=== PATIENT | female | born 1945 | race Caucasian/White ===

== ENCOUNTER → 2020-09-11 15:42 | Outpatient (BNVA) | payer MEDICARE, OTHER, SELFPAY | PROVIDERS: PCP Physician Assistant; Visit Provider Internal Medicine | DX: J45.909 Unspecified asthma, uncomplicated (principal); Z79.51 Long term (current) use of inhaled steroids | CPT/HCPCS: 99212 ==

== ENCOUNTER → 2021-08-19 14:02 | Outpatient (BNVA) | payer MEDICARE, OTHER, SELFPAY | PROVIDERS: PCP Physician Assistant; Visit Provider Internal Medicine | DX: J45.909 Unspecified asthma, uncomplicated (principal); J30.9 Allergic rhinitis, unspecified | CPT/HCPCS: 99212 ==

== ENCOUNTER → 2022-04-13 13:47 | Outpatient (BNVA) | payer MEDICARE, OTHER, SELFPAY | PROVIDERS: PCP Internal Medicine; Visit Provider Internal Medicine | DX: J40 Bronchitis, not specified as acute or chronic (principal); J45.909 Unspecified asthma, uncomplicated | CPT/HCPCS: 71046; 99212 ==

== ENCOUNTER 2022-04-13 14:33 | Outpatient (REF) | payer MEDICARE, OTHER, SELFPAY ==
--- NOTE | ~2022-04-13 | XR_ITS ---
EXAMINATION: XR CHEST CLINICAL INFORMATION: Bronchitis COMPARISON: Previous chest x-ray July 2012 TECHNIQUE: 2 views of the chest were obtained. FINDINGS: The cardiac silhouette does not appear enlarged. There are increased central markings and bronchial wall thickening suggestive of colitis. The lungs are otherwise clear. No evidence of a lobar pneumonia. The thoracic aorta is tortuous. No pleural effusion or pneumothorax. Degenerative changes of the spine. XR/XR chest 2V IMPRESSION: Increased central markings and bronchial wall thickening suggestive of bronchitis. No evidence of a lobar pneumonia.
== END 2022-04-13 14:34 | disposition home or self-care (01) ==
LOC: HO.XRAY 14:33
PROVIDERS: PCP Internal Medicine; Visit Provider Internal Medicine
DX: Z13.89 Encounter for screening for other disorder (principal)
CPT/HCPCS: 71046

== ENCOUNTER → 2022-07-19 14:02 | Outpatient (BNVA) | payer MEDICARE, OTHER, SELFPAY | PROVIDERS: PCP Internal Medicine; Visit Provider Internal Medicine | DX: J45.909 Unspecified asthma, uncomplicated (principal); J30.9 Allergic rhinitis, unspecified | CPT/HCPCS: 99212 ==

== ENCOUNTER 2023-01-17 13:44 | Outpatient (AMB) | payer MEDICARE, OTHER, SELFPAY ==
--- NOTE | 2023-01-17 13:48 | A.OFFVIS_ITS ---
Intake Vital Signs 01/17/23 13:52 Height 5 ft 3 in Weight 206 lb BMI 36.5 BP 110/58 L Blood Pressure Location Lt brachial Position Sitting Pulse 101 H Pulse Source Pulse Oximeter Pulse Oximetry (%) 97 Oxygen Delivery Method Room Air Intake Visit Reasons: Asthma Intake Note: pt is here for follow up and states she feels good, breathing is alright. pt needs a refill on flonase, please send in 3 months at a time, she is set to her mail away pharamacy. Allergies prednisone Adverse Reaction (Severe, Uncoded 01/17/23 14:09) Irritable Medication List - Last Reconciled 01/17/23 by Feliberto Godinez MD amlodipine 5 mg PO DAILY fluticasone propion-salmeterol 250-50 mcg/dose (Advair Diskus) 1 inh inhalation BID 90 days fluticasone propionate 50 mcg/actuation 2 sprays intranasal DAILY PRN hydrochlorothiazide 12.5 mg PO DAILY ipratropium bromide 17 mcg/actuation (Atrovent HFA) 2 puffs inhalation Q8H PRN lisinopril 40 mg PO DAILY omeprazole 20 mg PO DAILY PRN rosuvastatin 10 mg PO BEDTIME Do you need a note to return to daycare/school/sports/work: No HPI Asthma HPI Details 77 years old very pleasant female is here for 6 months follow-up for bronchial asthma and allergic rhinitis. Breathing jurado she has been very stable. She does have mild intermittent nasal congestion but it remains under controlled with the use of Flonase. Breathing status remains well controlled and she uses ipratropium bromide HFA as rescue inhaler only once in a while. She has had no acute respiratory infection. [facility] Medical History Allergic rhinitis Bronchial asthma Bronchitis Social History Patient Tobacco Use Status: Former Tobacco user Years Smoked: 28 Review of Systems Const All systems reviewed & are unremarkable except as noted in HPI and below ENT Reports nasal congestion (Especially in the last 2 weeks) Card Denies chest pain and Denies leg edema Resp Reports cough and Reports wheezing (only once in a while .) GI Reports no additional complaints Musc Reports back pain (low back discomfort ) Neuro Reports no additional complaints Psych Reports no additional complaints Endo Reports no additional complaints Aller/Immun Reports wheezing (only once in a while .) Physical Exam Vital Signs: Last Vital Signs Pulse 101 H 01/17/23 13:52 BP 110/58 L 01/17/23 13:52 Pulse Ox 97 01/17/23 13:52 Oxygen Delivery Method Room Air 01/17/23 13:52 BMI result Body Mass Index 36.5 Const General: comfortable, no acute distress, alert and awake Orientation/consciousness: patient oriented x3 HEENT Head: Yes normal to inspection General nose exam: No nasal polyps present, No nasal discharge present and Other nasal findings present (Has bilateral nasal congestion) Face and sinus: Yes sinuses nontender Mouth: oropharynx normal Throat: Yes posterior oropharynx normal Eyes General: appearance normal, both eyes and all related structures Neck Neck: Yes normal visual inspection, Yes no lymphadenopathy, Yes trachea midline and Yes no JVD Thyroid: Thyroid normal Chest Chest palpation & inspection: normal inspection of the chest, normal palpation of entire chest wall and no tenderness Resp Other: Percussion note is resonant, breath sounds are slightly distant but equal on both sides. Lungs are clear on both sides , no wheezes rhonchi or Creps are heard today. Cardio Palpation: normal PMI Rate: regular rate Rhythm: regular rhythm Heart sounds: no gallops and no murmurs GI Palpation (GI): Soft to palpation, nontender, No hepatosplenomegaly present and no masses Auscultation: normal bowel sounds Back/Spine/Pelvis Thoracic/Lumbar Spine: thoracic and lumbar spine normal to inspection Skin General skin exam: no rashes or lesions noted Neuro General: patient oriented x3 and no focal motor deficits Cranial nerves: Yes CN's II-XII intact bilaterally Extrem General: Yes normal to inspection, Yes no clubbing, cyanosis or edema and Yes no calf tenderness Psych Appearance: grossly normal and well kempt Speech and movement: Normal speech and movement present Assessment & Plan Assessment & Plan (1) Bronchial asthma: Comment: BRONCHIAL ASTHMA Treatment plan: Advair 250-50 1 inhalation b.i.d., but told to cut it down to only once a day if her symptoms are under control. Atrovent MDI 2 puffs Q 6 hours p.r.n. for acute episodes and may use before any heavy physical exertion. Code(s): J45.909 - Unspecified asthma, uncomplicated (2) Allergic rhinitis: Comment: She does have a bout of the allergic rhinitis/sinusitis, in the last few weeks. [place] Flonase 2 spray each nostril daily Also may use Zyrtec 10 mg once a day p.r.n. Code(s): J30.9 - Allergic rhinitis, unspecified Medications: Refilled fluticasone propionate 50 mcg/actuation 2 sprays intranasal DAILY PRN 16 grams 3RF FOR ALLERGIC RHINITIS Coding Level of Care Code Est Pt Level 3 (20324) Diagnoses Bronchial asthma J45.909 Allergic rhinitis J30.9
[2023-01-17 13:52] VITALS: BP 110/58; PULSE 101; O2SAT 97; BMI 36.5
== END 2023-01-17 14:21 | disposition home or self-care (01) ==
PROVIDERS: PCP Internal Medicine; Visit Provider Internal Medicine
DX: J45.909 Unspecified asthma, uncomplicated (principal)
CPT/HCPCS: 99213

== ENCOUNTER → 2023-01-17 13:44 | Outpatient (BNVA) | payer MEDICARE, OTHER, SELFPAY | PROVIDERS: PCP Internal Medicine; Visit Provider Internal Medicine | DX: J45.909 Unspecified asthma, uncomplicated (principal) | CPT/HCPCS: 99212 ==

== ENCOUNTER 2023-07-28 15:57 | Outpatient (AMB) | payer MEDICARE, OTHER, SELFPAY ==
[2023-07-28 16:03] VITALS: BP 120/60; PULSE 87; O2SAT 97; BMI 37.0
--- NOTE | 2023-07-28 16:03 | A.OFFVIS_ITS ---
Intake Vital Signs 07/28/23 16:03 Height 5 ft 3 in Weight 209 lb BMI 37.0 BP 120/60 Blood Pressure Location Lt brachial Position Sitting Pulse 87 Pulse Source Pulse Oximeter Pulse Oximetry (%) 97 Oxygen Delivery Method Room Air Intake Visit Reasons: Asthma Intake Note: pt is here for follow up and states she coughs up thick white phlegm, about 2x a day this happpens. She has a questions on how to use her inhalers. [employer]er Required: No Allergies prednisone Adverse Reaction (Severe, Uncoded 07/28/23 16:29) Irritable Medication List - Last Reconciled 07/28/23 by Feliberto Godinez MD amlodipine 5 mg PO DAILY fluticasone propion-salmeterol 250-50 mcg/dose (Advair Diskus) 1 inh inhalation BID 90 days fluticasone propionate 50 mcg/actuation 2 sprays intranasal DAILY PRN hydrochlorothiazide 12.5 mg PO DAILY ipratropium bromide 17 mcg/actuation (Atrovent HFA) 2 puffs inhalation Q8H PRN lisinopril 40 mg PO DAILY omeprazole 20 mg PO DAILY PRN rosuvastatin 10 mg PO BEDTIME Do you need a note to return to daycare/school/sports/work: No HPI Asthma HPI Details This 77 years old very pleasant female is here for 6 months follow-up. About a month ago she had any acute exacerbation, due to upper respiratory infection. She got better by doubling up the use of Advair and use of albuterol inhaler a few times during the day. Now she has a question whether she should go back to Advair only once a day are stay on 2 a day. She is feeling fine. There is no cough or wheezing However she does have some expectoration of whitish phlegm especially in the morning hours. [facility] Medical History Bronchitis Allergic rhinitis Bronchial asthma Social History Patient Tobacco Use Status: Former Tobacco user Years Smoked: 28 Review of Systems Const All systems reviewed & are unremarkable except as noted in HPI and below ENT Reports nasal congestion (Especially in the last 2 weeks) Card Denies chest pain and Denies leg edema Resp Reports cough and Reports wheezing (only once in a while .) GI Reports no additional complaints Musc Reports back pain (low back discomfort ) Neuro Reports no additional complaints Psych Reports no additional complaints Endo Reports no additional complaints Aller/Immun Reports wheezing (only once in a while .) Physical Exam Vital Signs: Last Vital Signs Pulse 87 07/28/23 16:03 BP 120/60 07/28/23 16:03 Pulse Ox 97 07/28/23 16:03 Oxygen Delivery Method Room Air 07/28/23 16:03 BMI result Body Mass Index 37.0 Const General: comfortable, no acute distress, alert and awake Orientation/consciousness: patient oriented x3 HEENT Head: Yes normal to inspection General nose exam: No nasal polyps present, No nasal discharge present and Other nasal findings present (Has bilateral nasal congestion) Face and sinus: Yes sinuses nontender Mouth: oropharynx normal Throat: Yes posterior oropharynx normal Eyes General: appearance normal, both eyes and all related structures Neck Neck: Yes normal visual inspection, Yes no lymphadenopathy, Yes trachea midline and Yes no JVD Thyroid: Thyroid normal Chest Chest palpation & inspection: normal inspection of the chest, normal palpation of entire chest wall and no tenderness Resp Other: Percussion note is resonant, breath sounds are slightly distant but equal on both sides. Lungs are clear on both sides , no wheezes rhonchi or Creps are heard today. Cardio Palpation: normal PMI Rate: regular rate Rhythm: regular rhythm Heart sounds: no gallops and no murmurs GI Palpation (GI): Soft to palpation, nontender, No hepatosplenomegaly present and no masses Auscultation: normal bowel sounds Back/Spine/Pelvis Thoracic/Lumbar Spine: thoracic and lumbar spine normal to inspection Skin General skin exam: no rashes or lesions noted Neuro General: patient oriented x3 and no focal motor deficits Cranial nerves: Yes CN's II-XII intact bilaterally Extrem General: Yes normal to inspection, Yes no clubbing, cyanosis or edema and Yes no calf tenderness Psych Appearance: grossly normal and well kempt Speech and movement: Normal speech and movement present Assessment & Plan Assessment & Plan (1) Bronchial asthma: Comment: BRONCHIAL ASTHMA , CHRONIC STABLE, T Code(s): J45.909 - Unspecified asthma, uncomplicated Plan: Treatment plan: Advair 250-50 1 inhalation b.i.d., but told to cut it down to only once a day if her symptoms are under control. Go back to bId as soon as symptoms get any worse . Atrovent MDI 2 puffs Q 6 hours p.r.n. for acute episodes and may use before any heavy physical exertion. (2) Allergic rhinitis: Comment: She does have a bout of the allergic rhinitis/sinusitis, in the last few weeks. Code(s): J30.9 - Allergic rhinitis, unspecified Plan: [place] Flonase 2 spray each nostril daily Also may use Zyrtec 10 mg once a day p.r.n. Coding Level of Care Code Est Pt Level 3 (34189) Diagnoses Bronchial asthma J45.909 Allergic rhinitis J30.9
== END 2023-07-28 16:27 | disposition home or self-care (01) ==
PROVIDERS: PCP Internal Medicine; Visit Provider Internal Medicine
DX: J45.909 Unspecified asthma, uncomplicated (principal); J30.9 Allergic rhinitis, unspecified
CPT/HCPCS: 99213

== ENCOUNTER → 2023-07-28 15:57 | Outpatient (BNVA) | payer MEDICARE, OTHER, SELFPAY | PROVIDERS: PCP Internal Medicine; Visit Provider Internal Medicine | DX: J45.909 Unspecified asthma, uncomplicated (principal) | CPT/HCPCS: 99212 ==

== ENCOUNTER 2023-09-19 14:24 | Outpatient (AMB) | payer MEDICARE, OTHER, SELFPAY ==
[2023-09-19 14:29] VITALS: BP 120/58; PULSE 86; TEMP 37.4; O2SAT 94
--- NOTE | 2023-09-19 14:29 | A.OFFVIS_ITS ---
Intake Vital Signs 09/19/23 14:29 BP 120/58 L Blood Pressure Location Lt brachial Position Sitting Pulse 86 Pulse Source Pulse Oximeter Temp 99.4 F Pulse Oximetry (%) 94 Oxygen Delivery Method Room Air Intake Visit Reasons: Cough Intake Note: pt is here for sick visit, that started last Tuesday, with a dry cough than turned into a cough with phlegm, stomach discomfort from coughing, just doesn't feel good. [employer] Risk Analysis Manager Required: No Allergies prednisone Adverse Reaction (Severe, Uncoded 09/19/23 14:50) Irritable Medication List - Last Reconciled 09/19/23 by Feliberto Godinez MD amlodipine 5 mg PO DAILY fluticasone propion-salmeterol 250-50 mcg/dose (Advair Diskus) 1 inh inhalation BID 90 days fluticasone propionate 50 mcg/actuation 2 sprays intranasal DAILY PRN hydrochlorothiazide 12.5 mg PO DAILY ipratropium bromide 17 mcg/actuation (Atrovent HFA) 2 puffs inhalation Q8H PRN lisinopril 40 mg PO DAILY omeprazole 20 mg PO DAILY PRN rosuvastatin 10 mg PO BEDTIME Do you need a note to return to daycare/school/sports/work: No HPI Cough HPI Details THIS 78 YEARS OLD VERY PLEASANT FEMALE, CELEBRATED HER 78TH BIRTHDAY 8 DAYS AGO. A FEW DAYS LATER SHE STARTED HAVING COUGH WITH CHEST CONGESTION AND INCREASED SHORTNESS OF BREATH. . THERE WAS NO DEFINITE FEVER SHE HAD Z-CHRISTY ON HAND AND STARTED TAKING IT 2 DAYS AGO. FOR 1 DAY SHE FELT BETTER BUT THEN STARTED HAVING INCREASED COUGH CONGESTION AND GENERAL FATIGUE. [facility] Medical History Bronchitis Allergic rhinitis Bronchial asthma Social History Patient Tobacco Use Status: Former Tobacco user Years Smoked: 28 Review of Systems Const All systems reviewed & are unremarkable except as noted in HPI and below ENT Reports nasal congestion (Especially in the last 2 weeks) Card Denies chest pain and Denies leg edema Resp Reports cough and Reports wheezing (only once in a while .) GI Reports no additional complaints Musc Reports back pain (low back discomfort ) Neuro Reports no additional complaints Psych Reports no additional complaints Endo Reports no additional complaints Aller/Immun Reports wheezing (only once in a while .) Physical Exam Vital Signs: Last Vital Signs Temp 99.4 F 09/19/23 14:29 Pulse 86 09/19/23 14:29 BP 120/58 L 09/19/23 14:29 Pulse Ox 94 09/19/23 14:29 Oxygen Delivery Method Room Air 09/19/23 14:29 Const General: comfortable, no acute distress, alert and awake Orientation/consciousness: patient oriented x3 HEENT Head: Yes normal to inspection General nose exam: No nasal polyps present, No nasal discharge present and Other nasal findings present (Has bilateral nasal congestion) Face and sinus: Yes sinuses nontender Mouth: oropharynx normal Throat: Yes posterior oropharynx normal Eyes General: appearance normal, both eyes and all related structures Neck Neck: Yes normal visual inspection, Yes no lymphadenopathy, Yes trachea midline and Yes no JVD Thyroid: Thyroid normal Chest Chest palpation & inspection: normal inspection of the chest, normal palpation of entire chest wall and no tenderness Resp Other: Percussion note is resonant, breath sounds are slightly distant but equal on both sides. SHE DOES HAVE SCATTERED WHEEZES OVER THE UPPER PART OF THE CHEST POSTERIORLY. Cardio Palpation: normal PMI Rate: regular rate Rhythm: regular rhythm Heart sounds: no gallops and no murmurs GI Palpation (GI): Soft to palpation, nontender, No hepatosplenomegaly present and no masses Auscultation: normal bowel sounds Back/Spine/Pelvis Thoracic/Lumbar Spine: thoracic and lumbar spine normal to inspection Skin General skin exam: no rashes or lesions noted Neuro General: patient oriented x3 and no focal motor deficits Cranial nerves: Yes CN's II-XII intact bilaterally Extrem General: Yes normal to inspection, Yes no clubbing, cyanosis or edema and Yes no calf tenderness Psych Appearance: grossly normal and well kempt Speech and movement: Normal speech and movement present Assessment & Plan Assessment & Plan (1) Bronchial asthma: Comment: BRONCHIAL ASTHMA , CHRONIC STABLE, Code(s): J45.909 - Unspecified asthma, uncomplicated Plan: Advair Diskus 250-51 inhalation b.i.d. Atrovent HFA 2 puffs Q 6-8 hours p.r.n. for wheezing. (2) Allergic rhinitis: Comment: She does have a bout of the allergic rhinitis/sinusitis, in the last few weeks. Code(s): J30.9 - Allergic rhinitis, unspecified Plan: Continue to use Flonase-52 spray each nostril daily p.r.n. (3) Bronchitis: Comment: She does have acute bronchitis at this time, Chest x-ray ordered to rule out pneumonia. Code(s): J40 - Bronchitis, not specified as acute or chronic Plan: Complete the course of Z-Christy. Medrol Dosepak # 1 If chest x-ray shows any infiltrate she may need to be treated with more appropriate antibiotic agent. Orders: Orders XR chest 2V Today J40 - Bronchitis, not specified as acute or chronic, J45.909 - Unspecified asthma, uncomplicated Medications: New methylprednisolone (Medrol (Christy)) 4 mg PO PER PKG DIR 21 ea 0RF asthma excerbation 6 days Coding Level of Care Code Est Pt Level 3 (79462) Diagnoses Bronchial asthma J45.909 Allergic rhinitis J30.9 Bronchitis J40
== END 2023-09-19 15:00 | disposition home or self-care (01) ==
PROVIDERS: PCP Internal Medicine; Visit Provider Internal Medicine
DX: J45.909 Unspecified asthma, uncomplicated (principal); J30.9 Allergic rhinitis, unspecified
CPT/HCPCS: 99213

== ENCOUNTER 2023-09-19 14:24 | Outpatient (REF) | payer MEDICARE, OTHER, SELFPAY ==
--- NOTE | ~2023-09-19 | XR_ITS ---
EXAMINATION: XR CHEST CLINICAL INFORMATION: Acute bronchitis COMPARISON: 04/13/2022 TECHNIQUE: 2 views of the chest were obtained. FINDINGS: There are mildly increased interstitial markings and there is small patchy area identified in the left upper lobe in the right upper lobe possibly early pneumonias. There is patchiness in the lingula as well. Cardiomediastinal silhouette is normal. There is no pleural effusion seen. XR/XR chest 2V IMPRESSION: Prominent interstitial markings and most likely small foci of pneumonia.
== END 2023-09-19 14:25 | disposition home or self-care (01) ==
LOC: HO.XRAY 14:24
PROVIDERS: PCP Internal Medicine; Visit Provider Internal Medicine
DX: J45.909 Unspecified asthma, uncomplicated (principal)
CPT/HCPCS: 71046; 99212

== ENCOUNTER 2023-12-13 13:43 | Outpatient (AMB) | payer MEDICARE, OTHER, SELFPAY ==
--- NOTE | 2023-12-13 13:42 | MHC.OFFVIS ---
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 Complaints include pain over varicosities, swelling of lower extremities, cramping, fatigue, and heaviness of the lower extremities. It has been affecting there daily activities including walking. It is noted more so in right leg. She attributes a lot of this discomfort secondary to pneumonia and the prednisone that she was given with that. She also has a history of breast cancer Patient reports what seems to be microphlebectomy of the right lower extremity nearly 4-5 years ago done at [place] Patient denies any history of DVT/ PE. Patient denies any history of phlebitis. Trial of compression includes - [id number] They now present for vascular evaluation regarding their varicose veins. [facility] Medical History (Updated 12/13/23 @ 14:08 by Adan Valdivia MD) Diabetes Bronchitis Allergic rhinitis Bronchial asthma Social History Patient Tobacco Use Status: Former Tobacco user Years Smoked: 28 Review of Systems Const Reports as per HPI ENT Reports no additional complaints Card Denies chest pain, Denies chest pain at rest and Denies chest pain with activity Resp Denies chest congestion and Denies cough GI Reports no additional complaints Musc Details: pain over varicosities, aching of lower extremities, swelling, cramping, heaviness and tiredness, itching Denies abnormal gait Skin/Breast Reports pruritus and Denies wounds Neuro Reports no additional complaints and Denies abnormal gait Psych Denies no additional complaints Physical Exam Vital Signs: BMI result Body Mass Index 37.0 Const General: cooperative, healthy appearing and comfortable Orientation/consciousness: oriented to person, oriented to place and oriented to time Neck Carotids: no bruits Chest Chest palpation & inspection: normal inspection of the chest and normal palpation of entire chest wall Resp Effort & Inspection: normal respiratory effort and able to speak in complete sentences Cardio Rate: regular rate Heart sounds: S1 normal heart sound present and S2 normal heart sound present Peripheral pulses: Peripheral pulses 2+ throughout GI Inspection: Yes normal to inspection Skin Other: +2 edema, large rope-like varicosities greater than 4 mm more so right calf CEAP Classification C4 - skin color changes Ep - Etiology Primary As - superficial veins P - reflux General skin exam: dry skin Neuro General: oriented to person, oriented to place and oriented to time Extrem Right lower extremity: full ROM, normal capillary refill and edema Left lower extremity: full ROM, normal capillary refill and edema Psych Mental Status: mental status grossly normal Assessment & Plan Assessment & Plan (1) Varicose veins of right lower extremity with inflammation: Code(s): I83.11 - Varicose veins of right lower extremity with inflammation Category: Medical Plan: In short, the patient has evidence of venous insufficiency. I have discussed the pathophysiology with the patient. In addition I have provided informational material regarding venous disease to the patient. We have discussed conservative measures including compression, elevation, and exercise. I have also provided a handout regarding appropriate use of compression stockings and where to purchase good compression stockings as well. I have taken the liberty of ordering venous insufficiency testing with the patient. They will follow up with me after testing. The patient had an opportunity to ask questions regarding the treatment plan. All questions were answered. Imaging studies, laboratory studies and physical exam results were discussed and reviewed in detail. No major barriers to understanding were identified. The patient expressed understanding and agreement with the above treatment plan. The patient is aware they should contact our office by phone for worsening of the current condition or the appearance of new symptoms. Thank you for allowing me to participate in the vascular care of this patient. If you have any questions or concerns regarding the treatment for the above condition please do not hesitate to contact me. The office telephone contact is [phone]. This note is constructed using voice recognition software. While every effort has been made to ensure accuracy, fighter pilot errors may have been included. Thank you for allowing me to participate in the care of your patient. Yours sincerely, Adan Valdivia MD, FACS, R.P.V.I. Orders: Orders US venous duplex LE BI 1 Week I83.11 - Varicose veins of right lower extremity with inflammation Coding Level of Care Code New Pt Level 4 (92715) Diagnoses Varicose veins of right lower extremity with inflammation I83.11
[2023-12-13 13:43] VITALS: BMI 37.0
== END 2023-12-13 14:13 | disposition home or self-care (01) ==
LOC: HO.HVS 13:43
PROVIDERS: PCP Internal Medicine; Visit Provider Surgery Vascular Surgery
DX: I83.11 Varicose veins of right lower extremity with inflammation (principal)
CPT/HCPCS: 99203

== ENCOUNTER → 2023-12-13 13:43 | Outpatient (BNVA) | payer MEDICARE, OTHER, SELFPAY | PROVIDERS: PCP Internal Medicine; Visit Provider Surgery Vascular Surgery | DX: I83.11 Varicose veins of right lower extremity with inflammation (principal) | CPT/HCPCS: 99202 ==

== ENCOUNTER 2024-01-02 15:25 | Outpatient (AMB) | payer MEDICARE, OTHER, SELFPAY ==
--- NOTE | 2024-01-02 15:27 | A.OFFVIS_ITS ---
Vital Signs 01/02/24 15:28 Height 5 ft 3 in Weight 203 lb 14.841 oz BMI 36.1 BP 118/64 Blood Pressure Location Lt brachial Position Sitting Pulse 92 Pulse Source Pulse Oximeter Pulse Oximetry (%) 96 Oxygen Delivery Method Room Air Intake Visit Reasons: hospital follow up Allergies No Known Allergies Allergy (Verified 01/02/24 15:53) Medication List - Last Reconciled 01/02/24 by Feliberto Godinez MD amlodipine 5 mg PO DAILY fluticasone propion-salmeterol 250-50 mcg/dose (Advair Diskus) 1 inh inhalation BID 90 days fluticasone propionate 50 mcg/actuation 2 sprays intranasal DAILY PRN hydrochlorothiazide 12.5 mg PO DAILY ipratropium bromide 17 mcg/actuation (Atrovent HFA) 2 puffs inhalation Q8H PRN lisinopril 40 mg PO DAILY methylprednisolone (Medrol (Francisco)) 4 mg PO PER PKG DIR 6 days omeprazole 20 mg PO DAILY PRN rosuvastatin 10 mg PO BEDTIME Do you need a note to return to daycare/school/sports/work: No HPI HPI hospital follow up: Details: OWEN IS 78 YEARS OLD FEMALE, WHO HAS BEEN FOLLOWED FOR MANY YEARS FOR BRONCHIAL ASTHMA, SHE GETS ACUTE EXACERBATION ONCE OR TWICE A YEAR .OTHERWISE STAYS WELL. SHE WAS ADMITTED TO [facility] LAST WEEK WITH AN ACUTE EXACERBATION, PROBABLY AFTER EXPOSURE TO HER GRAND CHILD WHO WAS SICK. SHE WAS TOLD THAT SHE HAD A TOUCH OF PNEUMONIA, TREATED WITH ANTIBIOTIC AND IV STEROIDS . SHE WAS DISCHARGED ON PREDNISONE TAPER, AND ADVISED TO CONTINUE HER REGULAR INHALERS. DURING THE HOSPITAL HER O2 SAT WAS SOMEWHAT LOW AND SHE DECLINED TO HAVE O2 AT HOME. COMES TODAY FOR FO.LLOW-UP SHE FEELS BACK T.O HER BASELI NE SLIGHTLY SHORT OF BREATH WHEN SH.E WALKS HAS VERY LITTLE COUGH. NO WHEEZING. SHE HIS THE ON PREDNISONE 20 MG A DAY, WILL SWITCH TO 10 MG A DAY FOR 3 DAYS AND THEN STOP. [facility] Medical History (Updated 01/02/24 @ 16:05 by Feliberto Godinez MD) Diabetes Bronchitis Allergic rhinitis Bronchial asthma Social History Patient Tobacco Use Status: Former Tobacco user Years Smoked: 28 Review of Systems Const All systems reviewed & are unremarkable except as noted in HPI and below ENT Reports nasal congestion (Especially in the last 2 weeks) Card Denies chest pain and Denies leg edema Resp Reports cough and Reports wheezing (only once in a while .) GI Reports no additional complaints Musc Reports back pain (low back discomfort ) Neuro Reports no additional complaints Psych Reports no additional complaints Endo Reports no additional complaints Aller/Immun Reports wheezing (only once in a while .) Physical Exam Vital Signs: BMI result Body Mass Index 36.1 Const General: comfortable, no acute distress, alert and awake Orientation/consciousness: patient oriented x3 HEENT Head: Yes normal to inspection General nose exam: No nasal polyps present, No nasal discharge present and Other nasal findings present (Has bilateral nasal congestion) Face and sinus: Yes sinuses nontender Mouth: oropharynx normal Throat: Yes posterior oropharynx normal Eyes General: appearance normal, both eyes and all related structures Neck Neck: Yes normal visual inspection, Yes no lymphadenopathy, Yes trachea midline and Yes no JVD Thyroid: Thyroid normal Chest Chest palpation & inspection: normal inspection of the chest, normal palpation of entire chest wall and no tenderness Resp Other: Percussion note is resonant, breath sounds are slightly distant but equal on both sides. lungs are basically clear today and I do not hear any wheezes rhonchi or crepitations. Cardio Palpation: normal PMI Rate: regular rate Rhythm: regular rhythm Heart sounds: no gallops and no murmurs GI Palpation (GI): Soft to palpation, nontender, No hepatosplenomegaly present and no masses Auscultation: normal bowel sounds Back/Spine/Pelvis Thoracic/Lumbar Spine: thoracic and lumbar spine normal to inspection Skin General skin exam: no rashes or lesions noted Neuro General: patient oriented x3 and no focal motor deficits Cranial nerves: Yes CN's II-XII intact bilaterally Extrem General: Yes normal to inspection, Yes no clubbing, cyanosis or edema and Yes no calf tenderness Psych Appearance: grossly normal and well kempt Speech and movement: Normal speech and movement present Assessment & Plan Assessment & Plan (1) Bronchial asthma: Comment: BRONCHIAL ASTHMA , CHRONIC STABLE, Treated in the hospital for an acute exacerbation, probably due to minimal pneumonitis. she has recovered from the acute exacerbation, and is at baseline . she was made to walk for 5 minutes in the hallway. O2 sat at rest 97%, after walking 95% she was not overly dyspneic. Code(s): J45.909 - Unspecified asthma, uncomplicated Category: Medical Plan: complete the co.urse of prednisone. continue Advair 250-50 1 inhalation b.i.d. Atrovent HFA 2 puffs Q 4-6 hours p.r.n. ( can not use albuterol) patient will keep a short supply of prednisone on hand and take it p.r.n. if she gets acute infection / exacerbation. (2) Allergic rhinitis: Comment: she has tendency to have intermittent nasal congestion probably due to allergic rhinitis. Code(s): J30.9 - Allergic rhinitis, unspecified Category: Medical Plan: use Flonase- 52 sprays in each nostril daily as needed Medications: New prednisone 20 mg PO BID 5 days 10 tabs 0RF excerbation of Asthma Refilled ipratropium bromide 17 mcg/actuation (Atrovent HFA) 2 puffs inhalation Q8H PRN 38.7 ea 3RF for wheezing J45.909 - Unspecified asthma, uncomplicated Coding Level of Care Code Est Pt Level 3 (46084) Diagnoses Bronchial asthma J45.909 Allergic rhinitis J30.9
[2024-01-02 15:28] VITALS: BP 118/64; PULSE 92; O2SAT 96; BMI 36.1
== END 2024-01-02 15:54 | disposition home or self-care (01) ==
PROVIDERS: PCP Family Medicine; Visit Provider Internal Medicine
DX: J45.909 Unspecified asthma, uncomplicated (principal); J30.9 Allergic rhinitis, unspecified
CPT/HCPCS: 99213

== ENCOUNTER → 2024-01-02 15:25 | Outpatient (BNVA) | payer MEDICARE, OTHER, SELFPAY | PROVIDERS: PCP Family Medicine; Visit Provider Internal Medicine | DX: J45.909 Unspecified asthma, uncomplicated (principal) | CPT/HCPCS: 99212 ==

== ENCOUNTER 2024-01-20 10:15 | Outpatient (REF) | payer MEDICARE, OTHER, SELFPAY ==
--- NOTE | ~2024-01-20 | US_ITS ---
EXAMINATION: US LOWER EXTREMITY VENOUS (REFLUX EXAM), BILATERAL CLINICAL INDICATION: History of varicose veins with inflammation. History of prior right great saphenous vein ablation COMPARISON: None. TECHNIQUE: Color flow triplex imaging and compression Doppler was performed to evaluate both the deep and the superficial systems bilaterally. To evaluate the superficial system, the examination was performed in the upright position. Color-flow Doppler ultrasound and compression ultrasound were utilized. In addition, maneuvers were utilized to demonstrate reflux. FINDINGS: 1. DEEP VENOUS ULTRASOUND OF THE RIGHT LOWER EXTREMITY: Common Femoral Vein: Compressible, normal respiratory variation and augmented flow. Femoral Vein: Compressible, normal color flow and augmentation. Popliteal Vein: Compressible, normal augmentation. Deep Reflux: There is no evidence of reflux in the deep system in either the common femoral vein, superficial femoral or the popliteal vein. There is no evidence of a Villagran's cyst. 2. SUPERFICIAL ULTRASOUND WITH DOPPLER OF RIGHT LOWER EXTREMITY: GREAT SAPHENOUS VEIN: Saphenofemoral Junction: 0.6 cm; Reflux: 0 ms Proximal Thigh: 0.4 cm cm; Reflux: 1144 ms Mid Thigh: Not visualized Above Knee: Not visualized At Knee: 0.5 cm; occluded Below Knee: 0.4 cm; Reflux: 3332 ms Mid Calf: 0.4 cm; Reflux: 0 ms Ankle: 0.2 cm; Reflux: 0 ms DUPLICATED MEDIAL GREAT SAPHENOUS VEIN: Diameter: None imaged Reflux: NA DUPLICATED LATERAL GREAT SAPHENOUS VEIN: Diameter: 0.4 cm Reflux: None SMALL SAPHENOUS VEIN: Saphenopopliteal Junction: 0.6 cm; Reflux: 0 ms Proximal: 0.4 cm; Reflux: 0 ms Distal: 0.3 cm; Reflux: 0 ms VEIN OF GIACOMINI: Size: NA Reflux: NA PERFORATORS: Location: Mid calf Size: 0.5 cm Reflux: 3132 ms VARICOSITIES: Location: Mid calf arising from the lawn care technician Size: 0.3 cm Reflux: 1924 ms VARICOSITIES: Location: Distal calf off the great saphenous vein Size: 0.4 cm Reflux: 2616 ms 3. DEEP VENOUS ULTRASOUND OF THE LEFT LOWER EXTREMITY: Common Femoral Vein: Compressible, normal respiratory variation and augmented flow. Femoral Vein: Compressible, normal color flow and augmentation. Popliteal Vein: Compressible, normal augmentation. Deep Reflux: There is no evidence of reflux in the deep system in either the common femoral vein, superficial femoral or the popliteal vein. There is no evidence of a Villagran's cyst. 4. SUPERFICIAL ULTRASOUND WITH DOPPLER OF LEFT LOWER EXTREMITY: GREAT SAPHENOUS VEIN: Saphenofemoral Junction: 0.6 cm; Reflux: 0 ms Proximal Thigh: 0.4 cm; Reflux: 0 ms Mid Thigh: 0.3 cm; Reflux: 0 ms Above Knee: 0.2 cm; Reflux: 0 ms At Knee: 0.3 cm; Reflux: 0 ms Below Knee: 0.2 cm; Reflux: 0 ms Mid Calf: 0.2 cm; Reflux: 0 ms Ankle: 0.3 cm; Reflux: 0 ms DUPLICATED MEDIAL GREAT SAPHENOUS VEIN: Diameter: 0.3 cm Reflux: None DUPLICATED LATERAL GREAT SAPHENOUS VEIN: Diameter: None imaged Reflux: NA SMALL SAPHENOUS VEIN: Saphenopopliteal Junction: 0.6 cm; Reflux: 2560 ms Proximal: 0.3 cm; Reflux: 2688 ms Distal: 0.4 cm; Reflux: 2496 ms VEIN OF GIACOMINI: Size: NA Reflux: NA PERFORATORS: Location: None significant Size: NA Reflux: NA VARICOSITIES: Location: None significant Size: NA Reflux: NA US/US venous duplex LE BI IMPRESSION: Right: Great saphenous vein not visualized/occluded within the thigh and knee consistent with prior ablation/closure. Residual segments of the great saphenous vein in the proximal thigh and proximal calf demonstrate reflux as described above. There are varicose veins in the calf with reflux as described above Left: Severe reflux throughout the small saphenous vein. No significant reflux in the great saphenous vein.
== END 2024-01-20 10:16 | disposition home or self-care (01) ==
LOC: HO.US 10:15
PROVIDERS: PCP Family Medicine; Visit Provider Surgery Vascular Surgery
DX: I83.11 Varicose veins of right lower extremity with inflammation (principal)
CPT/HCPCS: 93970

== ENCOUNTER 2024-04-03 14:52 | Outpatient (AMB) | payer MEDICARE, OTHER, SELFPAY ==
[2024-04-03 14:58] VITALS: BMI 35.6
--- NOTE | 2024-04-03 14:58 | A.OFFVIS_ITS ---
Vital Signs 04/03/24 14:58 Height 5 ft 3 in Weight 201 lb BMI 35.6 Intake Visit Reasons: follow up 01/20/24 Intake Note: follow up 01/20/24, was being seen for bilateral LE swelling. States its not so bad right now and has lost some weight which has helped as well she states. Accompanied by: Self / Same As Patient Allergies No Known Allergies Allergy (Verified 04/03/24 15:00) HPI HPI follow up [facility] 01/20/24: Details: Emre is a pleasant 78-year-old female presenting today for follow-up to [facility]. This appointment was rescheduled from her previous time. She currently has no complaints but states that she sometimes, very infrequently, she has lower bilateral extremity pain, right more than left. She currently does not have any pain. She also states that the swelling has gone down significantly since her last visit; due to not being on her feet as much and losing some weight. She does elevate her legs and feet at home. She has not been using compression stockings. She does have a history of a microphlebectomy of her right lower extremity done by a vascular surgeon in [facility] 3-4 years ago, whom she has seen before. She does not walk for physical activity but she does participate in ballroom dancing; however, this has been difficult due to ongoing bilateral hip and lower back pain with sciatica. She denies any numbness or tingling in her extremities. She denies any heaviness or tiredness in bilateral lower extremities. [facility], LAT[facility] Medical History Diabetes Bronchitis Allergic rhinitis Bronchial asthma Social History Patient Tobacco Use Status: Former Tobacco user Years Smoked: 28 Review of Systems Const Reports as per HPI and Denies weakness ENT Reports Normal hearing present and Denies dizziness Card Reports as per HPI, Denies chest pain, Denies chest pain at rest, Denies chest pain with activity, Denies dyspnea and Denies dyspnea on exertion Resp Reports as per HPI, Denies cough, Denies dyspnea and Denies dyspnea on exertion GI Reports as per HPI, Denies abdominal pain, Denies nausea and Denies vomiting Musc Denies numbness Skin/Breast Reports as per HPI, Denies erythema and Denies wounds Neuro Reports Normal hearing present, Denies dizziness, Denies numbness, Denies Sensory deficit (Neuro) and Denies weakness Psych Reports no additional complaints Endo Reports no additional complaints Physical Exam Vital Signs: BMI result Body Mass Index 35.6 Const General: healthy appearing and no acute distress Orientation/consciousness: patient oriented x3 HEENT Head: Yes normal to inspection Ears: hearing grossly normal bilaterally Mouth: Normal oral and palatal mucosa present Resp Effort & Inspection: normal respiratory effort and able to speak in complete sentences Auscultation: clear to auscultation bilaterally Cardio Jugular venous distension: no JVD Rate: regular rate Rhythm: regular rhythm Heart sounds: S1 normal heart sound present and S2 normal heart sound present Bruits: no abdominal aortic bruits, no carotid bruits, no femoral bruits and no renal bruits Peripheral pulses: Peripheral pulses 2+ throughout GI Inspection: Yes normal to inspection Palpation (GI): No Abdominal aortic bruit present Skin Other: CEAP C: 3, edema E: primary etiology A: superficial P: reflux Minimal peripheral edema noted in bilateral lower extremities. Positive palpable DP pulses bilaterally General skin exam: no rashes or lesions noted Wounds: no wounds Hair: normal Neuro General: patient oriented x3 Cranial nerves: Yes Normal hearing present Cognition (Neuro): normal cognition Gait exam (Neuro): Normal gait present Motor exam (neuro): 5/5 motor strength present throughout Sensory Exam: No Sensory deficit (Neuro) Extrem General: Yes normal to inspection, Yes full ROM, Yes capillary refill normal and Yes normal gait Results Reviewed Results Reviewed: USVI results reviewed Assessment & Plan Assessment & Plan (1) Varicose veins of both lower extremities with inflammation: Code(s): I83.11 - Varicose veins of right lower extremity with inflammation; I83.12 - Varicose veins of left lower extremity with inflammation Category: Medical Plan: Emre is presenting for a follow-up to imaging. She currently remains asymptomatic with no complaints of bilateral extremity pain, heaviness, or tiredness. She states the bilateral lower extremity swelling has decreased significantly and has not been on her feet as much as she was earlier this year. She currently is also followed by a vascular surgeon in [place]. She states that she is being followed by another doctor for both her hip pain and sciatica and low back pain. We discussed that this could be part of the issues with her lower legs as well. We discussed the results of the ultrasound. In short, the patient does have evidence of venous insufficiency; however, there is no indication (asymptomatic) for surgical intervention. I have discussed the pat hophysiology with the patient. We have discussed conservative measures including compression, elevation, and exercise. She does endorse that exercise is difficult due to the bilateral hip and lower back pain. She has previously been provided information about compression stockings. The patient had an opportunity to ask questions regarding the treatment plan. All questions were answered. Imaging studies, laboratory studies and physical exam results were discussed and reviewed in detail. No major barriers to understanding were identified. The patient expressed understanding and agreemen t with the above treatment plan. The patient is aware they should contact our office by phone for worsening of the current condition or the appearance of new symptoms. Thank you for allowing me to participate in the vascular care of this patient. If you have any questions or concerns regarding the treatment for the above condition please do not hesitate to contact me. The office telephone contact is [phone]. She states she will likely get a 2nd opinion by her other vascular surgeon in [place]. She states she will download the ultrasound results from her chart. This note is constructed using voice recognition software. While every effort has been made to ensure accuracy, catering convention services manager errors may have been included. Thank you for allowing me to participate in the care of your patient. 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
== END 2024-04-03 15:16 | disposition home or self-care (01) ==
LOC: HO.HVS 14:52
PROVIDERS: PCP Family Medicine; Visit Provider Physician Assistant Surgical
DX: I83.11 Varicose veins of right lower extremity with inflammation (principal); I83.12 Varicose veins of left lower extremity with inflammation
CPT/HCPCS: 99214

== ENCOUNTER → 2024-04-03 14:52 | Outpatient (BNVA) | payer MEDICARE, OTHER, SELFPAY | PROVIDERS: PCP Family Medicine; Visit Provider Physician Assistant Surgical | DX: I83.11 Varicose veins of right lower extremity with inflammation (principal); I83.12 Varicose veins of left lower extremity with inflammation | CPT/HCPCS: 99212 ==

== ENCOUNTER 2024-04-09 15:25 | Outpatient (AMB) | payer MEDICARE, OTHER, SELFPAY ==
[2024-04-09 15:31] VITALS: BP 130/60; PULSE 88; O2SAT 97; BMI 35.8
--- NOTE | 2024-04-09 15:31 | MHC.OFFVIS ---
Vital Signs 04/09/24 15:31 Height 5 ft 3 in Weight 202 lb BMI 35.8 BP 130/60 Blood Pressure Location Lt brachial Position Sitting Pulse 88 Pulse Source Pulse Oximeter Pulse Oximetry (%) 97 Oxygen Delivery Method Room Air Intake Visit Reasons: Cough Intake Note: pt is here for follow up of cough and is doing well, sometimes it occurs at night which she needs water. this happens only sometimes. Cadd Technician Required: No Allergies No Known Allergies Allergy (Verified 04/09/24 15:35) Medication List - Last Reconciled 04/09/24 by Feliberto Godinez MD amlodipine 5 mg PO DAILY fluticasone propion-salmeterol 250-50 mcg/dose (Advair Diskus) 1 inh inhalation BID 90 days fluticasone propionate 50 mcg/actuation 2 sprays intranasal DAILY PRN hydrochlorothiazide 12.5 mg PO DAILY ipratropium bromide 17 mcg/actuation (Atrovent HFA) 2 puffs inhalation Q8H PRN lisinopril 40 mg PO DAILY omeprazole 20 mg PO DAILY PRN rosuvastatin 10 mg PO BEDTIME Do you need a note to return to daycare/school/sports/work: No HPI HPI Cough: Details: THIS 78 YEARS OLD VERY PLEASANT FEMALE OF [place] ORIGIN, IS HERE FOR HER 6 MONTHS FOLLOW-UP, FOR BRONCHIAL ASTHMA. SHE HAS REMAINED VERY STABLE AND FREE OF ACUTE EXACERBATIONS SINCE HER LAST VISIT. USES FLUTICASONE PROPIONATE -SALMETEROL 250-50 1 INHALATION B.I.D. BUT HER ASTHMA HAS REMAINED WELL CONTROLLED FOR THE PAST FEW MONTHS SHE IS USING IT ONLY ONCE A DAY AND HAS STAYED WELL. RECENTLY FOR THE PAST FEW WEEKS SHE IS HAVING SOME DRY COUGH AT NIGHT, AND GETS BETTER AFTER DRINKING WATER AND ALSO USING SALINE SPRAY IN EACH NOSTRIL. SHE REMAINS VERY ACTIVE AND DANCES ONCE OR TWICE A WEEK. [facility] Medical History Diabetes Bronchitis Allergic rhinitis Bronchial asthma Social History Patient Tobacco Use Status: Former Tobacco user Years Smoked: 28 Review of Systems Const All systems reviewed & are unremarkable except as noted in HPI and below ENT Reports nasal congestion (Especially in the last 2 weeks) Card Denies chest pain and Denies leg edema Resp Reports cough and Reports wheezing (only once in a while .) GI Reports no additional complaints Musc Reports back pain (low back discomfort ) Neuro Reports no additional complaints Psych Reports no additional complaints Endo Reports no additional complaints Aller/Immun Reports wheezing (only once in a while .) Physical Exam Vital Signs: Last Vital Signs Pulse 88 04/09/24 15:31 BP 130/60 04/09/24 15:31 Pulse Ox 97 04/09/24 15:31 Oxygen Delivery Method Room Air 04/09/24 15:31 BMI result Body Mass Index 35.8 Const General: comfortable, no acute distress, alert and awake Orientation/consciousness: patient oriented x3 HEENT Head: Yes normal to inspection General nose exam: No nasal polyps present, No nasal discharge present and Other nasal findings present (Has bilateral nasal congestion) Face and sinus: Yes sinuses nontender Mouth: oropharynx normal Throat: Yes posterior oropharynx normal Eyes General: appearance normal, both eyes and all related structures Neck Neck: Yes normal visual inspection, Yes no lymphadenopathy, Yes trachea midline and Yes no JVD Thyroid: Thyroid normal Chest Chest palpation & inspection: normal inspection of the chest, normal palpation of entire chest wall and no tenderness Resp Other: Percussion note is resonant, breath sounds are slightly distant but equal on both sides. lungs are basically clear today and I do not hear any wheezes rhonchi or crepitations. Cardio Palpation: normal PMI Rate: regular rate Rhythm: regular rhythm Heart sounds: no gallops and no murmurs GI Palpation (GI): Soft to palpation, nontender, No hepatosplenomegaly present and no masses Auscultation: normal bowel sounds Back/Spine/Pelvis Thoracic/Lumbar Spine: thoracic and lumbar spine normal to inspection and thoraco-lumbar ROM limited Skin General skin exam: no rashes or lesions noted Neuro General: patient oriented x3 and no focal motor deficits Cranial nerves: Yes CN's II-XII intact bilaterally Extrem General: Yes normal to inspection, Yes no clubbing, cyanosis or edema and Yes no calf tenderness Psych Appearance: grossly normal and well kempt Speech and movement: Normal speech and movement present Assessment & Plan Assessment & Plan (1) Allergic rhinitis: Comment: she has tendency to have intermittent nasal congestion probably due to allergic rhinitis. Code(s): J30.9 - Allergic rhinitis, unspecified Category: Medical Plan: USE FLONASE -50 2 SPRAY IN EACH NOSTRIL DAILY BUT P.R.N. WHEN THERE IS A BOUT OF NASAL CONGESTION (2) Bronchial asthma: Comment: BRONCHIAL ASTHMA , CHRONIC STABLE, AT PRESENT VERY STABLE AND CONTROLLED Code(s): J45.909 - Unspecified asthma, uncomplicated Category: Medical Plan: ADVAIR 250-51 INHALATION B.I.D., BUT WHEN SYMPTOMS ARE UNDER CONTROLLED SHE MIGHT USE IT ONLY ONCE A DAY. IPRATROPIUM BROMIDE HFA USE 2 PUFFS Q 6 HOURS P.R.N. FOR ACUTE ATTACKS. SHE KEEPS MEDROL DOSE PACK ON HAND TO USE IN EMERGENCY. Coding Level of Care Code Est Pt Level 3 (18854) Diagnoses Allergic rhinitis J30.9 Bronchial asthma J45.909
== END 2024-04-09 15:57 | disposition home or self-care (01) ==
PROVIDERS: PCP Family Medicine; Visit Provider Internal Medicine
DX: J30.9 Allergic rhinitis, unspecified (principal); J45.909 Unspecified asthma, uncomplicated
CPT/HCPCS: 99213

== ENCOUNTER → 2024-04-09 15:25 | Outpatient (BNVA) | payer MEDICARE, OTHER, SELFPAY | PROVIDERS: PCP Family Medicine; Visit Provider Internal Medicine | DX: J45.909 Unspecified asthma, uncomplicated (principal) | CPT/HCPCS: 99212 ==

== ENCOUNTER 2024-09-04 15:22 | Outpatient (AMB) | payer MEDICARE, OTHER, SELFPAY ==
[2024-09-04 15:24] VITALS: BP 110/52; PULSE 77; O2SAT 95; BMI 36.3
--- NOTE | 2024-09-04 15:24 | MHC.OFFVIS ---
Vital Signs 09/04/24 15:24 Height 5 ft 3 in Weight 205 lb 0.478 oz BMI 36.3 BP 110/52 L Blood Pressure Location Lt brachial Position Sitting Pulse 77 Pulse Source Pulse Oximeter Pulse Oximetry (%) 95 Oxygen Delivery Method Room Air Intake Visit Reasons: cough Intake Note: pt is here for follow up and states her allergies and cough are back due to spring time Allergies No Known Allergies Allergy (Verified 09/04/24 15:42) Medication List - Last Reconciled 09/04/24 by Feliberto Godinez MD amlodipine 5 mg PO DAILY fluticasone propion-salmeterol 250-50 mcg/dose (Advair Diskus) 1 inh inhalation BID 90 days fluticasone propionate 50 mcg/actuation 2 sprays intranasal DAILY PRN hydrochlorothiazide 12.5 mg PO DAILY ipratropium bromide 17 mcg/actuation (Atrovent HFA) 2 puffs inhalation Q8H PRN lisinopril 40 mg PO DAILY omeprazole 20 mg PO DAILY PRN rosuvastatin 10 mg PO BEDTIME Do you need a note to return to daycare/school/sports/work: No HPI HPI cough: Details: THIS 78 YEARS OLD VERY PLEASANT FEMALE IS HERE FOR 6 MONTHS FOLLOW-UP. ASTHMA/COPD IS WELL CONTROLLED. SHE NEEDS TO USE ATROVENT INHALER A RESCUE INHALER ONCE OR TWICE A DAY. THAT IS ONLY WHEN SHE EXERTS SUCH WHEN DANCING OR CLIMBING STAIRS, LUCKILY SHE HAS HAD NO ACUTE INFECTION OR ACUTE EXACERBATION IN THE LAST 6 MONTHS, SHE HAS ALLERGIC RHINITIS WHICH FLARES UP WITH THE CHANGE OF WEATHER. AND NOW IN spring SHE HAS INCREASED NASAL CONGESTION WITH SOME SNEEZING. SHE TREATS IT WITH FLONASE 2 SPRAY IN EACH NOSTRIL DAILY. AND USE OF NASAL POTTY. [facility] Medical History Diabetes Bronchitis Allergic rhinitis Bronchial asthma Social History Patient Tobacco Use Status: Former Tobacco user Years Smoked: 28 Review of Systems Const All systems reviewed & are unremarkable except as noted in HPI and below ENT Reports nasal congestion (Especially in the last 2 weeks) Card Denies chest pain and Denies leg edema Resp Reports cough and Reports wheezing (only once in a while .) GI Reports no additional complaints Musc Reports back pain (low back discomfort ) Neuro Reports no additional complaints Psych Reports no additional complaints Endo Reports no additional complaints Aller/Immun Reports wheezing (only once in a while .) Physical Exam Vital Signs: Last Vital Signs Pulse 77 09/04/24 15:24 BP 110/52 L 09/04/24 15:24 Pulse Ox 95 09/04/24 15:24 Oxygen Delivery Method Room Air 09/04/24 15:24 BMI result Body Mass Index 36.3 Const General: comfortable, no acute distress, alert and awake Orientation/consciousness: patient oriented x3 HEENT Head: Yes normal to inspection General nose exam: No nasal polyps present, No nasal discharge present and Other nasal findings present (Has bilateral nasal congestion) Face and sinus: Yes sinuses nontender Mouth: oropharynx normal Throat: Yes posterior oropharynx normal Eyes General: appearance normal, both eyes and all related structures Neck Neck: Yes normal visual inspection, Yes no lymphadenopathy, Yes trachea midline and Yes no JVD Thyroid: Thyroid normal Chest Chest palpation & inspection: normal inspection of the chest, normal palpation of entire chest wall and no tenderness Resp Other: Percussion note is resonant, breath sounds are slightly distant but equal on both sides. lungs are basically clear today and I do not hear any wheezes rhonchi or crepitations. Cardio Palpation: normal PMI Rate: regular rate Rhythm: regular rhythm Heart sounds: no gallops and no murmurs GI Palpation (GI): Soft to palpation, nontender, No hepatosplenomegaly present and no masses Auscultation: normal bowel sounds Back/Spine/Pelvis Thoracic/Lumbar Spine: thoracic and lumbar spine normal to inspection and thoraco-lumbar ROM limited Skin General skin exam: no rashes or lesions noted Neuro General: patient oriented x3 and no focal motor deficits Cranial nerves: Yes CN's II-XII intact bilaterally Extrem General: Yes normal to inspection, Yes no clubbing, cyanosis or edema and Yes no calf tenderness Psych Appearance: grossly normal and well kempt Speech and movement: Normal speech and movement present Assessment & Plan Assessment & Plan (1) Bronchial asthma: Comment: BRONCHIAL ASTHMA , CHRONIC STABLE, AT PRESENT VERY STABLE AND CONTROLLED WITH CURRENT MEDICAL REGIMEN. Code(s): J45.909 - Unspecified asthma, uncomplicated Category: Medical Plan: CONTINUE ADVAIR 250-51 INHALATION B.I.D. ATROVENT HFA 2 PUFFS Q 6-8 HOURS P.R.N. (2) Allergic rhinitis: Comment: HAS HISTORY OF CHRONIC ALLERGIC RHINITIS, , WITH SEASONAL INCREASE IN THE MONTH OF AUGUST AND SEPTEMBER. Code(s): J30.9 - Allergic rhinitis, unspecified Category: Medical Plan: FLONASE-52 SPRAY IN EACH NOSTRIL DAILY. OTC ANTIHISTAMINICS ONLY P.R.N. IT IS OKAY TO RINSE THE NOSTRILS WITH SALINE SOLUTION ONCE OR TWICE A DAY. Coding Level of Care Code Est Pt Level 3 (57503) Diagnoses Bronchial asthma J45.909 Allergic rhinitis J30.9
--- OUTSIDE RECORDS SUMMARY | 2024-09-04 18:16 | XMS_ITS | Encounter Summary ---
Author Organization [facility] Address [address] [facility] [address] [place] [address] Phone Care Team Providers Care Digital Tech Name Role Phone Tamear Carreno MD, MPH Unavailable [phone] Mina David MD Unavailable Hilda Willams Primary Care Provider [phone] Anastacia Barron DO Primary Care Provider [phone] Neli Perry MD Primary Care Provider [phone] Encounter Details Date Type Department Care Team (Latest Contact Info) Description 07/28/2020 Transcribe Orders [address] [place] [address] Hilda Willams PA [address] [place] [address] Type 2 diabetes mellitus without complication, unspecified whether intermediate insulin use (Primary Dx); Gout, unspecified cause, unspecified chronicity, unspecified site Social History Tobacco Use Types Packs/Day Years Used Date Smoking Tobacco: Former Cigarettes 1 28 0 01/28/1963 - 01/28/1991 Smokeless Tobacco: Never Alcohol Use Standard Drinks/Week Comments Yes 5 (1 standard drink = 0.6 oz pur e alcohol) Sex and Gender Information Value Date Recorded Sex Assigned at Female 08/20/2019 8:24 AM EST Gender Identity Female 08/14/2020 4:03 PM EST Sexual Orientation Straight 08/14/2020 4: 03 PM EST documented as of this encounter Plan of Treatment Upcoming Encounters Date Type Department Care Team (Late st Contact Info) Description 10/10/2024 2:15 PM EDT Appointment [facility] [address] [address] Becca Dickinson MD [address] [place] [phone] [email or web address] 10/10/2024 3:30 PM EDT Office Visit [facility] [address] [address] Becca Dickinson MD [address] [place] [phone] [email or web address] documented as of this encounter Results * (ABNORMAL) Basic metabolic panel (07/28/2020 10:51 AM EST) SODIUM 140 133 - 146 mmol/L [facility] CHLORIDE 102 96 - 108 mmol/L [facility] POTASSIUM 4.2 3.3 - 5.1 mmol/L [facility] CO2 28 21 - 35 mmol/L [facility] BUN 26(H) 6 - 19 mg/dL [facility] CREATININE 1.20 0.5 - 1.5 mg/dL [facility] GLUCOSE 118(H) 70 - 99 mg/dL [facility] CALCIUM 9.8 8.4 - 10.3 mg/dL [facility] EGFR 44(L) >59 mL/min/1.7 3m2 [facility] Comment:Estimated glomerular filtration rate calculated using the CKD-EPI equation. ANION GAP 14 10 - 20 mmol/L [facility] Blood 07/28/2020 10:5 1 AM EST 07/28/2020 10:53 AM EST Hilda [facility] BLOOD ORDERABLE S [address] [address] * (ABNORMAL) Hemoglobin A1c (07/28/2020 10:51 AM EST) HEMOGLOBIN A1C 6.3(H) 4.3 - 5.8 % [facility] Blood 07/28/2020 10:5 1 AM EST 07/28/2020 10:53 AM EST Hilda [facility] ORDERABLE S Performing Organization Address [facility] Co de Phone Number [address] [address] * (ABNORMAL) 25-OH vitamin D (07/28/2020 10:51 AM EST) 25 OH VIT D (TOTAL) 28(L) 30 - 60 ng/mL [facility] Blood 07/28/2020 10:5 1 AM EST 07/28/2020 10:53 AM EST Hilda [facility] BLOOD ORDERABLE S Performing Organization Address [facility]/ZIP Co de Phone Number [address] [address] * (ABNORMAL) Uric acid (07/28/2020 10:51 AM EST) URIC ACID 9.0(H) 2.4 - 7.0 mg/dL [facility] Blood 07/28/2020 10:5 1 AM EST 07/28/2020 10:53 AM EST Hilda [facility] BLOOD ORDERABLE S Performing Organization Address [facility]/ZIP Co de Phone Number [address] [address] documented in this encounter Visit Diagnoses Diagnosis Type 2 diabetes mellitus without complication, unspecified whether exterminator insulin use- Primary Gout, unspecified cause, unspecified chronicity, unspecified site documented in this encounter Additional Health Concerns Infection Onset Date Last Indicated Resolved Time COVID-19 01/31/2023 01/31/2023 02/21/2023 1:21 AM EDT CoV-Risk Comment:Per note documentation 12/22/2023 12/24/2023 3:36 PM EDT CoV-Risk 03/04/2024 03/04/2024 03/15/2024 1:23 AM EDT Assessment Noted Time PHQ-2 Depression Total Score: 0 08/23/19 10:59 AM EST documented as of this encounter Care Teams Digital Tech Relationship Specialty Start Date End Date Hilda Willams PA [address] [place] [phone] PCP - General Unknown Provider Specialty 07/28/20 Anastacia Barron DO [address] [place] [phone] [email or web address] PCP - General Internal Medicine 02/01/22 12/26/23 Neli Perry MD [address] [place] [phone] PCP - General Family Medicine 12/27/23 Tamera Carreno MD, MPH [address] [place] [phone] [email or web address] Primary Oncologist Hematology 09/22/18 Mina David MD [address] [place] [address] Ophthalmology 08/23/19 documented as of this encounter Additional Source Comments The information contained in this document represents components of the legal health record. It is not the complete legal health record.[facility]
--- OUTSIDE RECORDS SUMMARY | 2024-09-04 18:16 | XMS_ITS | Encounter Summary ---
Author Organization [facility] Address [facility] [employer] [address] [address] Phone Care Team Providers Care Roto Gravure Press Operator Name Role Phone Tamera Carreno MD, MPH Unavailable Mina David MD Unavailable Hilda Willams Primary Care Provider [phone] Anastacia Barron DO Primary Care Provider Neli Perry MD Primary Care Provider Encounter Details Date Type Department Care Team (Late st Contact Info) Description 01/26/2021 Procedure Pass [facility], [address] [address] Social History Tobacco Use Types Packs/Day Years [...] Info) Description 10/10/2024 2:15 PM EDT Appointment [address] [address] Becca Dickinson MD [address] [place] [address] [address] [place] [address] [email or web address] 10/10/2024 3:30 PM EDT Office Visit [address] [address] Becca Dickinson MD [address] [place] [phone] [email or web address] documented as of this encounter Visit Diagnoses Not on filedocumented in this encounter Additional Health Concerns Infection Onset Date Last Indicated Resolved Time COVID-19 01/31/2023 01/31/2023 02/21/2023 1:21 AM EDT CoV-Risk Comment:Per note documentation 12/22/2023 12/24/2023 3:36 PM EDT CoV-Risk 03/04/2024 03/04/2024 03/15/2024 1:23 AM EDT Assessment Noted Time PHQ-2 Depression Total Score: 0 08/23/19 10:59 AM EST documented as of this encounter Care Teams [employer] Press Operator Relationship Specialty Start Date End Date Hilda Willams PA [address] [place] [phone] PCP - General Unknown Provider Specialty 07/28/20 Anastacia Barorn DO [address] [place] [phone] [email or web address] PCP - General Internal Medicine 02/01/22 12/26/23 Neli Perry MD [address] [place] [phone] PCP - General Family Medicine 12/27/23 Tamera Carreno MD, MPH [address] [facility] [address] [place] [address] [email or web address] Primary Oncologist Hematology 09/22/18 Mina David MD [address] [address] Ophthalmology 08/23/19 documented as of this encounter Additional Source Comments The information contained in this document represents components of the legal health record. It is not the complete legal health record.[facility]
--- OUTSIDE RECORDS SUMMARY | 2024-09-04 18:16 | XMS_ITS | Encounter Summary ---
Author Organization [facility] Address [facility] [employer] [address] [address] Phone Care Team Providers Care Roll On Man Name Role Phone Tamera Carreno MD, MPH Unavailable [phone] Mina David MD Unavailable Annabelle Shah MD Primary Care Provi adelaida Hilda Willams Primary Care Provider Anastacia Barron DO Primary Care Provider Neli Perry MD Primary Care Provider Encounter Details Date Type Department Care Team (Latest Contact Info) Description 06/18/2020 Transcribe Orders [address] [place] [address] Radha Franklin MD [email or web address] Pain in joint, multiple sites (Primary Dx) Social History Tobacco Use Types Packs/Day Years [...] Info) Description 10/10/2024 2:15 PM EDT Appointment [facility] [address] [address] Becca Dickinson MD [address] [place] [phone] [email or web address] 10/10/2024 3:30 PM EDT Office Visit [facility] [address] [address] Becca Dickinson MD [address] [place] [phone] [email or web address] documented as of this encounter Results * C-Reactive Protein (06/18/2020 11:21 AM EST) C REACTIVE PROTEIN 3.3 0.0 - 4.0 mg/L [facility] Blood 06/18/2020 11:2 1 AM EST 06/18/2020 11:23 AM EST Radha Franklin MD LAB BLOOD ORDERAB LES Performing Organization Address City/State/[facility] Co de Phone Number [address] [address] documented in this encounter Visit Diagnoses Diagnosis Pain in joint, multiple sites- Primary documented in this encounter Additional Health Concerns Infection Onset Date Last Indicated Resolved Time COVID-19 01/31/2023 01/31/2023 02/21/2023 1:21 AM EDT CoV-Risk Comment:Per note documentation 12/22/2023 12/24/2023 3:36 PM EDT CoV-Risk 03/04/2024 03/04/2024 03/15/2024 1:23 AM EDT Assessment Noted Time PHQ-2 Depression Total Score: 0 08/23/19 10:59 AM EST documented as of this encounter Care Teams Roll On Man Relationship Specialty Start Date End Date Annabelle Shah MD [address] [place] [phone] [email or web address] PCP - General Internal Medicine 01/01/20 07/27/20 Hilda Willams PA [address] [place] [address] PCP - General Unknown Provider Specialty 07/28/20 01/31/22 Anastacia Barron DO [address] [place] [phone] [email or web address] PCP - General Internal Medicine 02/01/22 12/26/23 Neli Perry MD [address] [place] [phone] PCP - General Family Medicine 12/27/23 Tamera Carreno MD, MPH [address] [place] [phone] [email or web address] [email or web address] Primary Oncologist Hematology 09/22/18 Mina David MD [address] [place] [address] Ophthalmology 08/23/19 documented as of this encounter Additional Source Comments The information contained in this document represents components of the legal health record. It is not the complete legal health record.[facility]
--- OUTSIDE RECORDS SUMMARY | 2024-09-04 18:16 | XMS_ITS | Encounter Summary ---
Author Organization [facility] Address [address] [place] [address] Phone Care Team Providers Care Assurance Manager Name Role Phone Tamera Carreno MD, MPH Unavailable Mina David MD Unavailable Annabelle Shah MD Primary Care Provi adelaida Hilda Willams Primary Care Provider [phone] Anastacia Barron DO Primary Care Provider Neli Perry MD Primary Care Provider [phone] Encounter Details Date Type Department Care Team (Latest Contact Info) Description 12/31/2019 Transcribe Orders Virtual Department [address] [place] [address] Annabelle Shah MD [address] [place] [phone] [email or web address] Fever, unspecified fever cause (Primary Dx); Vomiting, intractability of vomiting not specified, presence of nausea not specified, unspecified vomiting type Social History Tobacco Use Types Packs/Day Years [...] Info) Description 10/10/2024 2:15 PM EDT Appointment [facility] [address] [address] Becca Dickinson MD [address] [place] [phone] [email or web address] 10/10/2024 3:30 PM EDT Office Visit [facility] [address] [address] Becca Dickinson MD [address] [place] [phone] [email or web address] documented as of this encounter Results * COVID-19 PCR Order (01/01/2020 11:46 AM EDT) Specimen Source 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) [facility] COVID-19 Comment VOMITING [facility] COVID Testing Status Sent to [facility] Other 01/01/2020 11:4 6 AM EDT 01/01/2020 1:14 PM EDT Annabelle Shah MD BODY FLUIDS AND STOOLS ORDERABLES [facility] [address] [place] [address] documented in this encounter Visit Diagnoses Diagnosis Fever, unspecified fever cause- Primary Vomiting, intractability of vomiting not specified, presence of nausea not specified, unspecified vomiting type documented in this encounter Additional Health Concerns Infection Onset Date Last Indicated Resolved Time CoV-Risk 12/31/2019 01/01/2020 01/14/2020 4:55 AM EDT COVID-19 01/31/2023 01/31/2023 02/21/2023 1:21 AM EDT CoV-Risk Comment:Per note documentation 12/22/2023 12/24/2023 3:36 PM EDT CoV-Risk 03/04/2024 03/04/2024 03/15/2024 1:23 AM EDT Assessment Noted Time PHQ-2 Depression Total Score: 0 08/23/19 10:59 AM EST documented as of this encounter Care Teams Assurance Manager Relationship Specialty Start Date End Date Annabelle Shah MD [address] [place] [phone] [email or web address] PCP - General Internal Medicine 01/01/20 07/27/20 Hilda Willams PA [address] [place] [address] PCP - General Unknown Provider Specialty 07/28/20 01/31/22 Anastacia Barron DO [address] [place] [phone] [email or web address] PCP - General Internal Medicine 02/01/22 12/26/23 Neli Perry MD [address] [place] [phone] PCP - General Family Medicine 12/27/23 Tamera Carreno MD, MPH [address] [place] [address] [email or web address] Primary Oncologist Hematology 09/22/18 Mina David MD [address] [place] [phone] Ophthalmology 08/23/19 documented as of this encounter Additional Source Comments The information contained in this document represents components of the legal health record. It is not the complete legal health record.[facility]
--- OUTSIDE RECORDS SUMMARY | 2024-09-04 18:16 | XMS_ITS | Data Portability ---
Author Organization [facility] UROLOGY Address [address] [address] Care Team Providers Care Professor Of Management Name Role Phone ROSARIO HSIEH Primary Care Provider ROSARIO HSIEH Primary Care Provider Assessment Encounter Date Assessment Date Assessment LastModified by Organization Details LastModified Time 06/25/2024 06/25/2024 -chronic low back pain -lumbar spondylosis most notable L4-L5, grade 1 anterolisthesis, with bilateral facet arthropathy -no significant neural impingement -deconditioned lumbar spine -myofascial pain -Cervical radiculopathy Patient presents with persistent right arm pain symptoms. Recently seen by clinical rehab specialist, cortisone injection for shoulder completed without benefit. Cervical etiology discussed as cause, worsening/persis ting left arm pain and weakness.--The condition is affecting activities of daily living. The patient has demonstrated an inadequate response to conservative management including exercise, physical therapy and/or physician guided HEP, NSAIDs and/or acetaminophen. Thus patient requires advanced imaging to direct further care plan and surgical/interve ntional opinion. In the meantime patient will continue care for low back as previously directed. -- Cervical MRI -- Follow-up after imaging as directed -- Ativan prior to image as directed -- Continue treatment for low back pain as directed -- Continue all activity Not available 06/25/2024 10:18:53 07/20/2024 07/20/2024 -chronic low back pain -lumbar spondylosis most notable L4-L5, grade 1 anterolisthesis, with bilateral facet arthropathy -no significant neural impingement -deconditioned lumbar spine -myofascial pain PATIENT RETURNS TODAY REPORTING LEFT-SIDED LOW BACK PAIN GREATER THAN 95 % RESOLVED FOLLOWING DIAGNOSTIC TREATMENT COMPLETED YESTERDAY. This second MBB similarly provided positive diagnostic results as evidence for need for RFA. Patient agrees and would like to pursue In the meantime she was strongly encouraged to continue all activity as tolerated. 1ST and 2ND LEFT MBB RESULT PROVIDES POSITIVE DIAGNOSTIC EVIDENCE FOR RFA --Left L3,L4,L5 RFA --continue HEP and all activity as tolerated --consider updated lumbar imaging if symptoms persist [place] [id number] Not available 07/20/2024 10:46:10 07/26/2024 07/26/2024 -Right shoulder/arm pain -chronic low back pain -lumbar spondylosis most notable L4-L5, grade 1 anterolisthesis, with bilateral facet arthropathy -no significant neural impingement -deconditioned lumbar spine -myofascial pain Patient returns with persistent right shoulder area pain that radiates into the left forearm to the elbow. Recently completed cervical MRI did not reveal any findings etiology of symptoms. Probable shoulder issue last. Right shoulder MRI suggested. Patient would like to follow-up with her clinical rehab specialist, Dr. Holland, for further evaluation and treatment. Office notes sent to his practice today. Patient will continue to follow-up with us for low back pain treatment as scheduled -Follow-up with Dr. Holland for right shoulder/arm symptoms --Left L3,L4,L5 RFA as scheduled --continue HEP and all activity as tolerated --consider updated lumbar imaging if symptoms persist [place] [id number] Not available 07/26/2024 09:19:32 Plan of Treatment Reminders Order Date Submit Date Provider Last Modified By Organization Details Last Modified Time Details Appointments Establish ed Patient 30 2024 10:30A M Noa Ramachandran MD Not available Not available Not available Lab None recorded. Referral None recorded. Procedures None recorded. Surgeries radiofreq uency ablation (SURG) 2024 025 [email or web address] Not available 08/03/2024 09:39:47 Imaging MRI, cervical spine, w/o contrast - OPEN MRI requiredP LEASE TRY TO SCHEDULE PATIENT FOR 07/19 IF POSSIBLE, THANK YOU 2024 025 [facility] [address], [place], [address], 07/25/2024 10:18:53 Medication Orders Ativan 1 mg tablet 2024 025 [facility][id number], [address] [place], [address], 06/25/2024 10:15:51 Patient TargetsNo targets recorded. Patient Instructions Encounter Date Encounter Id Patient Instructions Last Modified By Organization Details Last Modified Time 06/25/2024 [id number] neck pain: care instructions [email or web address] Not available 06/25/2024 10:17:53 I spent a total of 25 minutes during this real-time, interactive [audio only] clinical encounter. Greater than 50% of the time spent was devoted to counseling and coordinating care including review of records, pertinent lab data and studies, as well as discussing diagnostic evaluations and work-up, planning therapeutic interventions and future disposition of care. This time included any additional research needed to obtain further information in formulating the plan of care of this patient. This included counseling the patient about their disease and diagnosis. [email or web address] Not available 06/25/2024 10:17:38 07/20/2024 [id number] At this point, t he patient elected to proceed with injection based treatment. I had a long and detailed discussion with the patient regarding the proposed pain management procedure and treatment plan. Anatomic models were used in the explanation and discussion of the patient's condition and the proposed treatment. The treatment options were discussed including the option for no injection and continuing with other conservative treatments. The patient was given an opportunity to ask and have all questions answered regarding the procedure and the risks, benefits and options for treatment. [email or web address] Not available 07/20/2024 10:46:29 I spent a total of 25 minutes during this real-time, interactive [audio only] clinical encounter. Greater than 50% of the time spent was devoted to counseling and coordinating care including review of records, pertinent lab data and studies, as well as discussing diagnostic evaluations and work-up, planning therapeutic interventions and future disposition of care. This time included any additional research needed to obtain further information in formulating the plan of care of this patient. This included counseling the patient about their disease and diagnosis. [email or web address] Not available 07/20/2024 10:46:16 07/26/2024 [id number] I spent a total of 25 minutes during this real-time, interactive clinical encounter. Greater than 50% of the time spent was devoted to counseling and coordinating care including review of records, pertinent lab data and studies, as well as discussing diagnostic evaluations and work-up, planning therapeutic interventions and future disposition of care. This time included any additional research needed to obtain further information in formulating the plan of care of this patient. This included counseling the patient about their disease and diagnosis. Not available 07/26/2024 09:18:34 Reason for Referral None Reported. Results Created Date Observation Date Name Description Value Unit Range Abnormal Flag Note LastModifiedBy Organization Detail LastModifiedTime 07/25/19 25 07/19/2024 MRI, cervi warren spine , w/o contr ast No observ ation record ed. [email or web address] [address], [place], [address], 07/25/2024 10:18:58 Result Notes None recorded. Procedures Surgical History None recorded. Imaging Results Imaging Date Name Status LastModified by Organiz ation Details LastModified Time 07/19/2024 MRI, cervical spine, w/o contrast completed [email or web address] [place] [address] [facility], [place], [address], 07/25/2024 10:18:58 Procedure Notes None recorded. Medical Equipment None Reported. Allergies No known drug allergies Medications Name Sig Start Date Stop Date Status Note LastModified by Organization Details LastModified Time anastrozole 1 mg tablet TAKE 1 TABLET BY MOUTH EVERY DAY active Not Available Not Available No t Available atorvastatin 10 mg tablet TAKE 1 TABLET BY MOUTH EVERY DAY active Not Available Not Available No t Available azithromycin 250 mg tablet TAKE 2 TABLETS BY MOUTH TODAY, THEN TAKE 1 TABLET DAILY FOR 4 DAYS active Not Available Not Available No t Available lisinopril 20 mg tablet TAKE 1 & 1/2 TABLETS BY MOUTH DAILY active Not Available Not Available No t Available prednisone 20 mg tablet PLEASE SEE ATTACHED FOR DETAILED DIRECTIONS active Not Available Not Available N ot Available meclizine 12.5 mg tablet TAKE 1 TABLET BY MOUTH 3 TIMES A DAY NEEDED. active Not Available Not Available N ot Available amlodipine 5 mg tablet TAKE 1 TABLET BY MOUTH EVERY DAY active Not Available Not Available No t Available allopurinol 100 mg tablet TAKE 1 TABLET BY MOUTH EVERY DAY active Not Available Not Available No t Available lorazepam 0.5 mg tablet active Not Available Not Available Not Available lisinopril 10 mg tablet TAKE 1 TABLET BY MOUTH EVERY DAY active Not Available Not Available No t Available omeprazole 20 mg capsule,yovani yed release TAKE 1 CAPSULE BY MOUTH EVERY DAY active Not Available Not Available No t Available hydrochlorot hiazide 25 mg tablet TAKE 1 TABLET BY MOUTH EVERY DAY active Not Available Not Available No t Available lorazepam 1 mg tablet 1 tab po 1 hour prior to image - may repeat x 1 active Not Available Not Available No t Available methylpredni solone 4 mg tablets in a dose pack TAKE 6 TABLETS ON DAY 1 DIRECTED ON PACKAGE AND DECREASE BY 1 TAB EACH DAY FOR A TOTAL OF 6 DAYS active Not Available Not Available No t Available lisinopril 40 mg tablet TAKE 1 TABLET BY MOUTH EVERY DAY active Not Available Not Available No t Available fluticasone propionate 50 mcg/actuatio n nasal spray,suspen yasmani SPRAY 2 SPRAYS INTO EACH NOSTRIL DAILY FOR RHINITIS active Not Available Not Available No t Available rosuvastatin 10 mg tablet TAKE 1 TABLET BY MOUTH EVERY DAY active Not Available Not Available No t Available Atrovent HFA 17 mcg/actuatio n aerosol inhaler 2 PUFF INHALED EVERY 8 HOURS NEEDED FOR SHORTNESS OF BREATH OR WHEEZING FOR 90 DAYS active Not Available Not Available Not Available hydrochlorot hiazide 12.5 mg tablet TAKE 1 TABLET BY MOUTH EVERY DAY active Not Available Not Available No t Available Wixela Inhub 250 mcg-50 mcg/dose powder for inhalation active Not Available Not Available N ot Available Flowflex COVID-19 Antigen Home Test kit REFER TO MANUFACTURE R INSTRUCTION S INCLUDED IN PACKAGING active Not Available Not Available No t Available Vitals None Recorded Social History None recorded. Functional Status None recorded. Mental Status None recorded. Family History Nothing Reported. Medical History No medical history recorded. Gynecological HistoryNo gynecological history recorded. Obstetrics History GPAL:G 0 P 0 0 0 0 Past Encounters Encounter ID Performer Location Encounter Start Date Encounter Closed Date Diagnosis/Indication Diagnosis SNOMED-CT Code Diagnosis ICD10 Code Diagnosis Note [id number] Noa Ramachandran MD [facility] [address] [place] [address] 02/16/2021 12:29:36 02/16/2021 14:36:03 Low back pain 455142777 M54.5 [id number] Noa Ramachandran MD [facility] [address] [place] [address] 06/02/2021 10:39:23 06/02/2021 13:51:28 Low back pain 067781548 M54.50 Lumbar spondylosis 02659 0009 M47.896 [id number] Noa Ramachandran MD [facility] [address] [place] [address] 7 06/25/2021 08:33:25 06/25/2021 09:18:18 Lumbar spondylosis 923447134 M47.896 [id number] Noa Ramachandran MD [facility] [address] [place] [address] 08/31/2021 13:08:26 08/31/2021 15:05:02 Low back pain 985520576 M54.50 [id number] Noa Ramachandran MD [facility] [address] [place] [address] 09/24/2021 09:25:33 09/24/2021 10:28:12 Lumbar spondylosis 558206942 M47.896 [id number] Noa Ramachandran MD [facility] [address] [place] [address] 10/28/2021 13:14:41 10/29/2021 17:02:44 Low back pain 705189985 M54.50 [id number] Alfredo Lancaster MD, PhD [facility] [address] [place] [phone] 02/22/2023 13:49:18 02/22/2023 15:55:00 Lumbosacral radiculopathy 1753881 M54.17 [id number] Alfredo Lancaster MD, PhD [facility] [address] [place] [address] 7 05/31/2023 10:45:34 05/31/2023 12:03:42 Lumbosacral radiculopathy 5051341 M54.17 [id number] Noa Ramachandran MD [facility] OP [address] [facility] [address] [place] [address] 07/05/2023 13:14:19 07/05/2023 13:55:25 Low back pain 037108033 M54.50 [id number] Noa Ramachandran MD [facility] OP [address]36 [facility] [address] [place] [address] 08/04/2023 12:42:31 08/04/2023 14:26:00 Sacroiliac joint pain 302060016 M53.3 [id number] Noa Ramachandran MD [facility] OP [address] [facility] [address] [place] [address] 7 09/06/2023 10:00:01 09/06/2023 10:51:31 Low back pain 982715395 M54.50 [id number] Noa Ramachandran MD [facility] 6 OP [address]36 [facility] [address] [place] [address] 7 10/27/2023 12:27:46 10/27/2023 13:53:38 [id number] Mary Nguyen NP [facility] [address] [address] 10/28/2023 09:53:52 10/28/2023 10:50:26 Low back pain 413457069 M54.50 [id number] Noa Ramachandran MD [facility] 6 OP [address] [facility] [address] [place] [address] 7 01/19/2024 09:57:39 01/19/2024 12:39:06 Lumbar spondylosis 255653169 M47.896 [id number] Mary Nguyen NP [facility] [address] [address] 01/20/2024 15:02:25 01/20/2024 15:03:41 Low back pain 979352560 M54.50 Arthropath y of lumbar facet joint 591334889 M47.816 Lumbar fac et joint pain 734653672 M54.51 [id number] Noa Ramachandran MD [facility] [address] OP [address] [facility] [address] [place] [address] 03/08/2024 10:49:42 03/08/2024 11:34:42 Lumbar spondylosis 400730862 M47.896 [id number] Mary Nguyen NP [facility] [address] OP [address] [facility] [address] [place] [address] 04/23/2024 12:24:17 04/23/2024 13:20:53 Low back pain 919705548 M54.50 [id number] Noa Ramachandran MD [facility] 6 OP 736 [facility] [address] [place] [address] 7 05/24/2024 11:04:11 05/24/2024 12:07:33 Lumbar spondylosis 788831471 M47.896 [id number] Mary Nguyen NP [facility] 6 OP 736 [facility] [address] [place] [address] 7 05/25/2024 09:24:18 05/25/2024 10:55:20 Low back pain 792956487 M54.50 Arthropath y of lumbar facet joint 681459749 M47.816 [id number] Mary Nguyen NP [facility] [address] OP [address] [facility] [address] [place] [address] 7 06/25/2024 09:47:06 06/25/2024 10:08:34 Cervical radiculopathy 15028157 M54.12 Neck pain 45346533 M54.2 Chronic low back pain 27 1571336 M54.50 [id number] Noa Ramachandran MD [facility] [address] OP [address]36 [facility] [address] [place] [address] 7 07/19/2024 11:14:50 07/19/2024 13:53:42 Lumbar spondylosis 938370482 M47.896 [id number] Mary Nguyen NP [facility] 6 OP 736 [facility] [address] [place] [address] 7 07/20/2024 08:48:07 07/20/2024 09:34:01 Chronic low back pain 276598542 M54.50 Lumbar spondylosis 50253 0009 M47.896 Lumbar fac et joint pain 135579415 M54.51 [id number] Mary Nguyen NP [facility] [address] [place] [address] 07/26/2024 08:38:08 07/26/2024 09:40:32 Chronic low back pain 238332077 M54.50 Lumbar spondylosis 63465 0009 M47.896 Lumbar fac et joint pain 613586998 M54.51 Pain of ri ght shoulder joint 3803999072 [id number] M25.511 [id number] Noa Ramachandran MD [facility] [address] [place] [address] 08/30/2024 10:34:47 08/30/2024 12:23:14 Lumbar spondylosis 209264658 M47.896 Health Concerns Section Related Observation LastModified by Organization Detai ls LastModified Time None Recorded Concern Status LastModified by Organization Details LastModified Time None Recorded Advance Directives Directive None Recorded Payers Encounter Date Sequence Insurance Name Policy Number Policy Mehta Covered Member ID Mehta Member ID Guarantor Name 06/25/2024 1 [place]: [facility] Melahat E Morash [id number] [facility] 06/25/2024 2 [facility] [employer] Melahat Morash [id number] [facility] 07/19/2024 1 [place] [facility] Melahat E Morash [id number] [place] 07/19/2024 2 [facility]elahat Morash [id number] [facility] [place] [facility]/20/2024 1 [place] [facility] Melahat E Morash [id number] Melahat [place] 07/20/2024 2 [facility] Melahat Morash [id number] [place] 07/26/2024 1 [place] [facility] Emre Remy [id number] [place] 07/26/2024 2 [facility] Emre Remy [id number] [place] 08/30/2024 1 [place] [facility] Emre Remy [id number] [place] 08/30/2024 2 [facility] Emre Remy [id number] [place] Notes Date Note Type Note Provider Name and Address Organization Details Recorded Time text/html Telehealth follow-up was performed after confirmation of the patient's identity. Prior to beginning, I introduced myself and received verbal consent from the patient to proceed with this virtual visit. Patient was made aware that the same confidentiality and medical information officer practices applied to this visit.In the interim: patient is called because she was referred back from Dr. Chato Holland for right shoulder pain. He believes that symptoms might stem from cervical spine. Recently completed cortisone injection in the shoulder without benefit. Patient is experiencing worsening right arm pain/weakness, interfering with ability to tolerate daily activity Chief complaint:1. Right side neck pain/weakness2. bilateral low back3. chronic.numbness/tingling in the right anterior urrutia and superior footThe pain is rated: 6-8/10 neck/armalleviating factors: sittingexacerbating factors: bending overphysical therapy: : Completed course of physical therapy at [facility] in April 2023 - with no benefitinjection history:-05/24/24 LEFT L3, L4, L5 MBB- > 80% benefit-03/08/24 RIGHT L3, L4, L5 RFA - >70% improvement for 7 weeks thus far for right side low back / hip-01/19/24 RIGHT L3, L4, L5 MBB-10/27/23 RIGHT L3, L4, L5 MBB-08/04/23 Bilateral SI joint injections: >30% improvement- 09/24/2021: bilateral L4-L5 intra-articular facet joint injections: reports 70-80% reliefTolerated procedure well w/o complications- 06/25/21 bilateral L4-L5 intra-articular facet joint injections: 90% relief.Pain Medication: [] Imagin03/16/23 EMG + Nerve Conduction StudyIMPRESSION:This is an abnormal study.There is electrophysiologic evidence to suggest the presence of:1. A generalized, symmetric, length-dependent, axonal sensory polyneuropathy.2. A chronic L5-S1 radiculopathy with no active denervation on the right.There is no electrophysiologic evidence of an active L3-S1 radiculopathy on the right. (02/15/21) lumbar spine outside hospital, showed degenerative disc disease, spondylosis L4-L5, L5-S1.L4-L5: Grade 1 anterolisthesis, with moderately severe facet arthropathy, mild canal narrowing and mild foraminal narrowing.L5-S1: Small central disc protrusion, contacting left more than right traversing S1 nerve root, no significant stenosis. lower lumbar paraspinal muscular atrophyThere has been no significant interim change in their medical status. There has been no interim motor or sensory deficits. The patient continues to deny bowel or bladder changes, saddle anesthesia or gait instability. Mary Nguyen, GIAN [address] [place] [address], [phone], [facility] 06/25/2024 10:20:50 5 text/html LUMBAR/SACRAL MEDIAL BRANCH BLOCKS (L3-S1, 3 LEVELS) PHYSICIAN: Noa Ramachandran MD [employer] CHIEF INSPECTOR: Conchita Ross RN DIAGNOSIS: 1. Facet Syndrome 2. lumbar spondylosis ANESTHESIA: LOCAL PROCEDURE: 1. LEFT L3, L4, L5 Facet, lumbar/sacral MBB, a total of 3 segmental levels were blocked 2. Fluoroscopic guidance/localization, [id number] INDICATIONS: The [facility] for diagnostic lumbar/sacral medial branch blocks for complaint of axial low back pain consistent with facet syndrome on physical exam. Please see clinic and telephone notes for details. The patient was interviewed and the medical record reviewed. There were no medical, pharmacologic, radiographic or other structural contraindications to attempting fluoroscopically guided local anesthetic lumbar/sacral medial branch blocks. Risks and expected side effects as well as potential benefit of the procedure were reviewed with the patient, which included, but were not limited to infection, bleeding, nerve damage, weakness, paralysis, pain at the site of injection, spinal headache, potential for no affect or worsening of pain level, and reaction to medication, potentially leading to seizure, stroke, or . Any voiced concerns were addressed and the patient agreed to proceed with the procedure. The printed consent form was signed and witnessed. A time out was performed prior to starting the procedure. The patient was escorted to the fluoroscopic suite and placed in the prone position on the fluoroscopy table and automated blood pressure cuff and pulse oximeter was applied. The skin was prepped and draped in the usual sterile fashion using chlorhexidine preparation. Fluoroscopic findings included five non-rib bearing lumbar vertebrae. There was no significant lumbar spondylosis. There was no indication of prior surgery or instrumentation of the spine. An oblique view using fluoroscopic guidance was used to identify the pedicle, superior articular process, and transverse process at L4 and L5 and the sacral ala on the LEFT side. Using this view, the facet joint region and eye of the 'scottie dog' at the L3-4 and L4-5 levels and the sacral ala were identified. Local skin and subcutaneous tissue, at three entry points was anesthetized using a total of 6 cc of 1% lidocaine using a 25 gauge needle. Once the skin was anesthetized, these three needles were removed and replaced with THREE 22-gauge 3-1/2 inch spinal needles without difficulty. These three needles were then slowly advanced using intermittent fluoroscopy towards the junction of the superior articular process and transverse process at L3-4, L4-5, and towards the sacral ala, respectively. Once bone was reached down onto the target point of each medial branch nerve, aspiration was negative for cerebrospinal fluid or blood, and 0.1 ml of omnipaque contrast was injected at each level without evidence of any vascular or intrathecal uptake. Then 0.5 mL of 0.25% Marcaine was administered at each level. There was no pain radiating into the leg. The needles were withdrawn, and the sites were cleaned and dressed and a sterile bandage was applied. The patient's vital signs were stable throughout the procedure and were as recorded in nursing records. The patient tolerated the procedure well and there were no complications. DISPOSITION: The patient was instructed to keep careful note of how the usual pain was modified by these injections. Specifically, the patient was asked to keep a pain diary using a numeric pain scale of 0-10 and report these results at the followup visit and phone call. Post procedure instruction was given as documented in nursing records and having met discharge criteria, the patient was discharged from the same day holding area. The patient is advised to call the spine center to report response to this diagnostic procedure and schedule therapeutic radiofrequency ablation if indicated. ESTIMATED BLOOD LOSS: NONE SPECIMENS: NONE COMPLICATIONS: NONE Noa Ramachandran MD [address] [place] [address], [phone], [facility] 07/19/2024 13:43:12 5 text/html Telehealth follow-up was performed after confirmation of the patient's identity. Prior to beginning, I introduced myself and received verbal consent from the patient to proceed with this virtual visit. Patient was made aware that the same confidentiality and medical information officer practices applied to this visit.In the interim: patient is called 1 day s/p LEFT L3, L4, L5 MBB. PATIENT RETURNS TODAY REPORTING LEFT-SIDED LOW BACK PAIN GREATER THAN 95 % RESOLVED FOLLOWING DIAGNOSTIC TREATMENT COMPLETED YESTERDAY. Beneficial effect similar to that experienced prior to first MBB. Proceeding to RFA discussed, patient would like to pursue.Chief complaint:1. Right side neck pain/weakness2. bilateral low back3. chronic.numbness/tingling in the right anterior urrutia and superior footThe pain is rated: 1/10 following procedure throughout day yesterday. Common left-sided low back pain have is begun to recur, again beginning to interfere with ability to tolerate daily activity. injection history:-07/19/24 LEFT L3, L4, L5 MBB? 95% bebefit-05/24/24 LEFT L3, L4, L5 MBB- > 80% benefit-03/08/24 RIGHT L3, L4, L5 RFA - >70% improvement for 7 weeks thus far for right side low back / hip-01/19/24 RIGHT L3, L4, L5 MBB-10/27/23 RIGHT L3, L4, L5 MBB-08/04/23 Bilateral SI joint injections: >30% improvement- 09/24/2021: bilateral L4-L5 intra-articular facet joint injections: reports 70-80% reliefTolerated procedure well w/o complications- 06/25/21 bilateral L4-L5 intra-articular facet joint injections: 90% relief. Imagin03/16/23 EMG + Nerve Conduction StudyIMPRESSION:This is an abnormal study.There is electrophysiologic evidence to suggest the presence of:1. A generalized, symmetric, length-dependent, axonal sensory polyneuropathy.2. A chronic L5-S1 radiculopathy with no active denervation on the right.There is no electrophysiologic evidence of an active L3-S1 radiculopathy on the right. (02/15/21) lumbar spine outside hospital, showed degenerative disc disease, spondylosis L4-L5, L5-S1.L4-L5: Grade 1 anterolisthesis, with moderately severe facet arthropathy, mild canal narrowing and mild foraminal narrowing.L5-S1: Small central disc protrusion, contacting left more than right traversing S1 nerve root, no significant stenosis. lower lumbar paraspinal muscular atrophyThere has been no significant interim change in their medical status. There has been no interim motor or sensory deficits. The patient continues to deny bowel or bladder changes, saddle anesthesia or gait instability. Mary Nguyen, SPECIAL PROCEDURES NURSE [address] [place], [phone], [facility] 07/20/2024 10:48:43 5 text/html Telehealth follow-up was performed after confirmation of the patient's identity. Prior to beginning, I introduced myself and received verbal consent from the patient to proceed with this virtual visit. Patient was made aware that the same confidentiality and medical information officer practices applied to this visit.Patient is followed for;-chronic low back pain-lumbar spondylosis most notable L4-L5, grade 1 anterolisthesis, with bilateral facet arthropathy-no significant neural impingement-deconditioned lumbar spine-myofascial pain In the interim: patient is called to review results of her MRI cervical spine. Cervical MRI reveals no evidence of spinal cord compression no evidence for spondylosis or myopathy. No findings to explain the patient's radiculopathy. Results reviewed with patient with good understanding with instruction to follow-up with shoulder specialist, Dr. Holland, for further evaluation and treatment. Chief complaint:1. Right side neck pain radiating into right upper arm2. bilateral low back3. chronic.numbness/tingling in the right anterior urrutia and superior foot alleviating factors: stretchesexacerbating factors: right arm movement-sleepphysical therapy: completed in the past for shoulder with some benefitinjection history:-07/19/24 LEFT L3, L4, L5 MBB? 95% benefit-05/24/24 LEFT L3, L4, L5 MBB- > 80% benefit-03/08/24 RIGHT L3, L4, L5 RFA - >70% improvement for 7 weeks thus far for right side low back / hip-01/19/24 RIGHT L3, L4, L5 MBB-10/27/23 RIGHT L3, L4, L5 MBB-08/04/23 Bilateral SI joint injections: >30% improvement- 09/24/2021: bilateral L4-L5 intra-articular facet joint injections: reports 70-80% reliefTolerated procedure well w/o complications- 06/25/21 bilateral L4-L5 intra-articular facet joint injections: 90% relief. Imagin07/19/24 MRI Cervical Spine ([facility])ImpressionNo evidence for spinal cord compression. No abnormal cord signalintensity. No suspicious spinal cord lesion. No evidence forspondylosis or myelopathy. No findings to explain the patient'sradiculopathy. 03/16/23 EMG + Nerve Conduction StudyIMPRESSION:This is an abnormal study.There is electrophysiologic evidence to suggest the presence of:1. A generalized, symmetric, length-dependent, axonal sensory polyneuropathy.2. A chronic L5-S1 radiculopathy with no active denervation on the right.There is no electrophysiologic evidence of an active L3-S1 radiculopathy on the right. (02/15/21) lumbar spine outside hospital, showed degenerative disc disease, spondylosis L4-L5, L5-S1.L4-L5: Grade 1 anterolisthesis, with moderately severe facet arthropathy, mild canal narrowing and mild foraminal narrowing.L5-S1: Small central disc protrusion, contacting left more than right traversing S1 nerve root, no significant stenosis. lower lumbar paraspinal muscular atrophyThere has been no significant interim change in their medical status. There has been no interim motor or sensory deficits. The patient continues to deny bowel or bladder changes, saddle anesthesia or gait instability. Mary Nguyen NP [address] [place], [phone], [facility] - [facility] 07/26/2024 09:20:39 5 text/html LUMBAR/SACRAL MEDIAL BRANCH RADIOFREQUENCY PHYSICIAN: Noa Ramachandran MD CIGARETTE AND FILTER CHIEF INSPECTOR: Conchita Ross DIAGNOSIS: 1. Lumbar Spondylosis 2. Lumbar Facet Joint Syndrome ANESTHESIA: LOCAL PROCEDURE: 1. Left L3, L4, L5 Neurolytic/radiofrequency facet, lumbar or sacral, a total of 3 segmental levels were treated 2. Fluoroscopic guidance INDICATIONS: The patient presents [facility] for radiofrequency ablation treatment for chronic axial back pain. The patient complains of left sided low back pain. There has been no significant interim change in the patients pain complaints since the last visit. Local anesthetic medial branch blocks resulted in the patient reporting a greater than 50% reduction of the usual axial component of pain. COMMENTS: -- The patient has no active infection and is not on antibiotics. CONSENT FOR THE PROCEDURE: The patient was interviewed and the medical record reviewed. There were no medical, pharmacologic, radiographic or other structural contraindications to attempting fluoroscopically guided lumbar radiofrequency ablation. Risks and expected side effects as well as potential benefit of the procedure were reviewed with the patient, which included, but were not limited to infection, bleeding, nerve damage, weakness, paralysis, pain at the site of injection, spinal headache, increased blood pressure, hyperglycemia, potential for no affect or worsening of pain level, and reaction to medication, potentially leading to seizure, stroke, or . Any voiced concerns were addressed and the patient agreed to proceed with the procedure. The printed consent form was signed and witnessed. A time out was performed prior to starting the procedure. DESCRIPTION OF THE PROCEDURE: The patient was escorted to the fluoroscopic suite and placed in the prone position on the fluoroscopy table and automated blood pressure cuff and pulse oximeter was applied. The skin was prepped and draped in the usual sterile fashion using chlorhexidine preparation. An oblique view using fluoroscopic guidance was used to identify the pedicle, superior articulating process, and transverse process at L4 and L5 and the sacral ala on the left side. Using this view, the facet joint region and eye of the 'scottie dog' at the L3-4 and L4-5 levels and the sacral ala were identified. local skin and subcutaneous tissue, at three skin entry points was anesthetized using a total of 6 cc of 1% lidocaine and using a 25 gauge needle. (This was injected in the form of a skin wheal at each level). Once the skin was anesthetized, three 10cm, 20 gauge, 10mm active tip curved radiofrequency cannula's were advanced under fluoroscopic guidance to the junction of the superior articular process and transverse process, along or across the anatomic course of each respective segmental medial branch nerve. Once bone was reached down onto the target point of each medial branch nerve, aspiration was negative for cerebrospinal fluid or blood, and 0.1 ml of omnipaque contrast dye was injected at each level without evidence of any vascular or intrathecal uptake. Impedances were monitored and needle was repositioned until range was found to be appropriate (under 500). Sensory stimulation confirmed proper placement of needles as each level. Each placement was stimulated at 2hz and up to 4v without any distal myotomal stimulation and multifidi movement was observed. 1.0 ml of 1% lidocaine was administered at each level. Radio-frequency ablation was performed at each level with needle tip temperature set at 80 degrees centigrade and lesioning for a total of 90 seconds. Following ablation, a total of 40mg of kenalog and 2ml of 0.25% bupivicaine was divided and administered into each level and needles were removed with a sterile 1% lidocaine flush. COMMENTS: -The patient's vital signs were stable throughout the procedure and were as recorded in nursing records. -The patient was fully awake and conversant throughout the procedure. -The patient tolerated the procedure well and there were no complications. ESTIMATED BLOOD LOSS: NONE SPECIMENS: NONE COMPLICATIONS: NONE POST-INJECTION: -The patient was instructed to keep careful note of how the usual pain was modified by this procedure -Post procedure instructions were given as documented in nursing records -After meeting discharge criteria, the patient was discharged from the post procedure holding area. -Follow up plans and appointments were discussed with the patient. Noa Ramachandran MD [address] [place], [address], [facility] 08/30/2024 13:35:06 OBGyn Episode No OBEpisode recorded.
--- OUTSIDE RECORDS SUMMARY | 2024-09-04 18:16 | XMS_ITS ---
Author Organization [facility] Address [address] [place] [address] Care Team Providers Care Human Resources Benefits Assistant Name Role Phone Izzy Grissom NP Primary Care Provider Unav Samuel Farris [phone] REASON FOR VISIT Cancel Encounters Encounter Location Date Provider Diagnosis [facility] [address] [place] [address] 02/01/2024 Samuel Charles Plan Of Treatment No Information Progress Notes * NABEELEmre GARDNER EDOB: [birth year] (78 yo F)Acc No.[id number]:02/01/2024 Patient:?Emre Remy :1945???Age:78 Y???Sex:Female Address: [place], [address] * true * Date:? Generated for Printi ng/Faadilsong/eTransmitting on:?09/04/2024 06:16 PM EDT
--- OUTSIDE RECORDS SUMMARY | 2024-09-04 18:16 | XMS_ITS | Encounter Summary ---
Author Organization [employer] [facility] Address [address] [facility] [address] [place] [address] Phone Care Team Providers Care Marketing Production Specialist Name Role Phone Unavailable Primary Care Provider Unavailabl e Encounter Details Date Type Department Care Team (Late st Contact Info) Description 11/27/2015 Hospital Encounter [facility] [address] [place] [address] Kathie Alberto MD, PhD [address] [facility] [place] [address] [email or web address] Social History Tobacco Use Types [...] or tries to control you? No 03/04/2024 Sex and Gender Information Value Date Recorded Sex Assigned at Female 08/20/2019 8:24 AM EST Gender Identity Female 08/14/2020 4:03 PM EST Sexual Orientation Straight 08/14/2020 4: 03 PM EST documented as of this encounter Plan of Treatment Upcoming Encounters Date Type Department Care Team (Late st Contact Info) Description 10/10/2024 2:15 PM EDT Appointment [facility] JEANNE [address] [place] [address] [place] [address] Becca Dickinson MD [address] [place] [id number] [email or web address] 10/10/2024 3:30 PM EDT Office Visit [facility] [address] [address] Becca Dickinson MD [address] [place] [phone] [email or web address] documented as of this encounter Procedures Procedure Name Priority Date/Time Associated Diagnosis Comments BI MAMMOGRAM OUTSIDE (NO INTERPRETATION) Routine 11/27/2015 12:00 AM EDT documented in this encounter Results * Mammogram Outside (No Interpretation) (11/27/2015 12:00 AM EDT) Narrative [facility] - 01/28/2016 3:12 PM EDT This study is for PACS storage only and not for interpretation. Procedure Note SYSTEMGENERATED, DOCUMENTATION - 01/28/2016 This study is for PACS storage only and not for interpretation. Kathie Alberto MD, PhD IMG OUTSIDE I MAGING W/OUT INTERPRETATION [facility] documented in this encounter Visit [...] It is not the complete legal health record.[facility]
--- OUTSIDE RECORDS SUMMARY | 2024-09-04 18:17 | XMS_ITS | Encounter Summary ---
Author Organization [facility] Address [facility] [address] [address] Phone Care Team Providers Care Vascular Surgery Physician Name Role Phone Tamera Carreno MD, MPH Unavailable [phone] Mina David MD Unavailable Annabelle Shah MD Primary Care Provi adelaida Hilda Willams Primary Care Provider [phone] Anastacia Barron DO Primary Care Provider [phone] Neli Perry MD Primary Care Provider Encounter Details Date Type Department Care Team (Latest Contact Info) Description 06/25/2020 Transcribe Orders [address] [place] [address] Radha Franklin MD [email or web address] Pain in joint, multiple sites (Primary Dx) [...] Info) Description 10/10/2024 2:15 PM EDT Appointment [facility] [address] [address] Becca Dickinson MD [address] [address] [email or web address] 10/10/2024 3:30 PM EDT Office Visit [facility] [address] [address] Becca Dickinson MD [address] [place] [phone] [email or web address] documented as of this encounter Results * Sedimentation rate (ESR) (06/25/2020 9:20 AM EST) ESR 19 0 - 20 mm/h [facility] Blood 06/25/2020 9:20 AM EST 06/25/2020 9:23 AM EST Radha Franklin MD LAB BLOOD ORDERAB LES Performing Organization Address City/[facility]/ZIP Co de Phone Number [address] [address] * CPK (creatine kinase) (06/25/2020 9:20 AM EST) CREATINE KINASE 85 21 - 215 U/L [facility] Blood 06/25/2020 9:20 AM EST 06/25/2020 9:23 AM EST Radha Franklin MD LAB BLOOD ORDERAB LES [address] [address] * TSH (06/25/2020 9:20 AM EST) TSH 1.70 0.27 - 4.20 uIU/mL [facility] Blood 06/25/2020 9:20 AM EST 06/25/2020 9:23 AM EST Radha Franklin MD LAB BLOOD ORDERAB LES [address] [address] * (ABNORMAL) Basic metabolic panel (06/25/2020 9:20 AM EST) SODIUM 140 133 - 146 mmol/L [facility] CHLORIDE 104 96 - 108 mmol/L [facility] POTASSIUM 4.3 3.3 - 5.1 mmol/L [facility] CO2 26 21 - 35 mmol/L [facility] BUN 22(H) 6 - 19 mg/dL [facility] CREATININE 1.00 0.5 - 1.5 mg/dL [facility] GLUCOSE 120(H) 70 - 99 mg/dL [facility] CALCIUM 9.7 8.4 - 10.3 mg/dL [facility] EGFR 55(L) >59 mL/min/1.7 3m2 [facility] Comment:Estimated glomerular filtration rate calculated using the CKD-EPI equation. ANION GAP 14 10 - 20 mmol/L [facility] Blood 06/25/2020 9:20 AM EST 06/25/2020 9:23 AM EST Radha Franklin MD LAB BLOOD ORDERAB LES [address] [address] * Antinuclear antibody (IGNACIO) (06/25/2020 9:20 AM EST) IGNACIO SCREEN ON HEP 2 Negative Negative [facility] Blood 06/25/2020 9:20 AM EST 06/25/2020 9:23 AM EST H. Dawit Franklin MD LAB BLOOD ORDERAB LES [address] [address] documented in this encounter Visit Diagnoses Diagnosis [...] documented as of this encounter Care Teams Vascular Surgery Physician Relationship Specialty Start Date End Date Annabelle Shah MD [address] [place] [phone] [email or web address] PCP - General Internal Medicine 01/01/20 07/27/20 Hilda Willams PA [address] [place] [phone] PCP - General Unknown Provider Specialty 07/28/20 01/31/22 Anastacia Barron DO [address] [place] [phone] [email or web address] PCP - General Internal Medicine 02/01/22 12/26/23 Neli Perry MD [address] [place] [phone] PCP - General Family Medicine 12/27/23 Tamera Carreno MD, MPH [address] [facility] [address] [place] [address] [email or web address] Primary Oncologist Hematology 09/22/18 Mina David MD [address] [address] Ophthalmology 08/23/19 documented as of this encounter Additional Source Comments The information contained in this document represents components of the legal health record. It is not the complete legal health record.[facility]
--- OUTSIDE RECORDS SUMMARY | 2024-09-04 18:17 | XMS_ITS | Encounter Summary ---
Author Organization [facility] Address [address] [address] Phone Care Team Providers Care Security Support Analyst Name Role Phone Tamera Carreno MD, MPH Unavailable Mina David MD Unavailable Hilda Willams Primary Care Provider [phone] Anastacia Barron DO Primary Care Provider Neli Perry MD Primary Care Provider [phone] Encounter Details Date Type Department Care Team (Latest Contact Info) Description 07/28/2021 Transcribe Orders [address] [place] [address] Hlida Willams PA [address] [place] [address] Stage 3 chronic kidney disease, unspecified whether stage 3a or 3b CKD (Primary Dx); Type 2 diabetes mellitus without complication, unspecified whether residential insulin use; Vitamin D deficiency, unspecified Social History Tobacco Use Types Packs/Day Years [...] Info) Description 10/10/2024 2:15 PM EDT Appointment [facility] [address] [address] Becca Dickinson MD [address] [place] [address] [email or web address] 10/10/2024 3:30 PM EDT Office Visit [facility] [address] [address] Becca Dickinson MD [address] [place] [address] [email or web address] documented as of this encounter Results * (ABNORMAL) 25-OH vitamin D (07/28/2021 11:13 AM EST) 25 OH VIT D (TOTAL) 26(L) 30 - 60 ng/mL [facility] Blood 07/28/2021 11:1 3 AM EST 07/28/2021 11:16 AM EST Hilda VINSON LAB BLOOD ORDERABLE S Performing Organization Address City/[facility] Co de Phone Number [address] [phone] * (ABNORMAL) Hemoglobin A1c (07/28/2021 11:13 AM EST) HEMOGLOBIN A1C 6.7(H) 4.3 - 5.8 % [facility] Blood 07/28/2021 11:1 3 AM EST 07/28/2021 11:16 AM EST Hilda VINSON LAB BLOOD ORDERABLE S Performing Organization Address City/State/[facility] Co de Phone Number [address] [address] * (ABNORMAL) Lipid panel (07/28/2021 11:13 AM EST) HDL 57 mg/dL [facility] Comment: ? Interpretation <40 mg/dL: Low HDL cholesterol (major risk factor for CHD) Greater than or equal to 60 mg/dL: High HDL cholesterol ( negative risk factor for CHD) HDL - cholesterol is affected by a number of factors, e.g. smoking, excerise, hormones, sex and age. CHOLESTEROL 157 0 - 240 mg/dL [facility] TRIGLYCERIDES 95 30 - 160 mg/dL [facility] LDL 81 50 - 129 mg/dL [facility] Comment: LDL levels in terms of risk for coronary heart disease: <100 mg/dL: Optimal 100-129 mg/dL: Near or above optimal 130-159 mg/dL: Borderline high 160-189 mg/dL: High >190 mg/dL: Very High CARDIAC RISK RATIO 2.8(L) 3.3 - 4.4 C [facility] Blood 07/28/2021 11:1 3 AM EST 07/28/2021 11:16 AM EST Hilda VINSON LAB BLOOD ORDERABLE S Performing Organization Address [facility] Co de Phone Number [address] [address] * (ABNORMAL) Basic metabolic panel (07/28/2021 11:13 AM EST) SODIUM 141 133 - 146 mmol/L [facility] CHLORIDE 102 96 - 108 mmol/L [facility] POTASSIUM 4.0 3.3 - 5.1 mmol/L [facility] CO2 27 21 - 35 mmol/L [facility] BUN 16 6 - 19 mg/dL [facility] CREATININE 1.00 0.5 - 1.5 mg/dL [facility] GLUCOSE 118(H) 70 - 99 mg/dL [facility] CALCIUM 10.0 8.4 - 10.3 mg/dL [facility] EGFR 58(L) >59 mL/min/1.7 3m2 [facility] Comment:Estimated glomerular filtration rate calculated using the CKD-EPI refit equation. ANION GAP 16 10 - 20 mmol/L [facility] Blood 07/28/2021 11:1 3 AM EST 07/28/2021 11:16 AM EST Hilda VINSON LAB BLOOD ORDERABLE S [facility] [address] [place] [address] documented in this encounter Visit Diagnoses Diagnosis Stage 3 chronic kidney disease, unspecified whether stage 3a or 3b CKD- Primary Type 2 diabetes mellitus without complication, unspecified whether terminal computer operator insulin use Vitamin D deficiency, unspecified documented in this encounter Additional Health Concerns Infection Onset Date Last Indicated Resolved Time COVID-19 01/31/2023 01/31/2023 02/21/2023 1:21 AM EDT CoV-Risk Comment:Per note documentation 12/22/2023 12/24/2023 3:36 PM EDT CoV-Risk 03/04/2024 03/04/2024 03/15/2024 1:23 AM EDT Assessment Noted Time PHQ-2 Depression Total Score: 0 08/23/19 20 10:59 AM EST documented as of this encounter Care Teams Security Support Analyst Relationship Specialty Start Date End Date Hilda Willams PA [address] [place] [address] PCP - General Unknown Provider Specialty 07/28/20 Anastacia Barron DO [address] [place] [address] [email or web address] PCP - General Internal Medicine 02/01/22 12/26/23 Neli Perry MD [address] [place] [address] [place] [address] PCP - General Family Medicine 12/27/23 Tamera Carreno MD, MPH 55 [facility] [address] [place] [address] [email or web address] Primary Oncologist Hematology 09/22/18 Mina David MD [address] [place] [address] Ophthalmology 08/23/19 documented as of this encounter Additional Source Comments The information contained in this document represents components of the legal health record. It is not the complete legal health record.[facility]
--- OUTSIDE RECORDS SUMMARY | 2024-09-04 18:17 | XMS_ITS | Encounter Summary ---
Author Organization [facility] Address [address] [facility] [address] [place] [address] Phone Care Team Providers Care Operations And Maintenance Technician Name Role Phone Tamera Carreno MD, MPH Unavailable [phone] Mina David MD Unavailable Neli Perry MD Primary Care Provider [phone] Encounter Details Date Type Department Care Team (Latest Contact Info) Description 08/15/2024 8:13 AM EST - 08/15/2024 11:59 PM [facility] Hospital Encounter [facility] [address] [place] [address] Neli Perry MD [address] [place] [phone] [email or web address] Discharge Disposition: Home or Self Care Social History Tobacco Use Types Packs/Day Years [...] PM EST documented as of this encounter Medications at Time of Discharge Medication Sig Dispensed Refills Start Date End Date amLODIPine (NORVASC) 5 MG tablet Take 5 mg by mouth daily. ascorbic acid, vitamin C, (VITAMIN C) 500 MG tablet Take 500 mg by mouth daily. ATROVENT HFA 17 mcg/actuation inhaler 2 PUFF INHALED EVERY 8 HOURS NEEDED FOR SHORTNESS OF BREATH OR WHEEZING FOR 90 DAYS biotin 1 mg tablet Take 1,000 mcg by mouth 3 (three) times a day. cholecalciferol (VITAMIN D3) 4,000 unit tablet Take 4,000 Units by mouth daily. cyanocobalamin, vitamin B-12, 1000 MCG tablet Take 100 mcg by mouth daily. fluticasone propionate (FLONASE) 50 mcg/actuation nasal spray SPRAY 2 SPRAYS INTO EACH NOSTRIL DAILY FOR RHINITIS fluticasone-salmeterol (ADVAIR DISKUS) 250-50 mcg/dose DISKUSIndications:uses prn, not daily Inhale 1 puff into the lungs 2 (two) times a day. Indications: uses prn, not daily hydroCHLOROthiazide 12.5 MG tablet Take 12.5 mg by mouth daily. lisinopril (PRINIVIL,ZESTRIL) 40 MG tablet Take 40 mg by mouth daily. meclizine (ANTIVERT) 12.5 mg tablet Take 1 tablet (12.5 mg total) by mouth 3 (three) times a day as needed. 15 tablet 03/04/2024 omeprazole (PRILOSEC) 20 MG capsule Take 1 tablet by mouth daily as needed (gerd). predniSONE (DELTASONE) 20 MG tablet Take 2 tablets (40 mg total) by mouth daily. 2 tablets daily for 5 days then 1 tablet daily for 5 days then half tablet daily for 6 days then stop 18 tablet 12/28/2023 rosuvastatin (CRESTOR) 10 MG tablet Take 10 mg by mouth daily. 10/22/2020 documented as of this encounter Plan of Treatment Upcoming Encounters Date Type Department Care Team (Late st Contact Info) Description 10/10/2024 2:15 PM EDT Appointment [facility] [address] [address] Becca [place] MD [address] [place] [address] [email or web address] 10/10/2024 3:30 PM EDT Office Visit [address] [address] Becca Rivera MD [address] [place] [address] [email or web address] documented as of this encounter Procedures Procedure Name Priority Date/Time Associated Diagnosis Comments HEMOGLOBIN A1C Routine 08/15/2024 8:14 AM EST Mixed hyperlipidemia Type 2 diabetes mellitus without complication, unspecified whether regional merchandising manager insulin use LIPID PANEL Routine 08/15/2024 8:14 AM EST Mixed hyperlipidemia Type 2 diabetes mellitus without complication, unspecified whether regional merchandising manager insulin use documented in this encounter Results * (ABNORMAL) Lipid panel (08/15/2024 8:14 AM EST) HDL 59 mg/dL [facility] Comment: ? Interpretation <40 mg/dL: Low HDL cholesterol (major risk factor for CHD) Greater than or equal to 60 mg/dL: High HDL cholesterol ( negative risk factor for CHD) HDL - cholesterol is affected by a number of factors, e.g. smoking, excerise, hormones, sex and age. CHOLESTEROL 146 0 - 240 mg/dL [facility] TRIGLYCERIDES 117 30 - 160 mg/dL [facility] LDL 64 50 - 129 mg/dL [facility] Comment: LDL levels in terms of risk for coronary heart disease: <100 mg/dL: Optimal 100-129 mg/dL: Near or above optimal 130-159 mg/dL: Borderline high 160-189 mg/dL: High >190 mg/dL: Very High CARDIAC RISK RATIO 2.5(L) 3.3 - 4.4 C [facility] Blood 08/15/2024 8:14 AM EST 08/15/2024 8:18 AM EST Neli Perry MD LAB BLOOD ORDERABLES [facility] [address] [place] [address] * (ABNORMAL) Hemoglobin A1c (08/15/2024 8:14 AM EST) HEMOGLOBIN A1C 6.7(H) 4.3 - 5.8 % [facility] Blood 08/15/2024 8:14 AM EST 08/15/2024 8:18 AM EST Neli Perry MD LAB BLOOD ORDERABLES [facility] [address] [place] [address] documented in this encounter Visit Diagnoses Diagnosis Mixed hyperlipidemia Type 2 diabetes mellitus without complication, unspecified whether regional merchandising manager insulin use documented in this encounter Additional Health Concerns Assessment Noted Time PHQ-2 Depression Total Score: 0 08/23/19 20 10:59 AM EST documented as of this encounter Care Teams Operations And Maintenance Technician Relationship Specialty Start Date End Date eNli Perry MD [address] [place] [address] [place] [address] PCP - General Family Medicine 12/27/23 Tamera Carreno MD, MPH [address] [address] [email or web address] Primary Oncologist Hematology 09/22/18 Mina David MD [address] [address] Ophthalmology 08/23/19 documented as of this encounter Additional Source Comments The information contained in this document represents components of the legal health record. It is not the complete legal health record.[facility]
--- OUTSIDE RECORDS SUMMARY | 2024-09-04 18:17 | XMS_ITS | Encounter Summary ---
Author Organization [facility] Address [address] [facility] [address] [place] [address] Phone Care Team Providers Care Cardiopulmonary Supervisor Name Role Phone Tamera Carreno MD, MPH Unavailable [phone] Mina David MD Unavailable Neli Perry MD Primary Care Provider [phone] Encounter Details Date Type Department Care Team (Latest Contact Info) Description 08/15/[address] [facility] [address] [place] [address] Neli Perry MD [address] [place] [address] [email or web address] Mixed hyperlipidemia (Primary Dx); Type 2 diabetes mellitus without complication, unspecified whether detention insulin use Social History Tobacco Use Types Packs/Day Years [...] Info) Description 10/10/2024 2:15 PM EDT Appointment [address] [place] [address] Becca Dickinson MD [address] [place] [address] [email or web address] 10/10/2024 3:30 PM EDT Office Visit [address] [address] Becca [place] MD 55 [facility] [address] [place] [address] [email or web address] documented as of this encounter Results * (ABNORMAL) Hemoglobin A1c (08/15/2024 8:14 AM EST) Pathologist [facility] HEMOGLOBIN A1C 6.7(H) 4.3 - 5.8 % [facility] Blood 08/15/2024 8:14 AM EST 08/15/2024 8:18 AM EST Neli Perry MD LAB BLOOD ORDERABLES Performing Organization Address City/State/[facility] Co de Phone Number [facility] [address] [place] [address] * (ABNORMAL) Lipid panel (08/15/2024 8:14 AM EST) [facility] HDL 59 mg/dL [facility] Comment: ? Interpretation <40 mg/dL: Low HDL cholesterol (major risk factor for CHD) Greater than or equal to 60 mg/dL: High HDL cholesterol ( negative risk factor for CHD) HDL - cholesterol is affected by a number of factors, e.g. smoking, excerise, hormones, sex and age. CHOLESTEROL 146 0 - 240 mg/dL [facility] TRIGLYCERIDES 117 30 - 160 mg/dL [facility] LDL 64 50 - 129 mg/dL [facility] Comment: LDL levels in terms of risk for coronary heart disease: <100 mg/dL: Optimal 100-129 mg/dL: Near or above optimal 130-159 mg/dL: Borderline high 160-189 mg/dL: High >190 mg/dL: Very High CARDIAC RISK RATIO 2.5(L) 3.3 - 4.4 C [facility] Blood 08/15/2024 8:14 AM EST 08/15/2024 8:18 AM EST Neli Perry MD LAB BLOOD ORDERABLES [facility] [address] [place] [address] documented in this encounter Visit Diagnoses Diagnosis Mixed hyperlipidemia- Primary Type 2 diabetes mellitus without complication, unspecified whether detention insulin use documented in this encounter Additional Health Concerns Assessment Noted Time PHQ-2 Depression Total Score: 0 08/23/19 10:59 AM EST documented as of this encounter Care Teams Cardiopulmonary Supervisor Relationship Specialty Start Date End Date Neli Perry MD [address] [place] [address] [place] [address] PCP - General Family Medicine 12/27/23 Tamera Carreno MD, MPH [address] [address] [email or web address] Primary Oncologist Hematology 09/22/18 Mina David MD [address] [address] Ophthalmology 08/23/19 documented as of this encounter Additional Source Comments The information contained in this document represents components of the legal health record. It is not the complete legal health record.[facility]
--- OUTSIDE RECORDS SUMMARY | 2024-09-04 18:17 | XMS_ITS | Encounter Summary ---
Author Organization [facility] Address [facility] [address] [address] Phone Care Team Providers Care Analytical Tech Name Role Phone Tamera Carreno MD, MPH Unavailable [phone] Mina David MD Unavailable Anastacia Barron DO Primary Care Provider [phone] Neli Perry MD Primary Care Provider Encounter Details Date Type Department Care Team (Late st Contact Info) Description 12/26/2023 Procedure Pass [facility] [address] [place] [address] Social History Tobacco Use Types Packs/Day Years Used Date Smoking Tobacco: Former Cigarettes 1 28 0 01/28/1963 - 01/28/1991 Smokeless Tobacco: Never Alcohol Use Standard Drinks/Week Comments Yes 3 [...] computer) with a working camera? Yes 12/24/2023 Sex and Gender Information Value Date Recorded Sex Assigned at Female 08/20/2019 8:24 AM EST Gender Identity Female 08/14/2020 4:03 PM EST Sexual Orientation Straight 08/14/2020 4: 03 PM EST documented as of this encounter Plan of Treatment Upcoming Encounters Date Type Department Care Team (Late st Contact Info) Description 10/10/2024 2:15 PM EDT Appointment [facility] [address] [address] Becca Dickinson MD [address] [place] [address] [email or web address] 10/10/2024 3:30 PM EDT Office Visit [facility] [address] [address] Becca [place] MD [address] [place] [phone] [email or web address] documented as of this encounter Visit Diagnoses Not on filedocumented in this encounter Additional Health Concerns Infection Onset Date Last Indicated Resolved Time CoV-Risk 03/04/2024 03/04/2024 03/15/2024 1:23 AM EDT Assessment Noted Time PHQ-2 Depression Total Score: 0 08/23/19 10:59 AM EST documented as of this encounter Care Teams Analytical Tech Relationship Specialty Start Date End Date Anastacia Barron DO [address] [place] [address] [email or web address] PCP - General Internal Medicine 02/01/22 12/26/23 Neli Perry MD [address] [place] [address] [place] [address] PCP - General Family Medicine 12/27/23 Tamera Carreno MD, MPH [address] [address] [email or web address] [email or web address] Primary Oncologist Hematology 09/22/18 [place] [address] [place] [address] Ophthalmology 08/23/19 documented as of this encounter Additional Source Comments The information contained in this document represents components of the legal health record. It is not the complete legal health record.[facility]
--- OUTSIDE RECORDS SUMMARY | 2024-09-04 18:17 | XMS_ITS | Encounter Summary ---
Author Organization [facility] Address [address] [place] [address] Phone Care Team Providers Care Insulation Cutter And Former Name Role Phone Shari Caba NP Primary Care Provider [phone] Tamera Carreno MD, MPH Unavailable [phone] Mina David MD Unavailable Annabelle Shah MD Primary Care Provi adelaida Hilda Willams Primary Care Provider Anastacia Barron DO Primary Care Provider [phone] Neli Perry MD Primary Care Provider Encounter Details Date Type Department Care Team (Late st Contact Info) Description 03/22/2018 Procedure Pass [address] [place] [address] Social History Tobacco Use Types Packs/Day Years [...] Info) Description 10/10/2024 2:15 PM EDT Appointment [facility] [address] [address] Becca [place] MD [address] [place] [phone] [email or web address] 10/10/2024 3:30 PM EDT Office Visit [facility] [address] [address] Becca [place] MD [address] [place] [phone] [email or web address] documented as of this encounter Visit Diagnoses Not on filedocumented in this encounter Additional Health Concerns Infection Onset Date Last Indicated Resolved Time CoV-Risk 12/31/2019 01/01/2020 01/14/2020 4:55 AM EDT COVID-19 01/31/2023 01/31/2023 02/21/2023 1:21 AM EDT CoV-Risk Comment:Per note documentation 12/22/2023 12/24/2023 3:36 PM EDT CoV-Risk 03/04/2024 03/04/2024 03/15/2024 1:23 AM EDT documented as of this encounter Care Teams Insulation Cutter And Former Relationship Specialty Start Date End Date Shari Caba NP [address] [place] [address] [place] [address] PCP - General Family Medicine 12/31/15 08/22/19 Annabelle Shah MD [address] [place] [phone] [email or web address] PCP - General Internal Medicine 01/01/20 07/27/20 Hilda Willams PA [address] [place] [address] PCP - General Unknown Provider Specialty 07/28/20 01/31/22 Anastacia Barron DO [address] [place] [address] [email or web address] PCP - General Internal Medicine 02/01/22 12/26/23 Neli Perry MD [address] [place] [phone] PCP - General Family Medicine 12/27/23 Tamera Carreno MD, MPH [address] [place] [address] [email or web address] Primary Oncologist Hematology 09/22/18 Mina David MD [address] [place] [address] Ophthalmology 08/23/19 documented as of this encounter Additional Source Comments The information contained in this document represents components of the legal health record. It is not the complete legal health record.[facility]
--- OUTSIDE RECORDS SUMMARY | 2024-09-04 18:17 | XMS_ITS | Patient Health Record ---
Author Organization [facility] [place] Address [address] [facility] [place] [address] Care Team Providers Care Director Of Quality Control Name Role Phone Jaciel SPRINGER, Izzy Primary Care Provider Unav ailable Samuel Charles Unavailable [phone] Reason For Referral No Information Medications Medication SIG (Take, Route, Frequency, Duration) Notes Start Date End Date Status Anastrozole 1 MG 1 tablet Orally Once a day for 30 day(s) Active Lisinopril 10 MG 1 tablet Orally Once a day for 30 day(s) Active hydroCHLOROthiazide 25 MG 1 tablet in th e morning Orally Once a day for 30 day(s) Active Atorvastatin Calcium 10 MG 1 tablet Oral ly Once a day for 30 day(s) Active Immunizations Vaccine Route Administration Date Status Comme nts Influenza Unknown 02/13/2020 Refused Social History Tobacco Use: Social History Observation Description Date Details (start date - stop date) Former Smoker NA - NA Tobacco Use/Smoking Question Answer Notes Are you a: former smoker Additional Findings: Tobacco Non-User Current no n-smoker Alcohol Screen Question Answer Notes Did you have a drink containing alcohol in the p ast year? Yes Points 0 Interpretation Negative Tobacco use other than smoking: Question Answer Notes Are you an other tobacco user? 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) Active confirmed Encounters Encounter Location Date Provider Diagnosis [facility] [address] [place] [address] 02/01/2024 Samuel Charles Plan Of Treatment Pending Test Test Name Order Date *Uric Acid, Serum 02/13/2020 *Sedimentation Rate-Westergren 0 X ray : Foot, left 3V 02/13/2020 X ray : Foot, right 3V 02/13/2020 [id number], [id number]/[id number], JOINT/BURSA 0 02/13/2020 Insurance Providers Payer Name Payer Address Payer Phone Subscriber Number Group Number Insured Name Patient Relationship to Insured Coverage Start Date Coverage End Date Medicare [facility] [address] [place] [address] [id number] Emre Remy Self - patient is the insured [employer] Payor [id number] [address] [place]AM[place] [phone] [id number] Emre Remy Self - patient is the insured for Life [address] [place] [address] [id number] Emre Remy Self - patient is the insured Medical (General) History Medical History History ICD Code Angina asthma Back,Hip,and Knee pain Cancer Cataracts type II diabetes Gout High blood pressure Osteopenia Measles Chicken pox Surgical History Surgery Date(Month/Year) bone surgery-foot 1981 Breast cancer Surgery 01/2016
--- OUTSIDE RECORDS SUMMARY | 2024-09-04 18:17 | XMS_ITS | Encounter Summary ---
Author Organization [employer] [facility] Address [address] [facility] [address] [place] [address] Phone Care Team Providers Care Linux Network Systems Administrator Name Role Phone Unavailable Primary Care Provider Unavailabl e Encounter Details Date Type Department Care Team (Late st Contact Info) Description 08/20/2013 Hospital Encounter [facility] General Imaging [address] [place] [address] Kathie Alberto MD, PhD [address] [facility] [place] [address] [email or web address] Social History Tobacco Use Types Packs/Day [...] Description 10/10/2024 2:15 PM EDT Appointment [facility] JEANNE [address] [place] [address] [place] [address] Becca Dickinson MD [address] [place] [phone] [email or web address] 10/10/2024 3:30 PM EDT Office Visit [facility] [address] [address] Becca Dickinson MD [address] [place] [phone] [email or web address] documented as of this encounter Procedures Procedure Name Priority Date/Time Associated Diagnosis Comments BI MAMMOGRAM OUTSIDE (NO INTERPRETATION) Routine 08/20/2013 12:00 AM EST documented in this encounter Results * Mammogram Outside (No Interpretation) (08/20/2013 12:00 AM EST) Narrative [facility] IMG INTERFACES - 01/28/2016 3:12 PM EDT This study is for PACS storage only and not for interpretation. Procedure Note SYSTEMGENERATED, DOCUMENTATION - 01/28/2016 This study is for PACS storage only and not for interpretation. Kathie Alberto MD, PhD IMG OUTSIDE I MAGING W/OUT INTERPRETATION [facility] IMG INTERFACES documented in [...] It is not the complete legal health record.[facility]
--- OUTSIDE RECORDS SUMMARY | 2024-09-04 18:17 | XMS_ITS | Encounter Summary ---
Author Organization [facility] Address [address] [facility] [address] [place] [address] Phone Care Team Providers Care Print Decorator Name Role Phone Tamera Carreno MD, MPH Unavailable [phone] Mina David MD Unavailable Anastacia Barron DO Primary Care Provider Neli Perry MD Primary Care Provider [phone] Encounter Details Date Type Department Care Team (Late st Contact Info) Description 12/24/2023 Procedure Pass [facility], Ct Scan - [address] [address] Social History Tobacco Use Types Packs/Day Years [...] Info) Description 10/10/2024 2:15 PM EDT Appointment [facility] [address] [address] Becca Dickinson MD [address] [place] [phone] [email or web address] 10/10/2024 3:30 PM EDT Office Visit [facility] [address] [address] Becca Dickinson MD [address] [place] [phone] [email or web address] documented as of this encounter Visit Diagnoses Not on filedocumented in this encounter Additional Health Concerns Infection Onset Date Last Indicated Resolved Time CoV-Risk Comment:Per note documentation 12/22/2023 12/24/2023 3:36 PM EDT CoV-Risk 03/04/2024 03/04/2024 03/15/2024 1:23 AM EDT Assessment Noted Time PHQ-2 Depression Total Score: 0 08/23/19 10:59 AM EST documented as of this encounter Care Teams Print Decorator Relationship Specialty Start Date End Date Anastacia Barron DO [address] [place] [address] [email or web address] PCP - General Internal Medicine 02/01/22 12/26/23 Neli Perry MD [address] [place] [address] [place] [address] PCP - General Family Medicine 12/27/23 Tamera Carreno MD, MPH [address] [place] [phone] [email or web address] Primary Oncologist Hematology 09/22/18 Mina David MD [address] [address] Ophthalmology 08/23/19 documented as of this encounter Additional Source Comments The information contained in this document represents components of the legal health record. It is not the complete legal health record.[facility]
--- OUTSIDE RECORDS SUMMARY | 2024-09-04 18:17 | XMS_ITS | Encounter Summary ---
Author Organization [facility] Address [address] [place] [address] Phone Care Team Providers Care Mine Technician Name Role Phone Tamera Carreno MD, MPH Unavailable [phone] Mina David MD Unavailable Annabelle Shah MD Primary Care Provi adelaida SvrHilda marquez Primary Care Provider Anastacia Barron DO Primary Care Provider Neli Perry MD Primary Care Provider [phone] Encounter Details Date Type Department Care Team (Latest Contact Info) Description 07/03/2020 Transcribe Orders Virtual Department [address] [place] [address] Hilda Willams PA [address] [place] [address] Pain in both knees, unspecified chronicity (Primary Dx); Bilateral hip pain; Pelvic pain Social History Tobacco Use Types Packs/Day Years [...] Info) Description 10/10/2024 2:15 PM EDT Appointment [facility] [address] [address] Becca Dickinson MD [address] [place] [phone] [email or web address] 10/10/2024 3:30 PM EDT Office Visit [facility] [address] [address] Becca Dickinson MD [address] [place] [phone] [email or web address] documented as of this encounter Results * XR KNEE STANDING (BILATERAL) (07/04/2020 12:04 PM EST) Anatomical Region Laterality Modality Knee Bilateral, Knee Right, Knee Left Radiographic Imaging 07/04/2020 12:1 2 PM EST Impressions 07/04/2020 12:13 PM EST 1.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 Narrative 07/04/2020 12:13 PM EST HISTORY: ??As above. COMPARISON: None. STANDING AP KNEES RADIOGRAPH FINDINGS: Single image obtained. Mild left and moderate right medial knee compartment joint space narrowing and small osteophytes. No destructive or suspicious bone lesions. Medial right lower extremity varicosities. Procedure Note Mina Marie MD - 07/04/2020 HISTORY: As above. COMPARISON: None. STANDING AP KNEES RADIOGRAPH FINDINGS: Single image obtained. Mild left and moderate right medial knee compartment joint space narrowingand small osteophytes. No destructive or suspicious bone lesions. Medialright lower extremity varicosities. IMPRESSION: 1.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 Hilda VINSON IMG XR LOWER EXTREM ITY * XR HIPS 1 VW EA BILAT PLUS PELVIS (07/04/2020 12:03 PM EST) Anatomical Region Laterality Modality Hip, Pelvis Radiographic Kim ging 07/04/2020 12:1 3 PM EST Impressions 07/04/2020 12:15 PM EST No evidence of hip osteoarthritis. Narrative 07/04/2020 12:15 PM EST COMPARISON: None. BILATERAL HIP/PELVIC RADIOGRAPH FINDINGS: 3 images obtained. Osteopenia. No acute fracture or malalignment. Joint spaces are preserved. L5-S1 facet arthropathy. No destructive or suspicious bone lesions. No evidence of AVN. Soft tissues are unremarkable. Procedure Note Mina Marie MD - 07/04/2020 COMPARISON: None. BILATERAL HIP/PELVIC RADIOGRAPH FINDINGS: 3 images obtained. Osteopenia. No acute fracture or malalignment. Joint spaces are preserved.L5-S1 facet arthropathy. No destructive or suspicious bone lesions. Noevidence of AVN. Soft tissues are unremarkable. IMPRESSION: No evidence of hip osteoarthritis. Hilda VINSON IMG XR PELVIS documented in this encounter Visit Diagnoses Diagnosis Pain in both knees, unspecified chronicity- Primary Bilateral hip pain Pain in joint, pelvic region and thigh Pelvic pain Pain in both knees, unspecified chronicity Bilateral hip pain Pain in joint, pelvic region and thigh Pelvic pain Pain in both knees, unspecified chronicity Bilateral hip pain Pain in joint, pelvic region and thigh Pelvic pain documented in this encounter Additional Health Concerns Infection Onset Date Last Indicated Resolved Time COVID-19 01/31/2023 01/31/2023 02/21/2023 1:21 AM EDT CoV-Risk Comment:Per note documentation 12/22/2023 12/24/2023 3:36 PM EDT CoV-Risk 03/04/2024 03/04/2024 03/15/2024 1:23 AM EDT Assessment Noted Time PHQ-2 Depression Total Score: 0 08/23/19 10:59 AM EST documented as of this encounter Care Teams Mine Technician Relationship Specialty Start Date End Date Annabelle Shah MD [address] [place] [phone] [email or web address] PCP - General Internal Medicine 01/01/20 07/27/20 Hilda Willams PA [address] [place] [phone] PCP - General Unknown Provider Specialty 07/28/20 01/31/22 Anastacia Barron DO [address] [place] [phone] [email or web address] PCP - General Internal Medicine 02/01/22 12/26/23 Neli Perry MD [address] [place] [phone] PCP - General Family Medicine 12/27/23 Tamera Carreno MD, MPH [address] [place] [address] [email or web address] Primary Oncologist Hematology 09/22/18 Mina David MD [address] [address] Ophthalmology 08/23/19 documented as of this encounter Additional Source Comments The information contained in this document represents components of the legal health record. It is not the complete legal health record.[facility]
--- OUTSIDE RECORDS SUMMARY | 2024-09-04 18:17 | XMS_ITS | Encounter Summary ---
Author Organization [facility] Address Formerly [facility] [employer] [address] [address] Phone Care Team Providers Care World Geography Teacher Name Role Phone Tamera Carreno MD, MPH Unavailable [phone] Mina David MD Unavailable Anastacia Barron DO Primary Care Provider [phone] Neli Perry MD Primary Care Provider [phone] Encounter Details Date Type Department Care Team (Late st Contact Info) Description 02/09/2023 Procedure Pass [facility], [address] [address] Social History Tobacco Use Types Packs/Day Years [...] on file 11/01/2022 No 11/01/2022 No 11/01/2022 Digital Access Answer Date Recorded No 11/13/2022 No 11/13/2022 Reliable internet access at home? Not on file 11/13/2022 Device with a working camera? Not on file Sex and Gender Information Value Date Recorded Sex Assigned at Female 08/20/2019 8:24 AM EST Gender Identity Female 08/14/2020 4:03 PM EST Sexual Orientation Straight 08/14/2020 4: 03 PM EST documented as of this encounter Plan of Treatment Upcoming Encounters Date Type Department Care Team (Late st Contact Info) Description 10/10/2024 2:15 PM EDT Appointment [facility] [address] [address] Becca Dickinson MD [address] [place] [phone] [email or web address] 10/10/2024 3:30 PM EDT Office Visit [facility] [address] [address] Becca Dickinson MD [address] [place] [phone] [email or web address] documented as of this encounter Visit Diagnoses [...] documented as of this encounter Care Teams World Geography Teacher Relationship Specialty Start Date End Date Anastacia Barron DO [address] [place] [phone] [email or web address] PCP - General Internal Medicine 02/01/22 12/26/23 Neli Perry MD [address] [place] [address] [place] [phone] PCP - General Family Medicine 12/27/23 Tamera Carreno MD, MPH [address] [facility] [address] [place] [address] [email or web address] Primary Oncologist Hematology 09/22/18 Mina David MD [address] [place] [address] Ophthalmology 08/23/19 documented as of this encounter Additional Source Comments The information contained in this document represents components of the legal health record. It is not the complete legal health record.[facility]
--- OUTSIDE RECORDS SUMMARY | 2024-09-04 18:17 | XMS_ITS | Continuity of Care Document ---
Author Organization [facility], , [facility] [place] Address [address] [place] [address] DR JOY SHANIKA [id number] Care Team Providers Care Medical Data Analyst Name Role Phone LINDSAY WHYTE OTHER ADAM SOLIMAN Orthopedist [phone] PRISCILLA RICHARDSON Hopper Attendant [facility] Medical Oncologist [phone] PRISCILLA RICHARDSON OTHER ROSARIO HSIEH Primary Care Provider [phone] [facility] VASCULAR SURGERY Vascular Surgeon Assessment Encounter Date Assessment Date Assessment LastModified by Organization Details LastModified Time 09/04/2024 09/04/2024 We reviewed your chronic medical conditions and updated your plan for management. Please review instructions below. We have discussed your personal goals and discussed how to reach your goals. Please reach out to us via the Portal or phone if you have questions about your chronic conditions or if you or your caregivers require assistance in meeting your goals. Please visit our website [employer] for more patient resources. As part of your care plan, we will help coordinate your ongoing medical needs, arrange for durable medical equipment, renew prescriptions and necessary prior authorizations, facilitate getting referrals and collaborating with specialist, referrals for VNA services. [email or web address] Not available 09/04/2024 10:12:29 Plan of Treatment Reminders Order Date Submit Date Provider Last Modified By Organization Details Last Modified Time Details Appointments Medical Managemen t 30 2024 11:30A Madai HSIEH MD Not available Not available Not available Medical Managemen t 30 2024 03:00P Madai HSIEH MD Not available Not available Not available Wellness Visit 30 2024 10:30A Madai HSIEH MD Not available Not available Not available Lab None recorded. Referral None recorded. Procedures None recorded. Surgeries None recorded. Imaging None recorded. Medication Orders hydrochlo rothiazid e 12.[address] [id number], [address] [facility], [place], [address], 09/04/2024 11:50:27 lisinopri l 40 mg tablet [address] [id number], [address] [facility], [facility], [place], [address], 09/04/2024 11:50:27 amlodipin e 5 mg tablet [address] [id number] [address] [facility], [place], [address], 09/04/2024 11:50:26 Patient TargetsNo targets recorded. Patient InstructionsNo instructions recorded. Reason for Referral None Reported. Problems Name Problem SNOMED Code Status Onset Date Resolution Date Notes Provider Name and Address Organization Details Recorded Time Mixed hyperlipi demia 933053619 Active 2007 iKera patel [facility] 5 10:01:17 Malignant hypertens maria teresa heart disease 96999129 Completed 08/09/2011 Not Available [facility] 3 03:34:35 Essential hypertens ion 32058714 Completed 11/16/2011 Not Available [facility] 3 03:14:50 Right upper quadrant pain 686116213 Completed 08/09/2011 Not Available [facility] 3 03:14:50 Type 2 diabetes mellitus without complicat ion 381946228 Active Isaura patel [facility] 5 08:38:45 Type 2 diabetes mellitus without complicat ion 311811745 Completed 200707/04/2009 Not Available [facility] 3 03:14:50 Chronic bronchiti s 80647372 Completed 08/09/2011 Not Available [facility] 3 03:14:50 Retinal vascular occlusion 60311008 Active Not Available [facility] 3 03:14:50 Benign essential hypertens ion 9984100 Active 2007 Isaura Ortiz [facility] 5 08:38:45 Dysuria 79341830 Completed 200808/09/2011 Not Available [facility] 3 03:14:50 Hip pain 89551876 Completed 08/09/2011 Not Available [facility] 3 03:14:50 Malaise and fatigue 554001117 Completed 200708/09/2011 Not Available [facility] 3 03:14:50 Chronic obstructi ve pulmonary disease 71460885 Completed 01/18/2017 Shari Caba NP [address] [place] [address], [address] , [facility] 7 08:57:20 Family history of malignant neoplasm of ovary 043046772 Active 2015 Shari Caba NP [address] [place] [address], [address] , [facility] 6 17:48:54 Primary malignant neoplasm of female breast 05835251 Active 2015 Shari Caba NP [address] [place] [address], [address] , [facility] 6 10:04:02 Sleep apnea 76994195 Active 2015 Shari Caba NP [address] [place] [address], [address] , [facility] 6 16:17:34 Asthma 909741104 Active 2016 Shari Caba NP [address] [place] [address], [address] , [facility] 7 08:57:36 Vitamin D deficienc y 85853716 Active 2018 Shari Caba NP [address] [place] [address], [address] , [facility] 9 14:01:38 Mitochond rial antibodie s detected 467981607 Active 2018 Shari Caba NP [address] [place], [address] , [facility] 9 12:58:12 Degenerat maria teresa lumbar spinal stenosis 045921352 Active 2019 Izzy franco NP [address] [place], [address] , [facility] 0 12:01:14 Chronic kidney disease stage 3 285530491 Active 2020 Most recent GFR = 44, BMP 07/28/20. Millie Gonzáles LPN null, [facility] 1 08:42:19 Multiple joint pain 07628952 Active 2024 ROSARIO HSIEH MD [address] [place], [address] , [facility] 5 11:55:16 Problem Notes None recorded. Procedures Surgical History Date Name Laterality Status Provider Name and Address Organization Details Recorded Time 07/01/19 Medicare Wellness Visit completed Saran Khan MA [facility] 07/01/2022 08:00:10 07/01/19 23 Alcohol use screening completed Saran Khan MA [facility] 07/01/2022 08:00:10 07/01/19 23 Cardiovascular disease risk reduction counseling completed Saran Khan MA [facility] 07/01/2022 08:00:10 07/01/19 23 Asthma Control Test (12 + years old) completed Saran Khan MA [facility] 07/01/2022 08:00:25 07/01/19 23 Advanced Care Planning completed Anastacia Barron D.O. [address] [place], [address], [facility] 07/01/2022 08:33:35 01/30/20 21 Medicare Wellness Visit completed Rand See [facility] 01/29/2021 11:11:56 01/30/20 21 prevention-cardiov ascular risk reduction counseling completed Rand See [facility] 01/29/2021 11:11:56 01/30/20 21 prevention-annual alcohol misuse screening completed Rand See [facility] 01/29/2021 11:11:56 01/30/20 21 Asthma Control Test (12 + years old) completed Rand See [facility] 01/29/2021 11:11:24 04/11/20 19 Asthma Control Test (12 + years old) completed Laura Pritchett LPN [facility] 04/11/2019 13:45:10 10/11/19 19 Medicare Wellness Visit completed Hailey Joseph MA [facility] 10/10/2018 14:01:03 10/11/19 19 Asthma Control Test (12 + years old) completed Hailey Joseph [facility] 10/10/2018 14:12:14 01/19/20 17 Medicare Wellness Visit completed Marianne Vitale [facility] 01/18/2017 08:13:32 01/19/20 17 COPD Screening completed Marianne Vitale [facility] 01/18/2017 08:13:37 12/03/19 16 Medicare Wellness Visit completed Marianne Vitale [facility] 12/03/2015 11:09:11 Imaging Results None recorded. Procedure Notes None recorded. Medical Equipment None Reported. Allergies Allergen ID Allergen Name Allergen Category Reaction Reaction Severity Criticality Documentation Date Start Date Code Code System Note Provider Name and Address Organization Details Recorded Time 55210 lisinopri l medicatio n other mild Not available 07/13/2011 36547 RxNorm renal funct ion test abnor malit ies Shari Caba NP [address] [place] [address], [phone] [place] [address] 6 13:48:56 Medications Name Sig Start Date Stop Date Status Note LastModified by Organization Details LastModified Time anastrozo le 1 mg tablet 1 daily 07/30 completed 06/16/20 20 resumed per Pt AG pt states stopped this med couple wks now 07/02/20L C Not Available Not Available Not Available Vitamin C 500 mg tablet Take 1 tablet every day by oral route. active Not Available Not Available No t Available atorvasta tin 10 mg tablet TAKE 1 TABLET BY MOUTH ONCE A DAY 07/[address]schil padilla asked her to stop this med 07/02/20L C Not Available Not Available Not Available lisinopri l 20 mg tablet 1.5 tablets PO daily 05/13 completed Not Available Not Available Not Available Medrol (Francisco) 4 mg tablets in a dose pack Take 1 dose pk by oral route. 09/04 completed per orthoped ics note 05/07/24 - ASRN Not Available Not Available Not Available prednison e 20 mg tablet Take by oral route for 16 days. 01/15 completed 4- Taper dose, take two tabs daily 5 days/One tab for 5 days/the n half a tab 6 days.per [facility], per pt TR/RMA Not Available Not Available Not Available atenolol 25 mg tablet Take 1 tablet every day by oral route. 2011 active Not Available Not Available Not Avai lable Zithromax Z-Francisco 250 mg tablet Take 2 tablets at once today, then 1 tablet daily x 4 days 07/01 completed for acute bronchit is per pulm note 04/13/22 - ASRN Not Available Not Available Not Available Zyrtec 10 mg tablet Take 1 tablet every day by oral route as needed. 10/25 completed per pulm note 04/13/22 - ASRN Not Available Not Available Not Available amlodipin e 5 mg tablet Take 1 tablet every day by oral route for 90 days, for blood pressure . 2024 active Not Available Not Available Not Avai lable allopurin ol 100 mg tablet active Not Available Not Available Not Available Guiatuss AC 10 mg-100 mg/5 mL oral liquid Take 10 mL every 4 hours by oral route. 2011 active Not Available Not Available Not Avai lable Macrobid 100 mg capsule Take 1 capsule every 12 hours by oral route for 5 days. 01/14 completed pt states finished this med 01/15/20L C Not Available Not Available Not Available Zofran 4 mg tablet Take 1 tablet 3 times a day by oral route as needed. 01/14 completed pt states no longer taking this med 01/15/20L C Not Available Not Available Not Available Tessalon Perles 100 mg capsule Take 1 capsule 3 times a day by oral route. 02/27 completed Not Available Not Available Not Available lorazepam 0.5 mg tablet Take 1 tablet 1 hour prior to procedur e, may repeat immediat nellie prior to procedur e if needed 08/09 completed Not Available Not Available Not Available meclizine 25 mg tablet Take 1 tablet 3 times a day by oral route as needed. 2011 active Not Available Not Available Not Avai lable simvastat in 20 mg tablet TAKE 1 TABLET EVERY DAY 2010 active Pt past due for PHA Not Available Not Available Not Available lisinopri l 10 mg tablet TAKE 1 TABLET BY MOUTH EVERY DAY 03/27 completed Not Available Not Available Not Available naproxen 500 mg tablet,de layed release TAKE 1 TABLET BY MOUTH TWICE A DAY 12/30 completed Not Available Not Available Not Available Advair Diskus 250 mcg-50 mcg/dose powder for inhalatio n Inhale 1 puff twice a day by inhalati on route. active may cut down to once a day if symptoms are in control - per pulm note 04/13/22 - ASRN Not Available Not Available Not Available Advair Diskus 500 mcg-50 mcg/dose powder for inhalatio n INHALE 1 PUFF BY MOUTH TWICE A DAY 12/02 completed Not Available Not Available Not Available gabapenti n 300 mg capsule TAKE 1 CAPSULE BY MOUTH EVERYDAY AT BEDTIME active Not Available Not Available No t Available triamtere ne 37.5 mg-hydroc hlorothia zide 25 mg tablet TAKE ONE TABLET(S ) EVERY DAY BY MOUTH 10/30 completed Not Available Not Available Not Available omeprazol e 20 mg capsule,d elayed release TAKE 1 CAPSULE BY MOUTH EVERY DAY active Not Available Not Available No t Available lisinopri l 5 mg tablet Take 1 tablet every day by oral route. 12/24 completed Not Available Not Available Not Available hydrochlo rothiazid e 25 mg tablet TAKE 1 TABLET BY MOUTH DAILY 05/13 completed She states Not Available Not Available Not Available gabapenti n 100 mg capsule take 1 tab three times a day and 3 tabs at bedtime 10/25 completed not taking 07/01/22 JM Not Available Not Available Not Available labetalol 100 mg tablet Take 1 tablet twice a day by oral route. active Not Available Not Available No t Available albuterol sulfate HFA 90 mcg/actua tion aerosol inhaler Inhale 2 puffs every 4 hours by inhalati on route as needed. 07/28 completed Not Available Not Available Not Available lisinopri l 40 mg tablet TAKE 1 TABLET BY MOUTH EVERY DAY FOR BLOOD PRESSURE 2024 active Not Available Not Available Not Avai lable fluticaso ne propionat e 50 mcg/actua tion nasal spray,brianna pension [place] 2 sprays every day by intranas al route. 2011 active Not Available Not Available Not Avai lable naproxen 500 mg tablet Take 1 tablet twice a day by oral route. 01/14 completed pt states no longer taking this med 01/15/20L C Not Available Not Available Not Available oxycodone 5 mg tablet 11/01 completed Pt is not taking this medicait on 11-01-16 KB Not Available Not Available Not Available Bactrim DS 800 mg-160 mg tablet Take 1 tablet every 12 hours by oral route for 5 days. 03/27 completed Not Available Not Available Not Available B-12 1,000 mcg tablet Take by oral route. active Not Available Not Available No t Available rosuvasta tin 10 mg tablet Take 1 tablet every day by oral route for 90 days. 2023 active Not Available Not Available Not Avai lable Atrovent HFA 17 mcg/actua tion aerosol inhaler USE 2 INHALATI ONS FOUR TIMES A DAY NO FURTHER REFILLS NEEDS APPOINTM ENT 2018 active Not Available Not Available Not Avai lable Fish Oil one daily active per pt Not Available Not Available No t Available biotin one daily active per pt Not Available Not Available No t Available Vitamin D3 5000 units daily active Not Available Not Available No t Available Atrovent HFA 01/18 completed Not Available Not Available Not Available hydrochlo rothiazid e 12.5 mg tablet TAKE 1 TABLET BY MOUTH EVERY DAY FOR BLOOD PRESSURE 2024 active Not Available Not Available Not Avai lable cholecalc iferol (vitamin D3) 1,250 mcg (50,000 unit) capsule Take 1 capsule weekly 07/30 completed 1 daily Not Available Not Available Not Available Probiotic one daily active per pt Not Available Not Available No t Available Flonase Allergy Relief 2 spray each nostril, daily active per pulm note 04/13/22 - ASRN Not Available Not Available Not Available Vitals Date Recorded Body height Body mass index (BMI) Body weight Heart rate Oxygen saturation Oxygen saturation in Arterial blood by Pulse oximetry Systolic blood pressure Diastolic blood pressure Provider Name and Address Organization Details Last Updated DateTime 5 160.02 cm 36.3 kg/m2 86501.4 4 g 77 /min 99 % 99 % 140 mm[Hg] 70 mm[Hg] Shantelle Jackson [facility] 5 11:31:50 Social History Question Answer Notes LastModified by Organizat ion Details LastModified Time Tobacco Smoking Status Former Smoker quit age 52, smoked for 28 yrs, 1-3PPD 07/01/22 JM10/26/23 [facility] 10:51:42 What Is Your Level Of Alcohol Consumption? Occasional 2x/month [email or web address] Information not available 07/01/2022 Do You Wear A Helmet When Biking? No [email or web address] Information not available 12/03/2015 What Is Your Level Of Caffeine Consumption? Moderate Information not available 12/03/2015 How Much Tobacco Do You Chew? None [email or web address] Information not available 12/03/2015 Are You Currently Employed? No Retired Information not available 01/29/2021 What Type Of Diet Are You Following? REGULAR Pancreas Diet Information not available 10/10/2018 Which Illicit Or Recreational Drugs Have You Used? None Information not available 10/10/2018 Do You Or Have You Ever Used E-cigarettes Or Vape? Never Used Electronic Cigarettes Information not available 06/09/2020 What Is The Highest Grade Or Level Of School You Have Completed Or The Highest Degree You Have Received? CP15655-7 [email or web address] Information not available 01/29/2021 How Many Days In The Past Year Have You Had A Heavy Drinking Consumption (4+ Female, 5+ Male)? 0 Information not available 07/01/2022 Are There Any Guns Present In Your Home? No [email or web address] Information not available 12/03/2015 Do You Use Insect Repellent Routinely? No [email or web address] Information not available 01/29/2021 Live Alone Or With Others? With Others Information not available 07/01/2022 Patient Has Health Care Proxy Signed And In Chart Yes And Daughter [email or web address] Information not available 03/02/2018 Marital Status Informatio n not available 07/01/2022 Mosquito Repellent Used Routinely No Information not available 07/01/2022 What Was The Date Of Your Most Recent Tobacco Screening? 05/10/2024 [email or web address] Information not available 05/10/2024 How Many Children Do You Have? 2 [email or web address] Information not available 12/25/2013 Do You Use Your Seat Belt Or Car Seat Routinely? No [email or web address] Information not available 01/29/2021 Seat Belts Used Routinely No Information not available 07/01/2022 Smoke Alarm In Home Yes Information not available 07/01/2022 Do You Have Smoke And Carbon Monoxide Detectors In Your Home? Yes [email or web address] Information not available 01/29/2021 Are You Passively Exposed To Smoke? No [email or web address] Information not available 01/29/2021 Do You Or Have You Ever Used Smokeless Tobacco? Never Used Smokeless Tobacco Information not available 06/09/2020 How Much Tobacco Do You Smoke? No Information not available 06/09/2020 General Stress Level Low Information not available 07/01/2022 Do You Use Any Illicit Or Recreational Drugs? No [email or web address] Information not available 01/29/2021 Do You Use Sunscreen Routinely? No [email or web address] Information not available 12/03/2015 How Many Years Have You Smoked Tobacco? 0 Information not available 06/09/2020 Sex: Female Functional Status None recorded. Mental Status None recorded. Family History Relationship Description Onset Age of this Age Resolved Age Notes LastModified by Organization Details LastModified Time Father Myocardial infarction 62 [email or web address] Not available 01/2014 12:17:57 Notes:Cardiovascular: Family history is remarkable for myocardial infarction (father at 62). Gastrointestinal: Family history is remarkable for cirrhosis (mother at 58, not an alcoholic). Neurological: Family history is remarkable for brain hemorrhage (Sister x 2) Cancer: Family history is remarkable for ovarian cancer (sister at 57). Medical History No medical history recorded. Gynecological HistoryNo gynecological history recorded. Obstetrics History GPAL:G 0 P 0 0 0 0 Immunizations Vaccine Type Date Status Note Provider Nam e and Address Organization Details Recorded Time pneumococcal polysaccharide PPV23 1 completed Hilda Willams PA-C [address] [place] [address], [phone], [facility] 01/29/2021 14:43:07 COVID-19, mRNA, LNP-S, PF, 30 mcg/0.3 mL dose 1 completed Daniella Acevedo CMA null, [facility] 09/01/2020 11:28:34 COVID-19, mRNA, LNP-S, PF, 30 mcg/0.3 mL dose 1 completed Daniella Acevedo CMA null, [facility] 09/01/2020 11:28:20 Tdap 0 completed Rand See CMA null, [facility] 01/29/2021 11:16:02 COVID-19, mRNA, LNP-S, PF, 30 mcg/0.3 mL dose 1 completed Marley Ramirez LPN null, [facility] 06/15/2021 15:39:21 Past Encounters Encounter ID Performer Location Encounter Start Date Encounter Closed Date Diagnosis/Indication Diagnosis SNOMED-CT Code Diagnosis ICD10 Code Diagnosis Note [id number] ROSARIO HSIEH MD , [facility] [place] [place] [address] [place] [address] 09/04/2024 11:15:36 09/04/2024 13:51:44 Asthma 785786426 J45.30 Controlled , following with pulm. Benign ess ential hypertension 3751309 I10 At goal <140/90 at home despite being borderline here, continue HCTZ, lisinopril , amlodipine . Mixed hyperlipidemia 267 560352 E78.2 At goal LDL <100. Wondering if statin could be contributi ng to body pain. She will do a trial of 2 weeks off the medication and let me know. Can try a different brand if she notices improvemen t in pain off the statin. 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 939769377 E11.9 Controlled with lifestyle, stable, at goal <8%. Multiple joint pain 3567 8005 M25.50 Mainly right shoulder and left hip. S/p ablation in left hip. Getting treatment for shoulder. Health Concerns Section Related Observation LastModified by Organization Detai ls LastModified Time None Recorded Concern Status LastModified by Organization Details LastModified Time None Recorded Payers Encounter Date Sequence Insurance Name Policy Number Policy Mehta Covered Member ID Mehta Member ID Guarantor Name 09/04/2024 2 [facility] HE[facility] BENEFITS PLAN (PPO) Bryan Remy [id number] Emre Remy 09/04/2024 1 MEDICARE B-[place]: [employer] Armandohussein Herson Josemaurisio [id number] Emre Sandrita Notes Date Note Type Note Provider Name and Address Organization Details Recorded Time 09/04/2024 text/html Pt with a histor y of HTN, asthma, HLD, lifestyle-controll ed diabetes here for a med management. Left hip pain: got an ablation last week. Has a 4 week checkup then done with that. Right shoulder pain: following with her shoulder specialist Dr. Soliman. Has a massage booked for tomorrow, Dr. Watts recommended this. Shahbaz Caba LMT, [facility]. Asthma: good control, seeing pulm this afternoon. Some allergy symptoms recently. Advair. HTN: lisinopril, HCTZ, amlodipine. Systolic number at home usually 130-135. GERD: uses PPI as needed, not daily. Will use baking soda for heartburn. HLD: statin. Wondering about this contributing to body pain. DM: Controlled with lifestyle, stable. Last A1c was 6.7%. Varicose veins: seeing vascular in late September to repeat the ultrasound. ROSARIO HSIEH MD [address] [place] [address], [address], [facility] 09/04/2024 11:55:47 OBGyn Episode No OBEpisode recorded.
--- OUTSIDE RECORDS SUMMARY | 2024-09-04 18:17 | XMS_ITS | Encounter Summary ---
Author Organization [facility] Address [address] [facility] [address] [place] [phone] Phone Care Team Providers Care Engine Boss Name Role Phone Tamera Carreno MD, MPH Unavailable [phone] Mian David MD Unavailable Anastacia Barron DO Primary Care Provider [phone] Neli Perry MD Primary Care Provider Reason for Referral * Consultation (Routine) - Pending Review Specialty Diagnoses / Procedures Referred By Guillermo t Referred To Contact Neli Perry MD [address] [place] [address] Email: [email or web address] Duarte MD [address] [place] [phone] Email: [email or web address] Referral ID Status Reason Start Date Expiration Date V isits Requested Visits Authorized [id number] Pending Review 11/28/2023 11/27/2024 1 1 Encounter Details Date Type Department Care Team ([facility] st Contact Info) Description 11/28/[address] [facility] Referral Management [address] [place] [address] Neli Perry MD [address] [place] [phone] [email or web address] Social History Tobacco Use Types Packs/Day Years [...] Info) Description 10/10/2024 2:15 PM EDT Appointment [facility] [address] [address] Becca Dickinson MD [address] [place] [phone] [email or web address] 10/10/2024 3:30 PM EDT Office Visit [facility] [address] [address] Becca Dickinson MD [address] [place] [phone] [email or web address] Scheduled Referrals Name Type Priority Associated Diagnoses Order Schedule Ambulatory referral to [facility] V[facility]/Stroke Outpatient Referral Routine Ordered: 11/28/2023 documented as of this encounter Visit Diagnoses Not on filedocumented in this encounter Additional Health Concerns Infection Onset Date Last Indicated Resolved Time CoV-Risk Comment:Per note documentation 12/22/2023 12/24/2023 3:36 PM EDT CoV-Risk 03/04/2024 03/04/2024 03/15/2024 1:23 AM EDT Assessment Noted Time PHQ-2 Depression Total Score: 0 08/23/19 10:59 AM EST documented as of this encounter Care Teams Engine Boss Relationship Specialty Start Date End Date Anastacia Barron DO [address] [place] [address] [email or web address] PCP - General Internal Medicine 02/01/22 12/26/23 Neli Perry MD [address] [place] [address] [place] [phone] PCP - General Family Medicine 12/27/23 Tamera Carreno MD, MPH [address] [place] [phone] [email or web address] Primary Oncologist Hematology 09/22/18 Mina David MD [address] [place] [phone] Ophthalmology 08/23/19 documented as of this encounter Additional Source Comments The information contained in this document represents components of the legal health record. It is not the complete legal health record.[facility]
--- OUTSIDE RECORDS SUMMARY | 2024-09-04 18:17 | XMS_ITS | Encounter Summary ---
Author Organization [employer] [facility] Address [address] [facility] [address] [place] [phone] Phone Care Team Providers Care Mosquito Sprayer Name Role Phone Unavailable Primary Care Provider Unavailabl e Encounter Details Date Type Department Care Team (Late st Contact Info) Description 06/04/2010 Hospital Encounter [facility] General Imaging [address] [place] [address] Kathie Alberto MD, PhD [address] [facility] [place] [address] [email or web address] [email or web address] Social History Tobacco Use Types Packs/Day [...] Info) Description 10/10/2024 2:15 PM EDT Appointment [facility] [place] [address] [place] [address] [place] [address] Becca Dickinson MD [address] [place] [phone] [email or web address] 10/10/2024 3:30 PM EDT Office Visit [facility] [address] [address] Becca Dickinson MD [address] [place] [phone] [email or web address] documented as of this encounter Procedures Procedure Name Priority Date/Time Associated Diagnosis Comments BI MAMMOGRAM OUTSIDE (NO INTERPRETATION) Routine 06/04/2010 12:00 AM EST documented in this encounter Results * Mammogram Outside (No Interpretation) (06/04/2010 12:00 AM EST) Narrative [facility] INTERFACES - 01/28/2016 3:13 PM EDT This study is for PACS storage only and not for interpretation. Procedure Note SYSTEMGENERATED, DOCUMENTATION - 01/28/2016 This study is for PACS storage only and not for interpretation. Kathie Alberto MD, PhD IMG OUTSIDE I MAGING W/OUT INTERPRETATION [facility] INTERFACES documented in this encounter Visit [...] It is not the complete legal health record.[facility]
--- OUTSIDE RECORDS SUMMARY | 2024-09-04 18:18 | XMS_ITS | Data Portability ---
Author Organization [facility], [facility] Address [address] [place] [address] Care Team Providers Care Production Trainer Name Role Phone LINDSAY WHYTE OTHER ADAM SOLIMAN Orthopedist [phone] PRISCILLA RICHARDSON Roller Embosser [facility] Medical Oncologist PRISCILLA RICHARDSON OTHER ROSARIO PERRY Primary Care Provider [facility] Vascular Surgeon Assessment Encounter Date [...] meeting your goals. Please visit our website [email or web address] for more patient resources. As part of [...] Appointments Medical Managemen t 30 2024 11:30A M ROSARIO PERRY MD Not available Not available Not available Medical Managemen t 30 2024 03:00P M ROSARIO PERRY MD Not available Not available Not available Wellness Visit 2024 10:30A Madai PERRY MD Not available Not available Not available Lab lipid panel, serum 2023 024 [facility] (Outpatient), [address] [place], [address], 08/15/2024 15:07:07 HbA1c (hemoglob in A1c), blood 2023 025 [facility] (Outpatient), [address] [place], [address], 08/15/2024 14:08:47 hemoglobi n A1C/hemog lobin total, QN, blood 2023 024 [email or web address] [facility], [address] [place], [address], 03/06/2024 10:34:29 Referral vascular surgeon referral 2023 024 [facility], [address] [place] [address] [address], [place], [address], 01/03/2024 16:33:10 Procedures None recorded. Surgeries None recorded. Imaging None recorded. Medication Orders hydrochlo rothiazid e 12.5 mg tablet 2024 025 [facility], [address] [place], [address], 09/04/2024 11:50:27 lisinopri l 40 mg tablet 2024 025 [facility], [address] [place], [address], 09/04/2024 11:50:27 amlodipin e 5 mg tablet 2024 025 [facility], [address] [place], [address], 09/04/2024 11:50:26 hydrochlo rothiazid e 12.5 mg tablet 2023 024 [facility], [address] [facility], [place], [address], 05/10/2024 11:49:48 rosuvasta tin 10 mg tablet 2023 024 [facility], [address] [facility], [place], [address], 10/26/2023 11:15:55 hydrochlo rothiazid e 12.5 mg tablet 2023 024 [facility], [address] [facility], [place], [address], 12/29/2023 10:29:47 lisinopri l 40 mg tablet 2023 024 [facility], [address] [facility], [place], [address], 12/29/2023 10:29:53 Patient TargetsNo targets recorded. Patient Instructions Encounter Date Encounter Id Patient Instructions Last Modified By Organization Details Last Modified Time 01/16/2024 [id number] My total time spent today documenting and providing coordinated care for this patient is 30 min. I have reviewed, collected, and updated relevant history. I have reviewed: labs, x-rays, specialty notes, and discharge summaries as appropriate. [email or web address] Not available 01/16/2024 13:36:17 Reason for Referral Vascular Surgeon Referral fo r Edema of lower extremity Referring Physician: Rosario Perry, Family Medicine, Encounter Date: 10/26/2023 Results Created Date Observation Date Name Description Value Unit Range Abnormal Flag Note LastModifiedBy Organization Detail LastModifiedTime 03/06/20 24 03/06/2024 POCHA 1C POC HA1C 6.8 4.2 - 6.5 high Not Available [facility] [address] [place], [address], 03/06/2024 10:30:20 08/15/19 25 08/15/2024 LIPID PANEL HDL 59 mg/dL Inter preta tion <40 mg/dL : Low HDL pina stero l (dayana r risk facto r for CHD) Great er than or equal to 60 mg/dL : High HDL pina stero l ( neg ative risk facto r for CHD) HDL - pina stero l is affec santana by a numbe r of facto rs, e.g. haroldo yi, phillip shaw, hormo tamie, sex and age. Not Available [facility] (Outpatient) [address] [place] [address], [address], 08/15/2024 13:40:35 08/15/19 25 08/15/2024 LIPID PANEL cholesterol 146 mg/dL 0-240 Not Available [facility] (Outpatient) [address] [place] [address], [address], 08/15/2024 13:40:35 08/15/19 25 08/15/2024 LIPID PANEL triglyceride s 117 mg/dL 30-160 Not Available [facility] (Outpatient) [address] [place] [address], [address], 08/15/2024 13:40:35 08/15/19 25 08/15/2024 LIPID PANEL LDL 64 mg/dL 50-129 LDL level s in terms of risk for coron atul heart disea se: <100 mg/dL : Optim al 100-1 29 mg/dL : Near or above optim al 130-1 59 mg/dL : Borde rline high 160-1 89 mg/dL : High >190 mg/dL : Very High Not Available [facility] (Outpatient) [address] [place] [address], [address], 08/15/2024 13:40:35 08/15/19 25 08/15/2024 LIPID PANEL cardiac risk ratio 2.5 3.3-4. 4 low Not Available [facility] (Outpatient) [address] [place], [address], 08/15/2024 13:40:35 08/15/19 25 08/15/2024 HEMOG LOBIN A1C hemoglobin A1C 6.7 % 4.3-5. 8 high Not Available [facility] (Outpatient) [address] [place], [address], 08/15/2024 14:08:47 01/31/20 24 01/20/2024 US, sirena x, neisha s, [facility] mity No observ ation record ed. [email or web address] [employer] [address] [place], [address], 02/01/2024 12:01:10 Result Notes None recorded. Problems Name Problem SNOMED Code Status Onset Date Resolution Date Notes Provider Name and Address Organization Details Recorded Time Mixed hyperlipi demia 374067363 Active 2007 Kiera patel [facility] 5 10:01:17 Malignant hypertens maria teresa heart disease 06575846 Completed 08/09/2011 Not Available [facility] 3 03:34:35 Essential hypertens ion 83159805 Completed 11/16/2011 Not Available [facility] 3 03:14:50 Right upper quadrant pain 710205147 Completed 08/09/2011 Not Available [facility] 3 03:14:50 Type 2 diabetes mellitus without complicat ion 860689670 Active Isaura patel [facility] 5 08:38:45 Type 2 diabetes mellitus without complicat ion 964881237 Completed 200707/04/2009 Not Available [facility] 3 03:14:50 Chronic bronchiti s 99256175 Completed 08/09/2011 Not Available [facility] 3 03:14:50 Retinal vascular occlusion 38284455 Active Not Available [facility] 3 03:14:50 Benign essential hypertens ion 3156713 Active 2007 Isaura patel [facility] 5 08:38:45 Dysuria 06001217 Completed 200808/09/2011 Not Available Replaced by [facility] 3 03:14:50 Hip pain 11277887 Completed 08/09/2011 Not Available Replaced by [facility] 3 03:14:50 Malaise and fatigue 883035349 Completed 200708/09/2011 Not Available Replaced by [facility] 3 03:14:50 Chronic obstructi ve pulmonary disease 15591950 Completed 01/18/2017 Shari Caba NP [address] [place] [address], [address] , [facility] 7 08:57:20 Family history of malignant neoplasm of ovary 565405757 Active 2015 Shari Caba NP [address] [place] [address], [address] , [facility] 6 17:48:54 Primary malignant neoplasm of female breast 67406328 Active 2015 Shari Caba NP [address] [place] [address], [address] , [facility] 6 10:04:02 Sleep apnea 56021685 Active 2015 Shari Caba NP [address] [place] [address], [address] , [facility] 6 16:17:34 Asthma 557666620 Active 2016 Shari Caba NP [address] [place] [address], [address] , [facility] 7 08:57:36 Vitamin D deficienc y 25788248 Active 2018 Shari Caba NP [address] [place] [address], [address] , [facility] 9 14:01:38 Mitochond rial antibodie s detected 242816037 Active 2018 Shari Caba NP [address] [place] [address], [address] , [facility] 9 12:58:12 Degenerat maria teresa lumbar spinal stenosis 181088188 Active 2019 Izzy franco, GIAN [address] [place], [address] , [facility] 0 12:01:14 Chronic kidney disease stage 3 234455976 Active 2020 Most recent GFR = 44, BMP 07/28/20. Millie Gonzáles LPN null, [facility] 1 08:42:19 Multiple joint pain 67700158 Active 2024 ROSARIO PERRY MD [address] [place], [address] , [facility] 5 11:55:16 Problem Notes None recorded. Procedures Surgical History Date Name Laterality Status Provider Name and Address Organization Details Recorded Time 07/01/19 23 Medicare Wellness Visit completed Saran Khan MA [facility] 07/01/2022 08:00:10 07/01/19 23 Alcohol use screening completed Saran Khan MA [facility] 07/01/2022 08:00:10 07/01/19 23 Cardiovascular disease risk reduction counseling completed Saran Khan MA [facility] 07/01/2022 08:00:10 07/01/19 23 Asthma Control Test (12 + years old) completed Saran Khan MA [facility] 07/01/2022 08:00:25 07/01/19 23 Advanced Care Planning completed Anastacia Barron D.O. [address] [place] [address], [phone], [facility] 07/01/2022 08:33:35 01/30/20 21 Medicare Wellness Visit completed Rand See [facility] 01/29/2021 11:11:56 01/30/20 21 prevention-cardiov ascular risk reduction counseling completed Rand See [facility] 01/29/2021 11:11:56 01/30/20 21 prevention-annual alcohol misuse screening completed Rand See [facility] 01/29/2021 11:11:56 01/30/20 21 Asthma Control Test (12 + years old) completed Rand See [facility] 01/29/2021 11:11:24 04/11/20 19 Asthma Control Test (12 + years old) completed Laura Pritchett LPN [facility] 04/11/2019 13:45:10 10/11/19 19 Medicare Wellness Visit completed Hailey Joseph MA [facility] 10/10/2018 14:01:03 10/11/19 19 Asthma Control Test (12 + years old) completed Hailey Joseph MA [facility] 10/10/2018 14:12:14 01/19/20 17 Medicare Wellness Visit completed Marianne Vitale MA [facility] 01/18/2017 08:13:32 01/19/20 17 COPD Screening completed Marianne Vitale MA [facility] 01/18/2017 08:13:37 12/03/19 16 Medicare Wellness Visit completed Marianne Vitale MA [facility] 12/03/2015 11:09:11 Imaging Results Imaging Date Name Status LastModified by Organiz ation Details LastModified Time 01/20/2024 US, duplex, venous, lower extremity completed [email or web address] [address], [address], 02/01/2024 12:01:10 Procedure Notes None recorded. Medical Equipment None Reported. Allergies Allergen ID Allergen Name Allergen Category Reaction Reaction Severity Criticality Documentation Date Start Date Code Code System Note Provider Name and Address Organization Details Recorded Time 00638 lisinopri l medicatio n other mild Not available 07/13/2011 56944 RxNorm renal funct ion test abnor malit ies Shari Caba NP [address] [place] [address], [facility] [place], [address], [facility] 6 13:48:56 Medications Name Sig Start Date [...] e 50 mcg/actua tion nasal spray,brianna [employer] [facility] 2 sprays every day by intranas al [...] Available Not Available Vitals Date Recorded Body weight Heart rate Oxygen saturation Oxygen saturation in Arterial blood by Pulse oximetry Systolic blood pressure Diastolic blood pressure Provider Name and Address Organization Details Last Updated DateTime 4 49588.4 g 98 /min 96 % 96 % 128 mm[Hg] 70 mm[Hg] Millie Davalos Matt [facility] 4 10:53:37 Date Recorded Body weight Heart rate Oxygen saturation Oxygen saturation in Arterial blood by Pulse oximetry Systolic blood pressure Diastolic blood pressure Provider Name and Address Organization Details Last Updated DateTime 4 63771.4 4 g 80 /min 98 % 98 % 132 mm[Hg] 70 mm[Hg] Lurdes Umana [facility] 4 11:45:14 Date Recorded Body height Body mass index (BMI) Body weight Heart rate Oxygen saturation Oxygen saturation in Arterial blood by Pulse oximetry Systolic blood pressure Diastolic blood pressure Provider Name and Address Organization Details Last Updated DateTime 4 160.02 cm 35.8 kg/m2 50610.3 6 g 75 /min 99 % 99 % 126 mm[Hg] 72 mm[Hg] Lurdes Umana [facility] 4 10:22:03 Date Recorded Body height Body mass index (BMI) Body weight Heart rate Systolic blood pressure Diastolic blood pressure Provider Name and Address Organization Details Last Updated DateTime 4 160.02 cm 37.6 kg/m2 27214.5 8 g 76 /min 130 mm[Hg] 70 mm[Hg] Lurdes Umana [facility] 4 11:33:54 Date Recorded Body height Body mass index (BMI) Body weight Heart rate Oxygen saturation Oxygen saturation in Arterial blood by Pulse oximetry Systolic blood pressure Diastolic blood pressure Provider Name and Address Organization Details Last Updated DateTime 5 160.02 cm 36.3 kg/m2 79310.4 4 g 77 /min 99 % 99 % 140 mm[Hg] 70 mm[Hg] Shantelle Jackson [facility] 5 11:31:50 Date Recorded Systolic blood pressure Diastolic blood pressure Provider Name and Address Organization Details Last Updated DateTime 12/28/2023 122 mm[Hg] 80 mm[Hg] Izabella Berumen [facility] 12/28/2023 11:37:50 Social History Question Answer Notes LastModified by Organizat ion Details LastModified Time Tobacco Smoking Status Former Smoker quit age 52, smoked for 28 yrs, 1-3PPD 07/01/22 JM10/26/23MV [facility] 10/26/2023 10:51:42 What Is Your Level Of Alcohol Consumption? Occasional 2x/month Information not available 07/01/2022 Do You Wear A Helmet When Biking? No [email or web address] Information not available 12/03/2015 What Is Your Level Of Caffeine Consumption? Moderate [email or web address] Information not available 12/03/2015 How Much Tobacco Do You Chew? None [email or web address] Information not available 12/03/2015 Are You Currently [...] Or The Highest Degree You Have Received? [id number] [email or web address] Information not available 01/29/2021 How Many Days In The Past Year Have You Had A Heavy Drinking Consumption (4+ Female, 5+ Male)? 0 Information not available 07/01/2022 Are There Any Guns Present In Your Home? No [email or web address] Information not available 12/03/2015 Do You Use Insect Repellent Routinely? No [email or web address] Information not available 01/29/2021 Live Alone Or [...] Seat Belt Or Car Seat Routinely? No [email or web address] Information not available 01/29/2021 Seat Belts Used Routinely No Information not available 07/01/2022 Smoke Alarm In Home Yes Information not available 07/01/2022 Do You Have Smoke And Carbon Monoxide Detectors In Your Home? Yes Information not available 01/29/2021 Are You Passively Exposed To Smoke? No Information not available 01/29/2021 Do You Or Have You Ever Used Smokeless Tobacco? Never Used Smokeless Tobacco Information not available 06/09/2020 How Much Tobacco Do You Smoke? No Information not available 06/09/2020 General Stress Level Low Information not available 07/01/2022 Do You Use Any Illicit Or Recreational Drugs? No [email or web address] Information not available 01/29/2021 Do You Use Sunscreen Routinely? No [email or web address] Information not available 12/03/2015 How Many Years [...] polysaccharide PPV23 1 completed Hilda Willams PA-C [address] [place] [address], [address], [facility] 01/29/2021 14:43:07 COVID-19, mRNA, LNP-S, PF, 30 mcg/0.3 mL dose 1 completed Daniella Acevedo [employer] null, [facility] 09/01/2020 11:28:34 COVID-19, mRNA, LNP-S, PF, 30 mcg/0.3 mL dose 1 completed Daniella Acevedo [employer] null, [facility] 09/01/2020 11:28:20 Tdap 0 completed Rand See [employer] null, [facility] 01/29/2021 11:16:02 COVID-19, mRNA, LNP-S, PF, 30 mcg/0.3 mL dose 1 completed Marley Ramirez LPN null, [facility] 06/15/2021 15:39:21 Past Encounters Encounter ID Performer Location Encounter Start Date Encounter Closed Date Diagnosis/Indication Diagnosis SNOMED-CT Code Diagnosis ICD10 Code Diagnosis Note [id number] PAUL [facility], OFFICE [address] [place] [address] 12/26/2007 14:40:31 07/10/2008 02:02:29 [id number] [address] [place] [address] 02/13/2008 08:15:50 02/13/2008 08:22:56 [id number] [facility], OFFICE [address] [place] [address] 02/15/2008 14:04:53 07/10/2008 02:02:[id number] [place] [id number] 04/16/2008 08:26:22 04/16/2008 08:26:[id number] [place] [address] 04/16/2008 00:00:00 07/10/2008 02:02:29 [id number] [facility], OFFICE [address] [place] [address] 04/23/2008 10:24:35 04/25/2008 08:40:01 [id number] LAB - [facility] [address] [place] [address] 04/23/2008 10:48:44 04/23/2008 10:48:51 [id number] Stefania Wagner [facility], OFFICE [address] [place] [address] 01/20/2009 15:19:20 01/21/2009 16:23:41 [id number] [facility], OFFICE [address] [place] [address] 04/14/2009 09:55:52 04/14/2009 15:18:08 [id number] Physical Therapy, [facility] [address] [place] [address] 04/16/2009 08:58:31 04/17/2009 13:52:27 [id number] [facility] - [facility] SH[place]A [id number] 07/25/2008 10:20:32 07/25/2008 10:20:45 [id number] [facility] - [facility] [address] [place] [id number] 07/25/2008 00:00:00 04/17/2009 02:00:52 [id number] [facility] - [facility] [place] [address] 01/24/2009 09:21:10 01/29/2009 11:13:58 [id number] [facility], OFFICE [address] [place] [address] 04/28/2009 14:37:47 04/29/2009 10:13:50 [id number] Physical Therapy, [facility] SHANIKA [id number] 1 05/08/2009 07:59:37 05/09/2009 11:19:39 [id number] Physical Therapy, [facility] SHANIKA [id number] 1 05/13/2009 10:23:19 05/14/2009 10:33:39 [id number] Radiology , [facility] [address] [id number] 05/30/2009 13:00:44 06/02/2009 11:01:08 [id number] FP, [facility], OFFICE [place] [place], [place] [id number] 07/08/2009 10:54:39 07/08/2009 13:42:43 [id number] FP, [facility], OFFICE [address] [place] [address] [place] [address] 04/01/2010 10:41:38 04/01/2010 13:33:26 [id number] FP, [facility], OFFICE [address] [place] [address] [place] [address] 05/19/2010 13:44:23 05/19/2010 15:16:58 [id number] FP, [facility], OFFICE [place]A [place], [place] [id number] 10/19/2010 11:58:41 10/19/2010 12:42:19 [id number] FP, [facility], OFFICE [address] [place] [address] DR [place], [place] [id number] 11/18/2010 15:01:31 11/19/2010 12:19:44 [id number] FP, [facility], [address] [place], [place] [id number] 07/26/2011 09:04:40 07/26/2011 09:33:08 [id number] FP, [facility], OFFICE [place] [place], [place] [id number] 08/04/2011 09:07:23 08/04/2011 09:54:49 [id number] FP, [facility], OFFICE [address] [place] [address] DR JO[place], [place] [id number] 11/16/2011 10:24:59 11/16/2011 10:58:01 [id number] Shari Caba NP FP, [facility], [address] [place], [place] [id number] 05/08/2012 15:21:36 05/08/2012 16:12:[id number] [facility] , [address] [place] [address] 05/08/2012 16:17:58 05/15/2012 14:05:06 [id number] Karyn Nguyen LPN FP, [facility], OFFICE [address] [place] [address] [place] [address] 08/29/2012 09:34:51 08/29/2012 10:37:56 [id number] FP, [facility], OFFICE [address] [place] [address] DR [place], [place] [id number] 12/25/2013 11:12:24 12/25/2013 11:51:11 Mixed hyperlipidemia 037277585 Continue statin, labs ordered, continue to work on diet and exercise as discussed Pre-surger y evaluation 843414833 Benign ess ential hypertension 2417132 Followed by nephrology 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 101847966 Diet controlled Asthma 682982058 Stable [id number] Jocelyn MILLER, [facility], OFFICE [address] [place] [address] 10/08/2014 09:23:55 10/14/2014 15:37:02 Synovial cyst of popliteal space 94452964 [id number] Jocelyn MILLER, [facility], OFFICE [address] [place] [address] 10/22/2014 13:14:47 10/30/2014 12:37:55 Synovial cyst of popliteal space 27334646 [id number] GIAN Todd, [facility], OFFICE [address] [place] [address] 07/28/2015 13:04:19 07/28/2015 13:50:38 Bronchitis 62612326 J40 Acute asthma 634269275 J 45.901 Benign hypertension 1072 5009 I10 [id number] GIAN Todd, [facility], OFFICE [address] [place] [address] 12/03/2015 11:08:22 12/04/2015 15:17:48 Adult health examination 177410044 Z00.00 see Risk Assessment and Lifestyle Change Counseling section above Benign ess ential hypertension 6887802 I10 Blood pressure at goal Blood pressure NOT at goal. Mixed hyperlipidemia 267 653828 E78.2 Cholestero l is at goal. Continue to work on diet and exercise as discussed 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 516247778 E11.9 A1C at goal. Family his tory of malignant neoplasm of ovary 468430513 Z80.41 Shoulder pain 70799672 M 25.511 Hip pain 13983453 M25.55 1 Snoring 24215532 R06.83 Right uppe r quadrant pain 645733058 R10.11 [id number] Anastacia MILLER, [facility], OFFICE [address] [place] [address] 08/30/2016 17:15:17 09/01/2016 16:12:59 Acute sciatica 715524074 M54.31 right sideddiscu ssed meds and PT [id number] Anastacia MILLER, [facility], OFFICE [address] [place] [address] 11/01/2016 09:07:25 11/01/2016 09:46:54 Pain in calf 063388395 M79.669 rigth side- improving overallnor mal examrecomm end massage - prn tylenol/mo marilucarmen would like to see chiropract or she has seen in the past [id number] Shari Caba NP , [facility], OFFICE [address] [place] [address] 01/18/2017 08:11:55 01/18/2017 08:56:16 Adult health examination 603461234 Z00.00 see Risk Assessment and Lifestyle Change Counseling section above Benign ess ential hypertension 7080413 I10 Blood pressure at goal. Mixed hyperlipidemia 267 493443 E78.2 Cholestero l is at goal. Continue to work on diet and exercise as discussed 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 455465929 E11.9 A1C at goal. Primary ma lignant neoplasm of female breast 21427037 C50.919 [place] [facility] anastrozol e. Asthma 508112037 J45.90 9 Stable Foot pain 38248667 M79.6 73 Will see [facility]. Sciatica 15802171 M54.31 Has seen PT and chiropract ic. Screening for malignant neoplasm of colon 596274503 Z12.11 [id number] Shari Caba NP , [facility], OFFICE [address] [place] [address] 04/25/2017 10:06:25 04/25/2017 10:34:50 Fatigue 93980856 R53.83 Varicose v eins of lower extremity 89891830 I83.891 Lumbar radiculopathy 128 638052 M54.16 [id number] Shari Caba NP , [facility], OFFICE [address] [place] [address] 05/30/2017 13:22:27 05/30/2017 14:13:04 Paresthesia of lower extremity 084361397 R20.2 [id number] GIAN Todd, [facility], OFFICE [address] [place] [address] 07/04/2017 13:08:21 07/04/2017 13:43:27 Sciatica 36519347 M54.31 Has seen PT and chiropract ic. [id number] Fredi Rizvi MD , [facility], OFFICE [address] [place] [address] 02/27/2018 09:15:47 02/27/2018 09:37:44 Pain of toe of left foot [id number] 39593 M79.675 Check x rays. Try post-op shoe. Continue MICHEAL, NSAIDs [id number] Shari Caba NP , [facility], OFFICE [address] [place] [address] 08/09/2018 10:46:42 08/09/2018 11:30:02 Abdominal pain 20413347 R10.9 Fatigue 03539885 R53.83 Multiple joint pain 3567 8005 M25.50 Primary ma lignant neoplasm of female breast 88707712 C50.919 [place] [facility], [place] e. [id number] Shari Caba NP , [facility], OFFICE [address] [place] [address] 10/10/2018 13:31:10 10/10/2018 14:46:51 Adult health examination 472272539 Z00.00 see Risk Assessment and Lifestyle Change Counseling section above Depression screening 171 476149 Z13.89 depression screening tool administer ed, entered into emr, scored and discussed, time greater than 7.5 minutes Mixed hyperlipidemia 267 215892 E78.2 Cholestero l is at goal Continue to work on diet and exercise as discussed Asthma 005415817 J45.90 9 Stable Sleep apnea 49182199 G47 .30 Benign ess ential hypertension 8415344 I10 Blood pressure at goal. 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 653115670 E11.9 A1C at goal. Family his tory of malignant neoplasm of ovary 347964185 Z80.41 Retinal va scular occlusion 32387694 H34.9 Followed by retinal specialist Primary ma lignant neoplasm of female breast 00522330 C50.919 [place] [facility]. Screening for malignant neoplasm of colon 284665861 Z12.11 Fatigue 40663819 R53.83 Disorder of pancreas 385 5007 K86.9 [id number] GIAN Todd, [facility], OFFICE [address] [place] [address] 04/11/2019 13:06:34 04/11/2019 15:07:15 Mixed hyperlipidemia 661692978 E78.2 Cholestero l is at goal Continue to work on diet and exercise as discussed Intrinsic asthma 8340268 08 J45.20 INTERMITTE NT Asthma- Based on history, physical assessment and peak flow the patients asthma is in control. Will continue the present medication s and follow-up in 6 months. The asthma action plan has been discussed. The patient verbalizes understand ing medication use.. The patient is in agreement with this plan. 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 932332747 E11.9 A1C at goal. Benign ess ential hypertension 7574471 I10 Blood pressure at goal. Primary ma lignant neoplasm of female breast 10864143 C50.919 Followed at [facility] anastrozol e. Multiple joint pain 3567 8005 M25.50 Vitamin D deficiency 347 72130 E55.9 [id number] Izzy franco, [employer] [place], [facility], OFFICE [address] [place] [address] 11/20/2019 09:25:39 11/20/2019 10:08:28 Gout 42118973 M10.9 Pt reports acute swelling and pain to R big toe, reports it is consistent with photos of gout and an [employer]NA[employer] friend said it was gout. This visit was by phone, unable to evaluate myself.Calvin l treat presumptiv nellie for gout with prednisone as below.Advi sed to push fluidsIf not improving or if worsening please call office. [id number] Izzy franco, [employer], [facility], OFFICE [address] [place] [address] 11/30/2019 09:53:59 11/30/2019 10:46:27 Gout 41068350 M10.9 had improved with prednisone , then returned, but more mild-- continue ibuprofen advised to increase to TID for the next week-- hydrate-- call if worsening Degenerati ve lumbar spinal stenosis 227353252 M48.061 04/05/18 MRI mild DDD and foraminal stenosis L4-S1, disc protrusion at S1. Pt has see neurosurge ry at [facility], she does not want injections or surgery.Walter keith completed multiple courses of physical therapy which are helpful in the moment, but then the pain returnsnot improved with tylenol or ibuprofenp t reports continued pain, would like different medication for treatment. Long discussion , reviewed her MRI, reviewed treatment optionssha red decision to trial gabapentin . Will start with 300 mg nightly, counseled on possible side effects. 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 no tenderness to light touch, + tendern to palpation. Pt reports was swollen red and hot.Has continued pain, difficulty walking. Unclear if resolving gout flare (exam not consistent with gout, history is), vs OA, vs bunion pain. -- D/C ibuprofen, start naproxen-- referred to podiatry-- advised padding-- will check uric acid level Degenerati ve lumbar spinal stenosis 832354272 M48.061 04/05/18 MRI mild DDD and foraminal stenosis L4-S1, disc protrusion at S1. Pt has see neurosurge ry at [facility], she does not want injections or surgery.Walter keith completed multiple courses of physical therapy which are helpful in the moment, but then the pain returnsnot improved with tylenol or ibuprofen, gabapentin caused dizzinessp t reports continued pain, would like different medication for treatment. -- d/c gabapentin and ibuprofen, start naproxen-- pt declined injections / physiatry- - referred back to physical therapy [id number] , [facility], OFFICE [address] [place] [address] 12/31/2019 11:12:21 12/31/2019 12:55:47 Dysuria 61713449 R30.9 It is not clear whether she has a UTI causing symptoms and vomiting or her urinary symptoms were from long car rides and not voiding promptly since the pelvic discomfort and urethral irritation have resolved. We will check a urine and treat if positive. Suspected COVID-19 19658 4004 Z03.818 with fever and vomiting and recnt travel need to rule out cOVID, will refer to [facility] for testing. Nausea and vomiting 1693 1999 R11.2 advance diet slowly, crackers, bread, balnd meats, fluids, anti-emeti c prn. [id number] Izzy Susan er, [employer] , [facility], OFFICE [address] [place] [address] 01/15/2020 15:44:58 01/15/2020 16:55:34 Fever 331462112 R50.9 Fever start last night. No other symptoms except for decreased urine output.Was recently treated for UTI with macrobid, culture dietz sensitiveN egative Covid 19 test on 01/01/2020- - check urine, if signs of infection will treat again-- check CBC-- pending results, if normal will order chest xray--advi sed rest, hydration, and tylenol as needed-- follwo up if worsening, other symptoms develope Mild inter mittent asthma 549455644 J45.20 Followed by lynnette saenz bronchial asthma per consult note from 2015uses jo jeronimo mpleted recent course of prednisone , reports normal breathing at this time, no cough Urinary tr act infectious disease 90463424 N39.0 Patient instructed to push fluids, to follow up for persistent or worsening symptoms or fever or back pain. [id number] Hilda Willams PA-C , [facility], OFFICE [address] [place] [address] 03/27/2020 11:25:06 03/31/2020 17:46:08 Gout 16869030 M10.9 Recent gout attack and elevated urica acid levels. Discussed options. ADvised to stop HCTZ- will increase lisinopril . Start low dose allopurino l- reviewed R/B/A of med. Advised this can sometimes precipitat e an attack and to call if this is the case. Repeat labs in few months to see where uric acid level is. Continue to work on dietary modificati ons and plenty of water. Benign ess ential hypertension 9213867 I10 Quite high in the office today. Reports it has been controlled previously . Stop HCTZ due to above, increase lisinopril to 20 mg daily. CHeck BP at home this afternoon and over the next few weeks. If BP remains >140/90 will need to adjust meds further. Repeat BMP 2 weeksPlan for BP clinic visit in 2 weeks. Primary ma lignant neoplasm of female breast 86052676 C50.919 On anastrazol e, plans to discuss with her oncologist about coming off. 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 Controlled with diet [id number] Laura Pritchett LPN , [facility], OFFICE [address] [place] [address] 04/10/2020 09:35:22 04/10/2020 17:21:51 [id number] Hilda Willams PA-C , [facility], OFFICE [address] [place] [address] 06/09/2020 14:15:32 06/12/2020 09:00:36 Low back pain 469110067 M54.5 Ongoing low back/sciat ica/? SI joint pain. Will send to PT. Benign ess ential hypertension 1388877 I10 BP remains above goal. Continue lisinopril . Add amlodipine . Reviewed R/B/A of meds. F/u in 1 month, sooner with any concerns. Degenerati ve lumbar spinal stenosis 976542748 M48.061 As above- to PT Inflammati on of sacroiliac joint 64284591 M46.1 As above- to PT. [id number] Vinay Franklin MD , [facility], OFFICE [address] [place] [address] 06/16/2020 16:34:19 06/18/2020 08:51:46 Multiple joint pain 36476159 M25.50 Benign ess ential hypertension 4530117 I10 [id number] Hilda Willams PA-C , [facility], OFFICE [address] [place] [address] 07/02/2020 09:41:13 07/04/2020 15:15:34 Benign essential hypertension 7914806 I10 BP remains quite high on lisinopril 40 mg, amlodipine 5 mg. We will restart HCTZ and monitor uric acid. No CP, SOB, dizziness. Continue to monitor BP at home. F/u in 1 month, sooner with any concerns. Inflammati on of sacroiliac joint 24202221 M46.1 Ongoing hip pain. Will get xrays. Primary ma lignant neoplasm of female breast 51892896 C50.919 Stopped anastrazol e- She was concerned it was causing her body pain. Has f/u with her Oncologist Jul 21 and will discuss further. Was due to come off Jan 2021. Bilateral knee pain 1187 725117 5022158 M25.561 Will get imaging and f/u pending results. Bilateral hip joint pain 2286042927 0202241 M25.551 As above. WIll get imaging and f/u pending results. Gout 80142641 M10.9 Repeat uric acid level in 1 month given we are restarting HCTZ. 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 Controlled with diet Vitamin D deficiency 347 34492 E55.9 Check with next set of labs in 1 month. Degenerati ve lumbar spinal stenosis 098359137 M48.061 Per MRI 2018. Mixed hyperlipidemia 267 637055 E78.2 Statin on hold currently due to body pain, has noticed some improvemen t since stopping it. [id number] Hilda Willams PA-C , [facility], OFFICE [address] [place] [address] 07/30/2020 09:15:59 08/01/2020 16:25:21 Gout 34638606 M10.9 She went off allopurino l and uric acid level increased back up to 9. Will resume allopurino l and remain on. Benign ess ential hypertension 3233056 I10 BP much improved with addition of HCTZ back. Continue lisinopril 40 mg, amlodipine 5 mg and HCTZ 12.5 mg daily. Continue to monitor BP at home. Vitamin D deficiency 347 52587 E55.9 Vit D low. Increase supplement from 1000 IU daily to 2000 IU daily. Heartburn 82727263 R12 Uses omeprazole just PRN. Will send Rx. [id number] Hilda Willams PA-C , [facility], OFFICE [address] [place] [address] 01/29/2021 13:48:24 01/29/2021 14:38:49 Chronic kidney disease stage 3 165471434 N18.30 Creatinine 1.00 on recent labs. Essential hypertension 72518200 I10 BP has been well controlled on current regimen. Mixed hyperlipidemia 267 151579 E78.2 Cholestero l well controlled with statin. Continue current regimen. Healthy diet and regular exercise. Adult heal th examination 596498533 Z00.00 Continue healthy diet. Exercise as tolerated. UTD Counseling 666307861 Z71 .9 including cardiovasc ular risk reduction counseling Depression screening 171 699856 Z13.31 . depression screening tool administer ed, entered into emr, scored and discussed, time greater than 7.5 minutes Screening for alcohol abuse 741274553 Z13.39 07/01 Benign ess ential hypertension 8552667 I10 BP much improved with addition of HCTZ back. Continue lisinopril 40 mg, amlodipine 5 mg and HCTZ 12.5 mg daily. Continue to monitor BP at home. 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 Controlled with diet. will recheck 6 months. Vitamin D deficiency 347 65745 E55.9 Vit D low. Recently increased vit D supplement to 4000 IU daily Active or passive immunization 383339547 Z23 Osteoporosis 00689314 M8 1.0 Recent bone density by outside provider osteoporos is at lumbar spine (t score -2.6) Reclast suggested, she declined. Will continue vit D and exercise as tolerated. [id number] Anastacia Barron DAngelicOAngelic , [facility], OFFICE [address] [place] [address] 12/10/2021 17:03:45 12/14/2021 06:57:27 Benign essential hypertension 8549277 I10 at goal as <140/90con tinue on lisinopril 40, amlodipine 5, and higher dose HCTZ 25labs due in jan Foot pain 25778438 M79.6 73 had pain in great toe once during covid- not really swollen or tender to touch- but was painful to walklater started on allopurino l 100 mgsaw podiatry who didn;t think it was gout- more just OAok to STOP low dose allopurino l Lumbago with sciatica 20 5709380 M54.40 right sidedsees physiatry at [facility] in [place] [id number] Anastacia Barron D.O. 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 , [facility], OFFICE [address] [place] [address] 07/01/2022 07:42:04 07/01/2022 08:39:12 Adult health examination 347774329 Z00.00 Counseling 196570075 Z71 .9 including cardiovasc ular risk reduction counseling Depression screening 171 544649 Z13.31 depression screening tool administer ed, entered into emr, scored and discussed, time greater than 7.5 minutes Screening for alcohol abuse 215456367 Z13.39 Essential hypertension 85546780 I10 at goal as <130/80- stay on current med regimen of lisinopril and HCTZ Mild inter mittent asthma 574631497 J45.20 recent exacerbati on in MAR- impoirved Vitamin D deficiency 347 97775 E55.9 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 Had refill already for amlodipine . Needs the other two. Mixed hyperlipidemia 267 615068 E78.2 At goal <100. Edema of l ower extremity 613855735 R60.0 No evidence of fluid overload on exam. Some improvemen t in edema now but she likely needs a vascular evaluation . Will send. Asthma 594828929 J45.90 9 Controlled , following with pulm. 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 Declines meds. Degenerati ve joint disease of hand 49568302 M19.049 Advised stretching and strengthen ing her hands. Can take tylenol ES prn. [id number] ROSARIO PERRY MD , [facility], OFFICE [address] [place] [address] 01/16/2024 10:24:39 01/16/2024 14:04:30 Type 2 diabetes mellitus without complication 629664747 E11.9 Did not find her A1c from [facility]. Will repeat in a few months. She will send me what she has. Pneumonia 312079143 J18. 9 Improving s/p prednisone . Still a small amount of wheeze. Saw pulm, they are keeping her current med regimen. Degenerati ve lumbar spinal stenosis 309678029 M48.061 Continue with plan for nerve block. [id number] ROSARIO PERRY MD , [facility], OFFICE [address] [place] [address] 03/06/2024 10:10:17 03/06/2024 11:01:02 Type 2 diabetes mellitus without complication 337294116 E11.9 Controlled with lifestyle, recent A1c is 6.8%. Normal foot exam today. Vertigo 984579348 R42 Reviewed ED note. Seems like BPPV but also has some exacerbati on of symptoms early in AM, which may be more postural hypotensio n. She will monitor her symptoms over the next few weeks- if they do not resolve she will call. Benign ess ential hypertension 9642989 I10 Stable but may reduce or eliminate one of her meds depending how her dizziness feels over the next few weeks to months. Degenerati ve lumbar spinal stenosis 021224902 M48.061 Continue with plan for nerve block. [id number] MD PAUL PINTO, [facility], OFFICE [address] [place] [address] 05/10/2024 11:22:46 05/10/2024 13:12:09 Mixed hyperlipidemia 239881959 E78.2 Has been at goal but due for repeat. Continue statin. 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 Benign ess ential hypertension 8275333 I10 At goal <140/90, continue HCTZ, lisinopril , amlodipine . Asthma 201547702 J45.30 Controlled , following with pulm. Sleep apnea 41706996 G47 .33 Never went for repeat testing. Does not use CPAP. Declines further treatment for now. Influenza vaccination declined 906542877 Z28.21 Essential hypertension 63764462 I10 See above, sent refill as requested. [id number] ROSARIO PERRY MD , [facility], OFFICE [address] [place] [address] 09/04/2024 11:15:36 09/04/2024 13:51:44 Asthma 872502852 J45.30 Controlled , following with pulm. Benign ess ential hypertension 7541730 I10 At goal <140/90 at home despite being borderline here, continue HCTZ, lisinopril , amlodipine . Mixed hyperlipidemia 267 351534 E78.2 At goal LDL <100. Wondering if statin could be contributi ng to body pain. She will do a trial of 2 weeks off the medication and let me know. Can try a different brand if she notices improvemen t in pain off the statin. 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 282875397 E11.9 Controlled with lifestyle, stable, at goal [...] Member ID Mehta Member ID Guarantor Name 10/26/2023 2 [facility] HEALTH BENEFITS PLAN (PPO) Bryan Remy [id number] Emre Remy 10/26/2023 1 MEDICARE B-[place]: NATIONAL [employer] Emre Remy [id number] Melahat Morash 01/16/2024 2 [employer] - [employer] HEALTH BENEFITS PLAN (PPO) Bryan Remy [id number] Melahat Morash 01/16/2024 1 MEDICARE [place]: NATIONAL GOVERNMENT SERVICES Melahat E Morash [id number] Melahat Morash 03/06/2024 2 [employer] [facility] HEALTH BENEFITS PLAN (PPO) Bryan Remy [id number] Melahat Morash 03/06/2024 1 MEDICARE B-[place]: [facility] Melahat E Morash [id number] Melahat Morash 05/10/2024 2 [employer] [place] HEALTH BENEFITS PLAN (PPO) Bryan Remy [id number] Melahat Morash 05/10/2024 1 [place]: [facility] SERVICES Melahat E Morash [id number] Melahat Morash 09/04/2024 2 [employer] [place] HEALTH BENEFITS PLAN (PPO) Bryan Remy [id number] Melahat Morash 09/04/2024 1 MEDICARE [place]: [facility] SERVICES Melahat E Morash [id number] Melahat Morash Notes Date Note Type Note Provider Name and Address Organization Details Recorded Time 4 text/html 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 Had pneumonia late August to mid September. Took azithromycin, prednisone. Has inhalers, refilled by shift manager.HTN: been stable on this regimen for years, 3 meds.DM II: A1c a bit up this year. Declines medications.Sciatica: gets injections in [place].LE edema: had an episode with significant swelling on her R compared to left, but both often swollen.Hands: every 2 weeks fingers get stuck in a certain positions, has to crack them to get them to move. Marilee Westfall PA-C [address] [place] [address], [phone], [facility] 10/28/2023 09:46:56 4 text/html PVD: saw an MD in [place], plan for US. Back/sciatica: plan for a nerve block in [place]. Recent PNA: hospitalized for 4 days. Feeling better. Finished course of prednisone. HTN: been stable on this regimen for years, feeling fine. DM II: has not repeated labs. States had this done in hospital. ROSARIO PERRY MD [address] [place], [address], [facility] 01/16/2024 13:36:30 4 text/html Here to follow up ED visit for dizziness, diagnosed with BPPVNotices it most when she bends forward and then gets up, for when she gets up in the morningGoes away during the day, able to do her activitiesSensation of the world moving On amlodipine, HCTZ, lisinopril for blood pressure DM II: diet controlled. Has always been at goal, today 6.8%. R back pain: plan for ablation tomorrow to block the nerves. Seeing vascular for lower extremity swelling. 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 Does this once a month at the [facility] in [place]. ROSARIO PERRY MD [address] [place] [address], [phone], [facility] 03/06/2024 10:44:23 4 text/html Had a shoulder injection on right side, wasn't helping, saw ortho who thought the pain was due to her back not shoulder and gave a medrol dose pack, referred her to [facility] - Jeremías Willingham. Got a call from Dr. Dozier is the back doctor, approval for nerve block on the left side (has had two shots and ablation on the right side) Right side worked well. Asthma: excellent control, saw pulm last week. DM: Controlled with lifestyle, stable. LE circulation issues: will plan to see Dr. Pastrana who took care of varicose veins. ROSARIO PERRY MD [address] [place], [phone], [facility] 05/10/2024 11:59:24 5 text/html Pt with a history of HTN, asthma, HLD, lifestyle-controlled diabetes here for a med management. Left hip pain: got an ablation last week. Has a 4 week checkup then done with that. Right shoulder pain: following with her shoulder specialist Dr. Soliman. Has a massage booked for tomorrow, Dr. Watts recommended this. Shahbaz Caba LMT, [address] Asthma: good control, seeing pulm this afternoon. [...] late September to repeat the ultrasound. ROSARIO PERRY MD [address] [place] [address], [phone], [facility] 09/04/2024 11:55:47 OBGyn Episode No OBEpisode recorded.
--- OUTSIDE RECORDS SUMMARY | 2024-09-04 18:18 | XMS_ITS | Encounter Summary ---
Author Organization [facility] Address [address] [place] [address] Phone Care Team Providers Care Solar Sales Manager Name Role Phone Tamera Carreno MD, MPH Unavailable [phone] Mina David MD Unavailable Anastacia Barron DO Primary Care Provider [phone] Neli Perry MD Primary Care Provider [phone] Reason for Referral * Physical Therapy (Routine) - Closed Specialty Diagnoses / Procedures Referred By Guillermo gauthier Referred To Contact Physical Therapy Diagnoses Encounter for rehabilitation Chato Holland MD [address] [address] [facility] [address] [place] [address] Referral ID Status Reason Start Date Expiration Date Visits Re quested Visits Authorized [id number] Closed 06/17/2022 99 99 Encounter Details Date Type Department Care Team (Latest Contact Info) Description 06/17/2022 Transcribe Orders [facility] [address] [place] [phone] Chato Holland MD [address] [address] Encounter for rehabilitation (Primary Dx) Social History Tobacco Use Types [...] Info) Description 10/10/2024 2:15 PM EDT Appointment [facility] [address] [address] Becca Dickinson MD [address] [place] [phone] [email or web address] 10/10/2024 3:30 PM EDT Office Visit [facility] [address] [address] Becca Dickinson MD [address] [place] [phone] [email or web address] documented as of this encounter Procedures Procedure Name Priority Date/Time Associated Diagnosis Comments AMB REFERRAL TO [facility] PHYSICAL THERAPY Routine 07/30/2022 7:51 PM EST Encounter for rehabilitation documented in this encounter Results * Ambulatory referral to [facility] Physical Therapy (07/30/2022 7:51 PM EST) Other Chato Holland MD AMB [facility] REFERRAL S documented in this encounter Visit Diagnoses Diagnosis Encounter for rehabilitation- Primary documented in this encounter Additional Health Concerns Infection Onset Date Last Indicated Resolved Time COVID-19 01/31/2023 01/31/2023 02/21/2023 1:21 AM EDT CoV-Risk Comment:Per note documentation 12/22/2023 12/24/2023 3:36 PM EDT CoV-Risk 03/04/2024 03/04/2024 03/15/2024 1:23 AM EDT Assessment Noted Time PHQ-2 Depression Total Score: 0 08/23/19 10:59 AM EST documented as of this encounter Care Teams Solar Sales Manager Relationship Specialty Start Date End Date Anastacia Barron DO [address] [place] [address] [email or web address] PCP - General Internal Medicine 02/01/22 12/26/23 Neli Perry MD [address] [place] [address] [place] [address] PCP - General Family Medicine 12/27/23 Tamera Carreno MD, MPH [address] [address] [email or web address] Primary Oncologist Hematology 09/22/18 Mina David MD [address] [place] [phone] Ophthalmology 08/23/19 documented as of this encounter Additional Source Comments The information contained in this document represents components of the legal health record. It is not the complete legal health record.[facility]
--- OUTSIDE RECORDS SUMMARY | 2024-09-04 18:18 | XMS_ITS | Encounter Summary ---
Author Organization [facility] Address [address] [facility] [address] [place] [address] Phone Care Team Providers Care Sample Paster Name Role Phone Unavailable Primary Care Provider Unavailabl e Encounter Details Date Type Department Care Team (Late st Contact Info) Description 12/03/2015 Hospital Encounter [facility] General Imaging [address] [place] [address] Kathie Alberto MD, PhD 55 [facility] [place] [address] [email or web address] Social History Tobacco Use Types Packs/Day Years [...] Info) Description 10/10/2024 2:15 PM EDT Appointment [facility] JEANNE [address] [place] [address] [place] [address] Becca Dickinson MD [address] [place] [phone] [email or web address] 10/10/2024 3:30 PM EDT Office Visit [facility] [address] [address] Becca Dickinson MD [address] [place] [phone] [email or web address] documented as of this encounter Procedures Procedure Name Priority Date/Time Associated Diagnosis Comments BI US BREAST OUTSIDE (NO INTERPRETATION) Routine 12/03/2015 12:00 AM EDT documented in this encounter Results * US Breast Outside (No Interpretation) (12/03/2015 12:00 AM EDT) Narrative [facility] IMG INTERFACES - 01/28/2016 3:09 PM EDT This study is for PACS storage only and not for interpretation. Procedure Note SYSTEMGENERATED, DOCUMENTATION - 01/28/2016 This study is for PACS storage only and not for interpretation. Kathie Alberto MD, PhD IMG OUTSIDE I MAGING W/OUT INTERPRETATION [facility] INTERFACES documented [...] It is not the complete legal health record.[facility]
--- OUTSIDE RECORDS SUMMARY | 2024-09-04 18:18 | XMS_ITS | Encounter Summary ---
Author Organization [facility] Address [address] [facility] [address] [place] [address] Phone Care Team Providers Care Liquor Merchant Name Role Phone Unavailable Primary Care Provider Unavailabl e Encounter Details Date Type Department Care Team (Late st Contact Info) Description 12/19/2015 Hospital Encounter [facility] General Imaging [address] [place] [address] Kathie Alberto MD, PhD 55 [facility] [place] [address] [email or web address] Social History Tobacco Use Types Packs/Day [...] Info) Description 10/10/2024 2:15 PM EDT Appointment [facility] JE[address]NE [address] [place] [address] [place] [address] Becca Dickinson MD [address] [place] [phone] [email or web address] 10/10/2024 3:30 PM EDT Office Visit [facility] [address] [address] Becca Dickinson MD [address] [place] [phone] [email or web address] documented as of this encounter Procedures Procedure Name Priority Date/Time Associated Diagnosis Comments US ABDOMEN OUTSIDE (NO INTERPRETATION) Routine 12/19/2015 12:00 AM EDT documented in this encounter Results * US Abdomen Outside (No Interpretation) (12/19/2015 12:00 AM EDT) Narrative [facility] - 02/03/2016 2:00 PM EDT This study is for PACS storage only and not for interpretation. Procedure Note SYSTEMGENERATED, DOCUMENTATION - 02/03/2016 This study is for PACS storage only and not for interpretation. Kathie Alberto MD, PhD IMG OUTSIDE I MAGING W/OUT INTERPRETATION [facility] documented in this encounter Visit [...] is not the complete legal health record.[facility]
--- OUTSIDE RECORDS SUMMARY | 2024-09-04 18:18 | XMS_ITS ---
Author Organization [facility] Address [address] [place] [address] Care Team Providers Care Reclamation Worker Name Role Phone Jaciel SPRINGER, Izzy Primary Care Provider Samuel Morton [phone] Encounters Encounter Location Date Provider Diagnosis [facility] [address] [place] [address] 02/27/2024 Samuel Charles Plan Of Treatment No Information Progress Notes * Emre BASSETT EDOB: [birth year] (78 yo F)Acc No.[id number]:02/27/2024 Progress Notes Patient:Emre NUR Provider:?Samuel Charles DPM :1945???Age:78 Y???Sex:Female D ate:02/27/2024 Address: [place], [place] Pcp:Izzy Grissom NP Subjective: * Chief Complaints: * ??? * Medical History:? Objective: * Vitals:? Assessment: Plan: * Treatment: * Images: * The named appointment provid er may or may not be the originator of this progress note, and it is not deemed complete until electronically signed by the appointment provider. Sign off status: Pending * Provider:Lizet Charles DPM Date:? 024 Generated for Naresh yi/Moraima/eTbabaksmitting on:?09/04/2024 06:18 PM EDT
--- OUTSIDE RECORDS SUMMARY | 2024-09-04 18:18 | XMS_ITS | Clinical Summary ---
Author Organization [facility] Address [address] [place] [address] Phone Care Team Providers Care Beader Tender Name Role Phone Tamera Matt MD, MPH Unavailable [phone] Mina David MD Unavailable Neli Perry MD Primary Care Provider [phone] Allergies Active Allergy Reactions Criticality Noted Date Comments Influenza Virus Vaccines Fever 08/23/2019 Medications Medication Sig Dispensed Refills Start Date End Date Status biotin 1 mg tablet Take 1,000 mcg by mouth 3 (three) times a day. Active fluticasone-salmete rol (ADVAIR DISKUS) 250-50 mcg/dose DISKUSIndications:u ses prn, not daily Inhale 1 puff into the lungs 2 (two) times a day. Indications: uses prn, not daily Active cholecalciferol (VITAMIN D3) 4,000 unit tablet Take 4,000 Units by mouth daily. Active cyanocobalamin, vitamin B-12, 1000 MCG tablet Take 100 mcg by mouth daily. Active amLODIPine (NORVASC) 5 MG tablet Take 5 mg by mouth daily. Active ascorbic acid, vitamin C, (VITAMIN C) 500 MG tablet Take 500 mg by mouth daily. Active rosuvastatin (CRESTOR) 10 MG tablet Take 10 mg by mouth daily. 10/22/2020 Active omeprazole (PRILOSEC) 20 MG capsule Take 1 tablet by mouth daily as needed (gerd). Active fluticasone propionate (FLONASE) 50 mcg/actuation nasal spray SPRAY 2 SPRAYS INTO EACH NOSTRIL DAILY FOR RHINITIS Active ATROVENT HFA 17 mcg/actuation inhaler 2 PUFF INHALED EVERY 8 HOURS NEEDED FOR SHORTNESS OF BREATH OR WHEEZING FOR 90 DAYS Active predniSONE (DELTASONE) 20 MG tablet Take 2 tablets (40 mg total) by mouth daily. 2 tablets daily for 5 days then 1 tablet daily for 5 days then half tablet daily for 6 days then stop 18 tablet 12/28/2023 Active Additional Information Patient not taking.Reported on 03/01/2024 lisinopril (PRINIVIL,ZESTRIL) 40 MG tablet Take 40 mg by mouth daily. Active hydroCHLOROthiazide 12.5 MG tablet Take 12.5 mg by mouth daily. Active meclizine (ANTIVERT) 12.5 mg tablet Take 1 tablet (12.5 mg total) by mouth 3 (three) times a day as needed. 15 tablet 03/04/2024 Active Active Problems Problem Noted Date Diagnosed Date Pneumonia 12/24/2023 Assessment & Plan (12/26/2023 4:50 PM EDT): Community-acquired pneumonia. Patient states she was treated for 1 back in September as an outpatient with her bonding supervisor in [place]. No other recent antibiotics. Chest x-ray negative but CT abdomen pelvis had right lower lobe consolidative change. Rocephin and azithromycin provided. Suspect that she started with a viral illness based on her description and exposure to grandchildren with fever. BC are negative Her fever is resolving. Covid negative 3 times. Patient lost IV overnight refused to have it replaced multiple times. Switch to Levaquin today. Trying to wean oxygen Acute hypoxic respiratory failure 12/24/2023 Assessment & Plan (12/26/2023 4:53 PM EDT): Hypoxia s most likely econdary to right lower lobe pneumonia. Chest x-ray today with some edema BNP requested as well as echo Breast cancer 01/21/2016 Cancer Staging:Pathologic stage from 03/06/2016:Stage IA(T1b, N0, cM0) - Signed by Harlan Alford MD on 03/06/2016 Chronic obstructive pulmonary disease 01/21/2016 Assessment & Plan (12/26/2023 4:54 PM EDT): Patient states her diagnosis is primarily allergic asthma. 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 She is maintained on Advair alone. Yesterday started to have some wheezing and started on prednisone Suspect she has sleep apnea she can have desaturations at night. This was discussed with her. She reports she is always been that way Hyperlipidemia 01/21/2016 Primary hypertension 01/21/2016 Assessment & Plan (12/26/2023 4:49 PM EDT): She has CKD stage 3 A based on BMP from 09/10, very similar on admission. CRE with slight bump 12/24. Received 2 L of IV fluid when she presented and had been on IV fluid continuous. Creatinine same today. DAVI inhibitor hydrochlorothiazide on hold continue Norvasc. Chest x-ray today with signs of fluid overload. IV fluids stopped. 1 dose of Lasix oral given. Patient refused to have an IV reinserted Note she got Toradol as well as IV contrast this admission Resolved Problems Problem Noted Date Diagnosed Date Resolved Date Diabetes mellitus, type 2 01/21/2016 Encounters Date Type Department Care Team Description 08/15/2024 8:13 AM EST - 08/15/2024 11:59 PM EST Hospital Encounter [facility] [address] [place] [address] [place] [phone] Neli Perry MD Discharge Disposition: Home or Self Care 08/15/2024 7:52 AM EST - 08/15/2024 8:12 AM EST Hospital Encounter [facility] [address] [place] [address] [place] [phone] Valeria Calvin MD Discharge Disposition: Home or Self Care 08/15/2024 Transcribe Orders [facility] [address] [place] [address] Neli Perry MD Mixed hyperlipidemia (Primary Dx); Type 2 diabetes mellitus without complication, unspecified whether termite helper insulin use 08/03/2024 Orders Only [facility] [address] [address] Becca Dickinson MD Varicose veins of bilateral lower extremities with pain (Primary Dx) 06/06/2024 1:00 PM EST Office Visit [facility] [address] [place] [address] Johnny Watts MD Lumbar facet joint syndrome (Primary Dx); Myofascial pain from Last 3 Months Immunizations Name Administration Dates Next Due Tdap 08/27/2019 Family History Medical History Relation Comments Heart attack Father Heart disease Father Liver disease Mother Ovarian cancer Sister Breast cancer Neg Hx Relation Status Comments Father Mother Sister Social History Tobacco Use Types Packs/Day Years [...] Orientation Straight 08/14/2020 4: 03 PM EST Last Filed Vital Signs Vital Sign Reading Time Taken Comments Blood Pressure 128/71 03/04/2024 7:43 AM EDT Pulse 66 03/04/2024 7:43 AM EDT Temperature 36 ??C (96.8 ??F) 03/04/2024 7:43 AM EDT Respiratory Rate 21 03/04/2024 7:43 AM EDT Oxygen Saturation 98% 03/04/2024 7:43 AM EDT Inhaled Oxygen Concentration - - Weight 93 kg (205 lb) 03/04/2024 5:08 AM EDT Height 160 cm (5' 3 ) 03/04/2024 5:08 AM EDT Body Mass Index 36.31 03/04/2024 5:08 AM EDT Plan of Treatment Upcoming Encounters Date Type Department Care Team (Late st Contact Info) Description 10/10/2024 2:15 PM EDT Appointment [facility] [address] [address] Becca Dickinson MD [address] [place] [phone] [email or web address] 10/10/2024 3:30 PM EDT Office Visit [facility] [address] [address] Becca Dickinson MD [address] [place] [phone] [email or web address] Health Maintenance Due Date Last Done Comments ZOSTER VACCINES (1 of 2) 09/07/1964 RSV VACCINE (1 - 1-dose 75+ series) 09/07/2018 DEPRESSION SCREENING 08/22/2020 08/23/2019 PNEUMOCOCCAL VACCINES (50+ years) (2 of 2 - PCV) 01/29/2022 01/29/2021 COVID-19 VACCINE (4 - season) 2024 06/10/2021, 08/24/2020, 08/03/2020 DIABETIC EYE EXAM 08/15/2024 BLOOD PRESSURE 08/29/2024 03/01/2024 HEMOGLOBIN A1C 02/12/2025 08/15/2024, 03/0 11/2023, 05/20/2023, Additional history exists CREATININE LEVEL 08/15/2025 08/15/2024, , 03/01/2024, Additional history exists POTASSIUM LEVEL 08/15/2025 08/15/2024, 02/18, 03/01/2024, Additional history exists Adult Td,Tdap Booster 08/26/2029 08/27/2019 OSTEOPOROSIS SCREENING INITIAL (ONE-TIME) Completed 01/26/2021, 01/16/2019, 07/22/2016 SMOKING STATUS SCREENING (Once After 26 Yrs) Completed 03/01/2024 HEPATITIS A VACCINES Aged Out No long er eligible based on patient's age to complete this topic HIB VACCINES Aged Out No longer eligi ble based on patient's age to complete this topic MENINGOCOCCAL VACCINES (ACWY) Aged Out No longer eligible based on patient's age to complete this topic Medical Devices Implanted Type Area Cupola Melter Helper Device Identifier Shelf Expiration Date Model / Serial / Lot Marker Breast Tissue [id number] Ultraclip Ii Wing Shaped Bx/[id number] - [id number] Implanted:Qty: 1 on 02/03/2016 at [facility] [employer] [id number] / / Procedures Procedure Name Priority Date/Time Associated Diagnosis Comments LIPID PANEL Routine 08/15/2024 8:14 AM EST Mixed hyperlipidemia Type 2 diabetes mellitus without complication, unspecified whether termite helper insulin use HEMOGLOBIN A1C Routine 08/15/2024 8:14 AM EST Mixed hyperlipidemia Type 2 diabetes mellitus without complication, unspecified whether termite helper insulin use BASIC METABOLIC PANEL Routine 08/15/2024 8:01 AM EST Pneumonia Primary hypertension BD DXA AXIAL (SPINE) WITH HIP Routine 01/26/2021 11:18 AM EDT Other specified disorders of bone density and structure, left ankle and foot Malignant neoplasm of lower-outer quadrant of left breast of female, estrogen receptor positive from Last 3 Months or Most Recently Relevant to Health Maintenance Results * (ABNORMAL) Hemoglobin A1c (08/15/2024 8:14 AM EST) HEMOGLOBIN A1C 6.7(H) 4.3 - 5.8 % [facility] Blood 08/15/2024 8:14 AM EST 08/15/2024 8:18 AM EST Neli Perry MD LAB BLOOD ORDERABLES Performing Organization Address City/State/[facility] Co de Phone Number [address] [address] * (ABNORMAL) Lipid panel (08/15/2024 8:14 AM EST) HDL 59 mg/dL [facility] Comment: ? Interpretation <40 mg/dL: Low HDL cholesterol (major risk factor for CHD) Greater than or equal to 60 mg/dL: High HDL cholesterol ( negative risk factor for CHD) HDL - cholesterol is affected by a number of factors, e.g. smoking, excerise, hormones, sex and age. CHOLESTEROL 146 0 - 240 mg/dL [facility] TRIGLYCERIDES 117 30 - 160 mg/dL [facility] LDL 64 50 - 129 mg/dL [facility] Comment: LDL levels in terms of risk for coronary heart disease: <100 mg/dL: Optimal 100-129 mg/dL: Near or above optimal 130-159 mg/dL: Borderline high 160-189 mg/dL: High >190 mg/dL: Very High CARDIAC RISK RATIO 2.5(L) 3.3 - 4.4 [facility] Blood 08/15/2024 8:14 AM EST 08/15/2024 8:18 AM EST Neli Perry MD LAB BLOOD ORDERABLES Performing Organization Address [facility] Co de Phone Number [address] [address] * (ABNORMAL) Basic metabolic panel (08/15/2024 8:01 AM EST) SODIUM 140 133 - 146 mmol/L [facility] CHLORIDE 104 96 - 108 mmol/L [facility] POTASSIUM 4.1 3.3 - 5.1 mmol/L [facility] CO2 26 21 - 35 mmol/L [facility] BUN 23(H) 6 - 19 mg/dL [facility] CREATININE 1.20 0.5 - 1.5 mg/dL [facility] GLUCOSE 123(H) 70 - 99 mg/dL [facility] CALCIUM 9.5 8.4 - 10.3 mg/dL [facility] EGFR 46(L) >59 mL/min/1.7 3m2 [facility] Comment:Estimated glomerular filtration rate calculated using the CKD-EPI refit equation. ANION GAP 14 10 - 20 mmol/L [facility] Blood 08/15/2024 8:01 AM EST 08/15/2024 8:18 AM EST Valeria Calvin MD LAB BLOOD ORDERABLES Performing Organization Address City/[facility]/ZIP Co de Phone Number [address] [address] * BD DXA AXIAL (SPINE) WITH HIP (01/26/2021 11:18 AM EDT) Anatomical Region Laterality Modality Bone Density Bone Density 01/26/2021 10:5 4 AM EDT Impressions 01/27/2021 3:28 PM EDT Interpretation: Osteoporosis. ? Narrative 01/27/2021 3:28 PM EDT Referred By: TAMERA MATT Scanner: [employer] with serial# of [id number] located at [address] [place] [address] ? Bone Density Scan (DXA) 01/26/21 ? Details of prior DXA scans are available by clicking View Image ? BMD ? T- ? Z- ? Skeletal Site ?gm/cm2 ??score ??score ??BMD Change Since Prior Scan ?------ ??----- ??----- ?? PA Spine (L1 L2 L3) ?0.736 ?? -2.60 ??-0.10 ??-0.047 (-6.0%)* since 01/16/2019 Total Hip (Left) ? 0.736 ?? -1.70 ??0.20 ?? -0.010 (-1.3%) since 01/16/2019 ?? Femoral Neck (Left) ?0.587 ?? -2.40 ??-0.20 ??-0.028 (-4.6%) since 01/16/2019 ?------ ??----- ??----- ?? * Denotes significant change when >= 0.022 g/cm2 for the spine, 0.027 g/cm2 ?? for the total hip, 0.029 g/cm2 for the femoral neck. ? Interpretation: Osteoporosis. ? Technical Quality: The PA Spine scan was of marginal quality because of body ? thickness. ??The left hip scan was of marginal quality because of anatomy ? and/or rotation (which can decrease or increase BMD). Hip is abducted in ? suboptimal position; interpret changes from prior scans with caution. ? FRAX: Based on FRAX(r) 3.6 with self-reported race/ethnicity (White), this ? patient's likelihood of hip fracture is 4.3% and major osteoporotic fracture ?? is 14.8% over the next 10 years. The patient reported no risks of fracture. ?? Additional Information: -World Health Organization criteria classify adults based on lowest T-score ?? at PA spine, hip or forearm: Normal (T-score >= -1.0), Osteopenia (T-score ? between -1 and -2.5), or Osteoporosis (T-score <= -2.5). ??T-scores are ? compared to peak bone density of a gender and ethnicity matched reference ? population. ? -For premenopausal women and men under the age of 50, Z-scores (comparison ? to age, gender, and ethnicity matched reference population) are used: Above ?? expected range for age (Z-score >= 2.0), Within expected range of age ? (Z-score 1.9 to -1.9), or Below expected range for age (Z-score <= -2.0). ? -The National Osteoporosis Foundation recommends that treatment be ? considered in men aged more than 50 years and in postmenopausal women with ? ANY of the following: Prior hip or vertebral fractures; T-score of <= -2.5 ? at the PA spine or hip; or 10 year fracture probability by FRAX of >= 3% for ?? the hip or >= 20% for major osteoporotic fracture. ? -The FRAX algorithm (https://www.gianna.ac.uk/FRAX/tool.aspx) is designed ?? to predict 10-year fracture risk in treatment-naive adults between the ages ?? of 40 and 90. It is not intended to be used in those receiving pharmacologic ?? osteoporosis treatment. ? -Including race/ethnicity in the generation of T- or Z-scores or in the FRAX ?? calculation is complicated, with there being reasons for and against doing ? such. ??We and others are actively reviewing the best approach to ensure that ?? we can give patients the best information on their risk of fracture. ? -Click on View Image to see subsequent pages with images and prior bone ? density results. ? Reviewed By: Ankita White MD on 01/27/2021 15:28:43 Procedure Note Ankita White MD, [facility] [place] 01/27/2021 Referred By: TAMERA MATT Scanner: [employer] with serial# of [id number] located at [address] [place] [address] Bone Density Scan (DXA) 01/26/21 Details of prior DXA scans are available by clicking View Image BMD T- Z- Skeletal Site gm/cm2 score score BMD Change Since Prior Scan ------ ----- PA Spine (L1 L2 L3) 0.736 -2.60 -0.10 -0.047 (-6.0%)* since01/16/2019 Total Hip (Left) 0.736 -1.70 0.20 -0.010 (-1.3%) since01/16/2019 Femoral Neck (Left) 0.587 -2.40 -0.20 -0.028 (-4.6%) since01/16/2019 ------ ----- * Denotes significant change when >= 0.022 g/cm2 for the spine, 0.027g/cm2 for the total hip, 0.029 g/cm2 for the femoral neck. Interpretation: Osteoporosis. Technical Quality: The PA Spine scan was of marginal quality because ofbody thickness. The left hip scan was of marginal quality because of anatomy and/or rotation (which can decrease or increase BMD). Hip is abducted in suboptimal position; interpret changes from prior scans with caution. FRAX: Based on FRAX(r) 3.6 with self-reported race/ethnicity (White), this patient's likelihood of hip fracture is 4.3% and major osteoporoticfracture is 14.8% over the next 10 years. The patient reported no risks offracture. Additional Information: -World Health Organization criteria classify adults based on lowestT-score at PA spine, hip or forearm: Normal (T-score >= -1.0), Osteopenia (T-score between -1 and -2.5), or Osteoporosis (T-score <= -2.5). T-scores are compared to peak bone density of a gender and ethnicity matched reference population. -For premenopausal women and men under the age of 50, Z-scores (comparison to age, gender, and ethnicity matched reference population) are used:Above expected range for age (Z-score >= 2.0), Within expected range of age (Z-score 1.9 to -1.9), or Below expected range for age (Z-score <= -2.0). -The National Osteoporosis Foundation recommends that treatment be considered in men aged more than 50 years and in postmenopausal women with ANY of the following: Prior hip or vertebral fractures; T-score of <= -2.5 at the PA spine or hip; or 10 year fracture probability by FRAX of >= 3%for the hip or >= 20% for major osteoporotic fracture. -The FRAX algorithm (https://www.gianna.ac.uk/FRAX/tool.aspx) isdesigned to predict 10-year fracture risk in treatment-naive adults between theages of 40 and 90. It is not intended to be used in those receivingpharmacologic osteoporosis treatment. -Including race/ethnicity in the generation of T- or Z-scores or in theFRAX calculation is complicated, with there being reasons for and against doing such. We and others are actively reviewing the best approach to ensurethat we can give patients the best information on their risk of fracture. -Click on View Image to see subsequent pages with images and prior bone density results. Reviewed By: Ankita White MD on 01/27/2021 15:28:43 IMPRESSION: Interpretation: Osteoporosis. Tamera Matt MD, MPH IMG BD BONE DENSITY DEXA from Last 3 Months or Most Recently Relevant to Health Maintenance Advance Directives For more information, please contact: [phone] (9AM - 5PM [place]/[facility], Tuesday-Tuesday) Documents on File Type Date Recorded Patient Larriman Expl anation Healthcare Proxy 01/30/2016 2:48 PM proxy * Full Code (Latest Code Status on File) Date Activated Date Inactivated Comments 12/24/2023 1:36 PM Question Answer Comments Code Status Confirmed With: Patient Code Status Communicated To: Inpatient Attending * Full Code (Presumed) Date Activated Date Inactivated Comments 02/03/2016 6:47 AM 02/03/2016 3:00 PM Care Teams Beader Tender Relationship Specialty Start Date End Date Neli Perry MD [address] [place] [address] [place] [address] PCP - General Family Medicine 12/27/23 Tamera Matt MD, MPH [address] [place] [phone] [email or web address] Primary Oncologist Hematology 09/22/18 Mina David MD [address] [address] Ophthalmology 08/23/19 Additional Source Comments The information contained in this document represents components of the legal health record. It is not the complete legal health record.[facility]
--- OUTSIDE RECORDS SUMMARY | 2024-09-04 18:18 | XMS_ITS | Encounter Summary ---
Author Organization [facility] Address [address] [facility] [address] [place] [phone] Phone Care Team Providers Care Train Inspector Name Role Phone Unavailable Primary Care Provider Unavailabl e Encounter Details Date Type Department Care Team (Late st Contact Info) Description 12/12/2015 12:15 AM EDT Hospital Encounter [facility] General Imaging [address] [place] [address] Kathie Alberto MD, PhD [address] [address] [email or web address] Social History Tobacco Use [facility] [address] [place] [address] Becca Dickinson MD [address] [facility] [address] [address] [email or web address] 10/10/2024 3:30 PM EDT Office Visit [address] [address] Becca Dickinson MD [address] [place] [phone] [email or web address] documented as of this encounter Procedures Procedure Name Priority Date/Time Associated Diagnosis Comments BI MAMMOGRAM OUTSIDE (NO INTERPRETATION) Routine 12/12/2015 12:15 AM EDT documented in this encounter Results * Mammogram Outside (No Interpretation) (12/12/2015 12:15 AM EDT) Narrative [facility]G INTERFACES - 01/28/2016 3:09 PM EDT This study is for PACS storage only and not for interpretation. Procedure Note SYSTEMGENERATED, DOCUMENTATION - 01/28/2016 This study is for PACS storage only and not for interpretation. Kathie Alberto MD, PhD IMG OUTSIDE I MAGING W/OUT INTERPRETATION [facility] IMG INTERFACES documented [...]
--- OUTSIDE RECORDS SUMMARY | 2024-09-04 18:18 | XMS_ITS | Encounter Summary ---
Author Organization [facility] Address [address] [facility] [address] [place] [address] Phone Care Team Providers Care Adolescent Psychiatrist Name Role Phone Unavailable Primary Care Provider Unavailabl e Encounter Details Date Type Department Care Team (Late st Contact Info) Description 12/03/2015 12:15 AM EDT Hospital Encounter [facility] General Imaging [address] [place] [address] Kathie Alberto MD, PhD [address] [address] [email or web address] Social History Tobacco Use Types Packs/Day Years [...] Info) Description 10/10/2024 2:15 PM EDT Appointment [facility] [address] [place] [address] Becca Dickinson MD [address] [facility] [address] [address] [email or web address] 10/10/2024 3:30 PM EDT Office Visit [address] [address] Becca Dickinson MD [address] [place] [phone] [email or web address] documented as of this encounter Procedures Procedure Name Priority Date/Time Associated Diagnosis Comments BI MAMMOGRAM OUTSIDE (NO INTERPRETATION) Routine 12/03/2015 12:15 AM EDT documented in this encounter Results * Mammogram Outside (No Interpretation) (12/03/2015 12:15 AM EDT) Narrative [facility] INTERFACES - 01/28/2016 3:11 PM EDT This study is for PACS storage only and not for interpretation. Procedure Note SYSTEMGENERATED, DOCUMENTATION - 01/28/2016 This study is for PACS storage only and not for interpretation. Kathie Alberto MD, PhD IMG OUTSIDE I MAGING W/OUT INTERPRETATION [facility]G INTERFACES documented in this encounter Visit [...] It is not the complete legal health record.[facility]
--- OUTSIDE RECORDS SUMMARY | 2024-09-04 18:18 | XMS_ITS | Data Portability ---
Author Organization [place] - [facility] [place], [facility] Office Address [address] [place] [address] Care Team Providers Care Certified Corporate Travel Executive Name Role Phone ROSARIO HSIEH Primary Care Provider Assessment Encounter Date Assessment Date Assessment LastModified by Organization Details LastModified Time 03/29/2023 03/29/2023 After discussion of the risks including, but not limited to infection, localized soreness and swelling, reaction to medications, the patient elected to proceed with a right subacromial and glenohumeral cortisone injection. Confirmed that the patient does not have history of prior adverse reactions, active infections, or relevant allergies. There was no erythema, or warmth, and the skin was clear. The skin was sterilized with alcohol & Betadine. [employer] Ultrasound was used to ensure accuracy of placement of the injection. 1cc of Kenalog and 1cc of Lidocaine was injected into the subacromial space was visualized and confirmed on ultrasound. Direction was turned to the glenohumeral joint. Anesthesia was achieved subcutaneously with 2cc of 2% Lidocaine. [employer] Ul[employer]ound was used to ensure accuracy of placement of the injection. After re-prepping with Betadine, A 22-gauge spinal needle was used inject 2cc of Kenalog and 2cc of Lidocaine under ultrasound guidance into the glenohumeral joint with sterile gel and a sterile probe. Injection was visualized and confirmed to be in the correct location on ultrasound. The injection was completed without complication and Band-Aids were applied. The patient tolerated the procedure well and was instructed to avoid strenuous activity for the next 24-48 hours and use ice, NSAIDs or Tylenol for pain as needed. The patient will call immediately with any signs of infection or allergic reaction. [email or web address] Not available 03/30/2023 09:41:57 03/29/2023 03/29/2023 Imaging: Radiographs right shoulder obtained and reviewed. X-rays demonstrate well centered humeral head well glenoid acromiohumeral interval is well-maintained no evidence of fracture or dislocation. Mild arthritic changes noted of the glenohumeral joint. Impression and plan:Flaca is a very pleasant 77-year-old female with mild arthritis of the shoulder as well as likely rotator cuff disease. I long conversation with her in the office today. She would like to consider cortisone injection as she is somewhat symptomatic. Certainly think is very reasonable. Left Rowan James administer that today under ultrasound guidance. Plan to see her back on an as-needed basis for the shoulder. All of her questions were addressed in the office today. I spent a total of 20 minutes on the day of the visit, which included time spent preparing to see the patient by reviewing any pertinent aspects of the patient's medical record, such as prior clinical notes, imaging studies or test results, obtaining patient history, performing a medically necessary examination, counseling/educat ing the patient on both nonoperative and operative management of their condition including the expected recovery time frame and treatment course, independently interpreting test results including XR , coordinating patient care, and documenting information in the EHR. [email or web address] Not available 03/29/2023 11:53:42 04/26/2024 04/26/2024 Assessment: 78-year-old female with signs symptoms consistent with rotator cuff disease. Procedure: Under sterile conditions with the use of alcohol and Betadine prep on the right shoulder, I applied sterile ultrasound gel and utilized the [employer] Ultrasound to visualize the glenohumeral joint. Topical anesthesia was achieved with ethyl chloride spray, followed by the placement of 2cc of kenalog 40 and 2 cc of 2% lidocaine into the glenohumeral joint. The needle was redirected into the subacromial space and 1cc of 2% lidocaine and 1cc of kenalog 40 was inserted without incident. Ultrasound images were scanned into the patient's chart. The injection was completed without complication and a Band-Aid was applied. Plan: The patient tolerated the procedure well and was instructed to avoid strenuous activity for the next 24-48 hours and use ice, NSAIDS, or Tylenol for pain as needed. The patient was given the usual post injection instructions, including to call the office if there is any increased pain or discomfort. F/u 4-6 weeks. [email or web address] Not available 04/26/2024 15:31:33 04/26/2024 04/26/2024 Imaging: Radiographs right shoulder obtained and reviewed x-rays demonstrate well centered humeral head relative glenoid acromiohumeral interval is maintained no evidence of fracture or dislocation mild degenerative changes noted glenohumeral joint. Impression and plan: Flaca is a pleasant 78-year-old female with signs and symptoms consistent with rotator cuff disease. I do long conversation with her in the office today. She like to try another injection. I certainly think it is very reasonable. Dori will administer that today. She will work on her home exercises. I will see her back on an as-needed basis. All of her questions were addressed in the office. I spent a total of 20 minutes on the day of the visit, which included time spent preparing to see the patient by reviewing any pertinent aspects of the patient's medical record, such as prior clinical notes, imaging studies or test results, obtaining patient history, performing a medically necessary examination, counseling/educat ing the patient on both nonoperative and operative management of their condition including the expected recovery time frame and treatment course, independently interpreting test results including xr , coordinating patient care, and documenting information in the EHR. [email or web address] Not available 04/26/2024 14:48:48 05/07/2024 05/07/2024 Impression and plan: Flaca is a very pleasant 78-year-old female with chronic rotator cuff disease. I did discuss with her that a lot of her back pain is related to myofascial muscular back pain. I do think she would benefit from consultation with physical medicine and rehabilitation. I will also prescribe her Medrol Dosepak. I will plan to see her back on an as-needed basis. All of her questions were addressed today. I spent a total of 20 minutes on the day of the visit, which included time spent preparing to see the patient by reviewing any pertinent aspects of the patient's medical record, such as prior clinical notes, imaging studies or test results, obtaining patient history, performing a medically necessary examination, counseling/educat ing the patient on both nonoperative and operative management of their condition including the expected recovery time frame and treatment course, coordinating patient care, and documenting information in the EHR. [email or web address] Not available 05/07/2024 10:54:34 Plan of Treatment Reminders Order Date Submit Date Provider Last Modified By Organization Details Last Modified Time Details Appointments None recorded. Lab None recorded. Referral physical medicine and rehabilitat ion referral - myofascial back pain 2023 024 CONNIE Watts MD, [address], [place], [address], 5 10:40:29 Procedures None recorded. Surgeries None recorded. Imaging None recorded. Medication Orders Medrol (Francisco) 4 mg tablets in a dose pack 2023 024 [email or web address] [id number], [address] [place], [address], 4 11:08:48 Kenalog 40 mg/mL suspension for injection 2023 024 [email or web address] Not available 4 16:16:12 Kenalog 40 mg/mL suspension for injection 2022 023 [email or web address] [id number], [address] [place], [address], 3 15:48:21 Patient TargetsNo targets recorded. Patient InstructionsNo instructions recorded. Reason for Referral Physical Medicine And Rehabi litation Referral for Myofascial pain myofascial back pain Referring Physician: Chato Soliman, Orthopedic Surgery, Encounter Date: 05/07/2024 Procedures Surgical History Date Name Laterality Status Provider Name and Address Organization Details Recorded Time 02/03/2016 Other completed Joaquin Ohara [place] - [facility] 11/27/2020 13:36:43 Imaging Results None recorded. Procedure Notes None recorded. Medical Equipment None Reported. Allergies No known drug allergies Medications Name Sig Start Date Stop Date Status Note LastModified by Organization Details LastModified Time Medrol (Francisco) 4 mg tablets in a dose pack take as directed 2023 active Not Available Not Available Not Avai lable amlodipine 5 mg tablet Take 1 tablet every day by oral route. active Not Available Not Available No t Available allopurinol 100 mg tablet Take 1 tablet every day by oral route. 02/25 completed Not Available Not Available Not Available Kenalog 40 mg/mL suspension for injection Take 3 mL by injection route. 2023 active Not Available Not Available Not Avai lable hydrochloro thiazide 12.5 mg capsule Take 1 capsule every day by oral route. active Not Available Not Available No t Available Ativan 0.5 mg tablet Take 1-2 tabs 30 minutes prior to MRI 03/04 completed Not Available Not Available Not Available lisinopril 40 mg tablet Take 1 tablet every day by oral route. active Not Available Not Available No t Available rosuvastati n 10 mg tablet Take 1 tablet every day by oral route. active Not Available Not Available No t Available magnesium active Not Available Not Sol ilable Not Available Vitamin C active Not Available Not Sol ilable Not Available Fish Oil active Not Available Not Avai lable Not Available biotin active Not Available Not Availa ble Not Available Vitmain B-12 active Not Available Not Available Not Available Probiotic active Not Available Not Sol ilable Not Available Vitals Date Recorded Body height Body mass index (BMI) Body weight Provider Name and Address Organization Details Last Updated DateTime 03/29/2023 157.48 cm 36.8 kg/m2 58136.07 g Amarilis Yoder [facility] 03/29/2023 11:12:26 Social History Question Answer Notes LastModified by Organizat ion Details LastModified Time Tobacco Smoking Status Former Smoker Joaquin patel [facility] 11/27/2020 13:35:15 What Is Your Level Of Alcohol Consumption? Occasional Information not available 01/26/2021 Auto Related Injury? No Information not available 03/29/2023 What Is Your Level Of Caffeine Consumption? Moderate [email or web address] Information not available 01/26/2021 Do You Or Have You Ever Used E-cigarettes Or Vape? 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 Yes Right Foot [email or web address] Information not available 11/27/2020 Do You Or Have You Ever Used Smokeless Tobacco? Former Smokeless Tobacco User [email or web address] Information not available 04/26/2024 How Much Tobacco Do You Smoke? No [email or web address] Information not available 01/26/2021 What Types Of Sporting Activities Do You Participate In? Dancer [email or web address] Information not available 11/27/2020 How Many Years Have You Smoked Tobacco? 28 [email or web address] Information not available 11/27/2020 Work Related Injury? No Information not available 03/29/2023 Sex: Unknown Functional Status Question Answer Note LastModified by Organizat ion Details LastModified Time What is your exercise level? Occasional Information not available 01/26/2021 Mental Status None recorded. Family History Relationship Description Onset Age of this Age Resolved Age Notes LastModified by Organization Details LastModified Time Father No current problems or disability [email or web address] Not available 04/26 12:56:09 Mother No current problems or disability [email or web address] Not available 04/26 12:56:09 Unspecified Relation Deep venous thrombosis [email or web address] Not available 03/29 11:12:32 Unspecified Relation History of anesthesia problem Not available 2022 11:12:32 Unspecified Relation Pulmonary embolism [email or web address] Not available 2022 11:12:32 Unspecified Relation Phlebitis [email or web address] Not available 2022 11:12:32 Medical History Condition Response Blood Clots / Phlebitis N HIV or AIDS N Heart Problems N High Blood Pressure Y Depression or Anxiety N Irregular Heartbeat N MRSA N Emphysema / Chronic Bronchitis N Any Other Significant Medical Issues N Reaction to General/Local Anesthesia N Hepatitis / Jaundice N Weight Gain / Loss N Kidney / Bladder Infections N Diabetes Y Bleeding Disorder N Hearing Loss N Angina, Heart Failure or Attack Y Night Sweats N Seizures / Epilepsy N Osteoarthritis / Rheumatoid arthritis / Other Y Cancer Y Stroke N Chemical Dependency / Alcoholism N Ulcer / Stomach Bleeding / Indigestion N Visual Loss or Glaucoma N Psoriasis / Skin Rash N Thyroid Disorder N Heart Disease N Asthma / Shortness of Breath / 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 Obstetrics History GPAL:G 0 P 0 0 0 0 Immunizations Vaccine Type Date Status Note Provider Nam e and Address Organization Details Recorded Time COVID-19, mRNA, LNP-S, PF, 100 mcg/0.5mL dose or 50 mcg/0.25mL dose 08/24/2020 completed Karyn patel [facility] 01/26/2021 15:33:35 COVID-19, mRNA, LNP-S, PF, 100 mcg/0.5mL dose or 50 mcg/0.25mL dose 08/03/2020 completed Karyn patel [facility] [place] 01/26/2021 15:33:43 Past Encounters Encounter ID Performer Location Encounter Start Date Encounter Closed Date Diagnosis/Indication Diagnosis SNOMED-CT Code Diagnosis ICD10 Code Diagnosis Note [id number] ALISSON DURÁN [facility] Office [address] [place] [id number] 1 11/27/2020 13:06:21 11/28/2020 13:53:18 Sacroiliac joint pain 983137168 M53.3 [id number] OWEN CELESTE MD [address] [phone] 12/04/2020 08:02:54 12/04/2020 11:33:58 Hip pain 89460794 M25.551 M25.552 [id number] OWEN CELESTE MD [facility] Office [address] [place] [id number] 01/14/2021 12:09:07 01/15/2021 17:02:38 Pain in right hip joint 8318329786 71141 M25.551 Pain of le ft hip joint 7256308100 01815 M25.552 [id number] CHATO SOLIMAN MD [facility] Office [address] [place] [id number] 1 01/26/2021 15:04:40 01/26/2021 15:54:10 Rupture of rotator cuff of right shoulder 4744814894 5474255 M75.101 [id number] Karen Lockhart [facility] Office [address] [place] [id number] 1 03/04/2022 13:10:28 03/04/2022 14:53:18 Biceps tendinitis 239646362 M75.21 Tendinitis of right rotator cuff 7093165831 2304927 M67.813 [id number] ALISSON RAZO [facility] Office [address] [place] [id number] 1 03/04/2022 14:52:56 03/09/2022 14:20:13 Shoulder pain 22533085 M25.081 [id number] Karen Lockhart [facility] Office [address] [place] [id number] 1 06/17/2022 13:04:41 06/17/2022 15:56:10 Tendinitis of right rotator cuff 2438770018 5708401 M67.813 Tendinitis of left rotator cuff 9822724356 4241628 M67.814 Full thick ness rotator cuff tear 911814433 M75.122 M75.121 Biceps tendinitis 307822 007 M75.21 M75.22 [id number] Karen Santosumeet [facility] Office [address] [id number] 03/29/2023 10:57:21 03/29/2023 12:01:54 Tendinitis of right rotator cuff 7707664083 2754713 M67.864 [id number] ALISSON JEAN [facility] Office [address] [id number] 03/29/2023 11:37:42 03/29/2023 14:01:14 Shoulder pain 98972579 M25.092 [id number] CHAOT SOLIMAN MD [facility] [address] [address] 04/26/2024 12:43:09 04/26/2024 15:48:09 Biceps tendinitis 484266113 M75.21 Full thick ness rotator cuff tear 388791133 M75.749 [id number] ALISSON BONETere admissions rn 800 [facility], [address] [place] [id number] 4 04/26/2024 14:30:42 04/26/2024 16:17:00 Tendinitis of right rotator cuff 5828008485 8962706 M67.610 [id number] CHATO SOLIMAN MD [address] [address] 05/07/2024 10:14:46 05/07/2024 10:57:50 Myofascial pain 514915680 M79.10 back Full thick ness rotator cuff tear 117529333 M75.121 Health Concerns Section Related Observation LastModified by Organization Detai ls LastModified Time None Recorded Concern Status LastModified by Organization Details LastModified Time None Recorded Advance Directives Directive None Recorded Payers Encounter Date Sequence Insurance Name Policy Number Policy Mehta Covered Member ID Mehta Member ID Guarantor Name 03/29/2023 1 [place] [employer] [place] Melahat E Morash [id number] Melahat E Morash 03/29/2023 2 WPS - FOR LIFE (MEDICARE SUPPLEMENT) Bryan Garciaash [id number] Melahat E Morash 03/29/2023 1 [place] Melahat E Morash [id number] Melahat E Morash 03/29/2023 2 WPS - FOR LIFE (MEDICARE SUPPLEMENT) Bryan Garciaash [id number] Melahat E Morash 04/26/2024 1 MEDICARE [facility]: NATIONAL GOVERNMENT SERVICES Melahat E Morash [id number] Melahat E Morash 04/26/2024 2 [employer]PS - FOR LIFE (MEDICARE SUPPLEMENT) Bryan Garciaash [id number] Melahat E Morash 04/26/2024 1 [place] Melahat E Morash [id number] Melahat E Morash 04/26/2024 2 WPS - FOR LIFE (MEDICARE SUPPLEMENT) Bryan Garciaash [id number] Melahat E Morash 05/07/2024 1 [place] Melahat E Morash [id number] Melahat E Morash 05/07/2024 2 WPS - FOR LIFE (MEDICARE SUPPLEMENT) Bryan Remy [id number] Emre Remy Notes Date Note Type Note Provider Name and Address Organization Details Recorded Time 03/29/2023 text/html Flaca is a very pleasant 77-year-old female who returns the office today to follow-up on her right shoulder. For a while however has had overall she is doing better. She did physical therapy around 8 weeks and followed by a home exercise program. She thinks this helped some increasing pain in the shoulder recently. [facility] 03/29/2023 12:02:22 03/29/2023 text/html 77-year-old fema le referred by Dr. Soliman for a cortisone injection for her right shoulder ALISSON JEAN [address] [place] [address], [phone], [facility] [place] 03/30/2023 10:19:14 04/26/2024 text/html Flaca is a very pleasant 78-year-old female who returns to the office today to follow-up on the right shoulder pain. She was doing well for quite some time. She did physical therapy. She had a cortisone approximately a year ago. Recently she started experiencing similar pain over the lateral aspect of the right shoulder. She been working on her home therapy exercises however she has pain with overhead reaching lifting and pulling. CHATO SOLIMAN MD [address] [place] [address], [phone], [facility] 04/26/2024 15:52:22 04/26/2024 text/html Flaca is a pleasa nt 78-year-old presenting today for cortisone injection into the right shoulder. She has a diagnosis of rotator cuff tendinitis. She saw Dr. Soliman today and was advised this treatment plan. I confirmed that the patient does not have a history of prior adverse reactions, active infections, or relevant allergies. After discussion of the risks including, but not limited to infection, persistent pain, increased pain/swelling from a local reaction, flushed feeling, local nerve injury or initiation, potential for failure to achieve a favorable response, and blood glucose instability in cases of diabetes, the patient consented to proceeding with the regimen. ALISSON BONE [address] [place] [address], [phone], [facility] [place] 04/26/2024 15:32:51 05/07/2024 text/html Flaca is a very pleasant 78-year-old female returns the office today to follow-up on her right shoulder. Overall she is doing okay. She notes that she has had some increased pain since a cortisone injection in her shoulder little over a week ago. She also has fairly significant pain over the mid aspect of her back which actually bothers her a lot more. CHATO SOLIMAN MD [address] [place] [address], [phone], [facility] [place] 05/07/2024 11:55:19 OBGyn Episode No OBEpisode recorded.
--- OUTSIDE RECORDS SUMMARY | 2024-09-04 18:18 | XMS_ITS | Encounter Summary ---
Author Organization [facility] Address [address] [facility] [address] [place] [phone] Phone Care Team Providers Care Supervisor Testing Name Role Phone Unavailable Primary Care Provider Unavailabl e Encounter Details Date Type Department Care Team (Late st Contact Info) Description 12/12/2015 Hospital Encounter [facility] [address] [place] [address] Kathie Alberto MD, PhD [address] [facility] [place] [address] [email or web address] Social History Tobacco Use Types Packs/Day Years [...] Info) Description 10/10/2024 2:15 PM EDT Appointment [facility] JEANNE [address] [place] [address] [place] [address] Becca Dickinson MD [address] [place] [id number] [email or web address] 10/10/2024 3:30 PM EDT Office Visit [facility] [address] [address] Becca Dickinson MD [address] [place] [id number] [email or web address] documented as of this encounter Procedures Procedure Name Priority Date/Time Associated Diagnosis Comments BI US BREAST OUTSIDE (NO INTERPRETATION) Routine 12/12/2015 12:00 AM EDT documented in this encounter Results * US Breast Outside (No Interpretation) (12/12/2015 12:00 AM EDT) Narrative [facility] IMG INTERFACES - 01/28/2016 3:08 PM EDT This study is for PACS storage only and not for interpretation. Procedure Note SYSTEMGENERATED, DOCUMENTATION - 01/28/2016 This study is for PACS storage only and not for interpretation. Kathie Alberto MD, PhD IMG OUTSIDE I MAGING W/OUT INTERPRETATION [facility] IMG INTERFACES documented in this encounter Visit [...] It is not the complete legal health record.[facility]
--- OUTSIDE RECORDS SUMMARY | 2024-09-04 18:19 | XMS_ITS | Encounter Summary ---
Author Organization [facility] Address [address] [facility] [address] [place] [address] Phone Care Team Providers Care Residential Remodeling Subcontractor Name Role Phone Tamera Carreno MD, MPH Unavailable [phone] Mina David MD Unavailable Hilda Willams Primary Care Provider [phone] Anastacia Barron DO Primary Care Provider [phone] Neli Perry MD Primary Care Provider [phone] Encounter Details Date Type Department Care Team (Latest Contact Info) Description 10/20/[address] [facility] [address] [place] [address] Hilda Willams PA [address] [place] [address] Mixed hyperlipidemia (Primary Dx); Gout, unspecified cause, unspecified chronicity, [...] [facility] [address] [address] Becca Dickinson MD [address] [place] [address] [email or web address] 10/10/2024 3:30 PM EDT Office Visit [facility] [address] [address] Becca Dickinson MD [address] [place] [address] [email or web address] documented as of this encounter Results * Uric acid (10/20/2020 10:31 AM EDT) URIC ACID 6.4 2.4 - 7.0 mg/dL [facility] Blood 10/20/2020 10:3 1 AM EDT 10/20/2020 10:33 AM EDT Hilda VINSON LAB BLOOD ORDERABLE S Performing Organization Address City/State/[facility] Co de Phone Number [address] [address] * (ABNORMAL) Lipid panel (10/20/2020 10:31 AM EDT) HDL 54 mg/dL [facility] Comment: ? Interpretation <40 mg/dL: Low HDL cholesterol (major risk factor for CHD) Greater than or equal to 60 mg/dL: High HDL cholesterol ( negative risk factor for CHD) HDL - cholesterol is affected by a number of factors, e.g. smoking, excerise, hormones, sex and age. CHOLESTEROL 231 0 - 240 mg/dL [facility] TRIGLYCERIDES 136 30 - 160 mg/dL [facility] LDL 150(H) 50 - 129 mg/dL [facility] Comment: LDL levels in terms of risk for coronary heart disease: <100 mg/dL: Optimal 100-129 mg/dL: Near or above optimal 130-159 mg/dL: Borderline high 160-189 mg/dL: High >190 mg/dL: Very High CARDIAC RISK RATIO 4.3 3.3 - 4.4 C [facility] Blood 10/20/2020 10:3 1 AM EDT 10/20/2020 10:33 AM EDT Hilda VINSON LAB BLOOD ORDERABLE S [facility] [address] [place] [address] documented in this encounter Visit Diagnoses Diagnosis Mixed hyperlipidemia- Primary Gout, unspecified cause, unspecified chronicity, unspecified [...] documented as of this encounter Care Teams Residential Remodeling Subcontractor Relationship Specialty Start Date End Date Hilda Willams PA [address] [place] [address] PCP - General Unknown Provider Specialty 07/28/20 Anastacia Barron DO [address] [place] [phone] [email or web address] PCP - General Internal Medicine 02/01/22 12/26/23 Neil Perry MD [address] [place], [place] [address] [address] PCP - General Family Medicine 12/27/23 Tamera Carreno MD, MPH [address] [facility] [address] [place] [address] [email or web address] Primary Oncologist Hematology 09/22/18 Mina David MD [address] [address] Ophthalmology 08/23/19 documented as of this encounter Additional Source Comments The information contained in this document represents components of the legal health record. It is not the complete legal health record.[facility]
--- OUTSIDE RECORDS SUMMARY | 2024-09-04 18:19 | XMS_ITS | Encounter Summary ---
Author Organization [facility] Address [facility] [employer] [address] [address] Phone Care Team Providers Care Health Manager Name Role Phone Shari Caba NP Primary Care Provider [phone] Tamera Carreno MD, MPH Unavailable [phone] Mina David MD Unavailable Annabelle Shah MD Primary Care Provi adelaida Hilda Willams Primary Care Provider Anastacia Barron DO Primary Care Provider Neli Perry MD Primary Care Provider [phone] Encounter Details Date Type Department Care Team (Late st Contact Info) Description 01/28/2016 Ancillary Orders [facility] [address] [place] [address] [address] [place] [address] Kathie Alberto MD, PhD [address] [place], [place] [address] [place] [phone] [email or web address] Social History Tobacco Use Types Packs/Day Years Used Date Smoking Tobacco: Every Day Alcohol Use Standard Drinks/Week Comments Yes 2 (1 standard drink = 0.6 oz pur [...] 10/10/2024 2:15 PM EDT Appointment [facility] [address] [address] Becca Dickinson MD [address] [place] [phone] [email or web address] 10/10/2024 3:30 PM EDT Office Visit [address] [address] Becca Dickinson MD [address] [place] [address] [email or web address] documented as of this encounter Visit Diagnoses Not on filedocumented in this encounter Additional Health Concerns Infection Onset Date Last Indicated Resolved Time CoV-Risk 12/31/2019 01/01/2020 01/14/2020 4:55 AM EDT COVID-19 01/31/2023 01/31/2023 02/21/2023 1:21 AM EDT CoV-Risk Comment:Per note documentation 12/22/2023 12/24/2023 3:36 PM EDT CoV-Risk 03/04/2024 03/04/2024 03/15/2024 1:23 AM EDT documented as of this encounter Care Teams Health Manager Relationship Specialty Start Date End Date Shari Caba NP [address] [place] [address] [place] [address] PCP - General Family Medicine 12/31/15 08/22/19 Annabelle Shah MD [address] [place] [phone] [email or web address] PCP - General Internal Medicine 01/01/20 07/27/20 Hilda Willams PA [address] [place] [address] PCP - General Unknown Provider Specialty 07/28/20 01/31/22 Anastacia Barron DO [address] [place] [phone] [email or web address] PCP - General Internal Medicine 02/01/22 12/26/23 Neli Perry MD [address] [place] [phone] PCP - General Family Medicine 12/27/23 Tamera Carreno MD, MPH [address] [place] [address] [email or web address] Primary Oncologist Hematology 09/22/18 Mina David MD [address] [place] [address] Ophthalmology 08/23/19 documented as of this encounter Additional Source Comments The information contained in this document represents components of the legal health record. It is not the complete legal health record.[facility]
--- OUTSIDE RECORDS SUMMARY | 2024-09-04 18:19 | XMS_ITS | Encounter Summary ---
Author Organization [facility] Address [address] [facility] [address] [place] [address] Phone Care Team Providers Care Hazardous Substances Scientist Name Role Phone Tamera Carreno MD, MPH Unavailable Mina David MD Unavailable Hilda Willams Primary Care Provider [phone] Anastacia Barron DO Primary Care Provider [phone] Neli Perry MD Primary Care Provider [phone] Encounter Details Date Type Department Care Team (Latest Contact Info) Description 01/27/2021 Transcribe Orders [address] [place] [address] Izzy Grissom, GIAN [address] [facility] [place] [address] [email or web address] Routine general medical examination at a health care facility (Primary Dx); Type 2 diabetes mellitus without [...] Info) Description 10/10/2024 2:15 PM EDT Appointment [facility] [address] [address] Becca Dickinson MD [address] [place] [phone] [email or web address] 10/10/2024 3:30 PM EDT Office Visit [facility] [address] [address] Becca Dicknison MD [address] [place] [address] [email or web address] documented as of this encounter Results * (ABNORMAL) Hemoglobin A1c (01/27/2021 9:17 AM EDT) HEMOGLOBIN A1C 6.6(H) 4.3 - 5.8 % [facility] Blood 01/27/2021 9:17 AM EDT 01/27/2021 9:22 AM EDT Izzy Grissom NP LAB BLOOD ORDERABLES [address] [address] * Uric acid (01/27/2021 9:17 AM EDT) URIC ACID 6.4 2.4 - 7.0 mg/dL [facility] Blood 01/27/2021 9:17 AM EDT 01/27/2021 9:22 AM EDT Izzy Grissom [facility] LAB BLOOD ORDERABLES Performing Organization Address City/[facility]/ZIP Co de Phone Number [address] [address] * (ABNORMAL) Lipid panel (01/27/2021 9:17 AM EDT) HDL 56 mg/dL [facility] Comment: ? Interpretation <40 mg/dL: Low HDL cholesterol (major risk factor for CHD) Greater than or equal to 60 mg/dL: High HDL cholesterol ( negative risk factor for CHD) HDL - cholesterol is affected by a number of factors, e.g. smoking, excerise, hormones, sex and age. CHOLESTEROL 134 0 - 240 mg/dL [facility] TRIGLYCERIDES 105 30 - 160 mg/dL [facility] LDL 57 50 - 129 mg/dL [facility] Comment: LDL levels in terms of risk for coronary heart disease: <100 mg/dL: Optimal 100-129 mg/dL: Near or above optimal 130-159 mg/dL: Borderline high 160-189 mg/dL: High >190 mg/dL: Very High CARDIAC RISK RATIO 2.4(L) 3.3 - 4.4 C [facility] Blood 01/27/2021 9:17 AM EDT 01/27/2021 9:22 AM EDT Izzy Grissom [facility] LAB BLOOD ORDERABLES Performing Organization Address [facility] Co de Phone Number [address] [address] documented in this encounter Visit Diagnoses Diagnosis Routine general medical examination at a health care facility- Primary Type 2 diabetes mellitus without complication, unspecified whether termite technician insulin use documented in this encounter Additional Health Concerns Infection Onset Date Last Indicated Resolved Time COVID-19 01/31/2023 01/31/2023 02/21/2023 1:21 AM EDT CoV-Risk Comment:Per note documentation 12/22/2023 12/24/2023 3:36 PM EDT CoV-Risk 03/04/2024 03/04/2024 03/15/2024 1:23 AM EDT Assessment Noted Time PHQ-2 Depression Total Score: 0 08/23/19 10:59 AM EST documented as of this encounter Care Teams Hazardous Substances Scientist Relationship Specialty Start Date End Date Hilda Willams PA [address] [place] [address] PCP - General Unknown Provider Specialty 07/28/20 Anastacia Barron DO [address] [place] [phone] [email or web address] PCP - General Internal Medicine 02/01/22 12/26/23 Neli Perry MD [address] [place] [phone] PCP - General Family Medicine 12/27/23 Tamera Carreno MD, MPH [address] [place] [phone] [email or web address] Primary Oncologist Hematology 09/22/18 Mina David MD [address] [address] Ophthalmology 08/23/19 documented as of this encounter Additional Source Comments The information contained in this document represents components of the legal health record. It is not the complete legal health record.[facility]
--- OUTSIDE RECORDS SUMMARY | 2024-09-04 18:19 | XMS_ITS | Continuity of Care Document ---
Author Organization [facility], [facility] _HOSP NEUROSURGERY CTR [facility] 6 OP Address [address] [facility] [address] [place] [address] Care Team Providers Care Svp Group Director Name Role Phone ROSARIO HSIEH Primary Care Provider ROSARIO HSIEH Primary Care Provider [phone] Assessment No assessment recorded. Plan of Treatment Reminders Order Date Submit Date Provider Last Modified By Organization Details Last Modified Time Details Appointments Establish ed Patient 30 2024 10:30A M Noa Ramachandran MD Not available Not available Not available Lab None recorded. Referral None recorded. Procedures None recorded. Surgeries None recorded. Imaging None recorded. Medication Orders None recorded. Patient TargetsNo targets recorded. Patient InstructionsNo instructions recorded. Reason for Referral None Reported. Medical Equipment None Reported. Allergies No known [...] SNOMED-CT Code Diagnosis ICD10 Code Diagnosis Note [id number] Noa Ramachandran MD SEM_H[facility]P [facility]G [facility] C[facility] [address] CCP [address] [place] [phone] 08/30/2024 10:34:47 08/30/2024 12:23:14 Lumbar spondylosis [id number] M47.896 Health Concerns Section Related Observation LastModified by Organization Detai ls LastModified Time None Recorded Concern Status LastModified by Organization Details LastModified Time None Recorded Payers Encounter Date Sequence Insurance Name Policy Number Policy Mehta Covered Member ID Mehta Member ID Guarantor Name 08/30/2024 1 [place]IC[place]: [employer] Emre Remy [id number] Emre Remy 08/30/2024 2 [facility] BENEFIT PLAN Emre Remy [id number] Emre Remy Notes Date Note Type Note Provider Name and Address Organization Details Recorded Time 08/30/2024 text/html LUMBAR/SACRAL ME DIAL BRANCH RADIOFREQUENCY PHYSICIAN: Noa Ramachandran MD STUDIO DESIGNER: Conchita Ross DIAGNOSIS: 1. Lumbar Spondylosis 2. Lumbar Facet Joint Syndrome ANESTHESIA: LOCAL PROCEDURE: 1. Left L3, L4, L5 Neurolytic/radiofreque ncy facet, lumbar or sacral, a total of [...] discussed with the patient. Noa Ramachandran MD [address] [place] [address] [place], [phone], [facility] - [facility] 08/30/2024 13:35:06 OBGyn Episode No OBEpisode recorded.
--- OUTSIDE RECORDS SUMMARY | 2024-09-04 18:19 | XMS_ITS | Encounter Summary ---
Author Organization [facility] Address [facility]gression [address] [address] Phone Care Team Providers Care Counter Waiter Name Role Phone Tamera Carreno MD, MPH Unavailable Mina David MD Unavailable Hilda Willams Primary Care Provider Anastacia Barron DO Primary Care Provider [phone] Neli Perry MD Primary Care Provider Encounter Details Date Type Department Care Team (Late st Contact Info) Description 01/14/2021 Procedure [facility], [address] [address] Social History Tobacco Use Types Packs/Day Years [...] Info) Description 10/10/2024 2:15 PM EDT Appointment [address] [address] Becca Dickinson MD [address] [place] [address] [address] [place] [address] [email or web address] 10/10/2024 3:30 PM EDT Office Visit [address] [address] Becca Dickinson MD [address] [place] [address] [email or web address] documented as [...] documented as of this encounter Care Teams Counter Waiter Relationship Specialty Start Date End Date Hilda Willams PA [address] [place] [address] PCP - General Unknown Provider Specialty 07/28/20 Anastacia Barron DO [address] [place] [phone] [email or web address] PCP - General Internal Medicine 02/01/22 12/26/23 Neli Perry MD [address] [place] [phone] PCP - General Family Medicine 12/27/23 Tamera Carreno MD, MPH 55 [facility] [address] [place] [address] [email or web address] Primary Oncologist Hematology 09/22/18 Mina David MD [address] [address] Ophthalmology 08/23/19 documented as of this encounter Additional Source Comments The information contained in this document represents components of the legal health record. It is not the complete legal health record.[facility]
--- OUTSIDE RECORDS SUMMARY | 2024-09-04 18:19 | XMS_ITS | Encounter Summary ---
Author Organization [facility] Address [address] [place] [address] Phone Care Team Providers Care Stripper Apprentice Name Role Phone Shari Caba NP Primary Care Provider [phone] Tamera Carreno MD, MPH Unavailable [phone] Mina David MD Unavailable Annabelle Shah MD Primary Care Provi adelaida Hilda Willams Primary Care Provider Anastacia Barron DO Primary Care Provider [phone] Neli Perry MD Primary Care Provider [phone] Encounter Details Date Type Department Care Team (Late st Contact Info) Description 01/28/2016 Ancillary Orders [facility] [address] [place] [address] Kathie Alberto MD, PhD [address] [place], [place] [address] [place] [address] [email or web address] Papillary carcinoma (Primary Dx) Social History Tobacco Use Types [...] Info) Description 10/10/2024 2:15 PM EDT Appointment [address] [address] Becca Dickinson MD [address] [place] [address] [email or web address] 10/10/2024 3:30 PM EDT Office Visit [address] [address] Becca Dickinson MD [address] [place] [address] [email or web address] documented as of this encounter Results * Mammogram Outside With Interpretation Or Consult (01/28/2016 12:00 AM EDT) 01/28/2016 Impressions [facility] - 01/30/2016 11:03 AM EDT IMPRESSION:1. [...] Malignancy - Appropriate Action Should Be Taken ?? Narrative [facility] - 01/30/2016 11:03 AM EDT Remy OUTSIDE INTERPRETATIONSTUDIES PROVIDED FOR INTERPRETATION:Screening mammogram 11/27/2015Diagnostic left mammogram 12/03/2015Left breast ultrasound 12/03/2015Left breast ultrasound guided biopsy 12/12/2015Above studies performed at [facility] and [facility]. Additional mammograms dated 08/20/2013 and 06/04/2010 are provided for comparison. HISTORY:70 year old woman with new diagnosis of invasive carcinoma of the left breast. A screening mammogram at [facility] 11/27/15 showed an developing asymmetry in the inferior left breast. U/S showed a 10 mm suspicious mass at 5:30, 3 cm from the nipple. Core biopsy 12/12/15 showed a grade 1 invasive papillary cancer, ER/NM+, HER2-. FINDINGS:Screening mammogram 11/27/2015: Bilateral digital 2-D [...] breast. FINAL PATHOLOGIC DIAGNOSIS:Consult materials received from [facility], [place], [place]. BREAST ULTRASOUND GUIDED CORE NEEDLE BIOPSY, LEFT 4 O'CLOCK, 3 CM FROM NIPPLE([id number]; 12/12/2015): - Fragments of papillary carcinoma. See [...] Note Lucie Duncan MD, MPH - 01/30/2016 , [place] OUTSIDE INTERPRETATIONSTUDIES PROVIDED FORINTERPRETATION:Screening mammogram 11/27/2015Diagnostic left mammogram12/03/2015Left breast ultrasound 12/03/2015Left breast ultrasound guidedbiopsy 12/12/2015Above studies performed at [facility]. Additional mammograms dated 08/20/2013 and06/04/2010 are provided for comparison. HISTORY:70 year old woman with newdiagnosis of invasive carcinoma of the left breast. A screening [facility] 11/27/15 showed an developing asymmetry in theinferior left breast. U/S showed a 10 mm suspicious mass at 5:30, 3 cmfrom the nipple. Core biopsy 12/12/15 showed a grade 1 invasive papillarycancer, ER/NM+, HER2-. FINDINGS:Screening mammogram 11/27/2015: Bilateraldigital 2-D CC [...] left breast. FINAL PATHOLOGIC DIAGNOSIS:Consult materials[facility] from [facility], [place], [place]. BREAST ULTRASOUND GUIDEDCORE NEEDLE BIOPSY, LEFT 4 O'CLOCK, 3 CM FROM NIPPLE([id number],2;12/12/2015): - Fragments of papillary carcinoma. See note. [...] Taken Kathie Alberto MD, PhD IMG OUTSIDE I MAGING W/ INTERPRETATION Performing Organization Address City/State/[facility] Co de Phone Number [facility]OE [address] [facility] [place] [address] documented in this encounter Visit Diagnoses Diagnosis Papillary carcinoma- Primary Other malignant neoplasm of unspecified site Papillary carcinoma Other malignant neoplasm of unspecified site documented in this encounter Additional Health Concerns Infection Onset Date Last Indicated Resolved Time CoV-Risk 12/31/2019 01/01/2020 01/14/2020 4:55 AM EDT COVID-19 01/31/2023 01/31/2023 02/21/2023 1:21 AM EDT CoV-Risk Comment:Per note documentation 12/22/2023 12/24/2023 3:36 PM EDT CoV-Risk 03/04/2024 03/04/2024 03/15/2024 1:23 AM EDT documented as of this encounter Care Teams Stripper Apprentice Relationship Specialty Start Date End Date Shari Caba NP [address] [place] [address] PCP - General Family Medicine 12/31/15 08/22/19 Annabelle Shah MD [address] [place] [phone] [email or web address] PCP - General Internal Medicine 01/01/20 07/27/20 Hilda Willams PA [address] [place] [address] PCP - General Unknown Provider Specialty 07/28/20 01/31/22 Anastacia Barron DO [address] [place] [phone] [email or web address] PCP - General Internal Medicine 02/01/22 12/26/23 Neli Perry MD [address] [place] [phone] PCP - General Family Medicine 12/27/23 Tamera Carreno MD, MPH [address] [place] [address] [email or web address].[facility] Primary Oncologist Hematology 09/22/18 Mina David MD [address] [place] [address] Ophthalmology 08/23/19 documented as of this encounter Additional Source Comments The information contained in this document represents components of the legal health record. It is not the complete legal health record.[facility]
--- OUTSIDE RECORDS SUMMARY | 2024-09-04 18:19 | XMS_ITS | Encounter Summary ---
Author Organization [facility] General [facility] Address [address] [email or web address] [facility] [address] [place] [address] Phone Care Team Providers Care Crm Consultant Name Role Phone Shari Caba NP Primary Care Provider Encounter Details Date Type Department Care Team (Late st Contact Info) Description 01/28/2016 Hospital Encounter [facility] General Imaging [address] [place] [address] Kathie Alberto MD, PhD [address] [place], [place] [id number] [place] [address] [email or web address] [email or web address] Social History Tobacco Use Types Packs/Day Years [...] Info) Description 10/10/2024 2:15 PM EDT Appointment [address] [place] [address] Becca Dickinson MD [address] [address] [email or web address] 10/10/2024 3:30 PM EDT Office Visit [address] [address] Becca Dickinson MD [address] [place] [address] [email or web address] documented as of this encounter Procedures Procedure Name Priority Date/Time Associated Diagnosis Comments BI MAMMOGRAM OUTSIDE WITH INTERPRETATION OR CONSULT Routine 01/28/2016 12:00 AM EDT Papillary carcinoma documented in this encounter Results * Mammogram Outside With Interpretation Or Consult (01/28/2016 12:00 AM EDT) 01/28/2016 Impressions [facility] - 01/30/2016 11:03 AM EDT IMPRESSION:1. [...] Appropriate Action Should Be Taken ?? Narrative [facility] - 01/30/2016 11:03 AM EDT Remy OUTSIDE INTERPRETATIONSTUDIES PROVIDED FOR INTERPRETATION:Screening mammogram 11/27/2015Diagnostic left mammogram 12/03/2015Left breast ultrasound 12/03/2015Left breast ultrasound guided biopsy 12/12/2015Above studies performed at [facility]. Additional mammograms dated 08/20/2013 and 06/04/2010 are provided for comparison. HISTORY:70 year old woman with new diagnosis of invasive carcinoma of the left breast. A screening mammogram at [facility] 11/27/15 showed an developing asymmetry in the inferior left breast. U/S showed a 10 mm suspicious mass at 5:30, 3 cm from the nipple. Core biopsy 12/12/15 showed a grade 1 invasive papillary cancer, ER/MI+, HER2-. FINDINGS:Screening mammogram 11/27/2015: Bilateral digital 2-D [...] breast. FINAL PATHOLOGIC DIAGNOSIS:Consult materials received from [place], [place]. BREAST ULTRASOUND GUIDED CORE NEEDLE BIOPSY, LEFT 4 O'CLOCK, 3 CM FROM NIPPLE([id number]; 12/12/2015): - Fragments of papillary carcinoma. See [...] breast ultrasound guidedbiopsy 12/12/2015Above [facility] Additional mammograms dated 08/20/2013 and06/04/2010 are provided for comparison. HISTORY:70 year old woman with newdiagnosis of invasive carcinoma of the left breast. [facility] 11/27/15 showed an developing asymmetry in theinferior left breast. U/S showed a 10 mm suspicious mass at 5:30, 3 cmfrom the nipple. Core biopsy 12/12/15 showed a grade 1 invasive papillarycancer, ER/MI+, HER2-. FINDINGS:Screening mammogram 11/27/2015: Bilateraldigital 2-D CC [...] left breast. FINAL PATHOLOGIC DIAGNOSIS:[facility] [place], [place]. BREAST ULTRASOUND GUIDEDCORE NEEDLE BIOPSY, LEFT 4 O'CLOCK, 3 CM FROM NIPPLE([id number];12/12/2015): - Fragments of papillary carcinoma. See note. [...] PhD IMG OUTSIDE I MAGING W/ INTERPRETATION [facility] [place] [address] [employer] [place] [address] documented in this encounter Visit Diagnoses Diagnosis [...] documented as of this encounter Care Teams Crm Consultant Relationship Specialty Start Date End Date Shari Caba NP [address] [place] [address] PCP - General Family Medicine 12/31/15 08/22/19 documented as of this encounter Additional Source Comments The information contained in this document represents components of the legal health record. It is not the complete legal health record.[facility]
--- OUTSIDE RECORDS SUMMARY | 2024-09-04 18:19 | XMS_ITS | Encounter Summary ---
Author Organization [facility] Address [address] [place] [address] Phone Care Team Providers Care Real Estate Legal Assistant Name Role Phone Tamera Carreno MD, MPH Unavailable [phone] Mina David MD Unavailable Hilda Willams Primary Care Provider [phone] Anastacia Barron DO Primary Care Provider Neli Perry MD Primary Care Provider [phone] Reason for Referral * MRI/CAT Scan - Closed Specialty Diagnoses / Procedures Referred By Guillermo t Referred To Contact Radiology Diagnoses Radiculopathy, lumbar region Procedures MRI Lumbar Spine Rboert Patton MD [address] [place] [address] Referral ID Status Reason Start Date Expiration Date Visits Re quested Visits Authorized [id number] Closed 01/14/2021 01/14/2022 1 1 Encounter Details Date Type Department Care Team (Latest Contact Info) Description 01/14/2021 Transcribe Orders Virtual Department [address] [place] [address] Robert Patton MD [address] [place] [address] Radiculopathy, lumbar region (Primary Dx) Social History Tobacco Use Types [...] Info) Description 10/10/2024 2:15 PM EDT Appointment [facility] [address] [address] Becca Dickinson MD [address] [place] [address] [email or web address] 10/10/2024 3:30 PM EDT Office Visit [facility] [address] [address] Becca Dickinson MD [address] [place] [address] [email or web address] documented as of this encounter Results * MRI LUMBAR SPINE (NEURO) WITHOUT CONTRAST (02/15/2021 7:22 AM EDT) Anatomical Region Laterality Modality L-spine Magnetic Resonan ce 02/16/2021 8:29 AM EDT Impressions 02/16/2021 8:59 AM EDT Multilevel degenerative changes. Degenerative changes at L5-S1 have mildly progressed from 2018. Narrative 02/16/2021 8:59 AM EDT MRI LUMBAR SPINE (NEURO) WITHOUT CONTRAST TECHNIQUE: Multi-sequence, multi-planar MRI of the lumbar spine was performed without intravenous contrast. COMPARISON: April 05, 2018 FINDINGS: Vertebrae: No compression fracture. Endplate changes at L5-S1 has progressed from 2018. No bone marrow edema. No scoliosis. Conus: Normal position. No signal abnormality. Soft Tissue: Normal. No paraspinal edema, mass or fluid collection. Findings by level: T12-L1: Normal disc height and contour. No listhesis. No stenosis or nerve impingement. L1-L2: Normal disc height and contour. No listhesis. No stenosis or nerve impingement. L2-L3: Minimal bulging disc. No listhesis. No stenosis or nerve impingement. L3-L4: Mild bulging disc. No listhesis. No stenosis or nerve impingement. L4-L5: Combination grade 1 anterolisthesis of L4 on L5, uncovered bulged disc and hypertrophy of posterior elements results in mild bilateral neuroforaminal stenosis and mild canal stenosis. Findings are similar to 2018. L5-S1: Combination of bulging disc with superimposed central disc protrusion, hypertrophy of posterior elements and epidural lipomatosis contributes to mild/moderate bilateral neuroforaminal stenosis and mild canal stenosis. Findings have mildly progressed from 2018. Procedure Note Alex Rashid MD - 02/16/2021 MRI LUMBAR SPINE (NEURO) WITHOUT CONTRAST TECHNIQUE: Multi-sequence, multi-planar MRI of the lumbar spine wasperformed without intravenous contrast. COMPARISON: April 05, 2018 FINDINGS: Vertebrae: No compression fracture. Endplate changes at L5-S1 hasprogressed from 2018. No bone marrow edema. No scoliosis. Conus: Normal position. No signal abnormality. Soft Tissue: Normal. No paraspinal edema, mass or fluid collection. Findings by level: T12-L1: Normal disc height and contour. No listhesis. No stenosis or nerveimpingement. L1-L2: Normal disc height and contour. No listhesis. No stenosis or nerveimpingement. L2-L3: Minimal bulging disc. No listhesis. No stenosis or nerveimpingement. L3-L4: Mild bulging disc. No listhesis. No stenosis or nerveimpingement. L4-L5: Combination grade 1 anterolisthesis of L4 on L5, uncovered bulgeddisc and hypertrophy of posterior elements results in mild bilateralneuroforaminal stenosis and mild canal stenosis. Findings are similar [id number]. L5-S1: Combination of bulging disc with superimposed central discprotrusion, hypertrophy of posterior elements and epidural lipomatosiscontributes to mild/moderate bilateral neuroforaminal stenosis and mildcanal stenosis. Findings have mildly progressed from 2018. IMPRESSION: Multilevel degenerative changes. Degenerative changes at L5-S1 have mildlyprogressed from 2018. Robert Patton MD IMG MR [employer]CIAL TY documented in this encounter Visit Diagnoses Diagnosis Radiculopathy, lumbar region- Primary Thoracic or lumbosacral neuritis or radiculitis, unspecified documented in this encounter Additional Health Concerns Infection Onset Date Last Indicated Resolved Time COVID-19 01/31/2023 01/31/2023 02/21/2023 1:21 AM EDT CoV-Risk Comment:Per note documentation 12/22/2023 12/24/2023 3:36 PM EDT CoV-Risk 03/04/2024 03/04/2024 03/15/2024 1:23 AM EDT Assessment Noted Time PHQ-2 Depression Total Score: 0 08/23/19 10:59 AM EST documented as of this encounter Care Teams Real Estate Legal Assistant Relationship Specialty Start Date End Date Hilda Willams PA [address] [place] [phone] PCP - General Unknown Provider Specialty 07/28/20 Anastacia Barron DO [address] [place] [phone] [email or web address] PCP - General Internal Medicine 02/01/22 12/26/23 Neli Perry MD [address] [place] [phone] PCP - General Family Medicine 12/27/23 Tamera Carreno MD, MPH [address] [place], [place] [address] [place] [address] [email or web address] Primary Oncologist Hematology 09/22/18 Mina David MD [address] [address] Ophthalmology 08/23/19 documented as of this encounter Additional Source Comments The information contained in this document represents components of the legal health record. It is not the complete legal health record.[facility]
--- OUTSIDE RECORDS SUMMARY | 2024-09-04 18:19 | XMS_ITS | Encounter Summary ---
Author Organization [facility] Address [facility] [address] [address] Phone Care Team Providers Care Billet Shearer Name Role Phone Shari Caba NP Primary Care Provider [phone] Tamera Carreno MD, MPH Unavailable Mina David MD Unavailable Annabelle Shah MD Primary Care Provi adelaida Hilda Willams Primary Care Provider Anastacia Barron DO Primary Care Provider [phone] Neli Perry MD Primary Care Provider Encounter Details Date Type Department Care Team (Late st Contact Info) Description 01/30/2016 Ancillary Orders [facility] [address] [facility] [address] [place] [address] Kathie Alberto MD, PhD [address] [place], [place] [address] [place] [address] [email or web address] Breast cancer, left (Primary Dx) Social History Tobacco Use Types Packs/Day Years Used Date Smoking Tobacco: Former Cigarettes 1 28 0 01/28/1963 - 01/28/1991 Alcohol Use Standard Drinks/Week Comments Yes 5 [...] Info) Description 10/10/2024 2:15 PM EDT Appointment [facility] [address] [address] Becca Dickinson MD [address] [place] [address] [email or web address] 10/10/2024 3:30 PM EDT Office Visit [facility] [address] [address] Becca Dickinson MD [address] [place] [address] [email or web address] documented as of this encounter Results * BI MAMMOGRAM BREAST SPECIMEN POST SURGICAL BIOPSY NO TOMOSYNTHESIS NO CAD (LEFT) (02/03/2016 11:15 AM EDT) Anatomical Region Laterality Modality Breast Left Left Mammography 02/03/2016 Impressions 02/03/2016 7:35 PM EDT IMPRESSION: Successful needle localization of the mass in the left breast. As the attending physician, I was present for louise portions of the procedure and otherwise immediately available. ?? Narrative 02/03/2016 7:35 PM EDT PERCUTANEOUS NEEDLE LOCALIZATION - left Comparison was made to prior studies. Sonographic Guidance The procedure was explained in detail to the patient, her questions were answered, and she consented to the localization. ??A pre- procedure time-out was performed using two patient identifiers, confirming patient identity and procedure to be performed. ??Using the usual sterile technique, local anesthesia was achieved with 1% lidocaine. Under sonographic guidance, a hook wire was deployed adjacent to the mass at 5:30 o'clock 3 cm from nipple in the left breast. The patient was transferred to the operating room in stable condition. Specimen radiography confirms the presence of the mass with ribbon clip and localizing wire in the specimen. Procedure Note Adela Butt MD - 02/03/2016 PERCUTANEOUS NEEDLE LOCALIZATION - left Comparison was made to priorstudies. Sonographic Guidance The procedure was explained in detail to thepatient, her questions were answered, and she consented to thelocalization. A pre-procedure time-out was performed using two patientidentifiers, confirming patient identity and procedure to be performed.Using the usual sterile technique, local anesthesia was achieved with 1%lidocaine. Under sonographic guidance, a hook wire was deployed adjacentto the mass at 5:30 o'clock 3 cm from nipple in the left breast. Thepatient was transferred to the operating room in stable condition.Specimen radiography confirms the presence of the mass with ribbon clipand localizing wire in the specimen. IMPRESSION: IMPRESSION: Successful needle localization of the mass in the left breast.As the attending physician, I was present for louise portions of theprocedure and otherwise immediately available. Kathie Alberto MD, PhD IMG BI IRP IDED BREAST PROC * Mammogram Needle Localization (Left) (02/03/2016 10:24 AM EDT) Anatomical Region Laterality Modality Breast Left, Breast Bilateral Left Ma mmography 02/03/2016 Impressions 02/03/2016 7:35 PM EDT IMPRESSION: Successful needle localization of the mass in the left breast. As the attending physician, I was present for louise portions of the procedure and otherwise immediately available. ?? Narrative 02/03/2016 7:35 PM EDT PERCUTANEOUS NEEDLE LOCALIZATION - left Comparison was made to prior studies. Sonographic Guidance The procedure was explained in detail to the patient, her questions were answered, and she consented to the localization. ??A pre- procedure time-out was performed using two patient identifiers, confirming patient identity and procedure to be performed. ??Using the usual sterile technique, local anesthesia was achieved with 1% lidocaine. Under sonographic guidance, a hook wire was deployed adjacent to the mass at 5:30 o'clock 3 cm from nipple in the left breast. The patient was transferred to the operating room in stable condition. Specimen radiography confirms the presence of the mass with ribbon clip and localizing wire in the specimen. Procedure Note Adela Butt MD - 02/03/2016 PERCUTANEOUS NEEDLE LOCALIZATION - left Comparison was made to priorstudies. Sonographic Guidance The procedure was explained in detail to thepatient, her questions were answered, and she consented to thelocalization. A pre-procedure time-out was performed using two patientidentifiers, confirming patient identity and procedure to be performed.Using the usual sterile technique, local anesthesia was achieved with 1%lidocaine. Under sonographic guidance, a hook wire was deployed adjacentto the mass at 5:30 o'clock 3 cm from nipple in the left breast. Thepatient was transferred to the operating room in stable condition.Specimen radiography confirms the presence of the mass with ribbon clipand localizing wire in the specimen. IMPRESSION: IMPRESSION: Successful needle localization of the mass in the left breast.As the attending physician, I was present for louise portions of theprocedure and otherwise immediately available. Kathie Alberto MD, PhD IMG BI IRP IDED BREAST PROC documented in this encounter Visit Diagnoses Diagnosis Breast cancer, left- Primary Breast cancer, left Breast cancer, left documented in this encounter Additional Health Concerns Infection Onset Date Last Indicated Resolved Time CoV-Risk 12/31/2019 01/01/2020 01/14/2020 4:55 AM EDT COVID-19 01/31/2023 01/31/2023 02/21/2023 1:21 AM EDT CoV-Risk Comment:Per note documentation 12/22/2023 12/24/2023 3:36 PM EDT CoV-Risk 03/04/2024 03/04/2024 03/15/2024 1:23 AM EDT documented as of this encounter Care Teams Billet Shearer Relationship Specialty Start Date End Date Shari Caba NP [address] [place] [address] [place] [address] PCP - General Family Medicine 12/31/15 08/22/19 Annabelle Shah MD [address] [place] [phone] [email or web address] PCP - General Internal Medicine 01/01/20 07/27/20 Hilda Willams PA [address] [place] [address] PCP - General Unknown Provider Specialty 07/28/20 01/31/22 Anastacia Barron DO [address] [place] [phone] [email or web address] PCP - General Internal Medicine 02/01/22 12/26/23 Neli Perry MD [address] [place] [phone] PCP - General Family Medicine 12/27/23 Tamera Carreno MD, MPH [address] [place] [address] [email or web address] Primary Oncologist Hematology 09/22/18 Mina David MD [address] [place] [address] Ophthalmology 08/23/19 documented as of this encounter Additional Source Comments The information contained in this document represents components of the legal health record. It is not the complete legal health record.[facility]
--- OUTSIDE RECORDS SUMMARY | 2024-09-04 18:19 | XMS_ITS | Encounter Summary ---
Author Organization [facility] Address [address] [place] [address] Phone Care Team Providers Care Rodeo Clown Name Role Phone Tamera Carreno MD, MPH Unavailable [phone] Mina David MD Unavailable Anastacia Barron DO Primary Care Provider [phone] Neli Perry MD Primary Care Provider Encounter Details Date Type Department Care Team (Late st Contact Info) Description 08/11/2022 Procedure Pass Breast Imaging, [facility] [place] [facility] [address] [place] [address] Social History Tobacco Use Types Packs/Day Years Used Date Smoking Tobacco: Former Cigarettes 1 28 0 01/28/1963 - 01/28/1991 Smokeless Tobacco: Never Alcohol Use Standard Drinks/Week Comments Yes 5 (1 standard drink = 0.6 oz pur e alcohol) Social drinker Sex and Gender Information Value Date Recorded Sex Assigned at Female 08/20/2019 8:24 AM EST Gender Identity Female 08/14/2020 4:03 PM EST Sexual Orientation Straight 08/14/2020 4: 03 PM EST documented as of this encounter Plan of Treatment Upcoming Encounters Date Type Department Care Team (Late st Contact Info) Description 10/10/2024 2:15 PM EDT Appointment [address] [place] [address] Becca Dickinson MD [address] [place], [place] [address]C [address] [place] [address] [email or web address] 10/10/2024 3:30 PM EDT Office Visit [address] [address] Becca Dickinson MD 55 [facility] [address] [place] [address] [email or web address] documented as of this encounter Visit [...] documented as of this encounter Care Teams Rodeo Clown Relationship Specialty Start Date End Date Anastacia Barron DO [address] [place] [phone] [email or web address] PCP - General Internal Medicine 02/01/22 12/26/23 Neil Perry MD [address] [place] [address] [place] [phone] PCP - General Family Medicine 12/27/23 Tamera Carreno MD, MPH [address] [place] [address] [address] [place] [address] [email or web address] Primary Oncologist Hematology 09/22/18 Mina David MD [address] [address] Ophthalmology 08/23/19 documented as of this encounter Additional Source Comments The information contained in this document represents components of the legal health record. It is not the complete legal health record.[facility]
--- OUTSIDE RECORDS SUMMARY | 2024-09-04 18:19 | XMS_ITS | Encounter Summary ---
Author Organization [facility] Address [address] [place] [address] Phone Care Team Providers Care Motor Power Connector Name Role Phone Tamera Carreno MD, MPH Unavailable Mina David MD Unavailable Annabelle Shah MD Primary Care Provi adelaida Hilda Willams Primary Care Provider Anastacia Barron DO Primary Care Provider [phone] Neli Perry MD Primary Care Provider Encounter Details Date Type Department Care Team (Late st Contact Info) Description 07/21/2020 Procedure Pass [facility] [address] [place] [address] [facility] [address] [place] [address] Social History Tobacco Use Types Packs/Day Years [...] Info) Description 10/10/2024 2:15 PM EDT Appointment [facility] [address] [address] Becca Dickinson MD [address] [place] [phone] [email or web address] 10/10/2024 3:30 PM EDT Office Visit [facility] [address] [address] Becca Dickinson MD [address] [place] [address] [email or web address] documented as of this encounter Visit Diagnoses Not on filedocumented in this encounter Additional Health Concerns Infection Onset Date Last Indicated Resolved Time COVID-19 01/31/2023 01/31/2023 02/21/2023 1:2 1 AM EDT CoV-Risk Comment:Per note documentation 12/22/2023 12/24/2023 3:36 PM EDT CoV-Risk 03/04/2024 03/04/2024 03/15/2024 1:23 AM EDT Assessment Noted Time PHQ-2 Depression Total Score: 0 08/23/19 20 10:59 AM EST documented as of this encounter Care Teams Motor Power Connector Relationship Specialty Start Date End Date Annabelle Shah MD [address] [place] [phone] [email or web address] PCP - General Internal Medicine 01/01/20 07/27/20 Hilda Willams PA [address] [place] [phone] PCP - General Unknown Provider Specialty 07/28/20 01/31/22 Anastacia Barron DO [address] [place] [address] [email or web address] PCP - General Internal Medicine 02/01/22 12/26/23 Neli Perry MD [address] [place] [address] [place] [address] PCP - General Family Medicine 12/27/23 Tamera Carreno MD, MPH [address] [place] [address] [email or web address] Primary Oncologist Hematology 09/22/18 Mina David MD [address] [place] [address] Ophthalmology 08/23/19 documented as of this encounter Additional Source Comments The information contained in this document represents components of the legal health record. It is not the complete legal health record.[facility]
== END 2024-09-04 15:42 | disposition home or self-care (01) ==
LOC: HO.HPS 15:23
PROVIDERS: PCP Family Medicine; Visit Provider Internal Medicine
DX: J45.909 Unspecified asthma, uncomplicated (principal); J30.9 Allergic rhinitis, unspecified
CPT/HCPCS: 99213

== ENCOUNTER → 2024-09-04 15:22 | Outpatient (BNVA) | payer MEDICARE, OTHER, SELFPAY | PROVIDERS: PCP Family Medicine; Visit Provider Internal Medicine | DX: J45.909 Unspecified asthma, uncomplicated (principal) | CPT/HCPCS: 99212 ==

== ENCOUNTER 2025-02-25 13:50 | Outpatient (AMB) | payer MEDICARE, OTHER, SELFPAY ==
--- OUTSIDE RECORDS SUMMARY | 2010-06-04 01:00 | XMS_ITS | Encounter Summary ---
Author Organization [facility] Address [address] [facility] [address] [place] [address] Phone Care Team Providers Care Community Arts Centre Manager Name Role Phone Unavailable Primary Care Provider Unavailabl e Encounter Details Date Type Department Care Team (Late st Contact Info) Description 06/04/2010 Hospital Encounter [facility] General Imaging [address] [place] [address] Kathie Alberto MD, PhD 55 [facility]9J-8053 [place] [address] [email or web address] Social History Tobacco Use Types Packs/Day Years Used Date Smoking Tobacco: Former Cigarettes 1 28 0 01/28/1963 - 01/28/1991 Smokeless Tobacco: Never Comments:Patient informed qu it smoking completely more than 40 years ago Alcohol Use Standard Drinks/Week Comments Yes 3 (1 standard drink = 0.6 oz pur e alcohol) Social drinker Education Answer Date Recorded Are you interested in more education? Not on sixto e 11/01/2022 Are you concerned about learning? Not on file 11/01/2022 No 11/01/2022 No 11/01/2022 Food Answer Date Recorded Within the past 6 months we worried whether our food would run out before we got money to buy more. Never True 12/24/2023 Within the past 6 months the food we bought just didn't last and we didn't have enough money to get more. Never True Residential Stability Answer Date Recor ded What is your housing situation today? I have tino sing 12/24/2023 How many times have you move d in the past 12 months? Zero (I did not move) 12/24/2023 Paying for Meds Answer Date Recorded Do you have trouble paying for medicines? No 12/24/2023 Paying Utility Bills Answer Date Record ed Do you have trouble paying your heating or elect ricity bill? No 12/24/2023 Transportation Answer Date Recorded Has the lack of transportati on kept you from medical appointments or from getting medications? No 12/24/2023 Digital Access Answer Date Recorded No 12/24/2023 Yes 12/24/2023 Do you have reliable internet access at home? Ye s 12/24/2023 Do you have a device (e.g., phone, tablet, computer) with a working camera? Yes 12/24/2023 Intimate Partner Violence Answer Date R ecorded Are you denied basic needs s uch as food, clothing, or medical care? No 03/04/2024 In the past 12 months have y ou been in a relationship with a person who hurts, threatens, or tries to control you? No 03/04/2024 Are you denied basic needs s uch as food, clothing, or medical care? No 03/04/2024 In the past 12 months have y ou been in a relationship with a person who hurts, threatens, or tries to control you? No 03/04/2024 Comments No Sex and Gender Information Value Date Recorded Sex Assigned at Female 08/20/2019 8:24 AM EST Legal Sex Female 1:18 PM EDT Gender Identity Female 08/14/2020 4:03 PM EST Sexual Orientation Straight 08/14/2020 4: 03 PM EST documented as of this encounter Functional Status * Calculated C-SSRS Risk Score (Lifetime/Recent) Answer Date of Assessment Author No Risk Indicated 03/04/2024 5:09 AM EDT Laura Steele RN * [place] Suicide Severity Rating Scale (Screener/Recent Self-Report) Question Answer Date of Assessment Author 1. Wish to be (Past 1 Month) No 024 5:09 AM EDT Laura Hurst RN 2. Non-Specific Active Suici capo Thoughts (Past 1 Month) No 03/04/2024 5:09 AM EDT Bri Hurst ra RN 6. Suicidal Behavior (Lifetime) No 5:09 AM EDT Laura Hurst RN documented as of this encounter Plan of Treatment Upcoming Encounters Date Type Department Care Team (Late st Contact Info) Description 11/16/2024 Procedure Pass [address] [place] [address] 06/14/2025 11:15 AM EST Appointment [address] [place] [address] Neli Perry MD [address] [place] [phone] [email or web address] 06/27/2025 1:30 PM EST Appointment [facility] [address] [address] Becca Dickinson MD [address] [place] [phone] [email or web address] 06/27/2025 2:15 PM EST Procedure visit [facility] [address] [address] Becca Dickinson MD [address] [place] [phone] [email or web address] 06/28/2025 12:45 PM EST Appointment [facility] [address] [address] Becca Dickinson MD [address] [place] [phone] [email or web address] 06/28/2025 12:45 PM EST Office Visit [facility] [address] [address] Becca Dickinson MD [address] [place] [phone] [email or web address] 08/15/2025 12:00 PM EST Office Visit [facility] [address] [facility] [place] [address] Becca Dickinson MD [address] [place] [phone] [email or web address] documented as of this encounter Procedures Procedure Name Priority Date/Time Associated Diagnosis Comments BI MAMMOGRAM OUTSIDE (NO INTERPRETATION) Routine 06/04/2010 12:00 AM EST documented in this encounter Results * Mammogram Outside (No Interpretation) (06/04/2010 12:00 AM EST) Narrative [facility] INTERFACES - 01/28/2016 3:13 PM EDT This study is for PACS storage only and not for interpretation. Procedure Note SYSTEMGENERATED, DOCUMENTATION - 01/28/2016 This study is for PACS storage only and not for interpretation. us Kathie Alberto MD, PhD IMG OUTSIDE IMAGING W /OUT INTERPRETATION Final Result [facility] documented in this encounter Visit Diagnoses Not on filedocumented in this encounter Additional Health Concerns Infection Onset Date Last Indicated Resolved Time CoV-Risk 12/31/2019 01/01/2020 01/14/2020 4:55 AM EDT COVID-19 01/31/2023 01/31/2023 02/21/2023 1:21 AM EDT CoV-Risk Comment:Per note documentation 12/22/2023 12/24/2023 3:36 PM EDT CoV-Risk 03/04/2024 03/04/2024 03/15/2024 1:23 AM EDT documented as of this encounter Additional Source Comments The information contained in this document represents components of the legal health record. It is not the complete legal health record.[facility]
--- OUTSIDE RECORDS SUMMARY | 2013-08-20 01:00 | XMS_ITS | Encounter Summary ---
Author Organization [employer] [facility] Address [address] [facility] [address] [place] [address] Phone Care Team Providers Care Scoreboard Operator Name Role Phone Unavailable Primary Care Provider Unavailabl e Encounter Details Date Type Department Care Team (Late st Contact Info) Description 08/20/2013 Hospital Encounter [facility] General Imaging [address] [place] [address] Kathie Alberto MD, PhD 55 [facility]1T-2485 [place] [address] CHRISTIAN@[email or web address] Social History Tobacco Use Types [...] 5:09 AM EDT Laura Steele RN * [place] Suicide Severity Rating Scale (Screener/Recent Self-Report) Question [...] st Contact Info) Description 11/16/2024 Procedure Pass [address] [place] [address] 06/14/2025 11:15 AM EST Appointment [address] [place] [address] Neli Perry MD [address] [place] [phone] [email or web address] 06/27/2025 1:30 PM EST Appointment [facility] [address] [address] Becca Dickinson MD [address] [place] [phone] JAVED@[facility] 06/27/2025 2:15 PM EST Procedure visit [facility] [address] [address] Becca Dickinson MD [address] [place] [phone] [email or web address] 06/28/2025 12:45 PM EST Appointment [facility] [address] [address] Becca Dickinson MD [address] [place] [phone] [email or web address] 06/28/2025 12:45 PM EST Office Visit [facility] [address] [address] Becca Dickinson MD [address] [place] [phone] [email or web address] 08/15/2025 12:00 PM EST Office Visit [facility] [address] Uren[facility] [place] [address] Becca Dickinson MD [address] [place] [phone] [email or web address] documented as of this encounter Procedures Procedure Name Priority Date/Time Associated Diagnosis Comments BI MAMMOGRAM OUTSIDE (NO INTERPRETATION) Routine 08/20/2013 12:00 AM EST documented in this encounter Results * Mammogram Outside (No Interpretation) (08/20/2013 12:00 AM EST) Narrative [facility] INTERFACES - 01/28/2016 3:12 PM EDT This study is for PACS storage only and not for interpretation. Procedure Note SYSTEMGENERATED, DOCUMENTATION - 01/28/2016 This study is for PACS storage only and not for interpretation. us Kathie Alberto MD, PhD IMG OUTSIDE IMAGING W /OUT INTERPRETATION Final Result [facility] INTERFAC[facility] documented in this encounter Visit [...] It is not the complete legal health record.[facility]
--- OUTSIDE RECORDS SUMMARY | 2015-11-27 | XMS_ITS | Encounter Summary ---
Author Organization [facility] [facility] [facility] Address [address] [facility] [address] [place] [address] Phone Care Team Providers Care Retail Customer Service Specialist Name Role Phone Unavailable Primary Care Provider Unavailabl e Encounter Details Date Type Department Care Team (Late st Contact Info) Description 11/27/2015 Hospital Encounter [facility] General Imaging [address] [place] [address] Kathie Alberto MD, PhD 55 [facility]9Z-0406 [place] [address] CHRISTIAN@[email or web address] Social History Tobacco Use Types [...] 5:09 AM EDT Laura Steele RN * [place] Suicide Severity Rating Scale (Screener/Recent Self-Report) Question [...] st Contact Info) Description 11/16/2024 Procedure Pass [address] [place] [address] 06/14/2025 11:15 AM EST Appointment [address] [place] [address] Neli Perry MD [address] [place] [phone] [email or web address] 06/27/2025 1:30 PM EST Appointment [facility] [address] [address] Becca Dickinson MD [address] [place] [phone] JAVED@[email or web address] 06/27/2025 2:15 PM EST Procedure visit [facility] [address] [address] Becca Dickinson MD [address] [place] [phone] JAVED@[facility] 06/28/2025 12:45 PM EST Appointment [facility] [address] [address] Becca Dickinson MD [address] [place] [phone] JAVED@[facility] 06/28/2025 12:45 PM EST Office Visit [facility] [address] [address] Becca Dickinson MD [address] [place] [phone] JAVED@[facility] 08/15/2025 12:00 PM EST Office Visit [facility] [address] [place] [address] Becca Dickinson MD [address] [place] [phone] JAVED@[facility] documented as of this encounter Procedures Procedure Name Priority Date/Time Associated Diagnosis Comments BI MAMMOGRAM OUTSIDE (NO INTERPRETATION) Routine 11/27/2015 12:00 AM EDT documented in this encounter Results * Mammogram Outside (No Interpretation) (11/27/2015 12:00 AM EDT) Narrative [facility] - 01/28/2016 3:12 PM EDT This study is for PACS storage only and not for interpretation. Procedure Note SYSTEMGENERATED, DOCUMENTATION - 01/28/2016 This study is for PACS storage only and not for interpretation. us Kathie Alberto MD, PhD IMG OUTSIDE IMAGING W /OUT INTERPRETATION Final Result [facility] documented in this encounter Visit [...] It is not the complete legal health record.[facility]
--- OUTSIDE RECORDS SUMMARY | 2015-12-03 | XMS_ITS | Encounter Summary ---
Author Organization [facility] Address [address] [facility] [address] [place] [address] Phone Care Team Providers Care Assistant Statistician Name Role Phone Unavailable Primary Care Provider Unavailabl e Encounter Details Date Type Department Care Team (Late st Contact Info) Description 12/03/2015 Hospital Encounter [facility] General Imaging [address] [place] [address] Kathie Alberto MD, PhD 55 [facility]7K-7441 [place] [address] CHRISTIAN@[email or web address] Social History Tobacco Use Types Packs/Day Years [...] 5:09 AM EDT Laura Steele RN * [place] Suicide Severity Rating Scale (Screener/Recent Self-Report) Question [...] st Contact Info) Description 11/16/2024 Procedure Pass [address] [place] [address] 06/14/2025 11:15 AM EST Appointment [address] [place] [address] Neli Perry MD [address] [place] [phone] [email or web address] 06/27/2025 1:30 PM EST Appointment [facility] [address] [address] Becca Dickinson MD [address] [place] [phone] JAVED@[facility] 06/27/2025 2:15 PM EST Procedure visit [facility] [address] [address] Becca Dickinson MD [address] [place] [phone] JAVED@[email or web address] 06/28/2025 12:45 PM EST Appointment [facility] [address] [address] Becca Dickinson MD [address] [place] [phone] JAVED@[facility] 06/28/2025 12:45 PM EST Office Visit [facility] [address] [address] Becca Dickinson MD [address] [place] [phone] JAVED@[facility] 08/15/2025 12:00 PM EST Office Visit [facility] [address] [place] [address] Becca Dickinson MD [address] [place] [phone] JAVED@[email or web address] documented as of this encounter Procedures Procedure Name Priority Date/Time Associated Diagnosis Comments BI US BREAST OUTSIDE (NO INTERPRETATION) Routine 12/03/2015 12:00 AM EDT documented in this encounter Results * US Breast Outside (No Interpretation) (12/03/2015 12:00 AM EDT) Narrative [facility] INTERFACES - 01/28/2016 3:09 PM EDT This study is for PACS storage only and not for interpretation. Procedure Note SYSTEMGENERATED, DOCUMENTATION - 01/28/2016 This study is for PACS storage only and not for interpretation. us Kathie Alberto MD, PhD IMG OUTSIDE IMAGING W /OUT INTERPRETATION Final Result [facility] documented in this encounter Visit [...] It is not the complete legal health record.[facility]
--- OUTSIDE RECORDS SUMMARY | 2015-12-03 00:15 | XMS_ITS | Encounter Summary ---
Author Organization [facility] [facility] Address [address] [facility] [address] [place] [address] Phone Care Team Providers Care Treatment Specialist Name Role Phone Unavailable Primary Care Provider Unavailabl e Encounter Details Date Type Department Care Team (Late st Contact Info) Description 12/03/2015 12:15 AM EDT Hospital Encounter [facility] General Imaging [address] [place] [address] Kathie Alberto MD, PhD [address] [address] CHRISTIAN@[email or web address] Social History Tobacco Use Types Packs/Day [...] enough money to get more. Never True 07/06/202 4 Residential Stability Answer Date Recor ded What is your housing situation today? I have tino enriquez 12/24/2023 How many times have you move [...] 5:09 AM EDT Laura Steele RN * [place] Suicide Severity Rating Scale (Screener/Recent Self-Report) Question Answer Date of Assessment Author 1. Wish to be (Past 1 Month) No 024 5:09 AM EDT Laura Hurst RN 2. Non-Specific Active Suici capo Thoughts (Past 1 Month) No 03/04/2024 5:09 AM KATIET Bri Hurst ra RN 6. Suicidal Behavior (Lifetime) No 5:09 AM EDT Laura Hurst RN documented as of this encounter Plan of Treatment Upcoming Encounters Date Type Department Care Team (Late st Contact Info) Description 11/16/2024 Procedure Pass [address] [place] [address] 06/14/2025 11:15 AM EST Appointment [address] [place] [address] Neli Perry MD [address] [place] [phone] [email or web address] 06/27/2025 1:30 PM EST Appointment [facility] [address] [address] Becca Dickinson MD [address] [place] [phone] JAVED@[email or web address] 06/27/2025 2:15 PM EST Procedure visit [facility] [address] [address] Becca Dickinson MD [address] [place] [phone] JAVED@[email or web address] 06/28/2025 12:45 PM EST Appointment [facility] [address] [address] Becca Dickinson MD [address] [place] [phone] JAVED@[email or web address] 06/28/2025 12:45 PM EST Office Visit [facility] [place] [address] [place] [address] Becca Dickinson MD [address] [place] [phone] JAVED@[facility] 08/15/2025 12:00 PM EST Office Visit [facility] [address] [place] [address] Becca Dickinson MD [address] [place] [phone] JAVED@[facility] documented as of this encounter Procedures Procedure Name Priority Date/Time Associated Diagnosis Comments BI MAMMOGRAM OUTSIDE (NO INTERPRETATION) Routine 12/03/2015 12:15 AM EDT documented in this encounter Results * Mammogram Outside (No Interpretation) (12/03/2015 12:15 AM EDT) Narrative [facility] INTERFACES - 01/28/2016 3:11 PM EDT This study is for PACS storage only and not for interpretation. Procedure Note SYSTEMGENERATED, DOCUMENTATION - 01/28/2016 This study is for PACS storage only and not for interpretation. us Kathie Alberto MD, PhD IMG OUTSIDE IMAGING W /OUT INTERPRETATION Final Result [facility] INTER[facility]AC[facility] documented in this encounter Visit Diagnoses Not on filedocumented in this encounter Additional Health Concerns Infection Onset Date Last Indicated Resolved Time CoV-Risk 12/31/2019 01/01/2020 01/14/2020 4:55 AM EDT COVID-19 01/31/2023 01/31/2023 02/21/2023 1:21 AM EDT CoV-Risk Comment:Per note documentation 12/22/2023 12/24/2023 3:36 PM EDT CoV-Risk 03/04/2024 03/04/202403/15/2024 1:23 AM EDT documented as of this encounter Additional Source Comments The information contained in this document represents components of the legal health record. It is not the complete legal health record.[facility]
--- OUTSIDE RECORDS SUMMARY | 2015-12-12 | XMS_ITS | Encounter Summary ---
Author Organization [facility] Address [address] [facility] [address] [place] [address] Phone Care Team Providers Care Quality Tester Name Role Phone Unavailable Primary Care Provider Unavailabl e Encounter Details Date Type Department Care Team (Late st Contact Info) Description 12/12/2015 Hospital Encounter [facility] General Imaging [address] [place] [address] Kathie Alberto MD, PhD 55 [facility]5Q-5648 [place] [address] CHRISTIAN@[email or web address] Social History Tobacco Use Types [...] 5:09 AM EDT Laura Steele RN * [place] Suicide Severity Rating Scale (Screener/Recent Self-Report) Question [...] st Contact Info) Description 11/16/2024 Procedure Pass [address] [place] [address] 06/14/2025 11:15 AM EST Appointment [address] [place] [address] Neli Perry MD [address] [place] [phone] [email or web address] 06/27/2025 1:30 PM EST Appointment [facility] [address] [address] Becca Dickinson MD [address] [place] [phone] JAVED@[facility] 06/27/2025 2:15 PM EST Procedure visit [facility] [address] [address] Becca Dickinson MD [address] [place] [phone] JAVED@[email or web address] 06/28/2025 12:45 PM EST Appointment [facility] [address] [address] Becca Dickinson MD [address] [place] [phone] JAVED@[email or web address] 06/28/2025 12:45 PM EST Office Visit [facility] [address] [address] Becca Dickinson MD [address] [place] [phone] JAVED@[email or web address] 08/15/2025 12:00 PM EST [facility] [address] [place] [address] Becca Dickinson MD [address] [place] [phone] JAVED@[email or web address] documented as of this encounter Procedures Procedure Name Priority Date/Time Associated Diagnosis Comments BI US BREAST OUTSIDE (NO INTERPRETATION) Routine 12/12/2015 12:00 AM EDT documented in this encounter Results * US Breast Outside (No Interpretation) (12/12/2015 12:00 AM EDT) Narrative [facility] INTER[facility] - 01/28/2016 3:08 PM EDT This study is for PACS storage only and not for interpretation. Procedure Note SYSTEMGENERATED, DOCUMENTATION - 01/28/2016 This study is for PACS storage only and not for interpretation. us Kathie Alberto MD, PhD IMG OUTSIDE IMAGING W /OUT INTERPRETATION Final Result [facility] documented in this encounter Visit [...] It is not the complete legal health record.[facility]
--- OUTSIDE RECORDS SUMMARY | 2015-12-12 00:15 | XMS_ITS | Encounter Summary ---
Author Organization [facility] Address [address] [facility] [address] [place] [phone] Phone Care Team Providers Care Agricultural Aircraft Pilot Name Role Phone Unavailable Primary Care Provider Unavailabl e Encounter Details Date Type Department Care Team (Late st Contact Info) Description 12/12/2015 12:15 AM EDT Hospital Encounter [facility] [address] [place] [address] Kathie Alberto MD, PhD [address] [phone] [email or web address] Social History Tobacco Use Types Packs/Day Years [...] 5:09 AM EDT Laura Steele RN * [place] Suicide Severity Rating Scale (Screener/Recent Self-Report) Question [...] st Contact Info) Description 11/16/2024 Procedure Pass [address] [place] [address] 06/14/2025 11:15 AM EST Appointment [address] [place] [address] Neli Perry MD [address] [place] [phone] [email or web address] 06/27/2025 1:30 PM EST Appointment [facility] [address] [address] Becca Dickinson MD [address] [place] [phone] [email or web address] 06/27/2025 2:15 PM EST Procedure visit [facility] [address] [address] Becca Dickinson MD [address] [place] [phone] [email or web address] 06/28/2025 12:45 PM EST Appointment [facility] [address] [address] Becca Dickinson MD [address] [place] [phone] [email or web address] 06/28/2025 12:45 PM EST Office Visit [facility] [place] [address] [place] [address] Becca Dickinson MD [address] [place] [phone] [email or web address] 08/15/2025 12:00 PM EST Office Visit [facility] [address] [place] [address] Becca Dickinson MD [address] [place] [phone] [email or web address] documented as of this encounter Procedures Procedure Name Priority Date/Time Associated Diagnosis Comments BI MAMMOGRAM OUTSIDE (NO INTERPRETATION) Routine 12/12/2015 12:15 AM EDT documented in this encounter Results * Mammogram Outside (No Interpretation) (12/12/2015 12:15 AM EDT) Narrative [facility] INTERFACES - 01/28/2016 3:09 PM EDT This study is for PACS storage only and not for interpretation. Procedure Note SYSTEMGENERATED, DOCUMENTATION - 01/28/2016 This study is for PACS storage only and not for interpretation. us Kathie Alberto MD, PhD IMG OUTSIDE IMAGING W /OUT INTERPRETATION Final Result [facility] documented in this encounter Visit [...] It is not the complete legal health record.[facility]
--- OUTSIDE RECORDS SUMMARY | 2015-12-19 | XMS_ITS | Encounter Summary ---
Author Organization [facility] Address [address] [facility] [address] [place] [phone] Phone Care Team Providers Care Drain Tile Machine Operator Name Role Phone Unavailable Primary Care Provider Unavailabl e Encounter Details Date Type Department Care Team (Late st Contact Info) Description 12/19/2015 Hospital Encounter [facility] [address] [place] [address] Kathie Alberto MD, PhD [address] [id number] [place] [address] [email or web address] Social History Tobacco Use Types Packs/Day Years [...] 5:09 AM EDT Laura Steele RN * [place] Suicide Severity Rating Scale (Screener/Recent Self-Report) Question [...] st Contact Info) Description 11/16/2024 Procedure Pass [address] [place] [address] 06/14/2025 11:15 AM EST Appointment [address] [place] [address] Neli Perry MD [address] [place] [phone] [email or web address] 06/27/2025 1:30 PM EST Appointment [facility] [address] [address] Becca Dickinson MD [address] [place] [phone] [email or web address] 06/27/2025 2:15 PM EST Procedure visit [facility] [address] [address] Becca Dickinson MD [address] [place] [phone] [email or web address] 06/28/2025 12:45 PM EST Appointment [facility] [address] [address] Becca Dickinson MD [address] [place] [phone] [email or web address] 06/28/2025 12:45 PM EST Office Visit [facility] [address] [address] Becca Dickinson MD [address] [place] [phone] [email or web address] 08/15/2025 12:00 PM EST Office Visit [facility] [address] [place] [address] Becca Dickinson MD [address] [place] [phone] [email or web address] documented as of this encounter Procedures Procedure Name Priority Date/Time Associated Diagnosis Comments US ABDOMEN OUTSIDE (NO INTERPRETATION) Routine 12/19/2015 12:00 AM EDT documented in this encounter Results * US Abdomen Outside (No Interpretation) (12/19/2015 12:00 AM EDT) Narrative [facility] INTERFACES - 02/03/2016 2:00 PM EDT This study is for PACS storage only and not for interpretation. Procedure Note SYSTEMGENERATED, DOCUMENTATION - 02/03/2016 This study is for PACS storage only and not for interpretation. us Kathie Alberto MD, PhD IMG OUTSIDE IMAGING W /OUT INTERPRETATION Final Result [facility] INTERFACES documented in this encounter Visit [...] It is not the complete legal health record.[facility]
--- OUTSIDE RECORDS SUMMARY | 2016-01-28 | XMS_ITS | Encounter Summary ---
Author Organization [facility] Address [address] [facility] [address] [place] [phone] Phone Care Team Providers Care Field Marketing Coordinator Name Role Phone Shari Caba NP Primary Care Provider Encounter Details Date Type Department Care Team (Late st Contact Info) Description 01/28/2016 Hospital Encounter [facility] [address] [place] [address] Kathie Alberto MD, PhD [address] [place], [place] [address] [place] [phone] [email or web address] Social History Tobacco Use Types Packs/Day [...] 5:09 AM EDT Laura Steele RN * [place] Suicide Severity Rating Scale (Screener/Recent Self-Report) Question Answer Date of Assessment Author 1. Wish to be (Past 1 Month) No 024 5:09 AM EDT Laura Hurst RN 2. Non-Specific Active Suici capo Thoughts (Past 1 Month) No 03/04/2024 5:09 AM KATIET Bri Hurst ra RN 6. Suicidal Behavior (Lifetime) No 5:09 AM KATIET Laura Hurst RN documented as of this encounter Plan of Treatment Upcoming Encounters Date Type Department Care Team (Late st Contact Info) Description 11/16/2024 Procedure Pass [address] [place] [address] 06/14/2025 11:15 AM EST Appointment [address] [place] [address] Neli Perry MD [address] [place] [phone] [email or web address] 06/27/2025 1:30 PM EST Appointment [facility] [address] [address] Becca Dickinson MD [address] [place] [phone] [email or web address] 06/27/2025 2:15 PM EST Procedure visit [facility] [address] [address] Becca Dickinson MD [address] [place] [phone] [email or web address] 06/28/2025 12:45 PM EST Appointment [facility] [address] [address] Becca Dickinson MD [address] [place] [phone] [email or web address] 06/28/2025 12:45 PM EST Office Visit [facility] [place] [address] [place] [address] Becca Dickinson MD [address] [place] [phone] [email or web address] 08/15/2025 12:00 PM EST Office Visit [address] [address] Becca Dickinson MD [address] [place] [phone] [email or web address] documented as of this encounter Procedures Procedure Name Priority Date/Time Associated Diagnosis Comments BI MAMMOGRAM OUTSIDE WITH INTERPRETATION OR CONSULT Routine 01/28/2016 12:00 AM EDT Papillary carcinoma documented in this encounter Results * Mammogram Outside With Interpretation Or Consult (01/28/2016 12:00 AM EDT) 01/28/2016 Impressions [facility] - 01/30/2016 11:03 AM EDT IMPRESSION:1. 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 If breast conservationtherapy is desired, localization can be accomplished with a single wire localization of the tissue marker using mammographic or ultrasound guidance. 2. No abnormality of the right breast. BI-RADS Category 6: Known Biopsy - Proven Malignancy - Appropriate Action Should Be Taken Narrative [facility] - 01/30/2016 11:03 AM EDT , Melahhussein OUTSIDE INTERPRETATIONSTUDIES PROVIDED FOR INTERPRETATION:Screening mammogram 11/27/2015Diagnostic left mammogram 12/03/2015Left breast ultrasound 12/03/2015Left breast ultrasound guided biopsy 12/12/2015Above studies performed at [facility] and [facility]. Additional mammograms dated 08/20/2013 and 06/04/2010 are provided for comparison. HISTORY:70 year old woman with new diagnosis of invasive carcinoma of the left breast. A screening mammogram at [facility] 11/27/15 showed an developing asymmetry in the inferior left breast. U/S showed a 10 mm suspicious mass at 5:30, 3 cm from the nipple. Core biopsy 12/12/15 showed a grade 1 invasive papillary cancer, ER/RI+, HER2-. FINDINGS:Screening mammogram 11/27/2015: Bilateral digital 2-D CC and MLO views submitted. Breasts contain scattered fibroglandular tissue. No abnormality in the right breast. There is a developing asymmetry in the central inferior left breast 6 cm from the nipple. Diagnostic left mammogram: Digital spot compression CC and MLO views and true lateral view submitted. There is a mass in the lower inner quadrant middle depth left breast measuring approximately 10 mm. No additional findings. Left breast ultrasound 12/03/2015: Submitted static grayscale and color Doppler images of the left breast are labeled 5:30 3 cm from the nipple and demonstrate a hypoechoic mass with angular margins that measures 10 mm (maximum dimension). There is mild internal color Doppler flow. No posterior shadowing. Left breast ulttrasound guided biopsy biopsy 12/12/2015: Submitted images demonstrate a core needle biopsy device traversing the mass at 5:30 position 3 cm from the nipple. 3 core biopsies obtained. A tissue marker was placed at the biopsy site. Postbiopsy mammogram 12/12/2015: Left CC and MLO views submitted. There is a ribbon-shaped tissue marker in the mass in the lower inner quadrant middle depth left breast. FINAL PATHOLOGIC DIAGNOSIS:Consult materials received from [facility], [place], [place]. BREAST ULTRASOUND GUIDED CORE NEEDLE BIOPSY, LEFT 4 O'CLOCK, 3 CM FROM NIPPLE([id number]; 12/12/2015): - Fragments of papillary carcinoma. See note. Ductal carcinoma in-situ, grade 2. NOTE: The overall findings are suspicious for a papillary carcinoma with blunt invasion, but await excision for final determination of the invasive or in-situ nature of the mass. An outside myoepithelial cell cocktail immunohistochemical stain shows a lack of myoepithelium around the periphery of the tumor mass. The nuclear grade of the carcinoma ranges from 1 to 2; defer to excision for final grading. Procedure Note Lucie Duncan MD, MPH - 01/30/2016 [place] OUTSIDE INTERPRETATIONSTUDIES PROVIDED FORINTERPRETATION:Screening mammogram 11/27/2015Diagnostic left mammogram12/03/2015Left breast ultrasound 12/03/2015Left breast ultrasound guidedbiopsy 12/12/2015Above studies performed at [facility]. Additional mammograms dated 08/20/2013 and06/04/2010 are provided for comparison. HISTORY:70 year old woman with newdiagnosis of invasive carcinoma of the left breast. [facility] 11/27/15 showed an developing asymmetry in theinferior left breast. U/S showed a 10 mm suspicious mass at 5:30, 3 cmfrom the nipple. Core biopsy 12/12/15 showed a grade 1 invasive papillarycancer, ER/RI+, HER2-. FINDINGS:Screening mammogram 11/27/2015: Bilateraldigital 2-D CC and MLO views submitted. Breasts contain scatteredfibroglandular tissue. No abnormality in the right breast. There is adeveloping asymmetry in the central inferior left breast 6 cm from thenipple. Diagnostic left mammogram: Digital spot compression CC and MLOviews and true lateral view submitted. There is a mass in the lower innerquadrant middle depth left breast measuring approximately 10 mm. Noadditional findings. Left breast ultrasound 12/03/2015: Submitted staticgrayscale and color Doppler images of the left breast are labeled 5:30 3cm from the nipple and demonstrate a hypoechoic mass with angular marginsthat measures 10 mm (maximum dimension). There is mild internal colorDoppler flow. No posterior shadowing. Left breast ulttrasound guidedbiopsy biopsy 12/12/2015: Submitted images demonstrate a core needle biopsydevice traversing the mass at 5:30 position 3 cm from the nipple. 3 corebiopsies obtained. A tissue marker was placed at the biopsy site.Postbiopsy mammogram 12/12/2015: Left CC and MLO views submitted. There phillip ribbon-shaped tissue marker in the mass in the lower inner quadrantmiddle depth left breast. FINAL PATHOLOGIC DIAGNOSIS:Consult materialsreceived from [facility], [place], [place]. BREAST ULTRASOUND GUIDEDCORE NEEDLE BIOPSY, LEFT 4 O'CLOCK, 3 CM FROM NIPPLE([id number];12/12/2015): - Fragments of papillary carcinoma. See note. Ductal carcinomain-situ, grade 2. NOTE: The overall findings are suspicious for apapillary carcinoma with blunt invasion, but await excision for finaldetermination of the invasive or in-situ nature of the mass. An outsidemyoepithelial cell cocktail immunohistochemical stain shows a lack ofmyoepithelium around the periphery of the tumor mass. The nuclear grade ofthe carcinoma ranges from 1 to 2; defer to excision for final grading. IMPRESSION: IMPRESSION:1. Left breast with papillary carcinoma status postultrasound-guided biopsy of a mass at the 5:30 position. If breastconservationtherapy is desired, localization can be accomplished with asingle wire localization of the tissue marker using mammographic orultrasound guidance. 2. No abnormality of the right breast. BI-RADSCategory 6: Known Biopsy - Proven Malignancy - Appropriate Action ShouldBe Taken Kathie Alberto MD, PhD IMG OUTSIDE IMAGING W / INTERPRETATION Final Result [facility] [address] [place] [address] documented in this encounter Visit Diagnoses Diagnosis Papillary carcinoma Other malignant neoplasm of unspecified site documented in this encounter Additional Health Concerns Infection Onset Date Last Indicated Resolved Time CoV-Risk 12/31/2019 01/01/2020 01/14/2020 4:55 AM EDT COVID-19 01/31/2023 01/31/2023 02/21/2023 1:21 AM EDT CoV-Risk Comment:Per note documentation 12/22/2023 12/24/2023 3:36 PM EDT CoV-Risk 03/04/2024 03/04/2024 03/15/2024 1:23 AM EDT documented as of this encounter Care Teams Field Marketing Coordinator Relationship Specialty Start Date End Date Shari Caba NP [address] [place] [address] PCP - General Family Medicine 12/31/15 08/22/19 documented as of this encounter Additional Source Comments The information contained in this document represents components of the legal health record. It is not the complete legal health record.[facility]
--- OUTSIDE RECORDS SUMMARY | 2024-02-27 04:30 | XMS_ITS ---
Author Organization [facility] Address [address] [place] [id number] Care Team Providers Care Verifying Machine Operator Name Role Phone Neli Perry Primary Care Provider Tiffanie Farnsworth Unavailable [phone] Samuel Charles [phone] Encounters Encounter Location Date Provider Diagnosis [address] [id number] 02/27/2024 Samuel Charles Plan Of Treatment No Information Progress Notes * Emre BASSETT EDOB: [birth year] (79 yo F)Acc No.[id number]:02/27/2024 Progress Notes Patient: Emre OLSEN Provider: Gadiel Charles DPM :1945 A ge:78 Y S ex:Female Date:02/27/2024 Address:[address] [place], [place] [address], [id number] Pcp:Neli Perry Subjective: * Chief Complaints: * * Medical History: Objective: * Vitals: Assessment: Plan: * Treatment: * Images: * The named appointment provid er may or may not be the originator of this progress note, and it is not deemed complete until electronically signed by the appointment provider. Sign off status: Pending * Provider: Gadiel Charles DPM Date: 02/27/2024 Generated for Naresh yi/Moraima/eTransmitting on: 02/25/2025 04:09 PM EDT
[2025-02-25 13:58] VITALS: BP 130/62; PULSE 91; O2SAT 97; BMI 35.9
--- NOTE | 2025-02-25 13:58 | MHC.OFFVIS ---
Vital Signs 02/25/25 13:58 Height 5 ft 3 in Weight 202 lb 13.204 oz BMI 35.9 BP 130/62 Blood Pressure Location Rt brachial Position Sitting Pulse 91 Pulse Source Pulse Oximeter Pulse Oximetry (%) 97 Oxygen Delivery Method Room Air Intake Visit Reasons: cough Intake Note: Pt has no concerns Allergies No Known Allergies Allergy (Verified 02/25/25 14:14) Medication List - Last Reconciled 02/25/25 by Feliberto Godinez MD amlodipine 5 mg PO DAILY fluticasone propion-salmeterol 250-50 mcg/dose (Advair Diskus) 1 inh inhalation BID 90 days fluticasone propionate 50 mcg/actuation 2 sprays intranasal DAILY PRN hydrochlorothiazide 12.5 mg PO DAILY ipratropium bromide 17 mcg/actuation (Atrovent HFA) 2 puffs inhalation Q8H PRN lisinopril 40 mg PO DAILY omeprazole 20 mg PO DAILY PRN rosuvastatin 10 mg PO BEDTIME Do you need a note to return to daycare/school/sports/work: No HPI HPI cough: Details: Emre , 79 years old very pleasant female of [place] origin , 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 It has been well controlled with use of Advair 250-50 b.i.d., and Atrovent HFA 2 puffs Q 6 hours p.r.n. as a rescue inhaler. For the last 6 months she has had no acute attacks, and she is actually doing well without using the Advair inhaler. She uses Atrovent HFA 2 puffs every morning, and then during the rest of the day only if needed. Nasal symptoms also remain well controlled. She is still very active in doing exercise and evening dense is a few times every. [facility] Medical History Diabetes Bronchitis Allergic rhinitis Bronchial asthma Social History Patient Tobacco Use Status: Former Tobacco user Years Smoked: 28 Review of Systems Const All systems reviewed & are unremarkable except as noted in HPI and below ENT Reports nasal congestion (Especially in the last 2 weeks) Card Denies chest pain and Denies leg edema Resp Reports cough and Reports wheezing (only once in a while .) GI Reports no additional complaints Musc Reports back pain (low back discomfort ) Neuro Reports no additional complaints Psych Reports no additional complaints Endo Reports no additional complaints Aller/Immun Reports wheezing (only once in a while .) Physical Exam Vital Signs: Last Vital Signs Pulse 91 02/25/25 13:58 BP 130/62 02/25/25 13:58 Pulse Ox 97 02/25/25 13:58 Oxygen Delivery Method Room Air 02/25/25 13:58 BMI result Body Mass Index 35.9 Const General: comfortable, no acute distress, alert and awake Orientation/consciousness: patient oriented x3 HEENT Head: Yes normal to inspection General nose exam: No nasal polyps present, No nasal discharge present and Other nasal findings present (Has bilateral nasal congestion) Face and sinus: Yes sinuses nontender Mouth: oropharynx normal Throat: Yes posterior oropharynx normal Eyes General: appearance normal, both eyes and all related structures Neck Neck: Yes normal visual inspection, Yes no lymphadenopathy, Yes trachea midline and Yes no JVD Thyroid: Thyroid normal Chest Chest palpation & inspection: normal inspection of the chest, normal palpation of entire chest wall and no tenderness Resp Other: Percussion note is resonant, breath sounds are slightly distant but equal on both sides. lungs are basically clear today and I do not hear any wheezes rhonchi or crepitations. Cardio Palpation: normal PMI Rate: regular rate Rhythm: regular rhythm Heart sounds: no gallops and no murmurs GI Palpation (GI): Soft to palpation, nontender, No hepatosplenomegaly present and no masses Auscultation: normal bowel sounds Back/Spine/Pelvis Thoracic/Lumbar Spine: thoracic and lumbar spine normal to inspection and thoraco-lumbar ROM limited Skin General skin exam: no rashes or lesions noted Neuro General: patient oriented x3 and no focal motor deficits Cranial nerves: Yes CN's II-XII intact bilaterally Extrem General: Yes normal to inspection, Yes no clubbing, cyanosis or edema and Yes no calf tenderness Psych Appearance: grossly normal and well kempt Speech and movement: Normal speech and movement present Office Procedures Spirometry Testing Spirometry Comments: In office spirometry completed with results given to Dr Godinez. 34909- Spirometry Results Reviewed Results Reviewed: SPIROMETRY 08/19/2021 02/25/25 FVC 65 % 75 % FEV1 66 % 67 % FEF 25-75 68 % 46 % ( NOT USING ADVAIR ) Assessment & Plan Assessment & Plan (1) Bronchial asthma: Comment: BRONCHIAL ASTHMA , CHRONIC STABLE, AT PRESENT VERY STABLE AND CONTROLLED WITH CURRENT MEDICAL REGIMEN. Code(s): J45.909 - Unspecified asthma, uncomplicated Category: Medical Plan: CONTINUE ATROVENT HFA 2 PUFFS Q 6 HOURS P.R.N.. OK TO USE 2 PUFFS IN THE MORNING REGULARLY OK TO USE ADVAIR 250-51 INHALATION B.I.D. ONLY P.R.N. IF SYMPTOMS GET AGGRAVATED (2) Allergic rhinitis: Comment: HAS HISTORY OF CHRONIC ALLERGIC RHINITIS, , WITH SEASONAL INCREASE IN THE MONTH OF AUGUST AND SEPTEMBER. CURRENTLY VERY INACTIVE Code(s): J30.9 - Allergic rhinitis, unspecified Category: Medical Plan: FLONASE -50 1 OR 2 SPRAY EACH NOSTRIL DAILY ONLY P.R.N. Orders: Orders AMB Spirometry Testing Today J45.909 - Unspecified asthma, uncomplicated Coding Level of Care Code Est Pt Level 3 (49114) Diagnoses Bronchial asthma J45.909 Allergic rhinitis J30.9 CPT Codes Spirometry - CPT: 57595- Spirometry ([id number])
--- OUTSIDE RECORDS SUMMARY | 2025-02-25 16:08 | XMS_ITS | Encounter Summary ---
Author Organization [facility] Address [address] [place] [address] Phone Care Team Providers Care Library Attendant Name Role Phone Tamera Carreno MD, MPH Unavailable Mina David MD Unavailable Hilda Willams Primary Care Provider Anastacia Barron DO Primary Care Provider Neli Perry MD Primary Care Provider Encounter Details Date Type Department Care Team (Latest Contact Info) Description 07/28/2020 Transcribe Orders [address] [place] [address] Hilda Willams PA [address] [place] [address] Type 2 diabetes mellitus without complication, unspecified whether watermaster insulin use (Primary Dx); Gout, unspecified cause, unspecified chronicity, unspecified site Social History Tobacco Use Types Packs/Day Years Used Date Smoking Tobacco: Former Cigarettes 1 28 0 01/28/1963 - 01/28/1991 Smokeless Tobacco: Never Alcohol Use Standard Drinks/Week Comments Yes 5 (1 standard drink = 0.6 oz pur e alcohol) Comments No Sex and Gender Information Value Date Recorded Sex Assigned at Female 08/20/2019 8:24 AM EST Legal Sex Female 1:18 PM EDT Gender Identity Female 08/14/2020 4:03 PM EST Sexual Orientation Straight 08/14/2020 4: 03 PM EST documented as of this encounter Plan of Treatment Upcoming Encounters Date Type Department Care Team (Late st Contact Info) Description 11/16/2024 Procedure Pass [address] [place] [address] 06/14/2025 11:15 AM EST Appointment [address] [place] [address] Neli Perry MD [address] [place] [address] [email or web address] 06/27/2025 1:30 PM EST Appointment [facility] [address] [address] Becca Dickinson MD [address] [place] [address] [email or web address] 06/27/2025 2:15 PM EST Procedure visit [facility] [address] [address] Becca Dickinson MD [address] [place] [address] [email or web address] 06/28/2025 12:45 PM EST Appointment [facility] [address] [address] Becca Dickinson MD [address] [place] [address] [email or web address] 06/28/2025 12:45 PM EST Office Visit [facility] [address] [address] Becca Dickinson MD [address] [place] [phone] [email or web address] 08/15/2025 12:00 PM EST Office Visit [facility] [address] [place] [address] Becca Dickinson MD [address] [place] [phone] [email or web address] documented as of this encounter Results * (ABNORMAL) Basic metabolic panel (07/28/2020 10:51 AM EST) SODIUM 140 133 - 146 mmol/L [facility] CHLORIDE 102 96 - 108 mmol/L [facility] POTASSIUM 4.2 3.3 - 5.1 mmol/L [facility] CO2 28 21 - 35 mmol/L [facility] BUN 26(H) 6 - 19 mg/dL [facility] CREATININE 1.20 0.5 - 1.5 mg/dL [facility] GLUCOSE 118(H) 70 - 99 mg/dL [facility] CALCIUM 9.8 8.4 - 10.3 mg/dL [facility] EGFR 44(L) >59 mL/min/1.7 3m2 [facility] Comment:Estimated glomerular filtration rate calculated using the CKD-EPI equation. ANION GAP 14 10 - 20 mmol/L [facility] Blood 07/28/2020 10:5 1 AM EST 07/28/2020 10:53 AM EST us Hilda VINSON LAB BLOOD ORDERABLES Final Result [facility] [address] [place] [address] * (ABNORMAL) Hemoglobin A1c (07/28/2020 10:51 AM EST) HEMOGLOBIN A1C 6.3(H) 4.3 - 5.8 % [facility] Blood 07/28/2020 10:5 1 AM EST 07/28/2020 10:53 AM EST Hilda VINSON [facility] BLOOD ORDERABLES Final Result Performing Organization Address [facility] Co de Phone Number [address] [address] * (ABNORMAL) 25-OH vitamin D (07/28/2020 10:51 AM EST) 25 OH VIT D (TOTAL) 28(L) 30 - 60 ng/mL [facility] Blood 07/28/2020 10:5 1 AM EST 07/28/2020 10:53 AM EST Hilda VINSON LAB BLOOD ORDERABLES Final Result Performing Organization Address [facility] Co de Phone Number [address] [address] * (ABNORMAL) Uric acid (07/28/2020 10:51 AM EST) URIC ACID 9.0(H) 2.4 - 7.0 mg/dL [facility] Blood 07/28/2020 10:5 1 AM EST 07/28/2020 10:53 AM EST Hilda VINSON LAB BLOOD ORDERABLES Final Result Performing Organization Address [facility] de Phone Number [address] [address] documented in this encounter Visit Diagnoses Diagnosis Type 2 diabetes mellitus without complication, unspecified whether watermaster insulin use- Primary Gout, unspecified cause, unspecified [...] documented as of this encounter Care Teams Library Attendant Relationship Specialty Start Date End Date Hilda Willams PA [address] [place] [address] [address] [place] [address] PCP - General Unknown Provider Specialty 07/28/20 Anastacia Barron DO [address] [place] [address] PCP - General Internal Medicine 02/01/22 12/26/23 Neli Perry MD [address] [place] [phone] PCP - General Family Medicine 12/27/23 Tamera Carreno MD, MPH [address] [place] [address] [email or web address] Primary Oncologist Hematology 09/22/18 [place] [address] [place] [address] Ophthalmology 08/23/19 documented as of this encounter Additional Source Comments The information contained in this document represents components of the legal health record. It is not the complete legal health record.[facility]
--- OUTSIDE RECORDS SUMMARY | 2025-02-25 16:08 | XMS_ITS | Encounter Summary ---
Author Organization [facility] Address [address] [place] [address] Phone Care Team Providers Care Director Of Rehabilitative Services Name Role Phone Tamera Carreno MD, MPH Unavailable Mina David MD Unavailable Annabelle Shah MD Primary Care Provider [facility] Primary Care Provider Anastacia Barron DO Primary Care Provider [phone] Neli Perry MD Primary Care Provider Encounter Details Date Type Department Care Team (Latest Contact Info) Description 07/03/2020 Transcribe Orders Virtual Department [address] [place] [address] Hilda Willams PA [address] [place] [address] Pain in both knees, unspecified chronicity (Primary [...] st Contact Info) Description 11/16/2024 Procedure Pass [address] [place] [address] 06/14/2025 11:15 AM EST Appointment [address] [place] [address] Neli Perry MD [address] [place] [address] [email or web address] 06/27/2025 1:30 PM EST Appointment [facility] [address] [address] Becca Dickinson MD [address] [place] [phone] [email or web address] 06/27/2025 2:15 PM EST Procedure visit [address] [address] Becca Dickinson MD [address] [place] [phone] [email or web address] 06/28/2025 12:45 PM EST Appointment [facility] [address] [address] Becca Dickinson MD [address] [place] [phone] [email or web address] 06/28/2025 12:45 PM EST Office Visit [facility] [address] [address] Becca Dickinson MD [address] [place] [phone] [email or web address] 08/15/2025 12:00 PM EST Office Visit [facility] [address] [address] Becca Dickinson MD [address] [place] [address] [email or web address] documented as of this encounter Results * XR KNEE STANDING (BILATERAL) (07/04/2020 12:04 PM EST) Anatomical Region Laterality Modality Knee Bilateral, Knee Right, Knee Left Radiographic Imaging 07/04/2020 12:1 2 PM EST Impressions 07/04/2020 12:13 PM EST 1.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 Narrative 07/04/2020 12:13 PM EST HISTORY: As above. COMPARISON: None. STANDING AP [...] mild left osteoarthritis. 2.Right lower extremity varicosities. us Hilda Willams PA IMG XR LOWER EXTREMITY Sania l Result * XR HIPS 1 VW EA BILAT [...] hip osteoarthritis. Hilda VINSON IMG XR PELVIS Final Resul t documented in this encounter Visit Diagnoses Diagnosis [...] documented as of this encounter Care Teams Director Of Rehabilitative Services Relationship Specialty Start Date End Date Annabelle Shah MD [address] [place] [address] [place] [address] [email or web address] PCP - General Internal Medicine 01/01/20 07/27/20 Hilda Willams PA [address] [place] [address] PCP - General Unknown Provider Specialty 07/28/20 01/31/22 Anastacia Barron DO [address] [place] [address] PCP - General Internal Medicine 02/01/22 12/26/23 Neli Perry MD [address] [place] [address] [place] [phone] PCP - General Family Medicine 12/27/23 Tamera Carreno MD, MPH [address] [place] [address] [email or web address] Primary Oncologist Hematology 09/22/18 [place] [address] [place] [address] Ophthalmology 08/23/19 documented as of this encounter Additional Source Comments The information contained in this document represents components of the legal health record. It is not the complete legal health record.[facility]
--- OUTSIDE RECORDS SUMMARY | 2025-02-25 16:08 | XMS_ITS | Encounter Summary ---
Author Organization [facility] Address [address] [facility] [address] [place] [address] Phone Care Team Providers Care Keyboard Instrument Repairer Name Role Phone Tamera Carreno MD, MPH Unavailable [phone] Mina David MD Unavailable Anastacia Barron DO Primary Care Provider [phone] Neli Perry MD Primary Care Provider [phone] Encounter Details Date Type Department Care Team (Late st Contact Info) Description 12/24/2023 Procedure Pass [facility] Ct Scan - [address] [address] Social History Tobacco Use Types Packs/Day Years [...] computer) with a working camera? Yes 12/24/2023 Comments No Sex and Gender Information Value Date Recorded Sex Assigned at Female 08/20/2019 8:24 AM EST Legal Sex Female 1:18 PM EDT Gender Identity Female 08/14/2020 4:03 PM EST Sexual Orientation Straight 08/14/2020 4: 03 PM EST documented as of this encounter Functional Status * Calculated C-SSRS Risk Score (Lifetime/Recent) Answer Date of Assessment Author No Risk Indicated 12/24/2023 10:37 AM Genie Nowak RN * [place] Suicide Severity Rating Scale (Screener/Recent Self-Report) Question Answer Date of Assessment Author 1. Wish to be (Past 1 Month) No 024 10:37 AM Genie Nowak RN 2. Non-Specific Active Suici capo Thoughts (Past 1 Month) No 12/24/2023 10:37 AM Urbano Nowak RN 6. Suicidal Behavior (Lifetime) No 10:37 AM Genie Nowak RN documented as of this encounter Plan of Treatment Upcoming Encounters Date Type Department Care Team (Late st Contact Info) Description 11/16/2024 Procedure Pass [address] [place] [address] 06/14/2025 11:15 AM EST Appointment [address] [place] [address] Neli Perry MD [address] [place] [address] [email or web address] 06/27/2025 1:30 PM EST Appointment [facility] [address] [address] Becca Dickinson MD [address] [place] [phone] [email or web address] 06/27/2025 2:15 PM EST Procedure visit [facility] [address] [address] Becca Dickinson MD [address] [place] [phone] [email or web address] 06/28/2025 12:45 PM EST Appointment [facility] [address] [address] Becca Dickinson MD [address] [place] [address] [email or web address] 06/28/2025 12:45 PM EST Office Visit [facility] [address] [address] Becca Dickinson MD [address] [place] [address] [email or web address] 08/15/2025 12:00 PM EST Office Visit [facility] [address] [address] Becca Dickinson MD 55 [facility] [address] [place] [address] [email or web address] documented as of this encounter Visit Diagnoses Not on filedocumented in this encounter Additional Health Concerns Infection Onset Date Last Indicated Resolved Time CoV-Risk Comment:Per note documentation 12/22/2023 12/24/2023 3:36 PM EDT CoV-Risk 03/04/2024 03/04/2024 03/15/2024 1:23 AM EDT Assessment Noted Time PHQ-2 Depression Total Score: 0 08/23/19 10:59 AM EST documented as of this encounter Care Teams Keyboard Instrument Repairer Relationship Specialty Start Date End Date Anastacia Barron DO [address] [place] [address] PCP - General Internal Medicine 02/01/22 12/26/23 Nlei Perry MD [address] [place] [address] [place] [phone] PCP - General Family Medicine 12/27/23 Tamera Carreno MD, MPH [address] [facility] [address] [place] [address] [email or web address] Primary Oncologist Hematology 09/22/18 Mina David MD [address] [place] [address] Ophthalmology 08/23/19 documented as of this encounter Additional Source Comments The information contained in this document represents components of the legal health record. It is not the complete legal health record.[facility]
--- OUTSIDE RECORDS SUMMARY | 2025-02-25 16:08 | XMS_ITS | Encounter Summary ---
Author Organization [facility] Address [address] [place] [address] Phone Care Team Providers Care Furniture Inspector Name Role Phone Tamera Carreno MD, MPH Unavailable [phone] Mina David MD Unavailable Anastacia Barron DO Primary Care Provider [phone] Neli Perry MD Primary Care Provider [phone] Reason for Referral * Consultation (Routine) - Closed Specialty Diagnoses / Procedures Referred By Guillermo gauthier Referred To Contact Neli Perry MD Phone: tel: fax: mailto:[email or web address] Becca Dickinson MD [address] [place] [address] Phone: tel: fax: mailto:[email or web address] Referral ID Status Reason Start Date Expiration Date Visits Re quested Visits Authorized [id number] Closed 11/28/2023 11/27/2024 1 1 Encounter Details Date Type Department Care Team ([facility] Contact Info) Description 11/28/2023 Transcribe Orders [facility] Referral [facility] [address] [place] [address] Neli Perry MD [address] [place] [address] [email or web address] Social History Tobacco Use Types Packs/Day [...] with a working camera? Not on file Comments No Sex and Gender Information Value Date Recorded Sex Assigned at Female 08/20/2019 8:24 AM EST Legal Sex Female 1:18 PM EDT Gender Identity Female 08/14/2020 4:03 PM EST Sexual Orientation Straight 08/14/2020 4: 03 PM EST documented as of this encounter Plan of Treatment Upcoming Encounters Date Type Department Care Team (Late st Contact Info) Description 11/16/2024 Procedure Pass [address] [place] [address] 06/14/2025 11:15 AM EST Appointment [address] [place] [address] Neli Perry MD [address] [place] [address] [email or web address] 06/27/2025 1:30 PM EST Appointment [address] [address] Becca Dickinson MD [address] [place] [phone] [email or web address] 06/27/2025 2:15 PM EST Procedure visit [facility] [place] [address] Becca Dickinson MD [address] [place] [phone] [email or web address] 06/28/2025 12:45 PM EST Appointment [facility] [place] [address] Becca Dickinson MD [address] [place] [phone] [email or web address] 06/28/2025 12:45 PM EST Office Visit [facility] [address] [address] Becca Dickinson MD [address] [place] [phone] [email or web address] 08/15/2025 12:00 PM EST Office Visit [facility] [place] [address] Becca Dickinson MD [address] [place] [address] [email or web address] Scheduled Referrals Name Type Priority Associated Diagnoses Order Schedule Ambulatory referral to [facility] V[facility]/Stroke Outpatient Referral Routine Ordered: 11/28/2023 [...] documented as of this encounter Care Teams Furniture Inspector Relationship Specialty Start Date End Date Anastacia Barron DO [address] [place] [address] [email or web address] PCP - General Internal Medicine 02/01/22 12/26/23 Neli Perry MD [address] [place] [address] [place] [address] PCP - General Family Medicine 12/27/23 Tamera Carreno MD, MPH [address] [place] [address] [email or web address] Primary Oncologist Hematology 09/22/18 Mina David MD [address] [place] [address] Ophthalmology 08/23/19 documented as of this encounter Additional Source Comments The information contained in this document represents components of the legal health record. It is not the complete legal health record.[facility]
--- OUTSIDE RECORDS SUMMARY | 2025-02-25 16:08 | XMS_ITS | Encounter Summary ---
Author Organization [facility] Address [address] [place] [address] Phone Care Team Providers Care Wrist Closer Name Role Phone Tamera Carreno MD, MPH Unavailable Mina David MD Unavailable Annabelle Shah MD Primary Care Provider Hilda Willams Primary Care Provider Anastacia Barron DO Primary Care Provider Neli Perry MD Primary Care Provider Encounter Details Date Type Department Care Team (Latest Contact Info) Description 06/25/2020 Transcribe Orders [address] [place] [address] Radha Franklin MD [email or web address] [place] Pain in joint, multiple sites (Primary Dx) [...] st Contact Info) Description 11/16/2024 Procedure Pass [address] [place] [address] 06/14/2025 11:15 AM EST Appointment [address] [place] [address] Neli Perry MD [address] [place] [address] [email or web address] 06/27/2025 1:30 PM EST Appointment [facility] [address] [address] Becca Dickinson MD [address] [place] [address] [email or web address] 06/27/2025 2:15 PM EST Procedure visit [facility] [address] [address] Becca Dickinson MD [address] [place] [address] [email or web address] 06/28/2025 12:45 PM EST Appointment [facility] [address] [address] Becca Dickinson MD [address] [place] [address] [email or web address] 06/28/2025 12:45 PM EST Office Visit [facility] [address] [address] Becca Dickinson MD [address] [place] [address] [email or web address] 08/15/2025 12:00 PM EST Office Visit [address] [address] Becca Dickinson MD 55 [facility] [address] [place] [address] [email or web address] documented as of this encounter Results * Sedimentation rate (ESR) (06/25/2020 9:20 AM EST) ESR 19 0 - 20 mm/h [facility] Blood 06/25/2020 9:20 AM EST 06/25/2020 9:23 AM EST H. Dawit Franklin MD LAB BLOOD ORDERABLES Sania l Result [address] [address] * CPK (creatine kinase) (06/25/2020 9:20 AM EST) CREATINE KINASE 85 21 - 215 U/L [facility] Blood 06/25/2020 9:20 AM EST 06/25/2020 9:23 AM EST us H. Dawit Franklin MD LAB BLOOD ORDERABLES Sania l Result [address] [address] * TSH (06/25/2020 9:20 AM EST) TSH 1.70 0.27 - 4.20 uIU/mL [facility] Blood 06/25/2020 9:20 AM EST 06/25/2020 9:23 AM EST H. Dawit Franklin MD LAB BLOOD ORDERABLES Sania l Result Performing Organization Address [facility]/ZIP Co de Phone Number [address] [address] * (ABNORMAL) Basic metabolic panel (06/25/2020 9:20 AM EST) SODIUM 140 133 - 146 mmol/L [facility] CHLORIDE 104 96 - 108 mmol/L [facility] POTASSIUM 4.3 3.3 - 5.1 mmol/L [facility] CO2 26 21 - 35 mmol/L [facility] BUN 22(H) 6 - 19 mg/dL [facility] CREATININE 1.00 0.5 - 1.5 mg/dL [facility] GLUCOSE 120(H) 70 - 99 mg/dL [facility] CALCIUM 9.7 8.4 - 10.3 mg/dL [facility] EGFR 55(L) >59 mL/min/1.7 3m2 [facility] Comment:Estimated glomerular filtration rate calculated using the CKD-EPI equation. ANION GAP 14 10 - 20 mmol/L [facility] Blood 06/25/2020 9:20 AM EST 06/25/2020 9:23 AM EST us H. Dawit Franklin MD LAB BLOOD ORDERABLES Sania l Result Performing Organization Address [facility] Co de Phone Number [address] [address] * Antinuclear antibody (IGNACIO) (06/25/2020 9:20 AM EST) IGNACIO SCREEN ON HEP 2 Negative Negative [facility] Blood 06/25/2020 9:20 AM EST 06/25/2020 9:23 AM EST H. Dawit Franklin MD LAB BLOOD ORDERABLES Sania l Result Performing Organization Address City/[facility]/ZIP Co de Phone Number [address] [place] [address] documented in this encounter Visit Diagnoses Diagnosis [...] documented as of this encounter Care Teams Wrist Closer Relationship Specialty Start Date End Date Annabelle Shah MD [address] [place] [address] [place] [address] [email or web address] PCP - General Internal Medicine 01/01/20 07/27/20 Hilda Willams PA [address] [place] [address] PCP - General Unknown Provider Specialty 07/28/20 01/31/22 Anastacia Barron DO [address] [place] [address] PCP - General Internal Medicine 02/01/22 12/26/23 Neli Perry MD [address] [place] [address] [place] [address] PCP - General Family Medicine 12/27/23 Tamera Carreno MD, MPH 55 [facility] [address] [place] [address] [email or web address] Primary Oncologist Hematology 09/22/18 Mina David MD [address] [place] [address] Ophthalmology 08/23/19 documented as of this encounter Additional Source Comments The information contained in this document represents components of the legal health record. It is not the complete legal health record.[facility]
--- OUTSIDE RECORDS SUMMARY | 2025-02-25 16:08 | XMS_ITS | Encounter Summary ---
Author Organization [facility] Address [address] [place] [address] Phone Care Team Providers Care Admitting Officer Name Role Phone Shari Caba NP Primary Care Provider [phone] Tamera Carreno MD, MPH Unavailable [phone] Mian David MD Unavailable Annabelle Shah MD Primary Care Provider Hilda Willams Primary Care Provider Anastacia Barron DO Primary Care Provider Neli Perry MD Primary Care Provider [phone] Encounter Details Date Type Department Care Team (Late st Contact Info) Description 03/22/2018 Procedure Pass [address] [place] [address] Social History Tobacco Use Types Packs/Day Years Used Date Smoking Tobacco: Former Cigarettes 1 28 0 01/28/1963 - 01/28/1991 Smokeless Tobacco: Never Alcohol Use Standard Drinks/Week Comments Yes 5 (1 standard drink = 0.6 oz pur e alcohol) Comments Unknown Sex and Gender Information Value Date Recorded Sex Assigned at Female 08/20/2019 8:24 AM EST Legal Sex Female 1:18 PM EDT Gender Identity Female 08/14/2020 4:03 PM EST Sexual Orientation Straight 08/14/2020 4: 03 PM EST documented as of this encounter Plan of Treatment Upcoming Encounters Date Type Department Care Team (Late st Contact Info) Description 11/16/2024 Procedure Pass [address] [place] [address] 06/14/2025 11:15 AM EST Appointment [address] [place] [address] Neli Perry MD [address] [place] [phone] [email or web address] 06/27/2025 1:30 PM EST Appointment [facility] [address] [address] Becca Dickinson MD [address] [place] [phone] [email or web address] 06/27/2025 2:15 PM EST Procedure visit [facility] [address] [address] Becca Dickinson MD [address] [place] [phone] [email or web address] 06/28/2025 12:45 PM EST Appointment [facility] [address] [address] Becca Dickinson MD [address] [place] [phone] [email or web address] 06/28/2025 12:45 PM EST Office Visit [facility] [address] [address] Becca Dickinson MD [address] [place] [phone] [email or web address] 08/15/2025 12:00 PM EST Office Visit [address] [address] Becca Dickinson MD [address] [place] [phone] [email or web address] documented as of this encounter Visit Diagnoses Not on filedocumented in this encounter Additional Health Concerns Infection Onset Date Last Indicated Resolved Time CoV-Risk 12/31/2019 01/01/2020 01/14/2020 4:55 AM EDT COVID-19 01/31/2023 01/31/2023 02/21/2023 1:21 AM EDT CoV-Risk Comment:Per note documentation 12/22/2023 12/24/2023 3:36 PM EDT CoV-Risk 03/04/2024 03/04/2024 03/15/2024 1:23 AM EDT documented as of this encounter Care Teams Admitting Officer Relationship Specialty Start Date End Date Shari Caba NP [address] [place] [address] [place] [address] PCP - General Family Medicine 12/31/15 08/22/19 Annabelle Shah MD [address] [place] [address] [place] [address] [email or web address] PCP - General Internal Medicine 01/01/20 07/27/20 Hilda Wlilams PA [address] [place] [address] PCP - General Unknown Provider Specialty 07/28/20 01/31/22 Anastacia Barron DO [address] [place] [address] [place] [address] PCP - General Internal Medicine 02/01/22 12/26/23 Neli Perry MD [address] [place] [address] [place] [address] PCP - General Family Medicine 12/27/23 Tamera Carreno MD, MPH [address] [place] [address] [email or web address] Primary Oncologist Hematology 09/22/18 Mina David MD [address] [place] [address] Ophthalmology 08/23/19 documented as of this encounter Additional Source Comments The information contained in this document represents components of the legal health record. It is not the complete legal health record.[facility]
--- OUTSIDE RECORDS SUMMARY | 2025-02-25 16:08 | XMS_ITS | Encounter Summary ---
Author Organization [facility] Address [address] [place] [address] Phone Care Team Providers Care Skiver Blockers Name Role Phone Tamera Carreno MD, MPH Unavailable [phone] Mina David MD Unavailable Hilda Willams Primary Care Provider Anastacia Barron DO Primary Care Provider Neli Perry MD Primary Care Provider Encounter Details Date Type Department Care Team (Latest Contact Info) Description 07/28/2021 Transcribe Orders [address] [place] [address] Hilda Willams PA [address] [place] [address] Stage 3 chronic kidney disease, unspecified whether stage 3a or 3b CKD (Primary Dx); Type 2 diabetes mellitus without complication, unspecified whether alf insulin use; Vitamin D deficiency, unspecified Social [...] Contact Info) Description 11/16/2024 Procedure Pass [address] [place] [address] 06/14/2025 11:15 AM EST Appointment [address] [place] [address] Neli Perry MD [address] [place] [address] [email or web address] 06/27/2025 1:30 PM EST Appointment [facility] [address] [address] Becca Dickinson MD [address] [place] [address] [email or web address] 06/27/2025 2:15 PM EST Procedure visit [address] [address] Becca Dickinson MD [address] [place] [phone] [email or web address] 06/28/2025 12:45 PM EST Appointment [address] [address] Becca Dickinson MD [address] [place] [address] [email or web address] 06/28/2025 12:45 PM EST Office Visit [facility] [address] [address] Becca Dickinson MD [address] [place] [address] [email or web address] 08/15/2025 12:00 PM EST Office Visit [facility] [address] [place] [address] Becca Dickinson MD [address] [place] [phone] [email or web address] documented as of this encounter Results * (ABNORMAL) 25-OH vitamin D (07/28/2021 11:13 AM EST) Pathologist [facility] 25 OH VIT D (TOTAL) 26(L) 30 - 60 ng/mL [facility] Blood 07/28/2021 11:1 3 AM EST 07/28/2021 11:16 AM EST Hilda VINSON LAB BLOOD ORDERABLES Final Result Performing Organization Address City/[facility]/ZIP Co de Phone Number [address] [address] * (ABNORMAL) Hemoglobin A1c (07/28/2021 11:13 AM EST) [facility] HEMOGLOBIN A1C 6.7(H) 4.3 - 5.8 % [facility] Blood 07/28/2021 11:1 3 AM EST 07/28/2021 11:16 AM EST Hilda VINSON LAB BLOOD ORDERABLES Final Result [address] [address] * (ABNORMAL) Lipid panel (07/28/2021 11:13 AM EST) [facility] HDL 57 mg/dL [facility] Comment: Interpretation <40 mg/dL: Low HDL cholesterol (major risk factor for CHD) Greater than or equal to 60 mg/dL: High HDL cholesterol ( negative risk factor for CHD) HDL - cholesterol is affected by a number of factors, e.g. smoking, excerise, hormones, sex and age. CHOLESTEROL 157 0 - 240 mg/dL [facility] TRIGLYCERIDES 95 30 - 160 mg/dL [facility] LDL 81 50 - 129 mg/dL [facility] Comment: LDL levels in terms of risk for coronary heart disease: <100 mg/dL: Optimal 100-129 mg/dL: Near or above optimal 130-159 mg/dL: Borderline high 160-189 mg/dL: High >190 mg/dL: Very High CARDIAC RISK RATIO 2.8(L) 3.3 - 4.4 C [facility] Blood 07/28/2021 11:1 3 AM EST 07/28/2021 11:16 AM EST us Hilda VINSON LAB BLOOD ORDERABLES Final Result [facility] [address] [place], [place] [phone] * (ABNORMAL) Basic metabolic panel (07/28/2021 11:13 AM EST) SODIUM 141 133 - 146 mmol/L [facility] CHLORIDE 102 96 - 108 mmol/L [facility] POTASSIUM 4.0 3.3 - 5.1 mmol/L [facility] CO2 27 21 - 35 mmol/L [facility] BUN 16 6 - 19 mg/dL [facility] CREATININE 1.00 0.5 - 1.5 mg/dL [facility] GLUCOSE 118(H) 70 - 99 mg/dL [facility] CALCIUM 10.0 8.4 - 10.3 mg/dL [facility] EGFR 58(L) >59 mL/min/1.7 3m2 [facility] Comment:Estimated glomerular filtration rate calculated using the CKD-EPI refit equation. ANION GAP 16 10 - 20 mmol/L [facility] Blood 07/28/2021 11:1 3 AM EST 07/28/2021 11:16 AM EST Hilda VINSON LAB BLOOD ORDERABLES Final Result [facility] [address] [place] [address] documented in this encounter Visit Diagnoses Diagnosis Stage 3 chronic kidney disease, unspecified whether stage 3a or 3b CKD- Primary Type 2 diabetes mellitus without complication, unspecified whether alf insulin use Vitamin D deficiency, unspecified documented in this encounter Additional Health Concerns Infection Onset Date Last Indicated Resolved Time COVID-19 01/31/2023 01/31/2023 02/21/2023 1:21 AM EDT CoV-Risk Comment:Per note documentation 12/22/2023 12/24/2023 3:36 PM EDT CoV-Risk 03/04/2024 03/04/2024 03/15/2024 1:23 AM EDT Assessment Noted Time PHQ-2 Depression Total Score: 0 08/23/19 20 10:59 AM EST documented as of this encounter Care Teams Skiver Blockers Relationship Specialty Start Date End Date Hilda Willams PA [address] [place] [address] PCP - General Unknown Provider Specialty 07/28/20 Anastacia Barron DO [address] [place] [address] PCP - General Internal Medicine 02/01/22 12/26/23 Neli Perry MD [address] [place] [address] [place] [phone] PCP - General Family Medicine 12/27/23 Tamera Carreno MD, MPH [address] [address] [email or web address] 234 beds at [facility] Primary Oncologist Hematology 09/22/18 Mina David MD [address] [place] [address] Ophthalmology 08/23/19 documented as of this encounter Additional Source Comments The information contained in this document represents components of the legal health record. It is not the complete legal health record.[facility]
--- OUTSIDE RECORDS SUMMARY | 2025-02-25 16:08 | XMS_ITS | Encounter Summary ---
Author Organization [facility] Address [facility] [address] [address] Phone Care Team Providers Care Armature Winder Repairer Name Role Phone Tamera Carreno MD, MPH Unavailable [phone] Mina David MD Unavailable Anastacia Barron DO Primary Care Provider [phone] Neli Perry MD Primary Care Provider [phone] Encounter Details Date Type Department Care Team (Late st Contact Info) Description 02/09/2023 Procedure Pass [facility], [address] [address] Social History Tobacco Use Types Packs/Day Years [...] st Contact Info) Description 11/16/2024 Procedure Pass [address] [place] [address] 06/14/2025 11:15 AM EST Appointment [address] [place] [address] Neli Perry MD [address] [place] [address] [email or web address] 06/27/2025 1:30 PM EST Appointment [facility] [address] [address] Becca Dickinson MD [address] [place] [phone] [email or web address] 06/27/2025 2:15 PM EST Procedure visit [address] [address] Becca Dickinson MD [address] [place] [address] [email or web address] 06/28/2025 12:45 PM EST Appointment [facility] [address] [address] Becca Dickinson MD [address] [place] [phone] [email or web address] 06/28/2025 12:45 PM EST Office Visit [facility] [address] [place] [address] Becca Dickinson MD [address] [address] [email or web address] 08/15/2025 12:00 PM EST Office Visit [facility] [address] [address] Becca Dickinson MD [address] [place] [phone] [email or web address] documented as of this encounter Visit Diagnoses [...] documented as of this encounter Care Teams Armature Winder Repairer Relationship Specialty Start Date End Date Anastacia Barron DO [address] [place] [address] PCP - General Internal Medicine 02/01/22 12/26/23 Neli Perry MD [address] [place] [address] [place] [phone] PCP - General Family Medicine 12/27/23 Tamera Carreno MD, MPH 55 [facility] [address] [place] [address] [email or web address] Primary Oncologist Hematology 09/22/18 Mina David MD [address] [place] [address] Ophthalmology 08/23/19 documented as of this encounter Additional Source Comments The information contained in this document represents components of the legal health record. It is not the complete legal health record.[facility]
--- OUTSIDE RECORDS SUMMARY | 2025-02-25 16:08 | XMS_ITS | Encounter Summary ---
Author Organization [facility] Address [address] [place] [address] Phone Care Team Providers Care Residential Nurse Name Role Phone Tamera Carreno MD, MPH Unavailable Mina David MD Unavailable Hilda Willams Primary Care Provider Anastacia Barron DO Primary Care Provider Neli Perry MD Primary Care Provider Encounter Details Date Type Department Care Team (Late st Contact Info) Description 01/26/2021 Procedure Pass [address] [address] Social History Tobacco Use Types Packs/Day Years [...] st Contact Info) Description 11/16/2024 Procedure Pass [address] [place] [address] 06/14/2025 11:15 AM EST Appointment [address] [place] [address] Neli Perry MD [address] [place] [address] [email or web address] 06/27/2025 1:30 PM EST Appointment [facility] [address] [address] Becca Dickinson MD [address] [place] [phone] [email or web address] 06/27/2025 2:15 PM EST Procedure visit [facility] [address] [address] Becca Dickinson MD [address] [place] [phone] [email or web address] 06/28/2025 12:45 PM EST Appointment [facility] [address] [address] Becca Dickinson MD [address] [place] [phone] [email or web address] 06/28/2025 12:45 PM EST Office Visit [facility] [address] [address] Becca Dickinson MD [address] [place] [phone] [email or web address] 08/15/2025 12:00 PM EST Office Visit [facility] [place] [address] [place] [address] Becca Dickinson MD 55 [facility] [address] [place] [address] [email or web address] documented as of this encounter [...] as of this encounter Care Teams Residential Nurse Relationship Specialty Start Date End Date Hilda Willams PA [address] [address] PCP - General Unknown Provider Specialty 07/28/20 Anastacia Barron DO [address] [place] [address] PCP - General Internal Medicine 02/01/22 12/26/23 Neli Perry MD [address] [place] [address] [place] [address] PCP - General Family Medicine 12/27/23 Tamera Carreno MD, MPH 55 [facility] [address] [place] [address] [email or web address] Primary Oncologist Hematology 09/22/18 Mina David MD [address] [place] [address] Ophthalmology 08/23/19 documented as of this encounter Additional Source Comments The information contained in this document represents components of the legal health record. It is not the complete legal health record.[facility]
--- OUTSIDE RECORDS SUMMARY | 2025-02-25 16:08 | XMS_ITS | Encounter Summary ---
Author Organization [facility] Address [address] [place] [address] Phone Care Team Providers Care Air Sealing Technician Name Role Phone Tamera Carreno MD, MPH Unavailable [phone] Mina David MD Unavailable Annabelle Shah MD Primary Care Provider Hilda Willams Primary Care Provider Anastacia Barron DO Primary Care Provider Neli Perry MD Primary Care Provider Encounter Details Date Type Department Care Team (Latest Contact Info) Description 06/18/2020 Transcribe Orders [address] [place] [address] Radha Franklin MD [email or web address]. [employer] Pain in joint, multiple sites (Primary Dx) [...] st Contact Info) Description 11/16/2024 Procedure Pass [address] [place] [address] 06/14/2025 11:15 AM EST Appointment [address] [place] [address] Neli Perry MD [address] [place] [address] [email or web address] 06/27/2025 1:[address] [facility] [address] [address] Becca Dickinson MD [address] [place] [address] [email or web address] 06/27/2025 2:15 PM EST Procedure visit [facility] [address] [address] Becca Dickinson MD [address] [place] [address] [email or web address] 06/28/2025 12:[address] [facility] [address] [address] Becca Dickinson MD [address] [place] [address] [email or web address] 06/28/2025 12:45 PM EST Office Visit [facility] [address] [address] Becca Dickinson MD [address] [place] [address] [email or web address] 08/15/2025 12:00 PM EST Office Visit [facility] [address] [address] Becca Dickinson MD 55 [facility] [address] [place] [address] [email or web address] documented as of this encounter Results * C-Reactive Protein (06/18/2020 11:21 AM EST) C REACTIVE PROTEIN 3.3 0.0 - 4.0 mg/L [facility] Blood 06/18/2020 11:2 1 AM EST 06/18/2020 11:23 AM EST [facility] Dawit Franklin MD LAB BLOOD ORDERABLES Snaia l Result [facility] [address] [place] [address] documented in this encounter Visit Diagnoses Diagnosis [...] documented as of this encounter Care Teams Air Sealing Technician Relationship Specialty Start Date End Date Annabelle Shah MD [address] [place] [address] [email or web address] PCP - General Internal Medicine 01/01/20 07/27/20 Hilda Willams PA [address] [place] [address] [address] [place] [address] PCP - General Unknown Provider Specialty 07/28/20 01/31/22 Anastacia Barron DO [address] [place] [address] PCP - General Internal Medicine 02/01/22 12/26/23 Neli Perry MD [address] [place] [phone] PCP - General Family Medicine 12/27/23 Tamera Carreno MD, MPH [address] [place] [address] [email or web address] Primary Oncologist Hematology 09/22/18 [place] [address] [place] [address] Ophthalmology 08/23/19 documented as of this encounter Additional Source Comments The information contained in this document represents components of the legal health record. It is not the complete legal health record.[facility]
--- OUTSIDE RECORDS SUMMARY | 2025-02-25 16:08 | XMS_ITS | Encounter Summary ---
Author Organization [facility] Address [facility] [address] [address] Phone Care Team Providers Care Cottage Parent Name Role Phone Tamera Carreno MD, MPH Unavailable [phone] Mina David MD Unavailable Anastacia Barron DO Primary Care Provider Neli Perry MD Primary Care Provider [phone] Encounter Details Date Type Department Care Team (Late st Contact Info) Description 12/26/2023 Procedure Pass [facility] [address] [place] [address] Social History Tobacco Use Types Packs/Day Years [...] Contact Info) Description 11/16/2024 Procedure Pass [address] [place] [address] 06/14/2025 11:15 AM EST Appointment [address] [place] [address] Neli Perry MD [address] [place] [address] [email or web address] 06/27/2025 1:30 PM EST Appointment [address] [place] [address] Becca Dickinson MD [address] [address] [email or web address] 06/27/2025 2:15 PM EST Procedure visit [facility] [address] [address] Becca Dickinson MD [address] [place] [phone] [email or web address] 06/28/2025 12:45 PM EST Appointment [facility] [address] [place] [address] Becca Dickinson MD [address] [place] [phone] [email or web address] 06/28/2025 12:45 PM EST Office Visit [facility] [address] [address] Becca Dickinson MD [address] [place] [phone] [email or web address] 08/15/2025 12:00 PM EST Office Visit [facility] [address] [address] Becca Dickinson MD [address] [place] [address] [email or web address] documented as of this encounter Visit Diagnoses Not on filedocumented in this encounter Additional Health Concerns Infection Onset Date Last Indicated Resolved Time CoV-Risk 03/04/2024 03/04/2024 03/15/2024 1:23 AM EDT Assessment Noted Time PHQ-2 Depression Total Score: 0 08/23/19 10:59 AM EST documented as of this encounter Care Teams Cottage Parent Relationship Specialty Start Date End Date Anastacia Barron DO [address] [place] [address] PCP - General Internal Medicine 02/01/22 12/26/23 Neli Perry MD [address] [place] [phone] PCP - General Family Medicine 12/27/23 Tamera Carreno MD, MPH [address] [place] [phone] [email or web address] Primary Oncologist Hematology 09/22/18 Mina David MD [address] [place] [address] Ophthalmology 08/23/19 documented as of this encounter Additional Source Comments The information contained in this document represents components of the legal health record. It is not the complete legal health record.[facility]
--- OUTSIDE RECORDS SUMMARY | 2025-02-25 16:08 | XMS_ITS | Encounter Summary ---
Author Organization [facility] Address [address] [place] [address] Phone Care Team Providers Care Coater Operator Name Role Phone Tamera Carreno MD, MPH Unavailable Mina David MD Unavailable Annabelle Shah MD Primary Care Provider Hilda Willams Primary Care Provider Anastacia Barron DO Primary Care Provider [phone] Neli Perry MD Primary Care Provider Encounter Details Date Type Department Care Team (Latest Contact Info) Description 12/31/2019 Transcribe Orders Virtual Department [address] [place] [address] Annabelle Shah MD [address] [place] [address] [email or web address] Fever, unspecified fever cause (Primary Dx); Vomiting, [...] st Contact Info) Description 11/16/2024 Procedure Pass [address] [place] [address] 06/14/2025 11:15 AM EST Appointment [address] [place] [address] Neli Perry MD [address] [place] [address] [email or web address] 06/27/2025 1:30 PM EST Appointment [facility] [address] [address] Becca Dickinson MD [address] [place] [phone] [email or web address] 06/27/2025 2:15 PM EST Procedure visit [facility] [address] [address] Becca Dickinson MD [address] [place] [address] [email or web address] 06/28/2025 12:45 PM EST Appointment [facility] [address] [address] Becca Dickinson MD [address] [place] [address] [email or web address] 06/28/2025 12:45 PM EST Office Visit [facility] [address] [place] [address] Becca Dickinson MD [address] [place] [address] [email or web address] 08/15/2025 12:00 PM EST Office Visit [address] [address] Becca Dickinson MD [address] [place] [address] [email or web address] documented as of this encounter Results * COVID-19 PCR Order (01/01/2020 11:46 AM EDT) Specimen Source NASOPHARYNGEAL SWAB (TUBE TURNER) [facility] COVID-19 Comment VOMITING [facility] COVID Testing Status Sent to [facility] Other 01/01/2020 11:4 6 AM EDT 01/01/2020 1:14 PM EDT Annabelle Shah MD BODY FLUIDS AND STOOLS ORDERABLES Final Result Performing Organization Address City/State/[facility] Co de Phone Number [facility] [address] [place] [address] documented in this encounter Visit Diagnoses Diagnosis [...] documented as of this encounter Care Teams Coater Operator Relationship Specialty Start Date End Date Annabelle Shah MD [address] [place] [address] [email or web address] PCP - General Internal Medicine 01/01/20 07/27/20 Hilda Willams PA [address] [place] [address] PCP - General Unknown Provider Specialty 07/28/20 01/31/22 Anastacia Barron DO [address] [place] [address] PCP - General Internal Medicine 02/01/22 12/26/23 Neli Perry MD [address] [place] [address] [place] [address] PCP - General Family Medicine 12/27/23 Tamera Carreno MD, MPH [address] [place] [address] [email or web address] Primary Oncologist Hematology 09/22/18 [place] [address] [place] [address] Ophthalmology 08/23/19 documented as of this encounter Additional Source Comments The information contained in this document represents components of the legal health record. It is not the complete legal health record.[facility]
--- OUTSIDE RECORDS SUMMARY | 2025-02-25 16:08 | XMS_ITS | Patient Health Record ---
Author Organization [facility] Nae Wallace Address [address] [facility] [place] [place] [address] Care Team Providers Care Level Vial Inside Grinder Name Role Phone Neli Perry Primary Care Provider Tiffanie Farnsworth Unavailable [phone] Samuel Charles Unavailable [phone] Allergies No Known Allergies Results Component Value Reference Range Notes HEMOGLOBIN A1C (GLYCOHEMOGLO BIN) Reviewed date:01/17/2025 11:15:20 AM Interpretation: Performing Lab: Notes/Report: HEMOGLOBIN A1C % (HH) 6.7 HEMOGLOBIN A1C (GLYCOHEMOGLO BIN) Reviewed date:01/16/2025 03:46:42 PM Interpretation: Performing Lab: Notes/Report: HEMOGLOBIN A1C % (HH) 6.7 Reason For Referral No Information Medications Medication SIG (Take, Route, Frequency, Duration) Notes Start Date End Date Status Lisinopril 10 MG 1 tablet Orally Once a day; Duration: 30 day(s) Active Atorvastatin Calcium 10 MG 1 tablet Oral ly Once a day; Duration: 30 day(s) Active Anastrozole 1 MG 1 tablet Orally Once a day; Duration: 30 day(s) Active hydroCHLOROthiazide 25 MG 1 tablet in morning Orally Once a day; Duration: 30 day(s) Active predniSONE 5 MG 4 tablets once a day for 3 days, 3 tablets once a day for 3 days, 2 tablets once a day for 3 days, 1 tablet once a day for 3 days Orally; Duration: 12 days 01/17/2025 Active Immunizations Vaccine Route Administration Date Status Comme nts Influenza Unknown 02/13/2020 Refused Influenza Unknown 01/17/2025 Refused Social History Tobacco Use: Social History Observation Description Date Details (start date - stop date) Never Smoker NA - NA Tobacco use other than smoking: Question Answer Notes Are you an other tobacco user? No Tobacco Control (Standard) Question Answer Notes Tobacco use: Nonsmoker AUDIT-C (Standard) Question Answer Notes Did you have a drink contain ing alcohol in the past year? Yes How often did you have a dri nk containing alcohol in the past year? Never (0 point) How many drinks did you have on a typical day when you were drinking in the past year? 1 or 2 drinks (0 point) How often did you have six o r more drinks on one occasion in the past year? Never (0 point) Points 0 Interpretation Negative Problems Problem Type SNOMED Code ICD Code Onset Dates Problem Status W/U Status Risk Notes Problem Gout (96173079) Gout of left foot (M10.9) Active confirmed Rx drug management (4) Problem Gout (38213949) Gout of right foot (M10.9) Active confirmed Rx drug management (4) Vital Signs Blood pressure diastolic 65 mm Hg 01/17/2025 Height 5 ft 2 in in 01/17/2025 Blood pressure systolic 128 mm Hg 01/17/2025 Weight 192 lbs 01/17/2025 BMI 35.11 kg/m2 01/17/2025 Encounters Encounter [facility] [address] 01/17/[facility]25 Tiffanie Weber Pain in joint involving right ankle and foot M25.571 ; Gout of right foot M10.9 ; Pain in joint involving left ankle and foot M25.572 and Gout of left foot M10.[address] [address] 01/18/2025 Tiffanie Weber [address] [address] 01/29/2025 Tiffanie Weber Assessments Encounter Date Diagnosis (ICD Code) Assessment Notes Treatment Notes Treatment Clinical Notes Section Notes 01/17/2025 Pain in joint involving right ankle and foot (ICD-10 - M25.571) 01/17/2025 Gout of right foot (ICD-10 - M10.9) Rx drug management (4) Patient Educated with: GOUT.pdf (GOUT.pdf) Patient Educated with: LOW PURINE DIET.pdf (LOW PURINE DIET.pdf) 01/17/2025 Pain in joint involving left ankle and foot (ICD-10 - M25.572) 01/17/2025 Gout of left foot (ICD-10 - M10.9) Rx drug management (4) Patient Educated with: GOUT.pdf (GOUT.pdf) Patient Educated with: LOW PURINE DIET.pdf (LOW PURINE DIET.pdf) Plan Of Treatment Pending Test Test Name Order Date *Uric Acid, Serum 02/13/2020 *Sedimentation Rate-Westergren 0 X ray : Foot, left 3V 01/17/2025 X ray : Foot, left 3V 02/13/2020 X ray : Foot, right 3V 02/13/2020 X ray : Foot, right 3V 01/17/2025 [id number], P3875-ILSUR/INJECT, JOINT/BURSA 0 02/13/2020 Insurance Providers Payer Name Payer Address Payer Phone Subscriber Number Group Number Insured Name Patient Relationship to Insured Coverage Start Date Coverage End Date Medicare National Govt Svcs [employer] [address] [place] [address] [id number] Emre Remy Self - patient is the insured 9 [employer] [address] TAMIR JIMÉNEZ [id number] [phone] [id number] Emre Remy Self - patient is the insured for [employer] [address] [place] [address] [id number] Emre Remy Self - patient is the insured Medical (General) History Medical History History ICD Code Angina asthma Back,Hip,and Knee pain Cancer Cataracts type II diabetes Gout High blood pressure Osteopenia Measles Chicken pox Sciatica Surgical History Surgery Date(Month/Year) bone surgery-foot 1981 Breast cancer Surgery 01/2016 Breast Surgery 2019
--- OUTSIDE RECORDS SUMMARY | 2025-02-25 16:09 | XMS_ITS | Encounter Summary ---
Author Organization [facility] Address [address] [facility] [address] [place] [address] Phone Care Team Providers Care Nutrition Educator Name Role Phone Tamera Carreno MD, MPH Unavailable [phone] Mina David MD Unavailable Anastacia Barron DO Primary Care Provider [phone] Neli Perry MD Primary Care Provider [phone] Reason for Referral * Physical Therapy (Routine) - Closed Specialty Diagnoses / Procedures Referred By Guillermo gauthier Referred To Contact Physical Therapy Diagnoses Encounter for rehabilitation Chato Holland MD [address] [address] Phone: tel: fax: [address] [address] Phone: tel: Referral ID Status Reason Start Date Expiration Date Visits Re quested Visits Authorized [id number] Closed 06/17/2022 99 99 Encounter Details Date Type Department Care Team (Latest Contact Info) Description 06/17/2022 Transcribe Orders [facility] [address] [place] [address] Chato Holland MD [address] [phone] Encounter for rehabilitation (Primary Dx) Social History [...] st Contact Info) Description 11/16/2024 Procedure Pass [address] [place] [address] 06/14/2025 11:15 AM EST Appointment [address] [place] [address] Neli Perry MD [address] [place] [address] [email or web address] 06/27/2025 1:30 PM EST Appointment [facility] [address] [address] Becca Dickinson MD [address] [place] [address] [email or web address] 06/27/2025 2:15 PM EST Procedure visit [facility] [address] [address] Becca Dickinson MD [address] [place] [address] [email or web address] 06/28/2025 12:45 PM EST Appointment [facility] [address] [address] Becca Dickinson MD [address] [place] [address] [email or web address]@[email or web address] 06/28/2025 12:45 PM EST Office Visit [facility] [address] [place] [address] Becca Dickinson MD [address] [place] [address] [email or web address]@[email or web address] 08/15/2025 12:00 PM EST Office Visit [facility] [address] [place] [address] Becca Dickinson MD [address] [place] [address] [email or web address] documented as of this encounter Procedures Procedure Name Priority Date/Time Associated Diagnosis Comments AMB REFERRAL TO [facility] PHYSICAL THERAPY Routine 07/30/2022 7:51 PM EST Encounter for rehabilitation documented in this encounter Results * Ambulatory referral to [facility] Physical Therapy (07/30/2022 7:51 PM EST) Other Chato Holland MD AMB [facility] REFERRALS Final Result documented in this encounter Visit Diagnoses Diagnosis [...] documented as of this encounter Care Teams Nutrition Educator Relationship Specialty Start Date End Date Anastacia Barron DO [address] [place] [address] PCP - General Internal Medicine 02/01/22 12/26/23 Neli Perry MD [address] [place] [address] [place] [address] PCP - General Family Medicine 12/27/23 Tamera Carreno MD, MPH [address] [address] [email or web address] Primary Oncologist Hematology 09/22/18 Mina David MD [address] [place] [address] Ophthalmology 08/23/19 documented as of this encounter Additional Source Comments The information contained in this document represents components of the legal health record. It is not the complete legal health record.[facility]
--- OUTSIDE RECORDS SUMMARY | 2025-02-25 16:09 | XMS_ITS | Clinical Summary ---
Author Organization [facility] Address [facility] [employer] [address] [address] Phone Care Team Providers Care Sales And Marketing Coordinator Name Role Phone Tamera Matt MD, MPH Unavailable [phone] Mina David MD Unavailable Neli Perry MD Primary Care Provider Allergies Active Allergy Reactions Criticality Noted Date Comments Influenza Virus Vaccines Fever 08/23/2019 Medications biotin 1 mg tablet Take 1,000 mcg by mouth 3 (three) times a day. Active fluticasone-eliot meterol (ADVAIR DISKUS) 250-50 mcg/dose DISKUSIndicatio ns:uses prn, not daily Inhale 1 puff into [...] tablet Take 10 mg by mouth daily. 1 Active omeprazole (PRILOSEC) 20 MG capsule Take [...] for 6 days then stop 18 tablet 4 Active lisinopril (PRINIVIL,ZESTR IL) 40 MG tablet Take 40 mg by mouth daily. Active hydroCHLOROthia zide 12.5 MG tablet Take 12.5 mg by mouth daily. Active meclizine (ANTIVERT) 12.5 mg tablet Take 1 tablet (12.5 mg total) by mouth 3 (three) times a day as needed. 15 tablet 4 Active Active Problems Problem Noted Date Diagnosed Date Pneumonia 12/24/2023 Assessment & Plan (12/26/2023 4:50 PM EDT): Community-acquired pneumonia. Patient states she was treated for 1 back in September as an outpatient with her repairer general in [place]. No other recent antibiotics. Chest x-ray negative [...] asthma. She has been following with her repairer general for 15 years at [place]. She is maintained on Advair alone. Yesterday [...] Resolved Date Diabetes mellitus, type 2 01/21/2016 Immunizations Immunization Administration Dates Next Due Tdap 08/27/2019 Family [...] Sign Reading Time Taken Comments Blood Pressure 121/81 10/10/2024 2:53 PM EDT Pulse 82 10/10/2024 2:53 PM EDT Temperature 36 C (96.8 F) 03/04/2024 7:43 AM EDT Respiratory Rate 21 [...] st Contact Info) Description 11/16/2024 Procedure Pass [address] [place] [address] 06/14/2025 11:15 AM EST Appointment [address] [place] [address] Neli Perry MD [address] [place] [address] [email or web address] 06/27/2025 1:30 PM EST Appointment [facility] [address] [address] Becca Dickinson MD [address] [place] [phone] [email or web address] 06/27/2025 2:15 PM EST Procedure visit [facility] [address] [address] Becca Dickinson MD [address] [place] [address] [email or web address] 06/28/2025 12:45 PM EST Appointment [facility] [address] [address] Becca Dickinson MD [address] [place] [address] [email or web address] 06/28/2025 12:45 PM EST Office Visit [facility] [address] [address] Becca Dickinson MD [address] [place] [address] [email or web address] 08/15/2025 12:00 PM EST Office Visit [facility] [address] [place] [address] Becca Dickinson MD [address] [place] [phone] [email or web address] Health Maintenance Due Date Last Done Comments ZOSTER VACCINES (1 of 2) 09/07/1964 RSV VACCINE (1 - 1-dose 75+ series) 09/07/2018 DEPRESSION SCREENING 08/22/2020 08/23/2019 PNEUMOCOCCAL VACCINES (50+ years) (2 of 2 - PCV) 01/29/2022 01/29/2021 COVID-19 VACCINE ( - season) 2024 06/10/2021, 08/24/2020, 08/03/2020 DIABETIC EYE EXAM 08/15/2024 BLOOD PRESSURE 04/11/2025 10/10/2024 HEMOGLOBIN A1C 05/08/2025 11/05/2024, 07/22, 08/24/2023, Additional history exists CREATININE LEVEL 08/15/2025 08/15/2024, , 03/01/2024, Additional history exists POTASSIUM LEVEL 08/15/2025 08/15/2024, 02/18, 03/01/2024, Additional history exists Adult Td,Tdap Booster 08/26/2029 08/27/2019 OSTEOPOROSIS SCREENING INITIAL (ONE-TIME) Completed 01/26/2021, 01/16/2019, 07/22/2016 HEPATITIS A VACCINES Aged Out No long er eligible based on patient's age to complete this topic HIB VACCINES Aged Out No longer eligi ble based on patient's age to complete this topic MENINGOCOCCAL VACCINES (ACWY) Aged Out No longer eligible based on patient's age to complete this topic MENINGOCOCCAL VACCINES (B) Aged Out N o longer eligible based on patient's age to complete this topic Medical Devices Implanted Type Area Service Aide Device Identifier Shelf Expiration Date Model / Serial / Lot Marker Breast Tissue [id number] Ultraclip Ii Wing Shaped Bx/5ea - [id number] Implanted:Qty: 1 on 02/03/2016 at [facility] [employer] [id number] / / Procedures Procedure Name Priority Date/Time Associated Diagnosis Comments HEMOGLOBIN A1C Routine 11/05/2024 9:02 AM EDT Mixed hyperlipidemia Type 2 diabetes mellitus without complication, unspecified whether physician executive insulin use BASIC METABOLIC PANEL Routine 08/15/2024 [...] Health Maintenance Results * (ABNORMAL) Hemoglobin A1c (11/05/2024 9:02 AM EDT) HEMOGLOBIN A1C 6.4(H) 4.3 - 5.8 % [facility] Blood 11/05/2024 9:02 AM EDT 11/05/2024 9:06 AM EDT us Neli Perry MD LAB BLOOD ORDERABLES Final Resu lt [address] [id number] * (ABNORMAL) Basic metabolic panel (08/15/2024 8:01 AM EST) SODIUM 140 133 - 146 mmol/L [facility] CHLORIDE 104 96 - 108 mmol/L [facility] POTASSIUM 4.1 3.3 - 5.1 mmol/L [facility] CO2 26 21 - 35 mmol/L [facility] BUN 23(H) 6 - 19 mg/dL [facility] CREATININE 1.20 0.5 - 1.5 mg/dL [facility] GLUCOSE 123(H) 70 - 99 mg/dL [facility] CALCIUM 9.5 8.4 - 10.3 mg/dL [facility] EGFR 46(L) >59 mL/min/1.7 3m2 [facility] Comment:Estimated glomerular filtration rate calculated using the CKD-EPI refit equation. ANION GAP 14 10 - 20 mmol/L [facility] Blood 08/15/2024 8:01 AM EST 08/15/2024 8:18 AM EST us Valeria Calvin MD LAB BLOOD ORDERABLES Final Re sult [facility] [address] [place] [address] * BD DXA AXIAL (SPINE) WITH HIP (01/26/2021 11:18 AM EDT) Anatomical Region Laterality Modality Bone Density Bone Density 01/26/2021 10:5 4 AM EDT Impressions 01/27/2021 3:28 PM EDT Interpretation: Osteoporosis. Narrative 01/27/2021 3:28 PM EDT Referred By: TAMERA MATT Scanner: [employer] A with serial# of [id number] located at [address] [place] [address] Bone Density Scan (DXA) 01/26/21 Details of prior DXA scans are available by clicking View Image BMD T- Z- Skeletal Site gm/cm2 score score BMD Change Since Prior Scan ------ ----- ----- PA Spine (L1 L2 L3) 0.736 -2.60 -0.10 -0.047 (-6.0%)* since 01/16/2019 Total Hip (Left) 0.736 -1.70 0.20 -0.010 (-1.3%) since 01/16/2019 Femoral Neck (Left) 0.587 -2.40 -0.20 -0.028 (-4.6%) since 01/16/2019 ------ ----- ----- * Denotes significant change when >= 0.022 g/cm2 for the spine, 0.027 g/cm2 for the total hip, 0.029 g/cm2 for the femoral neck. Interpretation: Osteoporosis. Technical Quality: The PA Spine scan was of marginal quality because of body thickness. The left hip scan was of marginal quality because of anatomy and/or rotation (which can decrease or increase BMD). Hip is abducted in suboptimal position; interpret changes from prior scans with caution. FRAX: Based on FRAX(r) 3.6 with self-reported race/ethnicity (White), this patient's likelihood of hip fracture is 4.3% and major osteoporotic fracture is 14.8% over the next 10 years. The patient reported no risks of fracture. Additional Information: -World Health Organization criteria classify adults based on lowest T-score at PA spine, hip or forearm: Normal (T-score >= -1.0), Osteopenia (T-score between -1 and -2.5), or Osteoporosis (T-score <= -2.5). T-scores are compared to peak bone density of a gender and ethnicity matched reference population. -For premenopausal women and men under the age of 50, Z-scores (comparison to age, gender, and ethnicity matched reference population) are used: Above expected range for age (Z-score >= 2.0), [...] probability by FRAX of >= 3% for the hip or >= 20% for major osteoporotic fracture. -The FRAX algorithm (https://www.gianna.ac.uk/FRAX/tool.aspx) is designed to predict 10-year fracture risk in treatment-naive adults between the ages of 40 and 90. It is not intended to be used in those receiving pharmacologic osteoporosis treatment. -Including race/ethnicity in the generation of T- or Z-scores or in the FRAX calculation is complicated, with there being reasons for and against doing such. We and others are actively reviewing the best approach to ensure that we can give patients the best information on their risk of fracture. -Click on View Image to see subsequent pages with images and prior bone density results. Reviewed By: Ankita White MD on 01/27/2021 15:28:43 Procedure Note Ankita White MD, [facility] - 01/27/2021 Referred By: TAMERA MATT Scanner: [employer] with serial# of [id number] located at [address] [place] [address] Bone Density Scan (DXA) 01/26/21 Details of [...] MD, MPH IMG BD BONE DENSITY DEXA Fin al Result from Last 3 Months or Most Recently Relevant to Health Maintenance Insurance MEDICARE PART A & B [employer] MEDICARE SUPPLEMENT MEDICARE PART A & B FOR LIFE MEDICARE SUPPLEMENT [facility] Address: [address] [address] MEDICARE PART A & B [facility] FOR LIFE MEDICARE SUPPLEMENT MEDICARE PART A & B [employer] MEDICARE SUPPLEMENT [facility] Address: [facility] [address] [place] [address] MEDICARE PART A & B [employer] MEDICARE SUPPLEMENT [facility] Address: [address] [address] MEDICARE PART A & B Member Subscriber Plan / Payer (Ef fective 2008-Present) Name:Emre Remy Member ID:[id number] Relation to Subscriber:Self Name:Emre Remy Subscriber ID:[id number] Payer ID:[id number] Group ID:Not on file Type:Medicare Address: [employer] [address] [address] [employer] MEDICARE SUPPLEMENT [facility] Address: [address] [address] MEDICARE PART A & B FOR LIFE MEDICARE SUPPLEMENT [facility] Address: [address] [place] [phone] MEDICARE PART A & B FOR LIFE MEDICARE SUPPLEMENT [facility] Address: [address] [address] MEDICARE PART A & B FOR LIFE MEDICARE SUPPLEMENT [facility] Address: [facility] [address] [place] [address] Advance Directives For more information, please contact: [phone] (9AM - 5PM [facility], Tuesday-Tuesday) Documents on File Type Date Recorded 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 Expl 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 Healthcare Proxy 01/30/2016 2:48 PM proxy * Full Code (Latest Code Status on File) Date Activated Date Inactivated Comments 12/24/2023 1:36 PM Question Answer Comments Code Status Confirmed With: Patient Code Status Communicated To: Inpatient Attending * Full Code (Presumed) Date Activated Date Inactivated Comments 02/03/2016 6:47 AM 02/03/2016 3:00 PM Care Teams Sales And Marketing Coordinator Relationship Specialty Start Date End Date Neli Perry MD [address] [place] [address] [place] [address] PCP - General Family Medicine 12/27/23 Tamera Matt MD, MPH [address] [place] [address] [email or web address] Primary Oncologist Hematology 09/22/18 Mina David MD [address] [place] [address] Ophthalmology 08/23/19 Additional Source Comments The information contained in this document represents components of the legal health record. It is not the complete legal health record.[facility]
--- OUTSIDE RECORDS SUMMARY | 2025-02-25 16:10 | XMS_ITS | Encounter Summary ---
Author Organization [facility] Address [address] [place] [address] [place] [address] Phone Care Team Providers Care Coastal Tug Mate Name Role Phone Shari Caba NP Primary Care Provider Tamera Carreno MD, MPH Unavailable [place] David MD Unavailable Annabelle Shah MD Primary Care Provider Hilda Willams Primary Care Provider Anastacia Barron DO Primary Care Provider Neli Perry MD Primary Care Provider [phone] Encounter Details Date Type Department Care Team (Late st Contact Info) Description 01/30/2016 Ancillary Orders [facility] [address] [facility], 9th Floor, [address] [place] [address] Kathie Alberto MD, PhD [address] [place] [phone] [email or web address] Breast cancer, left (Primary Dx) Social History [...] st Contact Info) Description 11/16/2024 Procedure Pass [address] [place] [address] 06/14/2025 11:15 AM EST Appointment [address] [place] [address] Neli Perry MD [address] [place] [address] [email or web address] 06/27/2025 1:30 PM EST Appointment [facility] [address] [address] Becca Dickinson MD [address] [place] [address] [email or web address] 06/27/2025 2:15 PM EST Procedure visit [facility] [address] [address] Becca Dickinson MD [address] [place] [address] [email or web address] 06/28/2025 12:45 PM EST Appointment [facility] [address] [address] Becca Dickinson MD [address] [place] [address] [email or web address] 06/28/2025 12:45 PM EST Office Visit [facility] [place] [address] Becca Dickinson MD [address] [place] [phone] [email or web address] 08/15/2025 12:00 PM EST Office Visit [facility] [place] [address] Becca Dickinson MD [address] [place] [address] [email or web address] documented as of this encounter Results [...] of the procedure and otherwise immediately available. Narrative 02/03/2016 7:35 PM EDT PERCUTANEOUS NEEDLE LOCALIZATION - left Comparison was made to prior studies. Sonographic Guidance The procedure was explained in detail to the patient, her questions were answered, and she consented to the localization. A pre-procedure time-out was performed using two patient identifiers, confirming patient identity and procedure to be performed. Using the usual sterile technique, local anesthesia was [...] portions of theprocedure and otherwise immediately available. us Kathie Alberto MD, PhD IMG BI IRP GUIDED DAVID AST PROC Final Result * Mammogram Needle Localization (Left) (02/03/2016 10:24 AM EDT) Anatomical Region Laterality Modality Breast Left, Breast Bilateral Left Ma mmography 02/03/2016 Impressions 02/03/2016 7:35 PM EDT IMPRESSION: Successful needle localization of the mass in the left breast. As the attending physician, I was present for louise portions of the procedure and otherwise immediately available. Narrative 02/03/2016 7:35 PM EDT PERCUTANEOUS NEEDLE LOCALIZATION - left Comparison was made to prior studies. Sonographic Guidance The procedure was explained in detail to the patient, her questions were answered, and she consented to the localization. A pre-procedure time-out was performed using two patient identifiers, confirming patient identity and procedure to be performed. Using the usual sterile technique, local anesthesia was [...] LOCALIZATION - left Comparison was made to rosalva. Sonographic Guidance The procedure was explained in [...] portions of theprocedure and otherwise immediately available. us Kathie Alberto MD, PhD IMG IRP GUIDED DAVID AST PROC Final Result documented in this encounter Visit [...] documented as of this encounter Care Teams Coastal Tug Mate Relationship Specialty Start Date End Date Shari Caba NP [address] [place] [address] PCP - General Family Medicine 12/31/15 08/22/19 Annabelle Shah MD [address] [place] [address] [email or web address] PCP - General Internal Medicine 01/01/20 07/27/20 Hilda Willams PA [address] [place] [address] PCP - General Unknown Provider Specialty 07/28/20 01/31/22 Anastacia Barron DO [address] [place] [address] PCP - General Internal Medicine 02/01/22 12/26/23 Neli Perry MD [address] [place] [address] [place] [address] PCP - General Family Medicine 12/27/23 Tamera Carreno MD, MPH [address] [place] [address] [email or web address] Primary Oncologist Hematology 09/22/18 [place] [address] [place] [address] [address] [place] [address] Ophthalmology 08/23/19 documented as of this encounter Additional Source Comments The information contained in this document represents components of the legal health record. It is not the complete legal health record.[facility]
--- OUTSIDE RECORDS SUMMARY | 2025-02-25 16:10 | XMS_ITS | Encounter Summary ---
Author Organization [facility] Address [facility] [employer] [facility] [address] [place] [address] Phone Care Team Providers Care Riding Double Name Role Phone Tamera Carreno MD, MPH Unavailable [phone] [place] MD Unavailable Anastacia Barron DO Primary Care Provider [phone] Neli Perry MD Primary Care Provider [phone] Encounter Details Date Type Department Care Team (Late st Contact Info) Description 08/11/2022 Procedure Pass Breast Imaging, [facility] - [address], [address] [place] [address] Social History Tobacco Use Types Packs/Day Years Used Date Smoking Tobacco: Former Cigarettes 1 28 0 01/28/1963 - 01/28/1991 Smokeless Tobacco: Never Alcohol Use Standard Drinks/Week Comments Yes 5 (1 standard drink = 0.6 oz pur e alcohol) Social drinker Comments No Sex and Gender Information Value Date Recorded Sex Assigned at Female 08/20/2019 8:24 AM EST Legal Sex Female 1:18 PM EDT Gender Identity Female 08/14/2020 4:03 PM EST Sexual Orientation Straight 08/14/2020 4: 03 PM EST documented as of this encounter Plan of Treatment Upcoming Encounters Date Type Department Care Team (Late st Contact Info) Description 11/16/2024 Procedure Pass [facility] - [address] [place] [address] 06/14/2025 11:15 AM EST Appointment [address] [place] [address] Neli Perry MD [address] [place] [address] [email or web address] 06/27/2025 1:30 PM EST Appointment [facility] [address] [address] Becca Dickinson MD [address] [place] [phone] [email or web address] 06/27/2025 2:15 PM EST Procedure visit [facility] [address] [address] Becca Dickinson MD [address] [place] [address] [email or web address] 06/28/2025 12:45 PM EST Appointment [facility] [address] [place] [address] Becca Dickinson MD [address] [place] [phone] [email or web address] 06/28/2025 12:45 PM EST Office Visit [facility] [address] [address] Becca Dickinson MD [address] [place] [phone] [email or web address] 08/15/2025 12:00 PM EST Office Visit [facility] [address] [place] [address] Becca Dickinson MD [address] [facility] [address] [place] [address] [email or web address] documented as of this encounter Visit Diagnoses [...] documented as of this encounter Care Teams Riding Double Relationship Specialty Start Date End Date Anastacia Barron DO [address] [place] [address] PCP - General Internal Medicine 02/01/22 12/26/23 Neli Perry MD [address] [place] [address] [place] [address] PCP - General Family Medicine 12/27/23 Tamera Carreno MD, MPH [address] [facility] [address] [place] [address] [email or web address] Primary Oncologist Hematology 09/22/18 [place]ina David MD [address] [place] [phone] Ophthalmology 08/23/19 documented as of this encounter Additional Source Comments The information contained in this document represents components of the legal health record. It is not the complete legal health record.[facility]
--- OUTSIDE RECORDS SUMMARY | 2025-02-25 16:10 | XMS_ITS | Encounter Summary ---
Author Organization [facility] Address [address] [place] [address] Phone Care Team Providers Care Manager Application Name Role Phone Tamera Carreno MD, MPH Unavailable Mina David MD Unavailable Hilda Willams Primary Care Provider Anastacia Barron DO Primary Care Provider [phone] Neli Perry MD Primary Care Provider [phone] Reason for Referral * MRI/CAT Scan - Closed Specialty Diagnoses / Procedures Referred By Contvictorino t Referred To Contact Radiology Diagnoses Radiculopathy, lumbar region Procedures MRI Lumbar Spine Robert Patton MD [address] [place] [address] Phone: tel: fax: Referral ID Status Reason Start Date Expiration Date Visits Re quested Visits Authorized [id number] Closed 01/14/2021 01/14/2022 1 1 Encounter Details Date Type Department Care Team (Latest Contact Info) Description 01/14/2021 Transcribe Orders [facility] Department [address] [place] [address] Robert Patton MD [address] [place] [address] Radiculopathy, lumbar region (Primary Dx) Social History [...] st Contact Info) Description 11/16/2024 Procedure Pass [address] [place] [address] 06/14/2025 11:15 AM EST Appointment [address] [place] [address] Neli Perry MD [address] [place] [address] [email or web address] 06/27/2025 1:30 PM EST Appointment [facility] [address] [address] Becca Dickinson MD [address] [place] [address] [email or web address] 06/27/2025 2:15 PM EST Procedure visit [facility] [address] [address] Becca Dickinson MD [address] [place] [address] [email or web address] 06/28/2025 12:45 PM EST Appointment [facility] [place] [address] Becca Dickinson MD [address] [place] [phone] [email or web address] 06/28/2025 12:45 PM EST Office Visit [facility] [place] [address] Becca Dickinson MD [address] [place] [address] [email or web address]@[email or web address] 08/15/2025 12:00 PM EST Office Visit [facility] [address] [address] Becca Dickinson MD [address] [place] [address] [email or web address] documented as of this encounter [...] and mild canal stenosis. Findings are similar [id number]. L5-S1: Combination of bulging disc with superimposed central discprotrusion, hypertrophy of posterior elements and epidural lipomatosiscontributes to mild/moderate bilateral neuroforaminal stenosis and mildcanal stenosis. Findings have mildly progressed from 2018. IMPRESSION: Multilevel degenerative changes. Degenerative changes at L5-S1 have mildlyprogressed from 2018. Robert Patton MD IMG MR XSPECIALTY Final Result documented in this encounter Visit [...] documented as of this encounter Care Teams Manager Application Relationship Specialty Start Date End Date Hilda Willams PA [address] [place] [address] PCP - General Unknown Provider Specialty 07/28/20 Anastacia Barron DO [address] [place] [address] PCP - General Internal Medicine 02/01/22 12/26/23 Neli Perry MD [address] [place] [address] [place] [address] PCP - General Family Medicine 12/27/23 Tamera Carreno MD, MPH [facility] [address] [place] [address] [email or web address] Primary Oncologist Hematology 09/22/18 Mina David MD [address] [address] Ophthalmology 08/23/19 documented as of this encounter Additional Source Comments The information contained in this document represents components of the legal health record. It is not the complete legal health record.[facility]
--- OUTSIDE RECORDS SUMMARY | 2025-02-25 16:10 | XMS_ITS | Encounter Summary ---
Author Organization [facility] Address [address] [place] [address] Phone Care Team Providers Care Film Reproducer Name Role Phone Tamera Carreno MD, MPH Unavailable [phone] Mina David MD Unavailable Hilda Willams Primary Care Provider [phone] Anastacia Barron DO Primary Care Provider Neli Perry MD Primary Care Provider Encounter Details Date Type Department Care Team (Late st Contact Info) Description 01/14/2021 Procedure Pass [address] [address] Social History Tobacco Use Types Packs/Day Years [...] Contact Info) Description 11/16/2024 Procedure Pass [address] [place] [address] 06/14/2025 11:15 AM EST Appointment [address] [place] [address] Neli Perry MD [address] [place] [address] [email or web address] 06/27/2025 1:30 PM EST Appointment [facility] [address] [address] Becca Dickinson MD [address] [place] [phone] [email or web address] 06/27/2025 2:15 PM EST Procedure visit [facility] [address] [address] Becca Dickinson MD [address] [place] [phone] [email or web address] 06/28/2025 12:45 PM EST Appointment [facility] [address] [address] Becca Dickinson MD [address] [place] [address] [email or web address] 06/28/2025 12:45 PM EST Office Visit [facility] [address] [address] Becca Dickinson MD [address] [place] [address] [email or web address] 08/15/2025 12:00 PM EST Office Visit [facility] [place] [address] [place] [address] Becca Dickinson MD 55 [facility] [address] [place] [address] [email or web address]@[email or web address] documented as of this encounter Visit [...] documented as of this encounter Care Teams Film Reproducer Relationship Specialty Start Date End Date Hilda Willams PA [address] [address] PCP - General Unknown Provider Specialty 07/28/20 Anastacia Barron DO [address] [place] [address] PCP - General Internal Medicine 02/01/22 12/26/23 Neli Perry MD [address] [place] [address] [place] [address] PCP - General Family Medicine 12/27/23 Tamera Carreno MD, MPH 55 [facility] Y[facility] [address] [place] [address] [email or web address] Primary Oncologist Hematology 09/22/18 Mina David MD 3640 [place] [address] Ophthalmology 08/23/19 documented as of this encounter Additional Source Comments The information contained in this document represents components of the legal health record. It is not the complete legal health record.[facility]
--- OUTSIDE RECORDS SUMMARY | 2025-02-25 16:10 | XMS_ITS | Encounter Summary ---
Author Organization [facility] Address [address] [place] [address] [place] [address] Phone Care Team Providers Care Section Cutter Name Role Phone Shari Caba NP Primary Care Provider [phone] Tamera Carreno MD, MPH Unavailable [phone] Mina David MD Unavailable Annabelle Shah MD Primary Care Provider Hilda Willams Primary Care Provider Anastacia Barron DO Primary Care Provider [phone] Neli Perry MD Primary Care Provider [phone] Encounter Details Date Type Department Care Team (Late st Contact Info) Description 01/28/2016 Ancillary Orders [facility] [address]th Floor, [address] [place] [address] Kathie Alberto MD, PhD [address] [place], [place] [address] [place] [phone] [email or web address] Social History Tobacco Use Types Packs/Day [...] st Contact Info) Description 11/16/2024 Procedure Pass [address] [place] [address] 06/14/2025 11:15 AM EST Appointment [address] [place] [address] Neli Perry MD [address] [place] [address] [email or web address] 06/27/2025 1:30 PM EST Appointment [facility] [address] [address] Becca Dickinson MD [address] [place] [address] [email or web address]@[facility] 06/27/2025 2:15 PM EST Procedure visit [facility] [address] [address] Becca Dickinson MD [address] [place] [address] [email or web address] 06/28/2025 12:45 PM EST Appointment [facility] [address] [address] Becca Dickinson MD [address] [place] [phone] JAVED@[email or web address] 06/28/2025 12:45 PM EST Office Visit [facility] [place] [address] [place] [address] Becca Dickinson MD [address] [place] [address] [email or web address]@[facility] 08/15/2025 12:00 PM EST Office Visit [facility] [address] [address] Becca Dickinson MD [address] [place] [phone] [email or web address] documented as of this encounter Visit Diagnoses Not on filedocumented in this encounter Additional Health Concerns Infection Onset Date Last Indicated Resolved Time CoV-Risk 12/31/2019 01/01/2020 01/14/2020 4:55 AM EDT COVID-19 01/31/2023 01/31/2023 02/21/2023 1:21 AM EDT CoV-Risk Comment:Per note documentation 12/22/2023 12/24/2023 3:36 PM EDT CoV-Risk 03/04/2024 03/04/2024 03/15/2024 1:23 AM EDT documented as of this encounter Care Teams Section Cutter Relationship Specialty Start Date End Date Shari Caba NP [address] [place] [address] PCP - General Family Medicine 12/31/15 08/22/19 Annabelle Shah MD [address] [place] [address] [email or web address] PCP - General Internal Medicine 01/01/20 07/27/20 Hilda Willams PA [address] [place] [address] PCP - General Unknown Provider Specialty 07/28/20 01/31/22 Anastacia Barron DO 421 [place] [address] PCP - General Internal Medicine 02/01/22 12/26/23 Neli Perry MD [address] [place] [address] [place] [address] PCP - General Family Medicine 12/27/23 Tamera Carreno MD, MPH [address] [place] [address] [email or web address] Primary Oncologist Hematology 09/22/18 Mina David MD [address] [place] [address] Ophthalmology 08/23/19 documented as of this encounter Additional Source Comments The information contained in this document represents components of the legal health record. It is not the complete legal health record.[facility]
--- OUTSIDE RECORDS SUMMARY | 2025-02-25 16:10 | XMS_ITS | Encounter Summary ---
Author Organization [facility] Address [address] [place] [address] Phone Care Team Providers Care Wirer Street Light Name Role Phone Shari Caba NP Primary Care Provider [phone] Tamera Carreno MD, MPH Unavailable [phone] Mina David MD Unavailable Annabelle Shah MD Primary Care Provider Hilda Willams Primary Care Provider Anasatcia Barron DO Primary Care Provider [phone] Neli Perry MD Primary Care Provider Encounter Details Date Type Department Care Team (Late st Contact Info) Description 01/28/2016 Ancillary Orders [facility] [address] [place] [address] Kathie Alberto MD, PhD [address] [place] [address] [place] [address] [email or web address] Papillary carcinoma (Primary Dx) Social History Tobacco [...] st Contact Info) Description 11/16/2024 Procedure Pass [address] [place] [address] 06/14/2025 11:15 AM EST Appointment [address] [place] [address] Neli Perry MD [address] [place] [address] [email or web address] 06/27/2025 1:30 PM EST Appointment [facility] [address] [address] Becca Dickinson MD [address] [place] [phone] [email or web address] 06/27/2025 2:15 PM EST Procedure visit [address] [address] Becca Dickinson MD [address] [place] [phone] [email or web address] 06/28/2025 12:45 PM EST Appointment [facility] [address] [address] Becca Dickinson MD [address] [place] [phone] [email or web address] 06/28/2025 12:45 PM EST Office Visit [facility] [address] [place] [address] Becca Dickinson MD [address] [place] [phone] JAVED@[email or web address] 08/15/2025 12:00 PM EST Office Visit [facility] Tamiko [place] [place] [address] Becca Dickinson MD [address] [place] [phone] [email or web address] documented as of this encounter Results * Mammogram Outside With Interpretation Or Consult (01/28/2016 12:00 AM EDT) 01/28/2016 Impressions [facility] - 01/30/2016 11:03 AM EDT IMPRESSION:1. [...] - Appropriate Action Should Be Taken Narrative [facility] - 01/30/2016 11:03 AM EDT Remy OUTSIDE INTERPRETATIONSTUDIES PROVIDED FOR INTERPRETATION:Screening mammogram 11/27/2015Diagnostic left mammogram 12/03/2015Left breast ultrasound 12/03/2015Left breast ultrasound guided biopsy 12/12/2015Above studies performed at [facility]. Additional mammograms dated 08/20/2013 and 06/04/2010 are provided for comparison. HISTORY:70 year old woman with new diagnosis of invasive carcinoma of the left breast. A screening mammogram at [facility] 11/27/15 showed an developing asymmetry in the inferior left breast. U/S showed a 10 mm suspicious mass at 5:30, 3 cm from the nipple. Core biopsy 12/12/15 showed a grade 1 invasive papillary cancer, ER/MT+, HER2-. FINDINGS:Screening mammogram 11/27/2015: Bilateral digital 2-D [...] breast. FINAL PATHOLOGIC DIAGNOSIS:Consult materials received from [facility], [place], [place]. BREAST ULTRASOUND GUIDED CORE NEEDLE BIOPSY, LEFT 4 O'CLOCK, 3 CM FROM NIPPLE([id number]; 12/12/2015): - Fragments of papillary carcinoma. See [...] breast ultrasound guidedbiopsy 12/12/2015Above [facility]. Additional mammograms dated 08/20/2013 and06/04/2010 are provided for comparison. HISTORY:70 year old woman with newdiagnosis of invasive carcinoma of the left breast. A screening mammogramat [facility] 11/27/15 showed an developing asymmetry in theinferior left breast. U/S showed a 10 mm suspicious mass at 5:30, 3 cmfrom the nipple. Core biopsy 12/12/15 showed a grade 1 invasive papillarycancer, ER/MT+, HER2-. FINDINGS:Screening mammogram 11/27/2015: Bilateraldigital 2-D CC [...] left breast. FINAL PATHOLOGIC DIAGNOSIS:Consult materialsreceived from [facility], [place], [place]. BREAST ULTRASOUND GUIDEDCORE NEEDLE BIOPSY, LEFT 4 O'CLOCK, 3 CM FROM NIPPLE([id number];12/12/2015): - Fragments of papillary carcinoma. See note. [...] Proven Malignancy - Appropriate Action ShouldBe Taken us Kathie Alberto MD, PhD IMG OUTSIDE IMAGING W / INTERPRETATION Final Result [facility] [address] [facility] [place] [address] documented in this encounter Visit Diagnoses Diagnosis [...] documented as of this encounter Care Teams Wirer Street Light Relationship Specialty Start Date End Date Shari Caba NP [address] [place] [address] PCP - General Family Medicine 12/31/15 08/22/19 Annabelle Shah MD [address] [place] [address] [email or web address] PCP - General Internal Medicine 01/01/20 07/27/20 Hilda Willams PA 299 [facility] [address] [place] [address] PCP - General Unknown Provider Specialty 07/28/20 01/31/22 Anastacia Barron DO [address] [place] [address] PCP - General Internal Medicine 02/01/22 12/26/23 Neli Perry MD [address] [place] [address] [place] [address] PCP - General Family Medicine 12/27/23 Tamera Carreno MD, MPH [address] [place] [address] [address] [place] [address] [email or web address] Primary Oncologist Hematology 09/22/18 [place] [address] [place] [address] Ophthalmology 08/23/19 documented as of this encounter Additional Source Comments The information contained in this document represents components of the legal health record. It is not the complete legal health record.[facility]
--- OUTSIDE RECORDS SUMMARY | 2025-02-25 16:10 | XMS_ITS | Encounter Summary ---
Author Organization [facility] Address [address] [place] [phone] Phone Care Team Providers Care Telephoner Name Role Phone Tamera Carreno MD, MPH Unavailable [phone] Mina David MD Unavailable Hilda Willams Primary Care Provider Anastacia Barron DO Primary Care Provider Neli Perry MD Primary Care Provider [phone] Encounter Details Date Type Department Care Team (Latest Contact Info) Description 10/20/2020 Transcribe Orders [facility] [address] [place] [address] [place] [address] Hilda Willams PA [address] [place] [address] Mixed hyperlipidemia (Primary Dx); Gout, unspecified cause, [...] st Contact Info) Description 11/16/2024 Procedure Pass [address] [place] [address] 06/14/2025 11:15 AM EST Appointment [address] [place] [address] Neli Perry MD [address] [place] [address] [email or web address] 06/27/2025 1:30 PM EST Appointment [facility] [address] [place] [address] Becca Dickinson MD [address] [place] [phone] [email or web address] 06/27/2025 2:15 PM EST Procedure visit [facility] [address] [place] [address] Becca Dickinson MD [address] [place] [phone] [email or web address] 06/28/2025 12:45 PM EST Appointment [facility] [address] [address] Becca Dickinson MD [address] [place] [phone] [email or web address] 06/28/2025 12:45 PM EST Office Visit [facility] [address] [place] [address] Becca Dickinson MD [address] [address] [email or web address]@[email or web address] 08/15/2025 12:00 PM EST Office Visit [address] [address] Becca Dickinson MD [address] [place] [phone] [email or web address] documented as of this encounter Results * Uric acid (10/20/2020 10:31 AM EDT) [facility] URIC ACID 6.4 2.4 - 7.0 mg/dL [facility] Blood 10/20/2020 10:3 1 AM EDT 10/20/2020 10:33 AM EDT us Hilda [facility] BLOOD ORDERABLES Final Result Performing Organization Address City/State/[facility] Co de Phone Number [facility] [address] [place] [address] * (ABNORMAL) Lipid panel (10/20/2020 10:31 AM EDT) Pathologist [facility] HDL 54 mg/dL [facility] Comment: Interpretation <40 mg/dL: Low HDL cholesterol (major risk factor for CHD) Greater than or equal to 60 mg/dL: High HDL cholesterol ( negative risk factor for CHD) HDL - cholesterol is affected by a number of factors, e.g. smoking, excerise, hormones, sex and age. CHOLESTEROL 231 0 - 240 mg/dL [facility] TRIGLYCERIDES 136 30 - 160 mg/dL [facility] LDL 150(H) 50 - 129 mg/dL [facility] Comment: LDL levels in terms of risk for coronary heart disease: <100 mg/dL: Optimal 100-129 mg/dL: Near or above optimal 130-159 mg/dL: Borderline high 160-189 mg/dL: High >190 mg/dL: Very High CARDIAC RISK RATIO 4.3 3.3 - 4.4 C [facility] Blood 10/20/2020 10:3 1 AM EDT 10/20/2020 10:33 AM EDT Hilda [facility] BLOOD ORDERABLES Final Result [facility] [address] [place] [address] documented in this encounter Visit Diagnoses Diagnosis [...] documented as of this encounter Care Teams Telephoner Relationship Specialty Start Date End Date Hilda Willams PA [address] [place] [address] PCP - General Unknown Provider Specialty 07/28/20 Anastacia Barron DO [address] [place] [address] PCP - General Internal Medicine 02/01/22 12/26/23 Neli Perry MD [address] [place] [address] [place] [address] PCP - General Family Medicine 12/27/23 Tamera Carreno MD, MPH [address] [address] [email or web address] Primary Oncologist Hematology 09/22/18 Mina David MD [address] [address] Ophthalmology 08/23/19 documented as of this encounter Additional Source Comments The information contained in this document represents components of the legal health record. It is not the complete legal health record.[facility]
--- OUTSIDE RECORDS SUMMARY | 2025-02-25 16:10 | XMS_ITS | Encounter Summary ---
Author Organization [facility] Address Formerly [facility], later [facility] [employer] [address] [place] [address] Phone Care Team Providers Care Mold Repairer Name Role Phone Tamera Carreno MD, MPH Unavailable Mina David MD Unavailable Annabelle Shah MD Primary Care Provider Hilda Willams Primary Care Provider Anastacia Barron DO Primary Care Provider Neli Perry MD Primary Care Provider [phone] Encounter Details Date Type Department Care Team (Late Contact Info) Description 07/21/2020 Procedure Pass [facility] Breast Evaluation Center [address] [facility] [address] [place] [address] Social History Tobacco Use Types Packs/Day Years [...] Encounters Date Type Department Care Team (Late Contact Info) Description 11/16/2024 Procedure Pass [address] [place] [address] 06/14/2025 11:15 AM EST Appointment [address] [place] [address] Neli Perry MD [address] [place] [address] [email or web address] 06/27/2025 1:30 PM EST Appointment [facility] [address] [address] Becca Dickinson MD [address] [place] [phone] [email or web address] 06/27/2025 2:15 PM EST Procedure visit [facility] [address] [address] Becca Dickinson MD [address] [place] [phone] [email or web address] 06/28/2025 12:45 PM EST Appointment [facility] [address] [address] Becca Dickinson MD [address] [place] [phone] [email or web address] 06/28/2025 12:45 PM EST Office Visit [facility] [address] [address] Becca Dickinson MD [address] [place] [phone] [email or web address] 08/15/2025 12:00 PM EST Office Visit [address] [address] Becca Dickinson MD [address] [place] [address] [address] [place] [address] [email or web address] documented as of [...] documented as of this encounter Care Teams Mold Repairer Relationship Specialty Start Date End Date Annabelle Shah MD [address] [place] [address] [place] [address] [email or web address] PCP - General Internal Medicine 01/01/20 07/27/20 Hilda Willams PA [address] [place] [address] PCP - General Unknown Provider Specialty 07/28/20 01/31/22 Anastacia Barron DO [address] [place] [id number] PCP - General Internal Medicine 02/01/22 12/26/23 Neli Perry MD [address] [place] [address] [place] [phone] PCP - General Family Medicine 12/27/23 Tamera Carreno MD, MPH [address] [facility] [address] [place] [address] [email or web address] Primary Oncologist Hematology 09/22/18 Mina David MD [address] [place] [phone] Ophthalmology 08/23/19 documented as of this encounter Additional Source Comments The information contained in this document represents components of the legal health record. It is not the complete legal health record.[facility]
--- OUTSIDE RECORDS SUMMARY | 2025-02-25 16:10 | XMS_ITS | Encounter Summary ---
Author Organization [facility] Address [address] [facility] [address] [place] [address] Phone Care Team Providers Care Online Health And Fitness Coach Name Role Phone Tamera Carreno MD, MPH Unavailable Mina David MD Unavailable Hilda Willams Primary Care Provider Anastacia Barron DO Primary Care Provider [phone] Neli Perry MD Primary Care Provider [phone] Encounter Details Date Type Department Care Team (Latest Contact Info) Description 01/27/2021 Transcribe Orders [address] [place] [address] Izzy Grissom, GIAN [address] [facility] [place] [address] [email or web address] Routine general medical examination at a health care facility (Primary Dx); Type 2 diabetes mellitus without complication, unspecified whether egg processor insulin use Social History Tobacco Use Types [...] st Contact Info) Description 11/16/2024 Procedure Pass [address] [place] [address] 06/14/2025 11:15 AM EST Appointment [address] [place] [address] Neli Perry MD [address] [place] [phone] [email or web address] 06/27/2025 1:30 PM EST Appointment [facility] [address] [address] Becca Dickinson MD [address] [place] [phone] [email or web address] 06/27/2025 2:15 PM EST Procedure visit [address] [address] Becca Dickinson MD [address] [place] [phone] [email or web address] 06/28/2025 12:45 PM EST Appointment [facility] [address] [address] Becca Dickinson MD [address] [place] [phone] [email or web address] 06/28/2025 12:45 PM EST Office Visit [facility] [address] [address] Becca Dickinson MD [address] [place] [phone] [email or web address] 08/15/2025 12:00 PM EST Office Visit [facility] [address] Becca Dickinson MD [address] [place] [phone] [email or web address] documented as of this encounter Results * (ABNORMAL) Hemoglobin A1c (01/27/2021 9:17 AM EDT) HEMOGLOBIN A1C 6.6(H) 4.3 - 5.8 % [facility] Blood 01/27/2021 9:17 AM EDT 01/27/2021 9:22 AM EDT us Izzy Grissom AUT[employer] GARAGE ATTENDANT LAB BLOOD ORDERAB LES Final Result Performing Organization Address City/[facility]/ZIP Co de Phone Number [address] [address] * Uric acid (01/27/2021 9:17 AM EDT) URIC ACID 6.4 2.4 - 7.0 mg/dL [facility] Blood 01/27/2021 9:17 AM EDT 01/27/2021 9:22 AM EDT us Izzy Grissom AUTO GARAGE ATTENDANT LAB BLOOD ORDERAB LES Final Result Performing Organization Address City/[facility]/ZIP Co de Phone Number [address] [address] * (ABNORMAL) Lipid panel (01/27/2021 9:17 AM EDT) HDL 56 mg/dL [facility] Comment: Interpretation <40 mg/dL: Low HDL cholesterol (major risk factor for CHD) Greater than or equal to 60 mg/dL: High HDL cholesterol ( negative risk factor for CHD) HDL - cholesterol is affected by a number of factors, e.g. smoking, excerise, hormones, sex and age. CHOLESTEROL 134 0 - 240 mg/dL [facility] TRIGLYCERIDES 105 30 - 160 mg/dL [facility] LDL 57 50 - 129 mg/dL [facility] Comment: LDL levels in terms of risk for coronary heart disease: <100 mg/dL: Optimal 100-129 mg/dL: Near or above optimal 130-159 mg/dL: Borderline high 160-189 mg/dL: High >190 mg/dL: Very High CARDIAC RISK RATIO 2.4(L) 3.3 - 4.4 C [facility] Blood 01/27/2021 9:17 AM EDT 01/27/2021 9:22 AM EDT us Izzy Grissom AUT[employer] GARAGE ATTENDANT LAB BLOOD ORDERAB LES Final Result Performing Organization Address City/State/[facility] Co de Phone Number [address] [address] documented in this encounter Visit Diagnoses Diagnosis Routine general medical examination at a health care facility- Primary Type 2 diabetes mellitus without complication, unspecified whether egg processor insulin use documented in this encounter Additional Health Concerns Infection Onset Date Last Indicated Resolved Time COVID-19 01/31/2023 01/31/2023 02/21/2023 1:21 AM EDT CoV-Risk Comment:Per note documentation 12/22/2023 12/24/2023 3:36 PM EDT CoV-Risk 03/04/2024 03/04/2024 03/15/2024 1:23 AM EDT Assessment Noted Time PHQ-2 Depression Total Score: 0 08/23/19 10:59 AM EST documented as of this encounter Care Teams Online Health And Fitness Coach Relationship Specialty Start Date End Date Hilda Willams PA [address] [place] [id number] PCP - General Unknown Provider Specialty 07/28/20 Anastacia Barron DO [address] [place] [address] PCP - General Internal Medicine 02/01/22 12/26/23 Neli Perry MD [address] [place] [address] [place] [address] PCP - General Family Medicine 12/27/23 Tamera Carreno MD, MPH [address] [place] [address] [email or web address] Primary Oncologist Hematology 09/22/18 [place] [address] [place] [address] [address] [place] [address] Ophthalmology 08/23/19 documented as of this encounter Additional Source Comments The information contained in this document represents components of the legal health record. It is not the complete legal health record.[facility]
--- OUTSIDE RECORDS SUMMARY | 2025-02-25 16:10 | XMS_ITS | Encounter Summary ---
Author Organization [facility] Address [address] [facility] [address] [place] [address] Phone Care Team Providers Care Fios Line Installer Name Role Phone Tamera Carreno MD, MPH Unavailable [phone] Mina David MD Unavailable Neli Perry MD Primary Care Provider [phone] Encounter Details Date Type Department Care Team (Latest Contact Info) Description 11/16/2024 Transcribe Orders Virtual Department [address] [place] [address] Neli Perry MD [address] [place] [address] [email or web address] Breast screening (Primary Dx) Social History Tobacco Use Types [...] st Contact Info) Description 11/16/2024 Procedure Pass [facility] [address] [place], [place] [address] 06/14/2025 11:15 AM EST Appointment [address] [place] [address] Neli Perry MD [address] [place] [address] [email or web address] 06/27/2025 1:30 PM EST Appointment [facility] [address] [address] Becca Dickinson MD [address] [place] [phone] [email or web address] 06/27/2025 2:15 PM EST Procedure visit [facility] [address] [address] Becca Dickinson MD [address] [place] [phone] [email or web address] 06/28/2025 12:45 PM EST Appointment [facility] [address] [address] Becca Dickinson MD [address] [place] [phone] [email or web address] 06/28/2025 12:45 PM EST Office Visit [facility] [address] [address] Becca Dickinson MD [address] [place] [phone] [email or web address] 08/15/2025 12:00 PM EST Office Visit [facility] [address] [address] Becca Dickinson MD [address] [facility] [address] [place] [address] [email or web address] Scheduled Orders Name Type Priority Associated Diagnoses Orde r Schedule Mammogram Screening (Bilateral) Imaging Routine Breast screening Expected: 11/16/2024, Expires: 11/16/2025 documented as of this encounter Visit Diagnoses Diagnosis Breast screening- Primary Breast screening, unspecified documented in this encounter Additional Health Concerns Assessment Noted Time PHQ-2 Depression Total Score: 0 08/23/19 10:59 AM EST documented as of this encounter Care Teams Fios Line Installer Relationship Specialty Start Date End Date Neli Perry MD [address] [place] [address] [place] [id number] PCP - General Family Medicine 12/27/23 Tamera Carreno MD, MPH [address] [place] [address] [address] [place] [address] [email or web address] Primary Oncologist Hematology 09/22/18 Mina David MD [address] [address] Ophthalmology 08/23/19 documented as of this encounter Additional Source Comments The information contained in this document represents components of the legal health record. It is not the complete legal health record.[facility]
== END 2025-02-25 14:36 | disposition home or self-care (01) ==
LOC: HO.HPS 13:51
PROVIDERS: PCP Family Medicine; Visit Provider Internal Medicine
DX: J45.909 Unspecified asthma, uncomplicated (principal); J30.9 Allergic rhinitis, unspecified
CPT/HCPCS: 94010; 99213

== ENCOUNTER → 2025-02-25 13:50 | Outpatient (BNVA) | payer MEDICARE, OTHER, SELFPAY | PROVIDERS: PCP Family Medicine; Visit Provider Internal Medicine | DX: J45.909 Unspecified asthma, uncomplicated (principal); J30.9 Allergic rhinitis, unspecified | CPT/HCPCS: 94010; 99212 ==